=== PATIENT | female | born 1955 | race Caucasian/White ===

== ENCOUNTER 2017-07-16 16:52 | Inpatient (IN) | payer SELFPAY ==
[2017-07-16] VITALS (7 sets, daily range): BP systolic 178–226; BP diastolic 65–103; PULSE 62–82; RESP 16–18; TEMP 98.4–99; O2SAT 97–100
[~2017-07-16] VITALS: Ht 165.1 cm; Wt 92.8 kg
[~2017-07-16 16:52] MED LIST: DICL-86 PO; Z.0.NO CURRENT MEDS
[2017-07-16] MEDS ORDERED: SODIUM CHLOR 0.9% 1000 ML INJ 1,000 ML IV ONE (17:28)
[2017-07-16] MEDS ORDERED: TETANUS/DIPHTHERIA TOXOID ADULT 0.5 ML VIAL IM ONE (17:30)
[2017-07-16] MEDS ORDERED: SODIUM CHLORIDE 0.9% FLUSH 10 ML FLUSH IVF PRN (17:30)
[2017-07-16] MEDS ORDERED: LABETALOL HCL 100 MG/20 ML VIAL IV PUSH ONE ×2 (17:30→20:45)
--- NOTE | 2017-07-16 17:43 | PD ---
HPI Chief Complaint: dizziness/fall Time Seen by Provider: 17:28 Travel History International Travel<30 days: No Contact w/Intl Traveler<30days: No History of Present Illness HPI 61-year-old female presents to the emergency department via EMS for evaluation after a fall. The patient is alert and oriented to person, place, time. She states she felt dizzy today and was lying in bed. The patient states that she thought she was feeling better so she got up and she fell. She hit her head, but denies LOC. Patient reports 2.5 out of 10 headache from the fall. Patient denies any neck pain or back pain. No chest pain or abdominal pain. No vomiting. Patient states she lives alone. Patient denies any nausea, vomiting , diarrhea. She denies any hip or pelvic pain. Patient is unsure when her last tetanus immunization was. Patient is a poor historian. She is quite hypertensive on arrival. She does not follow with a personal physician. She denies any chest pain or shortness of breath. Moderate severity. [facility] Past Medical History Menopausal: Yes Social History Alcohol Use: Yes (2 TIMES A YEAR) Tobacco Use: No Substance Use: No Allergies-Medications (Allergen,Severity, Reaction): Coded Allergies: No Known Allergies (Verified Allergy, Mild, 08/15/07) Reported Meds & Prescriptions Reported Meds & Active Scripts Active Review of Systems Except as stated in HPI: all other systems reviewed are Neg Physical Exam Exam Limitations: Poor Historian Narrative GENERAL: Well-nourished, well-developed female patient, afebrile. Patient is alert oriented to person, place, time. SKIN: Focused skin assessment warm/dry. Patient has abrasions to the forehead, nose, cheek. HEAD: Normocephalic. EYES: No scleral icterus. No injection or drainage. PERRLA. ENT: Mucosa pink and moist. No erythema or exudates. No uvular edema. No uvular , palatal, or tonsillar deviation. Airway patent. Nasal turbinates appear normal without nasal blood, purulent drainage or septal hematoma. Bilateral tympanic membranes clear without erythema or perforation. NECK: Supple, trachea midline. No JVD or lymphadenopathy. CARDIOVASCULAR: Regular rate and rhythm without murmurs, gallops, or rubs. Bilateral radial and pedal pulses are 2+. RESPIRATORY: Breath sounds equal bilaterally. No accessory muscle use. Lung sounds are clear to auscultation. GASTROINTESTINAL: Abdomen soft, non-tender, nondistended. MUSCULOSKELETAL: No cyanosis, or edema. No bony point tenderness. Bilateral upper and lower extremity strength 5/5. All extremities are neurovascularly intact. BACK: Nontender without obvious deformity. No CVA tenderness. NEUROLOGICAL: Awake and alert. Cranial nerves II through XII intact. Motor and sensory grossly within normal limits. Five out of 5 muscle strength in all muscle groups. Normal speech. Finger to nose is normal bilaterally. [id number] is normal bilaterally. Data Data Last Documented VS Vital Signs Date Time Temp Pulse Resp B/P (MAP) Pulse Ox O2 Delivery O2 Flow Rate FiO2 07/16/17 20:39 82 16 210/99 (136) 100 Room Air 07/16/17 18:25 98.4 Orders Orders Electrocardiogram (07/16/17 17:28) Complete Blood Count With Diff (07/16/17 17:) Comprehensive Metabolic Panel (07/16/17:) Magnesium (Mg) (07/16/17:) Ckmb (Isoenzyme) Profile (07/16/17 17:28) Troponin I (07/16/17 17:28) Act Partial Throm Time (Ptt) (07/16/17:) Prothrombin Time / Inr (Pt) (07/16/17 17:) Urinalysis - C+S If Indicated (07/16/17 17:28) Chest, Single Ap (07/16/17 17:28) Ct Brain W/O Iv Contrast(Rout) (07/16/17 17:28) Ct Cerv Spine W/O Contrast (07/16/17 17:28) Blood Glucose (07/16/17 17:28) Ecg Monitoring (07/16/17 17:28) Iv Access Insert/Monitor (07/16/17:) Oximetry (07/16/17 17:) Sodium Chloride 0.9% Flush (Ns Flush) (07/16/17 17:30) Sodium Chlor 0.9% 1000 Ml Inj (Ns 1000 M (07/16/17 17:28) Ct Facial Bones W/O Iv Cont (07/16/17 ) Tetanus/Diphtheria Tox Adult (Tetanus/Di (07/16/17 17:30) Labetalol Inj (Trandate Inj) (07/16/17 17:30) Urine Culture (07/16/17 18:18) CKMB (07/16/17 18:18) CKMB% (07/16/17 18:18) Hydralazine Inj (Apresoline Inj) (07/16/17 20:45) Labetalol Inj (Trandate Inj) (07/16/17 20:45) Ceftriaxone Inj (Rocephin Inj) (07/16/17 20:45) Admit Order (Ed Use Only) (07/16/17 20:44) Labs Laboratory Tests Test 07/16/17 18:18 White Blood Count 9.1 TH/MM3 Red Blood Count 4.19 MIL/MM3 Hemoglobin 12.7 GM/DL Hematocrit 37.1 % Mean Corpuscular Volume 88.5 FL Mean Corpuscular Hemoglobin 30.3 PG Mean Corpuscular Hemoglobin Concent 34.2 % Red Cell Distribution Width 13.7 % Platelet Count 299 TH/MM3 Mean Platelet Volume 8.4 FL Neutrophils (%) (Auto) 80.9 % Lymphocytes (%) (Auto) 13.7 % Monocytes (%) (Auto) 4.8 % Eosinophils (%) (Auto) 0.3 % Basophils (%) (Auto) 0.3 % Neutrophils # (Auto) 7.4 TH/MM3 Lymphocytes # (Auto) 1.2 TH/MM3 Monocytes # (Auto) 0.4 TH/MM3 Eosinophils # (Auto) 0.0 TH/MM3 Basophils # (Auto) 0.0 TH/MM3 CBC Comment DIFF FINAL Differential Comment Prothrombin Time 10.3 SEC Prothromb Time International Ratio 1.0 RATIO Activated Partial Thromboplast Time 28.0 SEC Urine Color LIGHT-YELLOW Urine Turbidity HAZY Urine pH 5.5 Urine Specific [place] 1.019 Urine Protein 300 mg/dL Urine Glucose (UA) NEG mg/dL Urine Ketones NEG mg/dL Urine Occult Blood SMALL Urine Nitrite POS Urine Bilirubin NEG Urine Urobilinogen LESS THAN 2.0 MG/DL Urine Leukocyte Esterase LARGE Urine RBC 1 /hpf Urine WBC 111 /hpf Urine Squamous Epithelial Cells 3 /hpf Urine Bacteria MANY /hpf Urine Hyaline Casts 3 /lpf Urine Mucus FEW /lpf Microscopic Urinalysis Comment CULTURE INDICATED Blood Urea Nitrogen 26 MG/DL Creatinine 1.48 MG/DL Random Glucose 95 MG/DL Total Protein 7.9 GM/DL Albumin 3.7 GM/DL Calcium Level 9.1 MG/DL Magnesium Level 1.9 MG/DL Alkaline Phosphatase 116 U/L Aspartate Amino Transf (AST/SGOT) 17 U/L Alanine Aminotransferase (ALT/SGPT) 15 U/L Total Bilirubin 0.3 MG/DL Sodium Level 141 MEQ/L Potassium Level 3.5 MEQ/L Chloride Level 109 MEQ/L Carbon Dioxide Level 22.6 MEQ/L Anion Gap 9 MEQ/L Estimat Glomerular Filtration Rate 36 ML/MIN Total Creatine Kinase 132 U/L Creatine Kinase MB 1.3 NG/ML Troponin I LESS THAN 0.02 NG/ML MDM Medical Decision Making Medical Screen Exam Complete: Yes Emergency Medical Condition: Yes Medical Record Reviewed: Yes Interpretation(s) Last Impressions Head CT 07/16/[id number] Signed Impressions: Service Date/Time: Sunday, July 16, 2017 19:21 - CONCLUSION: 1. No acute intracranial abnormality seen. There are multiple old lacunar infarcts. 2. Right frontal scalp injury/hematoma with right periorbital soft tissue swelling and nasal bone fractures with leftward deviation of the fragments. Jerardo Rogers MD Chest X-Ray [id number]/16/[id number] Signed Impressions: Service Date/Time: Sunday, July 16, 2017 17:36 - CONCLUSION: No acute disease. Gilberto Vergara MD Cervical Spine CT [id number]/[id number] Signed Impressions: Service Date/Time: Sunday, July 16, 2017 19:21 - CONCLUSION: 1. No acute bony abnormality is seen. 2. Facet hypertrophy throughout. Jerardo Rogers MD Maxillofacial CT 07/16/17 0000 Signed Impressions: Service Date/Time: Sunday, July 16, 2017 19:21 - CONCLUSION: 1. Nasal bone fractures. 2. Right frontal scalp swelling and hematoma. 3. Right periorbital soft tissue swelling. Jerardo Rogers MD Differential Diagnosis Closed head injury versus intracranial hemorrhage versus hypertension versus hypertensive emergency versus electrolyte abnormality versus ACS Narrative Course 61-year-old female presents to the emergency department for evaluation for dizziness and a fall. Patient is quite hypertensive via EMS and on arrival. She has no complaints other than a mild headache. She does have abrasions to the face. She does not know when her last tetanus immunization was. EKG, CBC, CMP, magnesium, CK, troponin, PTT, PT/INR, UA are ordered and pending. CT of the brain, CT cervical spine, CT the facial bones are ordered and pending. Chest x-ray is ordered and pending. Tetanus immunization is updated. Patient is given normal saline 1 L IV bolus, labetalol 10 mg IV for hypertension. EKG shows sinus rhythm, heart rate 76. CBC shows no acute abnormality. CMP shows BUN 26, creatinine 1.48. Magnesium is 1.9. CK is 132. Troponin is less than 0.02. Coags are unremarkable. UA shows large leukocyte Estrace, 111 WBC, many bacteria. CT of the brain shows no acute intracranial abnormality, multiple old lucent R infarcts, right frontal scalp injury/hematoma with right periorbital soft tissue swelling and nasal bone fractures with leftward deviation of the fragment. CT of the cervical spine shows no acute bony abnormality. CT of the facial bones shows nasal bone fractures, right frontal scalp swelling and hematoma, right periorbital soft tissue swelling. Chest x- ray shows no acute disease. Patient is unable to ambulate in the emergency department and is very unsteady on her feet. Patient will be admitted. Dr. Acosta accepted admission. Diagnosis Primary Impression: Dizziness Additional Impressions: Closed head injury Qualified Codes: S09.90XA - Unspecified injury of head, initial encounter Nasal bone fracture Qualified Codes: S02.2XXA - Fracture of nasal bones, initial encounter for closed fracture Unsteady gait Hypertension Qualified Codes: I10 - Essential (primary) hypertension Admitting Information Admitting Physician Requests: Admit Yue Nguyen July 16, 2017 17:43
--- NOTE | 2017-07-16 17:49 | RADRPT ---
EXAM DATE/TIME: 07/16/2017 17:36 [facility] COMPARISON: No previous studies available for comparison. INDICATIONS : Shortness of breath and dizziness post fall. MEDICAL HISTORY : None. SURGICAL HISTORY : None. ENCOUNTER: Initial ACUITY: 1 day PAIN SCORE: 0/10 LOCATION: chest FINDINGS: A single view of the chest demonstrates the lungs to be symmetrically aerated without evidence of mas s, infiltrate or effusion. The cardiomediastinal contours are unremarkable. Osseous structures are intact. CONCLUSION: No acute disease. Gilberto Vergara MD on July 16, 2017 at 17:47 Board Certified Radiologist. This report was verified electronically.
[2017-07-16 18:37] LABS: AUTOMATED NEUTROPHIL # 7.4 TH/MM3 (1.8-7.7); BASOPHIL % 0.3 % (0.0-2.0); EOSINOPHIL % 0.3 % (0.0-4.0); HEMATOCRIT 37.1 % (35.0-46.0); HEMOGLOBIN 12.7 GM/DL (11.6-15.3); LYMPH % 13.7 % (9.0-44.0); LYMPHOCYTE # 1.2 TH/MM3 (1.0-4.8); MEAN CELL VOLUME 88.5 FL (80.0-100.0); MEAN CORPUSCULAR HEMOGLOBIN 30.3 PG (27.0-34.0); MEAN CORPUSCULAR HGB CONC 34.2 % (32.0-36.0); MEAN PLATELET VOLUME 8.4 FL (7.0-11.0); MONO % 4.8 % (0.0-8.0); MONOCYTE # 0.4 TH/MM3 (0-0.9); NEUT % 80.9 % (16.0-70.0); PLATELET COUNT 299 TH/MM3 (150-450); RED BLOOD COUNT 4.19 MIL/MM3 (4.00-5.30); RED CELL DISTRIBUTION WIDTH 13.7 % (11.6-17.2); WHITE BLOOD COUNT 9.1 TH/MM3 (4.0-11.0)
[2017-07-16 18:46] LABS: BACTERIA, URINE MANY /hpf; BILIRUBIN, URINE NEG (NEG); BLOOD, URINE SMALL (NEG); GLUCOSE,URINE NEG (NEG); HYALINE CAST, URINE 3 /lpf (RARE); KETONE, URINE NEG (NEG); MUCUS URINE FEW /lpf (OCC); NITRITE,URINE POS (NEG); PH, URINE 5.5 (5.0-8.5); SQUAMOUS EPITHELIAL CELL URINE 3 /hpf (0-5); URINE COLOR LIGHT-YELLOW (YELLW/STRAW); URINE LEUKOCYTE ESTERASE LARGE (NEG)
[2017-07-16 18:53] LABS: PROTHROMBIN TIME - PATIENT 10.3 SEC (9.8-11.6)
[2017-07-16 18:59] LABS: ALBUMIN 3.7 GM/DL (3.4-5.0); AST (GOT) 17 U/L (15-37); BICARBONATE 22.6 MEQ/L (21.0-32.0); BLOOD UREA NITROGEN 26 MG/DL (7-18); CALCIUM 9.1 MG/DL (8.5-10.1); CHLORIDE 109 MEQ/L (98-107); CREATININE 1.48 MG/DL (0.50-1.00); GLOMERULAR FILTRATION RATE 36 ML/MIN (>89); GLUCOSE,RANDOM 95 MG/DL (74-106); MAGNESIUM 1.9 MG/DL (1.5-2.5); SODIUM (NA) 141 MEQ/L (136-145)
[2017-07-16 19:00] LABS: ALT (GPT) 15 U/L (10-53)
[2017-07-16 19:04] LABS: ALKALINE PHOSPHATASE 116 U/L (45-117); TOTAL BILIRUBIN ADULT 0.3 MG/DL (0.2-1.0); TOTAL PROTEIN 7.9 GM/DL (6.4-8.2); TROPONIN I LESS THAN 0.02 NG/ML (0.02-0.05)
--- NOTE | 2017-07-16 20:26 | RADRPT ---
EXAM DATE/TIME: 07/16/2017 19:21 [facility] COMPARISON: No previous studies available for comparison. INDICATIONS : Trauma; fall. RADIATION DOSE: 56.35 CTDIvol (mGy) MEDICAL HISTORY : None SURGICAL HISTORY : None. ENCOUNTER: Initial ACUITY: 1 day PAIN SCALE: 5/10 LOCATION: cranial TECHNIQUE: Multiple contiguous axial images were obtained of the head. Using automated exposure control and adj ustment of the mA and/or kV according to patient size, radiation dose was kept as low as reasonably a chievable to obtain optimal diagnostic quality images. DICOM format image data is available electro nically for review and comparison. FINDINGS: CEREBRUM: The ventricles are normal for age. There is decreased density seen in the cerebral white matter. Old lacunar infarct is seen at the caudate nuclei bilaterally, at the bilateral thalamus, at the genu of the internal capsule on the left, and at the basal ganglia regions. No evidence of midline shift, ma ss lesion, hemorrhage or acute infarction. No extra-axial fluid collections are seen. POSTERIOR FOSSA: The cerebellum and brainstem are intact. The 4th ventricle is midline. The cerebellopontine angle i s unremarkable. EXTRACRANIAL: The visualized portion of the orbits is intact. There are nasal bone fractures with some leftward ang ulation of the fracture fragments. There is a right frontal scalp injury/hematoma seen. There is a ri ght periorbital soft tissue swelling. There is left maxillary sinus disease. SKULL: The calvaria is intact. No evidence of skull fracture. CONCLUSION: 1. No acute intracranial abnormality seen. There are multiple old lacunar infarcts. 2. Right frontal scalp injury/hematoma with right periorbital soft tissue swelling and nasal bone fra ctures with leftward deviation of the fragments. Jerardo Rogers MD on July 16, 2017 at 20:21 Board Certified Radiologist. This report was verified electronically.
--- NOTE | 2017-07-16 20:30 | RADRPT ---
EXAM DATE/TIME: 07/16/2017 19:21 [facility] COMPARISON: No previous studies available for comparison. INDICATIONS : Trauma; fall. RADIATION DOSE: 20.37 CTDIvol (mGy) MEDICAL HISTORY : None SURGICAL HISTORY : None. ENCOUNTER: Initial ACUITY: 1 day PAIN SCALE: 5/10 LOCATION: Bilateral cranial TECHNIQUE: Volumetric scanning of the cervical spine was performed. Multiplanar reconstructions in the sagittal, coronal and oblique axial planes were performed. Using automated exposure control and adjustment o f the mA and/or kV according to patient size, radiation dose was kept as low as reasonably achievable to obtain optimal diagnostic quality images. DICOM format image data is available electronically f or review and comparison. FINDINGS: VERTEBRAE: Normal vertebral body height. Minimal anterior marginal osteophytes are seen. ALIGNMENT: No evidence of subluxation. C2-C3: The bony spinal canal is normal in size. No evidence of disc bulge or herniation. The neural forami na are bilaterally patent. There is bilateral facet hypertrophy being worse on the left. C3-C4: The bony spinal canal is normal in size. No evidence of disc bulge or herniation. The neural forami na are bilaterally patent. There is bilateral facet hypertrophy being worse on the left. C4-C5: The bony spinal canal is normal in size. No evidence of disc bulge or herniation. The neural forami na are bilaterally patent. There is bilateral facet hypertrophy. C5-C6: The bony spinal canal is normal in size. No evidence of disc bulge or herniation. The neural forami na are bilaterally patent. There is bilateral facet hypertrophy being worse on the left. C6-C7: The bony spinal canal is normal in size. No evidence of disc bulge or herniation. The neural forami na are bilaterally patent. There is bilateral facet hypertrophy being worse on the left. There is unc overtebral hypertrophy being worse on the right. C7-T1: The bony spinal canal is normal in size. No evidence of disc bulge or herniation. The neural forami na are bilaterally patent. There is bilateral facet hypertrophy being worse on the left. CONCLUSION: 1. No acute bony abnormality is seen. 2. Facet hypertrophy throughout. Jerardo Rogers MD on July 16, 2017 at 20:24 Board Certified Radiologist. This report was verified electronically.
--- NOTE | 2017-07-16 20:33 | RADRPT ---
EXAM DATE/TIME: 07/16/2017 19:21 [facility] COMPARISON: No previous studies available for comparison. INDICATIONS : Trauma; fall. RADIATION DOSE: 21.06 CTDIvol (mGy) MEDICAL HISTORY : None SURGICAL HISTORY : None. ENCOUNTER: Initial ACUITY: 1 day PAIN SCORE: 5/10 LOCATION: Bilateral facial TECHNIQUE: Volumetric scanning of the facial bones was performed. Using automated exposure control and adjustme nt of the mA and/or kV according to patient size, radiation dose was kept as low as reasonably achiev able to obtain optimal diagnostic quality images. DICOM format image data is available electronicall y for review and comparison. FINDINGS: ORBITS: There is right periorbital soft tissue swelling. The orbital and infraorbital osseous structures are intact. The retroconal structures have a normal configuration. No radiopaque foreign bodies are see n. NASAL BONE: There is fracturing of the nasal bones with leftward angulation of the fracture fragments. ZYGOMATIC ARCHES: Symmetric without evidence of fracture. SINUSES: There is focal left maxillary sinus disease. The right maxillary, ethmoid and frontal sinuses are int act. No air-fluid levels seen. NASAL CAVITY: Nasal septum is mildly deviated to the right. SOFT TISSUES: There is soft tissue swelling and hematoma over the right frontal scalp region and right periorbital soft tissue swelling. There is soft tissue swelling of the nose. INTRACRANIAL: No intracranial air seen. CRIBIFORM PLATE: Grossly intact. CONCLUSION: 1. Nasal bone fractures. 2. Right frontal scalp swelling and hematoma. 3. Right periorbital soft tissue swelling. Jerardo Rogers MD on July 16, 2017 at 20:28 Board Certified Radiologist. This report was verified electronically.
[2017-07-16] MEDS ORDERED: hydrALAZINE HCL 20 MG/ML VIAL IV PUSH ONE (20:45)
[2017-07-16] MEDS ORDERED: cefTRIAXone INJ 1,000 MG in SODIUM CHLORIDE 0.9% INJ 100 ML IV ONE (20:45)
[2017-07-16] MEDS ORDERED: GADODIAMIDE PF 287 MG/ML 5 ML VIAL (for RAD MRI) IVCONTRAST ONE (20:47)
[2017-07-16] MEDS: SODIUM CHLORIDE 0.9% FLUSH 10 ML FLUSH IV FLUSH SCH (21:00)
[2017-07-16] MEDS ORDERED: SODIUM CHLORIDE 0.9% FLUSH 10 ML FLUSH IV FLUSH PRN (21:00)
[2017-07-16] MEDS ORDERED: SENNOSIDES 8.6 MG TAB PO PRN (21:00)
[2017-07-16] MEDS ORDERED: ACETAMINOPHEN 325 MG TAB PO PRN (21:00)
[2017-07-16] MEDS ORDERED: LACTULOSE SYRUP 20 GM/30 ML CUP PO PRN (21:00)
[2017-07-16] MEDS ORDERED: BISACODYL 10 MG SUPP RECTAL PRN (21:00)
[2017-07-16] MEDS: DOCUSATE SODIUM 50 MG/SENNA 8.6 MG TAB PO SCH (21:00)
[2017-07-16] MEDS ORDERED: ACETAMINOPHEN/HYDROcodone 325 MG/10 MG TAB PO PRN (21:00)
[2017-07-16] MEDS ORDERED: MAGNESIUM HYDROXIDE SUSP 30 ML CUP PO PRN (21:00)
[2017-07-16] MEDS ORDERED: METOCLOPRAMIDE HCL 10 MG/2 ML VIAL IV PUSH PRN (21:00)
--- NOTE | 2017-07-16 21:03 | HHI.HP ---
[facility] No Primary Care Physician Admission Diagnosis Dizziness, nasal fracture, UTI, HTN Diagnoses: (1) Fall Diagnosis: Principal (2) Dizziness Diagnosis: Principal (3) Nasal bone fracture Diagnosis: Principal (4) UTI (urinary tract infection) Diagnosis: Principal (5) Renal insufficiency Diagnosis: Principal Travel History International Travel<30 Days: No Contact w/Intl Traveler <30 Da: No Traveled to Known Affected Are: No History of Present Illness This is a 61-year-old female with a PMH of HTN was brought to the ER by EMS after a fall. Patient is very poor historian, questionable underling psych/ cognitive disorder, states "we've been having dizziness for 10yrs", when I asked her who "we" was, she said "me, myself and I". Pt states today she got dizzy and went to bed, when she woke up she tried to get out of bed and fell. + facial injury. Denies LOC. On arrival, BP 226/103, HR 81, O2 sat 99% on RA, Afebrile. CBC unremarkable. Creatinine 1.48, no previous labs for comparison. INR 1.0. UA positive for UTI. CT Head with no acute intracranial findings, multiple old lacunar infarcts, right frontal scalp hematoma/injury, nasal bone fractures with leftward deviation of fragments. CT C-spine with no acute findings. CT Maxillofacial with nasal bone fractures, right frontal scalp swelling and hematoma, right periorbital soft tissue swelling. CXR with no acute findings. S/p Rocephin in ER Review of Systems Except as stated in HPI: all other systems reviewed are Neg ROS: 14 point review of systems otherwise negative. Past Family Social History Past Medical History PMH: HTN Past Surgical History PAST SURGICAL HISTORY: None Allergies: Coded Allergies: No Known Allergies (Verified Allergy, Mild, 08/15/07) Family History PAST FAMILY HISTORY: Reviewed. No h/o DM or CAD Social History PAST SOCIAL HISTORY: Occasional alcohol. Negative for tobacco or drugs. Physical Exam Vital Signs Vital Signs Date Time Temp Pulse Resp B/P (MAP) Pulse Ox O2 Delivery O2 Flow Rate FiO2 5/18/18 20:51 71 16 178/65 (102) 98 Room Air 07/16/17 20:39 82 16 210/99 (136) 100 Room Air 07/16/17 19:38 79 16 194/93 (126) 98 Room Air 07/16/17 18:39 79 18 202/98 (132) 98 Room Air 07/16/17 18:35 79 18 97 Room Air 07/16/17 18:25 98.4 81 18 226/103 (144) 99 Room Air 07/16/17 18:24 18 98 Room Air Physical Exam PE: GENERAL: Pleasant middle-aged white female in no acute distress. HEENT: PERRLA, EOMI. No scleral icterus or conjunctival pallor. No lid lag or facial droop. Right-sided facial hematoma with periorbital swelling CARDIOVASCULAR: Regular rate and rhythm. No obvious murmurs to auscultation. No chest tenderness to palpation. RESPIRATORY: No obvious rhonchi or wheezing. Clear to auscultation. Breath sounds equal bilaterally. GASTROINTESTINAL: Abdomen soft, non-tender, nondistended. BS normal. MUSCULOSKELETAL: Extremities without clubbing, cyanosis, or edema. No obvious deformities. NEUROLOGICAL: Awake, alert and oriented x4. No focal neurologic deficits. Moving both upper and lower extremities spontaneously. Laboratory Laboratory Tests Test 07/16/17 18:18 White Blood Count 9.1 Red Blood Count 4.19 Hemoglobin 12.7 Hematocrit 37.1 Mean Corpuscular Volume 88.5 Mean Corpuscular Hemoglobin 30.3 Mean Corpuscular Hemoglobin Concent 34.2 Red Cell Distribution Width 13.7 Platelet Count 299 Mean Platelet Volume 8.4 Neutrophils (%) (Auto) 80.9 Lymphocytes (%) (Auto) 13.7 Monocytes (%) (Auto) 4.8 Eosinophils (%) (Auto) 0.3 Basophils (%) (Auto) 0.3 Neutrophils # (Auto) 7.4 Lymphocytes # (Auto) 1.2 Monocytes # (Auto) 0.4 Eosinophils # (Auto) 0.0 Basophils # (Auto) 0.0 CBC Comment DIFF FINAL Differential Comment Prothrombin Time 10.3 Prothromb Time International Ratio 1.0 Activated Partial Thromboplast Time 28.0 Urine Color LIGHT-YELLOW Urine Turbidity HAZY Urine pH 5.5 Urine Specific [place] 1.019 Urine Protein 300 Urine Glucose (UA) NEG Urine Ketones NEG Urine Occult Blood SMALL Urine Nitrite POS Urine Bilirubin NEG Urine Urobilinogen LESS THAN 2.0 Urine Leukocyte Esterase LARGE Urine RBC 1 Urine WBC 111 Urine Squamous Epithelial Cells 3 Urine Bacteria MANY Urine Hyaline Casts 3 Urine Mucus FEW Microscopic Urinalysis Comment CULTURE INDICATED Blood Urea Nitrogen 26 Creatinine 1.48 Random Glucose 95 Total Protein 7.9 Albumin 3.7 Calcium Level 9.1 Magnesium Level 1.9 Alkaline Phosphatase 116 Aspartate Amino Transf (AST/SGOT) 17 Alanine Aminotransferase (ALT/SGPT) 15 Total Bilirubin 0.3 Sodium Level 141 Potassium Level 3.5 Chloride Level 109 Carbon Dioxide Level 22.6 Anion Gap 9 Estimat Glomerular Filtration Rate 36 Total Creatine Kinase 132 Creatine Kinase MB 1.3 Troponin I LESS THAN 0.02 Date/Time Source Procedure Growth Status 07/16/17 18:18 Urine Random Urine Urine Culture Pending Worksheet Result Diagram: 07/16/17181707/16/171817 Caprini VTE Risk Assessment Caprini VTE Risk Assessment: No/Low Risk (score <= 1) Caprini Risk Assessment Model Point Value = 1 Point Value = 2 Point Value = 3 Point Value = 5 Age 41-60 Minor surgery BMI > 25 kg/m2 Swollen legs Varicose veins or History of unexplained or recurrent spontaneous Oral contraceptives or hormone replacement Sepsis (< 1 month) Serious lung disease, including pneumonia (< 1 month) Abnormal pulmonary function Acute myocardial infarction Congestive heart failure (< 1 month) History of inflammatory bowel disease Medical patient at bed rest Age 61-74 Arthroscopic surgery Major open surgery (> 45 min) Laparoscopic surgery (> 45 min) Malignancy Confined to bed (> 72 hours) Immobilizing plaster cast Central venous access Age >= 75 History of VTE Family history of VTE Factor V Leiden Prothrombin [id number] Lupus anticoagulant Anticardiolipin antibodies Elevated serum homocysteine Heparin-induced thrombocytopenia Other congenital or acquired thrombophilia Stroke (< 1 month) Elective arthroplasty Hip, pelvis, or leg fracture Acute spinal cord injury (< 1 month) Prophylaxis Regimen Total Risk Factor Score Risk Level Prophylaxis Regimen 0-1 Low Early ambulation 2 Moderate Order ONE of the following: *Sequential Compression Device (SCD) *Heparin 5000 units SQ BID 3-4 Higher Order ONE of the following medications: *Heparin 5000 units SQ TID *Enoxaparin/Lovenox 40 mg SQ daily (WT < 150 kg, CrCl > 30 mL/min) *Enoxaparin/Lovenox 30 mg SQ daily (WT < 150 kg, CrCl > 10-29 mL/min) *Enoxaparin/Lovenox 30 mg SQ BID (WT < 150 kg, CrCl > 30 mL/min) AND/OR *Sequential Compression Device (SCD) 5 or more Highest Order ONE of the following medications: *Heparin 5000 units SQ TID (Preferred with Epidurals) *Enoxaparin/Lovenox 40 mg SQ daily (WT < 150 kg, CrCl > 30 mL/min) *Enoxaparin/Lovenox 30 mg SQ daily (WT < 150 kg, CrCl > 10-29 mL/min) *Enoxaparin/Lovenox 30 mg SQ BID (WT < 150 kg, CrCl > 30 mL/min) AND *Sequential Compression Device (SCD) Assessment and Plan Problem List: (1) Fall ICD Code: W19.XXXA - Unspecified fall, initial encounter (2) Dizziness ICD Code: R42 - Dizziness and giddiness Status: Acute (3) Nasal bone fracture ICD Code: S02.2XXA - Fracture of nasal bones, initial encounter for closed fracture Status: Acute (4) Renal insufficiency ICD Code: N28.9 - Disorder of kidney and ureter, unspecified (5) UTI (urinary tract infection) ICD Code: N39.0 - Urinary tract infection, site not specified Assessment and Plan A/P: 1. Fall: reports all at home while getting out of bed, +facial injury. CT Head w/ no acute intracranial findings, CT C-Spine negative for acute fracture. 2. Dizziness: reports dizziness for years, today worse. CT Head w/ no acute findings, old lacunar infarcts. Dizziness possibly compounded by acute UTI/ dehydration. PT for eval/tx. 3. Nasal Bone Fx: CT Maxillofacial w/ nasal bone fractures and leftward deviation of fragments, images reviewed by me. Non-emergent intervention, will consult ENT in am for further evaluation. 4. HTN: Uncontrolled. BP 226/103, HR 81, s/p Labetalol and Hydralazine IV in ER, will monitor BP, antihypertensives as needed for BP >180 5. UTI: U/a w/ UTI, s/p Rocephin, continue w/ IV Abx, follow up cultures, IVF for hydration. 6. Renal Insufficiency: Creatinine 1.48, no previous labs for comparison, presumably new. IVF for hydration, repeat labs in a.m. 7. DVT Prophylaxis: SCDs/teds. 8. Social work for DC planning as needed. 9. Case discussed at length with the ER physician, lab/record/imaging reviewed by me. Problem Qualifiers (1) Nasal bone fracture: Qualified Codes: S02.2XXA - Fracture of nasal bones, initial encounter for closed fracture Elena Acosta MD July 16, 2017 21:03
[2017-07-16] MEDS: METOPROLOL TARTRATE 25 MG TAB PO SCH (21:30)
[2017-07-16] MEDS: ACETAMINOPHEN/HYDROcodone 325 MG/5 MG TAB PO PRN (21:31)
[2017-07-16] MEDS: SODIUM CHLOR 0.9% 1000 ML INJ 1,000 ML IV SCH (21:31)
[2017-07-16] MEDS: cloNIDine HCL 0.1 MG TAB PO PRN (23:05)
[2017-07-17] VITALS (7 sets, daily range): BP systolic 142–209; BP diastolic 66–94; PULSE 16–59; RESP 16–18; TEMP 98–98.4; O2SAT 96–99
[2017-07-17] MEDS: SODIUM CHLOR 0.9% 1000 ML INJ 1,000 ML IV SCH ×2 (06:02→17:00)
--- NOTE | 2017-07-17 07:58 | PD.CONS ---
History of Present Illness Service ENT Consult Requested By ED Reason for Consult Non-displaced nasal fracture Primary Care Physician No Primary Care Physician Diagnoses: History of Present Illness 61 year old female. Poor historian. History mostly from record. Fell. terminal manager imbalance. Patient does notdescribe any true vertigo. Facial injury. Minimally displaced nasal bone fracture per CT scan. No reports of vertigo now. Review of Systems Ears, nose, mouth, throat: DENIES: Nasal discharge, Oral lesions, Epistaxis Past Family Social History Allergies: Coded Allergies: No Known Allergies (Verified Allergy, Mild, 08/15/07) Physical Exam Vital Signs Vital Signs Date Time Temp Pulse Resp B/P (MAP) Pulse Ox O2 Delivery O2 Flow Rate FiO2 07/17/17 03:37 98.1 54 17 142/66 (91) 99 07/16/17 22:51 99.0 62 18 200/96 (130) 97 07/16/17 20:51 71 16 178/65 (102) 98 Room Air 07/16/17 20:39 82 16 210/99 (136) 100 Room Air 07/16/17 19:38 79 16 194/93 (126) 98 Room Air 07/16/17 18:39 79 18 202/98 (132) 98 Room Air 07/16/17 18:35 79 18 97 Room Air 07/16/17 18:25 98.4 81 18 226/103 (144) 99 Room Air 07/16/17 18:24 18 98 Room Air Physical Exam GENERAL: This is a well-nourished, well-developed patient, in no apparent distress. SKIN: No rashes, ecchymoses or lesions. Cool and dry. HEAD: Left forehead abrasion and hematoma. Normocephalic. EYES: Pupils equal round and reactive. Extraocular motions intact. No scleral icterus. No injection or drainage. ENT: Nose without bleeding, purulent drainage or septal hematoma. Nasal bone projection is WNL. Old septal deviation. Throat without erythema, tonsillar hypertrophy or exudate. Uvula midline. Airway patent. NECK: Trachea midline. No JVD or lymphadenopathy. Supple, nontender, no meningeal signs. NEUROLOGICAL: Awake and alert. Normal speech. Laboratory Laboratory Tests Test 07/16/17 18:18 White Blood Count 9.1 Red Blood Count 4.19 Hemoglobin 12.7 Hematocrit 37.1 Mean Corpuscular Volume 88.5 Mean Corpuscular Hemoglobin 30.3 Mean Corpuscular Hemoglobin Concent 34.2 Red Cell Distribution Width 13.7 Platelet Count 299 Mean Platelet Volume 8.4 Neutrophils (%) (Auto) 80.9 Lymphocytes (%) (Auto) 13.7 Monocytes (%) (Auto) 4.8 Eosinophils (%) (Auto) 0.3 Basophils (%) (Auto) 0.3 Neutrophils # (Auto) 7.4 Lymphocytes # (Auto) 1.2 Monocytes # (Auto) 0.4 Eosinophils # (Auto) 0.0 Basophils # (Auto) 0.0 CBC Comment DIFF FINAL Differential Comment Prothrombin Time 10.3 Prothromb Time International Ratio 1.0 Activated Partial Thromboplast Time 28.0 Urine Color LIGHT-YELLOW Urine Turbidity HAZY Urine pH 5.5 Urine Specific [place] 1.019 Urine Protein 300 Urine Glucose (UA) NEG Urine Ketones NEG Urine Occult Blood SMALL Urine Nitrite POS Urine Bilirubin NEG Urine Urobilinogen LESS THAN 2.0 Urine Leukocyte Esterase LARGE Urine RBC 1 Urine WBC 111 Urine Squamous Epithelial Cells 3 Urine Bacteria MANY Urine Hyaline Casts 3 Urine Mucus FEW Microscopic Urinalysis Comment CULTURE INDICATED Blood Urea Nitrogen 26 Creatinine 1.48 Random Glucose 95 Total Protein 7.9 Albumin 3.7 Calcium Level 9.1 Magnesium Level 1.9 Alkaline Phosphatase 116 Aspartate Amino Transf (AST/SGOT) 17 Alanine Aminotransferase (ALT/SGPT) 15 Total Bilirubin 0.3 Sodium Level 141 Potassium Level 3.5 Chloride Level 109 Carbon Dioxide Level 22.6 Anion Gap 9 Estimat Glomerular Filtration Rate 36 Total Creatine Kinase 132 Creatine Kinase MB 1.3 Troponin I LESS THAN 0.02 Date/Time Source Procedure Growth Status 07/16/17 18:18 Urine Random Urine Urine Culture Pending Worksheet Result Diagram: 07/16/178 07/16/[address] facial bones reviewed. There is a right sided fracture, but it is minimally displaced. There is no septal hematoma. The cartilaginous septum is deviated to the left. This can be a chronic finding. Assessment and Plan Assessment and Plan 61 year old female. Imbalance. No vertigo. Defer to medicine. Consider neurology eval if indicated. No acute intervention, such as closed reduction indicated for minimally displaced nasal bone fracture. Suspect septal deviation is care home. If not, it will generally improve over the next few weeks. Should follow as an outpatient. Do not treat acute facial trauma. Defer treatment of facial abrasion to ED. Otf Brock MD July 17, 2017 07:58
[2017-07-17 08:28] LABS: AUTOMATED NEUTROPHIL # 5.5 TH/MM3 (1.8-7.7); BASOPHIL % 0.2 % (0.0-2.0); EOSINOPHIL # 0.1 TH/MM3 (0-0.4); EOSINOPHIL % 0.8 % (0.0-4.0); HEMATOCRIT 36.1 % (35.0-46.0); HEMOGLOBIN 12.3 GM/DL (11.6-15.3); LYMPH % 23.7 % (9.0-44.0); LYMPHOCYTE # 1.9 TH/MM3 (1.0-4.8); MEAN CELL VOLUME 88.7 FL (80.0-100.0); MEAN CORPUSCULAR HEMOGLOBIN 30.3 PG (27.0-34.0); MEAN CORPUSCULAR HGB CONC 34.2 % (32.0-36.0); MEAN PLATELET VOLUME 8.1 FL (7.0-11.0); MONOCYTE # 0.5 TH/MM3 (0-0.9); NEUT % 69.3 % (16.0-70.0); PLATELET COUNT 303 TH/MM3 (150-450); RED BLOOD COUNT 4.07 MIL/MM3 (4.00-5.30); RED CELL DISTRIBUTION WIDTH 13.9 % (11.6-17.2); WHITE BLOOD COUNT 7.9 TH/MM3 (4.0-11.0)
[2017-07-17 08:51] LABS: ALBUMIN 3.5 GM/DL (3.4-5.0); AST (GOT) 17 U/L (15-37); BICARBONATE 24.1 MEQ/L (21.0-32.0); BLOOD UREA NITROGEN 24 MG/DL (7-18); CALCIUM 8.7 MG/DL (8.5-10.1); CHLORIDE 109 MEQ/L (98-107); CREATININE 1.35 MG/DL (0.50-1.00); GLOMERULAR FILTRATION RATE 40 ML/MIN (>89); GLUCOSE,RANDOM 98 MG/DL (74-106); SODIUM (NA) 143 MEQ/L (136-145)
[2017-07-17 08:54] LABS: ALKALINE PHOSPHATASE 110 U/L (45-117); ALT (GPT) 17 U/L (10-53); TOTAL BILIRUBIN ADULT 0.4 MG/DL (0.2-1.0); TOTAL PROTEIN 7.6 GM/DL (6.4-8.2)
[2017-07-17] MEDS: SODIUM CHLORIDE 0.9% FLUSH 10 ML FLUSH IV FLUSH SCH ×2 (09:00→22:49)
--- NOTE | 2017-07-17 10:39 | HHI.PR ---
Subjective Remarks Follow up for fall, dizziness, UTI, HAIM. The patient reports feeling sore all over today. She denies any significant dizziness while lying in bed, has not yet attempted ambulation. Denies any chest pain, palpitations, or shortness of breath. Denies any dysuria, suprapubic, but does have increased urinary frequency and has to urinate every hour. The patient lives alone in an apartment. She states she takes a bus or walks to get her groceries. She states neighbors check on her from time to time. Of note, patient continuously states "we" throughout conversation. She was asked multiple times who is "we" and the patient states "me, myself, and I". Objective Vitals Vital Signs Date Time Temp Pulse Resp B/P (MAP) Pulse Ox O2 Delivery O2 Flow Rate FiO2 07/17/17 03:37 98.1 54 17 142/66 (91) 99 07/16/17 22:51 99.0 62 18 200/96 (130) 97 07/16/17 20:51 71 16 178/65 (102) 98 Room Air 07/16/17 20:39 82 16 210/99 (136) 100 Room Air 07/16/17 19:38 79 16 194/93 (126) 98 Room Air 07/16/17 18:39 79 18 202/98 (132) 98 Room Air 07/16/17 18:35 79 18 97 Room Air 07/16/17 18:25 98.4 81 18 226/103 (144) 99 Room Air 07/16/17 18:24 18 98 Room Air Result Diagram: 07/17/17 0757 07/17/17 0757 Imaging Last Impressions Head CT 07/16/[id number] Signed Impressions: Service Date/Time: Sunday, July 16, 2017 19:21 - CONCLUSION: 1. No acute intracranial abnormality seen. There are multiple old lacunar infarcts. 2. Right frontal scalp injury/hematoma with right periorbital soft tissue swelling and nasal bone fractures with leftward deviation of the fragments. Jerardo Rogers MD Chest X-Ray [id number]/16/[id number] Signed Impressions: Service Date/Time: Sunday, July 16, 2017 17:36 - CONCLUSION: No acute disease. Gilberto Vergara MD Cervical Spine CT [id number]/16/[id number] Signed Impressions: Service Date/Time: Sunday, July 16, 2017 19:21 - CONCLUSION: 1. No acute bony abnormality is seen. 2. Facet hypertrophy throughout. Jerardo Rogers MD Maxillofacial CT 07/16/17 0000 Signed Impressions: Service Date/Time: Sunday, July 16, 2017 19:21 - CONCLUSION: 1. Nasal bone fractures. 2. Right frontal scalp swelling and hematoma. 3. Right periorbital soft tissue swelling. Jerardo Rogers MD Objective Remarks GENERAL: Well-nourished, well-developed female patient in NAD. SKIN: Warm and dry. No rash. HEENT: Normocephalic. Diffuse facial ecchymosis and hematomas throughout forehead, bilateral periorbital, nasal and and maxillary regions. Pupils equal and round. Mucous membranes pink and moist. NECK: Supple. Trachea midline. CARDIOVASCULAR: Regular rate and rhythm. No murmur appreciated. RESPIRATORY: No accessory muscle use. Clear to auscultation. Breath sounds equal bilaterally. GASTROINTESTINAL: Abdomen soft, non-tender, nondistended. Normoactive bowel sounds x4. MUSCULOSKELETAL: No obvious deformities. Extremities without clubbing, cyanosis , or edema. NEUROLOGICAL: Awake and alert. No obvious cranial nerve deficits. Motor grossly within normal limits. Moving all extremities spontaneously. Normal speech. PSYCHIATRIC: Appropriate mood and affect; insight and judgment normal. Medications and IVs Current Medications Medications (Trade) Dose Ordered Sig/Scott Route Start Time Stop Time Status Last Admin (NS Flush) 2 ml UNSCH PRN IVF 07/16/17 17:30 (Lopressor) 25 mg Q12HR PO 07/16/17 21:00 07/17/17 11:13 Ceftriaxone Sodium 1000 mg/ Sodium Chloride 100 ml @ 200 mls/hr Q24H IV 07/17/17 21:00 Sodium Chloride 1,000 ml @ 100 mls/hr Q10H IV 07/16/17 21:00 07/16/17 21:31 (NS Flush) 2 ml UNSCH PRN IV FLUSH 07/16/17 21:00 (NS Flush) 2 ml BID IV FLUSH 07/16/17 21:00 07/17/17 09:00 (Reglan Inj) 5 mg Q6H PRN IV PUSH 07/16/17 21:00 (Tylenol) 650 mg Q6H PRN PO 07/16/17 21:00 ([place] 5-325 Mg) 1 tab Q4H PRN PO 07/16/17 21:00 07/16/17 21:31 ([place] 10-325 Mg) 1 tab Q4H PRN PO 07/16/17 21:00 (Judit-Colace) 1 tab BID PO 07/16/17 21:00 07/17/17 11:13 (Milk Of Magnesia Liq) 30 ml Q12H PRN PO 07/16/17 21:00 (Senokot) 17.2 mg Q12H PRN PO 07/16/17 21:00 (Dulcolax Supp) 10 mg DAILY PRN RECTAL 07/16/17 21:00 (Lactulose Liq) 30 ml DAILY PRN PO 07/16/17 21:00 (Catapres) 0.1 mg Q6H PRN PO 07/16/17 22:45 07/16/17 23:05 A/P Problem List: (1) Fall ICD Code: W19.XXXA - Unspecified fall, initial encounter (2) Dizziness ICD Code: R42 - Dizziness and giddiness Status: Acute (3) Nasal bone fracture ICD Code: S02.2XXA - Fracture of nasal bones, initial encounter for closed fracture Status: Acute (4) Renal insufficiency ICD Code: N28.9 - Disorder of kidney and ureter, unspecified (5) UTI (urinary tract infection) ICD Code: N39.0 - Urinary tract infection, site not specified Assessment and Plan 61-year-old female with a PMH of HTN was brought to the ER by EMS after a fall with dizziness. Fall: reports all at home while getting out of bed, +facial injury. CT Head w / no acute intracranial findings, CT C-Spine negative for acute fracture. PT consulted. Dizziness: reports dizziness for years, now worse. CT Head w/ no acute findings, old lacunar infarcts. Dizziness possibly compounded by acute UTI/ dehydration. PT for eval/tx. ENT suspects dizziness more of a balance issue, doubt vertigo. Nasal Bone Fx: CT Maxillofacial w/ nasal bone fractures and leftward deviation of fragments, images reviewed by me. ENT consulted, no surgical intervention. HTN: Uncontrolled. BP 226/103, HR 81, s/p Labetalol and Hydralazine IV in ER, will monitor BP, antihypertensives as needed for BP >180. UTI: U/a w/ UTI, Continue on IV Rocephin, follow up cultures, IVF for hydration. Renal Insufficiency: Creatinine 1.48, no previous labs for comparison, presumably new. IVF for hydration, repeat labs show mild improvement, Cr 1.35. Continue to monitor. DVT Prophylaxis: SCDs/teds. Discharge Planning PT recommending rehab. Will be difficult placement due to insurance barriers. Patient lives alone, unsafe discharge home at this time. Discussed with PT, case management, and RN. Continue daily PT and monitor for improvement. Problem Qualifiers (1) Nasal bone fracture: Qualified Codes: S02.2XXA - Fracture of nasal bones, initial encounter for closed fracture Nelly Raphael PA-C July 17, 2017 10:39 am
[2017-07-17] MEDS: DOCUSATE SODIUM 50 MG/SENNA 8.6 MG TAB PO SCH ×2 (11:13→21:00)
[2017-07-17] MEDS: METOPROLOL TARTRATE 25 MG TAB PO SCH ×2 (11:13→22:49)
--- NOTE | 2017-07-17 13:50 | EKG ---
Date Performed: 07/16/2017 Time Performed: 18:33:27 PTAGE: 61 years EKG: Sinus rhythm WITH FIRST DEGREE AV BLOCK MINIMAL VOLTAGE CRITERIA FOR LVH, CONSIDER NORMAL VARIANT ABNORMAL ECG NO PREVIOUS TRACING DOCTOR: Levi Kim Interpretating Date/Time 07/17/2017 13:47:50
[2017-07-17] MEDS: cefTRIAXone INJ 1,000 MG in SODIUM CHLORIDE 0.9% INJ 100 ML IV SCH (22:50)
[2017-07-17] MEDS: cloNIDine HCL 0.1 MG TAB PO PRN (23:48)
[2017-07-18] MEDS: SODIUM CHLOR 0.9% 1000 ML INJ 1,000 ML IV SCH ×2 (03:00→18:31)
[2017-07-18 03:24] VITALS: BP 189/77; PULSE 51; RESP 18; TEMP 98.2; O2SAT 95
[2017-07-18] MEDS ORDERED: hydrALAZINE HCL 25 MG TAB PO ONE (03:45)
[2017-07-18 08:36] VITALS: BP 154/80; PULSE 48; RESP 18; TEMP 97.5; O2SAT 98
[2017-07-18] MEDS: SODIUM CHLORIDE 0.9% FLUSH 10 ML FLUSH IV FLUSH SCH ×2 (09:00→21:00)
--- NOTE | 2017-07-18 09:01 | HHI.PR ---
Subjective Remarks Follow up for fall, dizziness, UTI, HAIM. The patient is awake, alert, oriented x4, however RN reports patient has been uncooperative, pulled IV yesterday, refuses to wear telemetry, requiring restraints. Denies fevers/chills. Denies any headache, lightheadedness, or dizziness currently. Denies any urinary complaints. Patient lives alone, she does not feel ready to go home at this time. Objective Vitals Vital Signs Date Time Temp Pulse Resp B/P (MAP) Pulse Ox O2 Delivery O2 Flow Rate FiO2 07/18/17 08:36 97.5 48 18 154/80 (104) 98 07/18/17 03:24 98.2 51 18 189/77 (114) 95 07/17/17 23:30 98.3 57 18 198/91 (126) 97 07/17/17 19:59 98.4 59 18 168/78 (108) 98 07/17/17 15:16 98.0 56 16 200/91 (127) 96 07/17/17 13:48 147/70 (95) 07/17/17 11:38 98.0 54 16 209/94 (132) 98 Result Diagram: 07/17/17 0757 07/17/17 0757 Imaging Last Impressions Head CT 07/16/171727 Signed Impressions: Service Date/Time: Sunday, July 16, 2017 19:21 - CONCLUSION: 1. No acute intracranial abnormality seen. There are multiple old lacunar infarcts. 2. Right frontal scalp injury/hematoma with right periorbital soft tissue swelling and nasal bone fractures with leftward deviation of the fragments. Jerardo Rogers MD Chest X-Ray 07/16/171727 Signed Impressions: Service Date/Time: Sunday, July 16, 2017 17:36 - CONCLUSION: No acute disease. Gilberto Vergara MD Cervical Spine CT 07/16/171727 Signed Impressions: Service Date/Time: Sunday, July 16, 2017 19:21 - CONCLUSION: 1. No acute bony abnormality is seen. 2. Facet hypertrophy throughout. Jerardo Rogers MD Maxillofacial CT 07/16/17 0000 Signed Impressions: Service Date/Time: Sunday, July 16, 2017 19:21 - CONCLUSION: 1. Nasal bone fractures. 2. Right frontal scalp swelling and hematoma. 3. Right periorbital soft tissue swelling. Jerardo Rogers MD Objective Remarks GENERAL: Well-nourished, well-developed female patient in NAD. Upper extremities in restraints. SKIN: Warm and dry. No rash. HEENT: Normocephalic. Diffuse facial ecchymosis and hematomas throughout forehead, bilateral periorbital, nasal and and maxillary regions. Pupils equal and round. Mucous membranes pink and moist. NECK: Supple. Trachea midline. CARDIOVASCULAR: Regular rate and rhythm. No murmur appreciated. RESPIRATORY: No accessory muscle use. Clear to auscultation. Breath sounds equal bilaterally. GASTROINTESTINAL: Abdomen soft, non-tender, nondistended. Normoactive bowel sounds x4. MUSCULOSKELETAL: No obvious deformities. Extremities without clubbing, cyanosis , or edema. NEUROLOGICAL: Awake and alert. No obvious cranial nerve deficits. Motor grossly within normal limits. Moving all extremities spontaneously. Normal speech. PSYCHIATRIC: Appropriate mood and affect; insight and judgment fair Medications and IVs Current Medications Medications (Trade) Dose Ordered Sig/Scott Route Start Time Stop Time Status Last Admin (Lopressor) 25 mg Q12HR PO 07/16/17 21:00 07/17/17 22:49 Ceftriaxone Sodium 1000 mg/ Sodium Chloride 100 ml @ 200 mls/hr Q24H IV 07/17/17 21:00 07/17/17 22:50 Sodium Chloride 1,000 ml @ 100 mls/hr Q10H IV 07/16/17 21:00 07/16/17 21:31 (NS Flush) 2 ml UNSCH PRN IV FLUSH 07/16/17 21:00 (NS Flush) 2 ml BID IV FLUSH 07/16/17 21:00 07/17/17 22:49 (Reglan Inj) 5 mg Q6H PRN IV PUSH 07/16/17 21:00 (Tylenol) 650 mg Q6H PRN PO 07/16/17 21:00 ([place] 5-325 Mg) 1 tab Q4H PRN PO 07/16/17 21:00 07/16/17 21:31 ([facility] 10-325 Mg) 1 tab Q4H PRN PO 07/16/17 21:00 (Judit-Colace) 1 tab BID PO 07/16/17 21:00 07/17/17 11:13 (Milk Of Magnesia Liq) 30 ml Q12H PRN PO 07/16/17 21:00 (Senokot) 17.2 mg Q12H PRN PO 07/16/17 21:00 (Dulcolax Supp) 10 mg DAILY PRN RECTAL 07/16/17 21:00 (Lactulose Liq) 30 ml DAILY PRN PO 07/16/17 21:00 A/P Problem List: (1) Fall ICD Code: W19.XXXA - Unspecified fall, initial encounter (2) Dizziness ICD Code: R42 - Dizziness and giddiness Status: Acute (3) Nasal bone fracture ICD Code: S02.2XXA - Fracture of nasal bones, initial encounter for closed fracture Status: Acute (4) Renal insufficiency ICD Code: N28.9 - Disorder of kidney and ureter, unspecified (5) UTI (urinary tract infection) ICD Code: N39.0 - Urinary tract infection, site not specified Assessment and Plan 61-year-old female with a PMH of HTN was brought to the ER by EMS after a fall with dizziness. Fall: reports all at home while getting out of bed, +facial injury. CT Head w / no acute intracranial findings, CT C-Spine negative for acute fracture. PT consulted, recommends rehab. Dizziness: reports dizziness for years, now worse. CT Head w/ no acute findings, old lacunar infarcts. Dizziness possibly compounded by acute UTI/ dehydration. PT for eval/tx. ENT suspects dizziness more of a balance issue, doubt vertigo. Check brain MRI. Nasal Bone Fx: CT Maxillofacial w/ nasal bone fractures and leftward deviation of fragments, images reviewed by me. ENT consulted, no surgical intervention. HTN: Uncontrolled. BP 226/103, HR 81, s/p Labetalol and Hydralazine IV in ER. BP still elevated, will start on Norvasc 5mg daily. Monitor BP, adjust antihypertensives as needed. Bradycardia: with 2.7 second pause overnight. Suspect secondary to beta viet , will discontinue metoprolol. Monitor on telemetry although patient refusing at times. Cardiology consulted overnight. UTI: U/a w/ UTI, Continue on IV Rocephin, follow up urine culture. HAIM: Creatinine 1.48, no previous labs for comparison, presumably new. Give IVF for hydration, repeat labs show mild improvement, Cr 1.35. Continue to monitor. Behavioral Disturbances: patient with previous psychiatric history. Now uncooperative with staff, refusing to wear telemetry, pulled IVs, requiring soft restraints. Consult psychiatry for further evaluation. Unclear if patient has capacity. DVT Prophylaxis: SCDs/teds. Discharge Planning PT recommending rehab. Will be difficult placement due to insurance barriers. Patient lives alone, unsafe discharge home at this time. Discussed with PT, case management, and RN. Continue daily PT and monitor for improvement. Problem Qualifiers (1) Nasal bone fracture: Qualified Codes: S02.2XXA - Fracture of nasal bones, initial encounter for closed fracture Nelly Raphael PA-C July 18, 2017 9:01 am
[2017-07-18] MEDS ORDERED: amLODIPine BESYLATE 5 MG TAB PO SCH (11:15)
[2017-07-18] MEDS: DOCUSATE SODIUM 50 MG/SENNA 8.6 MG TAB PO SCH ×2 (11:22→21:00)
--- NOTE | 2017-07-18 12:29 | PD.PSY.CON ---
Provisional Diagnosis Admission Date July 16, 2017 at 20:46 [place] I. 1. Delirium, multifactorial Rule out underlying neurocognitive disorder [place] II. Deferred History of Present Illness Service Psychiatry Consult Requested By SONALI Raphael Reason for Consult "History of psychiatric illness, now with bizarre behavior, uncooperative, requiring restraints, unclear if patient has capacity, please eval" Primary Care Physician No Primary Care Physician HPI Ms. Koehler is a 61-year-old female of uncertain past psychiatric history who presented to the emergency department following a fall. She was found to have a UTI and is being treated with ceftriaxone. Reviewing the electronic medical record, I see no previous psychiatric contact within our system. Patient seen and examined. Chart reviewed. Case discussed with nursing staff. Nurse reports that patient has been persistently agitated and confused since admission. This agitation and confusion persists throughout the day and does not genaro. Patient has required soft wrist restraints for the management of agitation. On my examination today, the patient remains in restraints. She has a large ecchymosis over her right eye and forehead. She is quite confused and is unable to participate in any sort of meaningful psychiatric interview. She cannot tell me whether she is experiencing audiovisual hallucinations, nor can she say whether she is experiencing suicidal or homicidal ideation. Thought process is quite disorganized. She is unable to participate in any sort of formal mental status testing, and I cannot for example get her to tell me the date or the location, nor can she do any sort of attention or concentration testing. She does not follow simple commands. She does say "thank you" at the conclusion of our meeting, but this is the only verbalization that she produces that carries any comprehensible meaning. Psychiatric interview is quite limited by patient's mental status. I am unable to obtain any past psychiatric, family, chemical dependency or social history from the patient for the same reason. No acute physical complaints. No information documented on paper chart. No contact information for collateral in EMR. Review of Systems ROS Limitations: Poor Historian Other Limited ROS because of mental status. Past Family Social History Coded Allergies: No Known Allergies (Verified Allergy, Mild, 08/15/07) Past Medical History See electronic medical record Discontinued Reported Medications Miscellaneous (No Current Meds) Misc, 0 Refills 08/15/07 Discontinued Scripts Diclofenac Sod (Voltaren) 75 Mg Tabec, 75 MG PO BIDPRN, #20 0 Refills FOR PAIN Prov:Penington,Jerardo Jr MD 08/15/07 Current Medications Medications (Trade) Dose Ordered Sig/Scott Route Start Time Stop Time Status Last Admin Ceftriaxone Sodium 1000 mg/ Sodium Chloride 100 ml @ 200 mls/hr Q24H IV 07/17/17 21:00 07/17/17 22:50 Sodium Chloride 1,000 ml @ 100 mls/hr Q10H IV 07/16/17 21:00 07/16/17 21:31 (NS Flush) 2 ml UNSCH PRN IV FLUSH 07/16/17 21:00 (NS Flush) 2 ml BID IV FLUSH 07/16/17 21:00 07/18/17 09:00 (Reglan Inj) 5 mg Q6H PRN IV PUSH 07/16/17 21:00 (Tylenol) 650 mg Q6H PRN PO 07/16/17 21:00 ([place] 5-325 Mg) 1 tab Q4H PRN PO 07/16/17 21:00 07/16/17 21:31 ([place] 10-325 Mg) 1 tab Q4H PRN PO 07/16/17 21:00 (Judit-Colace) 1 tab BID PO 07/16/17 21:00 07/18/17 11:22 (Milk Of Magnesia Liq) 30 ml Q12H PRN PO 07/16/17 21:00 (Senokot) 17.2 mg Q12H PRN PO 07/16/17 21:00 (Dulcolax Supp) 10 mg DAILY PRN RECTAL 07/16/17 21:00 (Lactulose Liq) 30 ml DAILY PRN PO 07/16/17 21:00 (Norvasc) 5 mg DAILY PO 07/18/17 11:15 07/18/17 11:24 Patient's Strengths (min. 2) In a monitored setting. Some verbalization. Physical Exam Physical exam completed by the primary team. On my examination today, patient is in no acute physical distress. She has the ecchymosis as noted above. No motor abnormalities noted. Labs and vitals reviewed: Vital Signs Vital Signs Date Time Temp Pulse Resp B/P (MAP) Pulse Ox O2 Delivery O2 Flow Rate FiO2 07/18/17 08:36 97.5 48 18 154/80 (104) 98 07/16/17 20:51 Room Air Lab Results Date/Time Source Procedure Growth Status 07/16/17 18:18 Urine Random Urine Urine Culture - Preliminary Gram Negative Dilshad Resulted Laboratory Tests Test 07/16/17 18:18 07/17/17 07:57 Prothrombin Time 10.3 SEC Prothromb Time International Ratio 1.0 RATIO Activated Partial Thromboplast Time 28.0 SEC Urine Color LIGHT-YELLOW Urine Turbidity HAZY Urine pH 5.5 Urine Specific [place] 1.019 Urine Protein 300 mg/dL Urine Glucose (UA) NEG mg/dL Urine Ketones NEG mg/dL Urine Occult Blood SMALL Urine Nitrite POS Urine Bilirubin NEG Urine Urobilinogen LESS THAN 2.0 MG/DL Urine Leukocyte Esterase LARGE Urine RBC 1 /hpf Urine WBC 111 /hpf Urine Squamous Epithelial Cells 3 /hpf Urine Bacteria MANY /hpf Urine Hyaline Casts 3 /lpf Urine Mucus FEW /lpf Microscopic Urinalysis Comment CULTURE INDICATED Blood Urea Nitrogen 26 MG/DL 24 MG/DL Creatinine 1.48 MG/DL 1.35 MG/DL Random Glucose 95 MG/DL 98 MG/DL Total Protein 7.9 GM/DL 7.6 GM/DL Albumin 3.7 GM/DL 3.5 GM/DL Calcium Level 9.1 MG/DL 8.7 MG/DL Magnesium Level 1.9 MG/DL Alkaline Phosphatase 116 U/L 110 U/L Aspartate Amino Transf (AST/SGOT) 17 U/L 17 U/L Alanine Aminotransferase (ALT/SGPT) 15 U/L 17 U/L Total Bilirubin 0.3 MG/DL 0.4 MG/DL Sodium Level 141 MEQ/L 143 MEQ/L Potassium Level 3.5 MEQ/L 3.7 MEQ/L Chloride Level 109 MEQ/L 109 MEQ/L Carbon Dioxide Level 22.6 MEQ/L 24.1 MEQ/L Total Creatine Kinase 132 U/L Creatine Kinase MB 1.3 NG/ML Troponin I LESS THAN 0.02 NG/ML White Blood Count 7.9 TH/MM3 Red Blood Count 4.07 MIL/MM3 Hemoglobin 12.3 GM/DL Hematocrit 36.1 % Mean Corpuscular Volume 88.7 FL Mean Corpuscular Hemoglobin 30.3 PG Mean Corpuscular Hemoglobin Concent 34.2 % Red Cell Distribution Width 13.9 % Platelet Count 303 TH/MM3 Mean Platelet Volume 8.1 FL Neutrophils (%) (Auto) 69.3 % Lymphocytes (%) (Auto) 23.7 % Monocytes (%) (Auto) 6.0 % Eosinophils (%) (Auto) 0.8 % Basophils (%) (Auto) 0.2 % Neutrophils # (Auto) 5.5 TH/MM3 Lymphocytes # (Auto) 1.9 TH/MM3 Monocytes # (Auto) 0.5 TH/MM3 Eosinophils # (Auto) 0.1 TH/MM3 Basophils # (Auto) 0.0 TH/MM3 CBC Comment DIFF FINAL Differential Comment Anion Gap 10 MEQ/L Estimat Glomerular Filtration Rate 40 ML/MIN Last Impressions Head CT 07/16/171727 Signed Impressions: Service Date/Time: Sunday, July 16, 2017 19:21 - CONCLUSION: 1. No acute intracranial abnormality seen. There are multiple old lacunar infarcts. 2. Right frontal scalp injury/hematoma with right periorbital soft tissue swelling and nasal bone fractures with leftward deviation of the fragments. Jerardo Rogers MD Chest X-Ray 07/16/171727 Signed Impressions: Service Date/Time: Sunday, July 16, 2017 17:36 - CONCLUSION: No acute disease. Gilberto Vergara MD Cervical Spine CT 07/16/171727 Signed Impressions: Service Date/Time: Sunday, July 16, 2017 19:21 - CONCLUSION: 1. No acute bony abnormality is seen. 2. Facet hypertrophy throughout. Jerardo Rogers MD Maxillofacial CT 07/16/17 0000 Signed Impressions: Service Date/Time: Sunday, July 16, 2017 19:21 - CONCLUSION: 1. Nasal bone fractures. 2. Right frontal scalp swelling and hematoma. 3. Right periorbital soft tissue swelling. Jerardo Rogers MD EKG 1st degree AV block. QTc 415ms, not prolonged. Mental Status Examination Appearance: Disheveled Consciousness: Alert Orientation: Person (Seems to recognize name) Motor Activity: Other (Somewhat restless but no motor abnormalities noted otherwise) Speech: Incoherent Language: Other (Rambling) Fund of Knowledge: Inadequate Attention and Concentration: Inadequate Memory: Impaired Mood: Other (Unable to assess) Affect: Blunt Thought Process & Associations: Disorganized Thought Content: Other (Unable to assess) Hallucination Type: Other (Unable to assess) Delusion Type: Other (Unable to assess) Insight: Poor Judgment: Poor Mental Status Exam Remarks Unable to assess regarding SI or HI Assessment & Plan Problem List: (1) Delirium due to another medical condition ICD Codes: F05 - Delirium due to known physiological condition (2) UTI (urinary tract infection) ICD Codes: N39.0 - Urinary tract infection, site not specified Assessment & Plan 61-year-old female with psychiatric history as detailed above who is presently admitted to the [facility] following a fall. Psychiatry is consulted because of bizarre behavior and also regarding patient's capacity. On my examination today , the patient's mental status is quite poor, and she appears profoundly confused. She is not, in my judgment, presently capacitated to make medical or psychiatric decisions, and a healthcare surrogate should be sought for this purpose. The etiology of the patient's confusional state is likely multifactorial with contributions from urinary tract infection, recent fall, ? HAIM vs. CKD among other presently identifiable factors. It is unclear if the patient has some degree of underlying neurocognitive disorder. --Recommend pursuing further workup for reversible causes of cognitive impairment to include TSH, B12, RBC folate, thiamine level, ammonia, RPR, HIV. Could consider EEG for NCSE. --For pharmacologic management of delirium, could consider Haldol 1mg TID IV to start. Could use additional Haldol 1mg IV/IM up to TID p.r.n. severe agitation. Follow up EKGs for QTc if extensive Haldol p.r.n.s are required. --Med list reviewed. Recommend limiting use of opiates except as needed to treat severe pain. I would also avoid anticholinergics, antihistamines and benzodiazepines as can worsen mental status. There is no evidence of GABAergic withdrawal delirium that would support use of benzodiazepines. --Nonpharmacologic delirium management measures include frequent reorientation, early mobilization, aggressive treatment of any urinary retention or constipation, limiting use of restraints and preferring sitter for behavioral redirection. --Collateral source would be helpful to determine what patient's baseline mental status is like --Patient appears to be primarily encephalopathic, and I do not appreciate any decompensated primary psychiatric illness. Psychiatric hospitalization is not indicated at this time. Thank you very much for this consultation. Please call or page with questions. I will apprise Dr. Seay of the case after the weekend. Valentin Rice MD July 18, 2017 12:29
[2017-07-18 12:42] VITALS: BP_SYST 160; BP_SYST 203; BP_DIAS 90; BP_DIAS 93; PULSE 52; RESP 18; TEMP 98.9; O2SAT 97
[2017-07-18 14:07] LABS: BICARBONATE 24.1 MEQ/L (21.0-32.0); CALCIUM 8.7 MG/DL (8.5-10.1); CREATININE 1.45 MG/DL (0.50-1.00)
--- NOTE | 2017-07-18 14:12 | MB ---
cc: Shankar Warren DO DATE: 07/18/2017 REASON FOR CONSULTATION: Sinus pause. HISTORY OF PRESENT ILLNESS: Emerita Koehler is a pleasant 61-year-old female who presented to [facility] Emergency Room after a fall. Overall, the patient is a very poor historian and appears to have some cognitive underlying disorder. Most of the history and information is taken from the chart. Apparently, she was dizzy and she has had dizziness for over 10 years, but felt dizzy and so she went to bed. She woke up and she tried to get out of bed and apparently fell. She did not state that her dizziness was more increased at that time. She denies chest pain, shortness of breath or palpitations before, during, or after the fall. She does not believe that she lost consciousness. She fell and hit her face and has facial injuries. Last night while sleeping, on telemetry, she was found to have a 2.5 second pause. She was asymptomatic during this, obviously. Otherwise, her telemetry shows sinus rhythm with no AV cheryl block or significant bradycardia. PAST MEDICAL HISTORY: Hypertension. PAST SURGICAL HISTORY: Denies. ALLERGIES: NO KNOWN DRUG ALLERGIES. MEDICATIONS: Denies. FAMILY HISTORY: Denies premature coronary artery disease or sudden cardiac within the family. SOCIAL HISTORY: The patient occasionally drinks alcohol. Denies tobacco or drug abuse. REVIEW OF SYSTEMS: Fourteen systems were reviewed including osteopathic. Pertinent positives and negatives above, otherwise negative. PHYSICAL EXAMINATION: VITAL SIGNS: Temperature 98.9, heart rate 52, blood pressure 160/90, respirations 18, pulse oximetry 97% on room air. GENERAL: The patient appears well in no acute distress, alert and awake. HEENT: Extraocular muscles intact. There is right-sided facial abrasion. Mucous membranes moist. NECK: Supple. No JVD at 45 degrees. No carotid bruits heard bilaterally. Carotid upstroke is brisk in nature. HEART: Regular rate and rhythm. Positive first and second heart sounds with no noted murmurs, gallops or rubs. LUNGS: Clear to auscultation bilaterally. No wheezes, rales or rhonchi. ABDOMEN: Soft, nontender, nondistended. No organomegaly noted. EXTREMITIES: Show no clubbing, cyanosis or edema. Femoral and distal pulses intact bilaterally. NEUROLOGIC: No focal deficits. SKIN: Warm, dry and intact. OSTEOPATHIC: No kyphoscoliosis, lordosis or paraspinal tender points. LABORATORY DATA: Hemoglobin 12.3, hematocrit 36.1, platelets 303. Potassium 3.7, BUN 24, creatinine 1.35, troponin less than 0.02. Electrocardiogram (07/16/2017 at 1833): Sinus rhythm with first degree AV block, possible LVH. IMPRESSION: 1. Fall from unknown cause, possibly due to balance. 2. Dizziness, which does not appear to be vertigo in nature, which appears chronic for over the past 10 years, per the patient. 3. Asymptomatic sinus pause of 2.5 seconds, while sleeping. 4. Hypertension. 5. Urinary tract infection. 6. Acute kidney injury versus chronic kidney disease. RECOMMENDATIONS: 1. Ms. Koehler appears to have presented with a fall and this will be worked up by the primary team. It does not appear to be a syncopal episode. She was seen by physical therapy and recommended consideration of rehabilitation as there is a concern for balance issues. 2. As far as her sinus pause overnight, this was asymptomatic in nature. Apparently, she was started on metoprolol tartrate for hypertension and this may have potentiated it versus possible obstructive sleep apnea. We will plan on stopping her beta viet therapy. 3. We will check a 2-D echo to look at her overall left ventricular function, cardiac structure and possible valvulopathies. 4. I agree with placing her on Norvasc 5 mg daily for blood pressure, although we do have to watch as it can potentiate orthostatic hypotension. 5. She also has significant elevation of her creatinine and this may be possible cause of dehydration leading to her fall. Thank you for allowing me to see Emerita Koehler. If there are any questions, please do not hesitate to call. Shankar Warren, DO VGP/TL , 01:46 PM , 02:11 PM
[2017-07-18] MEDS ORDERED: LORazepam 2 MG/ML VIAL IV PUSH PRN (14:45)
[2017-07-18] MEDS ORDERED: LACTULOSE SYRUP 20 GM/30 ML CUP PO ONE (15:45)
[2017-07-18] MEDS ORDERED: amLODIPine BESYLATE 5 MG TAB PO ONE (16:00)
[2017-07-18 17:04] VITALS: BP 199/86; PULSE 51; RESP 20; TEMP 97.5; O2SAT 97
--- NOTE | 2017-07-18 17:21 | RADRPT ---
EXAM DATE/TIME: 07/18/2017 16:20 [place] COMPARISON: CT BRAIN W/O CONTRAST, July 16, 2017, 19:21. INDICATIONS : Fall, head trauma. MEDICAL HISTORY : Unknown SURGICAL HISTORY : Unknown ENCOUNTER: Initial ACUITY: 1 day PAIN SCORE: 4/10 LOCATION: cranial TECHNIQUE: Multiplanar, multisequence MRI of the brain was performed without contrast. FINDINGS: CEREBRUM: Multiple bilateral old basal ganglia lacunar infarcts. The ventricles are normal for age. No evidenc e of midline shift, mass lesion, hemorrhage or acute infarction. No extraaxial fluid collections are seen. The pituitary gland and suprasellar cistern are normal in configuration. WHITE MATTER: Moderate periventricular and deep white matter T2 prolongation. POSTERIOR FOSSA: The cerebellum and brainstem are intact. The 4th ventricle is midline. The cerebellopontine angle is unremarkable. The cerebellar tonsils are normal in position. DIFFUSION IMAGING: No focal areas of restricted diffusion are seen. No evidence of acute infarction. EXTRACRANIAL: The visualized portions of the orbits are unremarkable. Small mucus tension cyst in the left maxillar y sinus. Frontal scalp hematoma. Deviated nasal structures to the left consistent with visible fractu res on CT exam. CONCLUSION: 1. Multiple old bilateral basal ganglia lacunar infarcts and prominent bilateral periventricular isch emic white matter demyelination, out of proportion to age. 2. Right frontal scalp hematoma and findings consistent with nasal bone fracture as noted on CT exam. 3. Otherwise, no acute abnormality. Crispin Hoffman MD on July 18, 2017 at 17:16 Board Certified Radiologist. This report was verified electronically.
[2017-07-18 17:48] LABS: FOLATE 13.4 NG/ML (3.1-17.5)
[2017-07-18 20:35] VITALS: BP 141/73; PULSE 47; RESP 16; O2SAT 98
[2017-07-18] MEDS: cefTRIAXone INJ 1,000 MG in SODIUM CHLORIDE 0.9% INJ 100 ML IV SCH (22:01)
[2017-07-19] VITALS (7 sets, daily range): BP systolic 159–199; BP diastolic 76–93; PULSE 58–71; RESP 16–18; TEMP 97.7–98.7; O2SAT 94–100
[2017-07-19] MEDS ORDERED: hydrALAZINE HCL 25 MG TAB PO ONE (02:00)
[2017-07-19] MEDS: DOCUSATE SODIUM 50 MG/SENNA 8.6 MG TAB PO SCH ×2 (07:47→20:27)
[2017-07-19] MEDS: SODIUM CHLORIDE 0.9% FLUSH 10 ML FLUSH IV FLUSH SCH ×2 (07:47→23:41)
[2017-07-19] MEDS: SODIUM CHLOR 0.9% 1000 ML INJ 1,000 ML IV SCH ×2 (07:48→23:41)
[2017-07-19 08:00] LABS: BASOPHIL % 0.4 % (0.0-2.0); EOSINOPHIL # 0.2 TH/MM3 (0-0.4); EOSINOPHIL % 1.9 % (0.0-4.0); HEMATOCRIT 35.4 % (35.0-46.0); HEMOGLOBIN 11.9 GM/DL (11.6-15.3); LYMPH % 21.7 % (9.0-44.0); LYMPHOCYTE # 1.8 TH/MM3 (1.0-4.8); MEAN CELL VOLUME 89.9 FL (80.0-100.0); MEAN CORPUSCULAR HEMOGLOBIN 30.2 PG (27.0-34.0); MEAN CORPUSCULAR HGB CONC 33.6 % (32.0-36.0); MEAN PLATELET VOLUME 8.1 FL (7.0-11.0); MONO % 4.9 % (0.0-8.0); MONOCYTE # 0.4 TH/MM3 (0-0.9); NEUT % 71.1 % (16.0-70.0); PLATELET COUNT 273 TH/MM3 (150-450); RED BLOOD COUNT 3.94 MIL/MM3 (4.00-5.30); RED CELL DISTRIBUTION WIDTH 13.8 % (11.6-17.2); WHITE BLOOD COUNT 8.5 TH/MM3 (4.0-11.0)
[2017-07-19 08:26] LABS: BICARBONATE 23.4 MEQ/L (21.0-32.0); CALCIUM 8.6 MG/DL (8.5-10.1); CREATININE 1.25 MG/DL (0.50-1.00)
[2017-07-19] MEDS: CYANOCOBALAMIN 1000 MCG/ML VIAL IM SCH (08:40)
[2017-07-19] MEDS ORDERED: ASPIRIN EC 81 MG TABEC PO SCH (09:00)
--- NOTE | 2017-07-19 09:20 | HHI.PR ---
Subjective Remarks Follow up for fall, dizziness, UTI, HAIM, bradycardia. The patient is awake, alert, oriented to self, [place], President [place], June 2017. She states she didn 't try to ambulate yesterday. Denies any current dizziness or lightheadedness while lying in bed. Denies any medical complaints. Patient asking this morning if she can just go for a ride on the [place] today. RN reports patient still occasionally saying bizarre statements but has been calm and cooperative. Attempting to d/c restraints this morning. Objective Vitals Vital Signs Date Time Temp Pulse Resp B/P (MAP) Pulse Ox O2 Delivery O2 Flow Rate FiO2 07/19/17 08:48 98.7 58 18 179/85 (116) 96 07/19/17 05:12 97.9 62 16 159/76 (103) 100 07/19/17 00:52 97.9 62 16 181/85 (117) 95 07/19/17 00:26 64 07/18/17 20:35 47 16 141/73 (95) 98 07/18/17 17:04 97.5 51 20 199/86 (123) 97 07/18/17 12:42 98.9 52 18 203/93 (129) 97 160/90 (113) I/O 07/18/17 07/18/17 07/18/17 07/19/17 07/19/17 07/19/17 07:00 15:00 23:00 07:00 15:00 23:00 Intake Total 1000 ml Balance 1000 ml Intake IV Total 1000 ml Result Diagram: 07/19/17 0742 07/19/17 0742 Imaging Last Impressions Brain MRI 07/18/17 0000 Signed Impressions: Service Date/Time: Tuesday, July 18, 2017 16:20 - CONCLUSION: 1. Multiple old bilateral basal ganglia lacunar infarcts and prominent bilateral periventricular ischemic white matter demyelination, out of proportion to age. 2. Right frontal scalp hematoma and findings consistent with nasal bone fracture as noted on CT exam. 3. Otherwise, no acute abnormality. Crispin Hoffman MD Head CT 07/16/17 [id number] Signed Impressions: Service Date/Time: Sunday, July 16, 2017 19:21 - CONCLUSION: 1. No acute intracranial abnormality seen. There are multiple old lacunar infarcts. 2. Right frontal scalp injury/hematoma with right periorbital soft tissue swelling and nasal bone fractures with leftward deviation of the fragments. Jerardo Rogers MD Chest X-Ray [id number] Signed Impressions: Service Date/Time: Sunday, July 16, 2017 17:36 - CONCLUSION: No acute disease. Gilberto Vergara MD Cervical Spine CT [id number] Signed Impressions: Service Date/Time: Sunday, July 16, 2017 19:21 - CONCLUSION: 1. No acute bony abnormality is seen. 2. Facet hypertrophy throughout. Jerardo Rogers MD Maxillofacial CT 07/16/17 0000 Signed Impressions: Service Date/Time: Sunday, July 16, 2017 19:21 - CONCLUSION: 1. Nasal bone fractures. 2. Right frontal scalp swelling and hematoma. 3. Right periorbital soft tissue swelling. Jerardo Rogers MD Objective Remarks GENERAL: Well-nourished, well-developed female patient in NAD. Upper extremities in restraints. SKIN: Warm and dry. No rash. HEENT: Normocephalic. Diffuse facial ecchymosis and hematomas throughout right forehead, bilateral periorbital, nasal and and maxillary regions. Pupils equal and round. Mucous membranes pink and moist. NECK: Supple. Trachea midline. CARDIOVASCULAR: Regular rate and rhythm. No murmur appreciated. RESPIRATORY: No accessory muscle use. Clear to auscultation. Breath sounds equal bilaterally. GASTROINTESTINAL: Abdomen soft, non-tender, nondistended. Normoactive bowel sounds x4. MUSCULOSKELETAL: No obvious deformities. Extremities without clubbing, cyanosis , or edema. NEUROLOGICAL: Awake and alert, oriented to self, place, date, president. 5/5 strength of all extremities except 4/5 right anterior tibialis strength with apparent foot drop. Normal speech. PSYCHIATRIC: Pleasant but Odd mood/affect; insight and judgment fair to limited. Medications and IVs Current Medications Medications (Trade) Dose Ordered Sig/Scott Route Start Time Stop Time Status Last Admin Ceftriaxone Sodium 1000 mg/ Sodium Chloride 100 ml @ 200 mls/hr Q24H IV 07/17/17 21:00 07/18/17 22:01 Sodium Chloride 1,000 ml @ 100 mls/hr Q10H IV 07/16/17 21:00 07/19/17 07:48 (NS Flush) 2 ml UNSCH PRN IV FLUSH 07/16/17 21:00 (NS Flush) 2 ml BID IV FLUSH 07/16/17 21:00 07/19/17 07:47 (Reglan Inj) 5 mg Q6H PRN IV PUSH 07/16/17 21:00 (Tylenol) 650 mg Q6H PRN PO 07/16/17 21:00 ([place] 5-325 Mg) 1 tab Q4H PRN PO 07/16/17 21:00 07/16/17 21:31 ([place] 10-325 Mg) 1 tab Q4H PRN PO 07/16/17 21:00 (Judit-Colace) 1 tab BID PO 07/16/17 21:00 07/19/17 07:47 (Milk Of Magnesia Liq) 30 ml Q12H PRN PO 07/16/17 21:00 (Senokot) 17.2 mg Q12H PRN PO 07/16/17 21:00 (Dulcolax Supp) 10 mg DAILY PRN RECTAL 07/16/17 21:00 (Lactulose Liq) 30 ml DAILY PRN PO 07/16/17 21:00 (Ativan Inj) 1 mg ONCE PRN IV PUSH 07/18/17 14:45 07/19/17 14:44 07/18/17 16:08 (Norvasc) 10 mg DAILY PO 07/19/17 09:00 07/19/17 07:47 (Ecotrin Ec) 81 mg DAILY PO 07/19/17 09:00 07/19/17 08:40 (Vitamin B12 Inj) 1,000 mcg DAILY IM 07/19/17 09:00 07/26/17 08:59 07/19/17 08:40 A/P Problem List: (1) Fall ICD Code: W19.XXXA - Unspecified fall, initial encounter (2) Dizziness ICD Code: R42 - Dizziness and giddiness Status: Acute (3) Nasal bone fracture ICD Code: S02.2XXA - Fracture of nasal bones, initial encounter for closed fracture Status: Acute (4) Renal insufficiency ICD Code: N28.9 - Disorder of kidney and ureter, unspecified (5) UTI (urinary tract infection) ICD Code: N39.0 - Urinary tract infection, site not specified Assessment and Plan 61-year-old female with a PMH of HTN was brought to the ER by EMS after a fall with dizziness. Fall: reports all at home while getting out of bed, +facial injury. -CT Head w/ no acute intracranial findings -CT C-Spine negative for acute fracture. -PT consulted, recommends rehab. Will be difficult placement, no insurance. Case management assisting. Encephalopathy/Dizziness: reports dizziness for years, now worse. Dizziness possibly compounded by acute UTI/dehydration. -CT Head w/ no acute findings, old lacunar infarcts. -PT for eval/tx, recommending rehab -Consulted ENT, suspects dizziness more of a balance issue, doubt vertigo. -Brain MRI shows multiple old lacunar infarcts and prominent periventricular ischemic white matter demyelination. -Start baby aspirin daily -Neuro checks, seizure precautions, monitor on telemetry -Consult neurology, discussed with Dr. Lanier, appreciate assistance Nasal Bone Fx: Acute, secondary to fall -CT Maxillofacial w/ nasal bone fractures and leftward deviation of fragments , images reviewed by me. -ENT consulted, no surgical intervention. HTN: Uncontrolled. BP 226/103, HR 81, s/p Labetalol and Hydralazine IV in ER. -BP still elevated, started on Norvasc 10mg daily. -Continue to monitor BP, adjust antihypertensives as needed. -Discussed with Dr. Warren 07/19, if BP not well controlled tomorrow, either switch Norvasc to Nifedipine, or can add low dose [facility] as renal function likely at baseline. Bradycardia: with 2.7 second pause on tele, patient asymptomatic. -Suspect secondary to beta viet, will discontinue metoprolol. -Monitor on telemetry although patient refusing at times. -Cardiology consulted, agrees discontinuing BB -Bradycardia improved -continue to monitor. UTI: U/a w/ UTI. Possibly contributing to encephalopathy. -Urine culture with E.coli, pansensitive. -Change IV Rocephin to Ceftin x3days. HAIM: Creatinine 1.48, no previous labs for comparison, presumably new. -Given 3+L IVF for hydration -repeat labs show mild improvement, Cr 1.25. -Patient with edematous RUE at IV site, will d/c fluids for now, recheck BMP in the am. Behavioral Disturbances: patient with previous psychiatric history. Now uncooperative with staff, refusing to wear telemetry, pulled IVs, requiring soft restraints. -Consulted psychiatry, appreciate assistance. Unclear if patient has capacity. -Psychiatry recommending Haldol 1mg TID IV to start. Could use additional Haldol 1mg IV/IM up to TID p.r.n. severe agitation -Monitor daily EKG while on Haldol Vitamin B12 Deficiency: acute -started on cyanocobalamin 1000mcg IM daily x7days DVT Prophylaxis: SCDs/teds. Discharge Planning PT recommending rehab. Will be difficult placement due to insurance barriers. Patient lives alone, unsafe discharge home at this time. Discussed with PT, case management, and RN. Continue daily PT and monitor for improvement. Problem Qualifiers (1) Nasal bone fracture: Qualified Codes: S02.2XXA - Fracture of nasal bones, initial encounter for closed fracture Nelly Raphael PA-C July 19, 2017 09:20
[2017-07-19] MEDS ORDERED: CEFUROXIME AXETIL 250 MG TAB PO SCH (13:00)
--- NOTE | 2017-07-19 13:30 | MB ---
cc: Valentin Lanier MD DATE: 07/19/2017 HISTORY OF PRESENT ILLNESS: This is a 61-year-old woman without significant past medical history except for hypercholesterolemia. She evidently lives alone. She does see a psych worker with [facility]. She came in with a fall. She says she fell 3 years ago and her right leg hasn't worked well since and remembers falling now, but cannot give me any other history about that. PAST MEDICAL HISTORY: She denies any recent fever or illness. No recent hypertension. No history of hypertension, diabetes, PR, stent, angioplasty, A. fib, Coumadin, renal, hepatic, pulmonary disease, thyroid disease, lupus, ulcer, cancer, seizure or stroke. SOCIAL HISTORY: Not a smoker or a drinker. Lives alone. She says she lives with God. FAMILY HISTORY: Negative for cancer, seizure, or stroke. REVIEW OF SYSTEMS: She was seen here in with a fall just in the ER. She was recently admitted 07/06/2017 alert and oriented x 3, felt dizzy, fell with a nasal fracture and mild headache. She was not on any drugs or medications. ENT had cleared her. She has been having some dizziness for 10 years. She got out of bed, got dizzy and fell. Blood pressure was 226/103 on arrival. She had a nasal bone fracture. CURRENT MEDICATIONS: Norvasc, Ceftin, 81 of aspirin, B12 shot, Ativan 200 mg. PHYSICAL EXAM: VITAL SIGNS: Afebrile, 58, 18, 179/85. Blood pressures have been high in the 200s here. NECK: There were no carotid bruits. HEART: Regular rhythm. I did not detect a murmur. NEUROLOGIC: The pupils are equal. Visual coelho are full. Extraocular movements are intact without nystagmus. Face moves symmetrically. Tongue was midline. Facial sensation was intact. There is no drift. She has normal strength in bilateral upper extremities and left lower extremity. Right lower extremity iliopsoas appears to be a bit weak today about a 4/5 and tibialis anterior, she cannot maintain good strength there either about a 4+/5. The right toe initially I thought was upgoing, but later appeared to be downgoing. There is no ankle clonus. DTRs are hyperreflexive on the right lower extremity. Toes appeared to be initially upgoing on the right, but then later I thought it may be downgoing. There is no ankle clonus. Downgoing toe on the left was noted. She is hyperreflexive on the right lower extremity, not in the right upper extremity. DTRs are generally 2+, but 3+ in the right knee jerk. NEUROLOGIC: She is awake and alert. Her speech is fluent. She is not aphasic. Initially, she was sleeping and did not wake up for me, but then did awaken. She knows the month and the year. She said it was , so off on the day of the week. She knew it was the . She can tell me her address. She does know she is in [facility], but says she lives with God and said she felt like she was turning into a giant and that is why she fell. LABORATORY DATA: CBC is normal. RPR has been negative. UA showed 111 white cells. BMP: Creatinine 1.25, otherwise normal. Ammonia level is 39. B12 is low at 160. Folate normal. TSH normal. Troponin was negative. Thiamine level is pending. LFTs are normal. Coags normal. CBC normal. She had an MRI of the brain. She had a lot of white matter changes and I thought the right temporal lobe deep has white matter change, which is unusual. She will need an MRI of the brain with contrast to look at that. TSH was normal. Her cervical spine CT was read as negative. Her chest x-ray was normal. Head CT showed some multiple old lacunar infarcts. Maxillofacial CT, nasal bone fractures. IMPRESSION AND PLAN: 1. B12 deficiency. She has been given an injection for that. 2. Dizziness. We will check a Hallpike maneuver on her. She has got some white matter changes bilaterally. I suspect she probably had a stroke in the past with the right lower extremity hyperreflexivity. She has got this change in the right medial temporal lobe, which I do want to check an MRI with contrast to make sure it does not enhance. She does not appear to have meningitis or encephalitis at this time, however. We will check an EEG on her. I will check an MRI of her cervical spine also with the right lower extremity hyperreflexivity. Some additional blood work has been ordered. Have PT work with her. I note her mastoids looked clear here as did her sinuses except the inferior left maxillary sinus as a little bit of fluid. I will check a carotid ultrasound on her. I suspect she has some psychiatric disease and she lives with God possibly some delusions and psych is on the case. An EEG will also be ordered. I will also check a standing blood pressure on her. MD JENNIFER Cruz/ORIANA , 12:43 PM , 01:30 PM
--- NOTE | 2017-07-19 14:37 | PD.CARD.PN ---
Subjective Subjective Remarks No arrhythmias overnight No complaints Objective Medications Current Medications Medications (Trade) Dose Ordered Sig/Scott Route Start Time Stop Time Status Last Admin (NS Flush) 2 ml UNSCH PRN IV FLUSH 07/16/17 21:00 (NS Flush) 2 ml BID IV FLUSH 07/16/17 21:00 07/19/17 07:47 (Reglan Inj) 5 mg Q6H PRN IV PUSH 07/16/17 21:00 (Tylenol) 650 mg Q6H PRN PO 07/16/17 21:00 ([place] 5-325 Mg) 1 tab Q4H PRN PO 07/16/17 21:00 07/16/17 21:31 ([place] 10-325 Mg) 1 tab Q4H PRN PO 07/16/17 21:00 (Judit-Colace) 1 tab BID PO 07/16/17 21:00 07/19/17 07:47 (Milk Of Magnesia Liq) 30 ml Q12H PRN PO 07/16/17 21:00 (Senokot) 17.2 mg Q12H PRN PO 07/16/17 21:00 (Dulcolax Supp) 10 mg DAILY PRN RECTAL 07/16/17 21:00 (Lactulose Liq) 30 ml DAILY PRN PO 07/16/17 21:00 (Ativan Inj) 1 mg ONCE PRN IV PUSH 07/18/17 14:45 07/19/17 14:44 07/18/17 16:08 (Norvasc) 10 mg DAILY PO 07/19/17 09:00 07/19/17 07:47 (Vitamin B12 Inj) 1,000 mcg DAILY IM 07/19/17 09:00 07/26/17 08:59 07/19/17 08:40 (Ceftin) 250 mg Q12HR PO 07/19/17 21:00 Vital Signs / I&O Vital Signs Date Time Temp Pulse Resp B/P (MAP) Pulse Ox O2 Delivery O2 Flow Rate FiO2 07/19/17 12:45 98.5 58 18 177/79 (111) 96 07/19/17 08:48 98.7 58 18 179/85 (116) 96 07/19/17 05:12 97.9 62 16 159/76 (103) 100 07/19/17 00:52 97.9 62 16 181/85 (117) 95 07/19/17 00:26 64 07/18/17 20:35 47 16 141/73 (95) 98 07/18/17 17:04 97.5 51 20 199/86 (123) 97 I/O 07/18/17 07/18/17 07/18/17 07/19/17 07/19/17 07/19/17 06:59 14:59 22:59 06:59 14:59 22:59 Intake Total 1350 ml Balance 1350 ml Intake IV Total 1350 ml Physical Exam GENERAL: Alert, awake and oriented, NAD SKIN: Warm and dry. HEAD: Normocephalic, abrasion noted on right side of face EYES: Pupils equal and round. No scleral icterus. No injection or drainage. ENT: No nasal bleeding or discharge. Mucous membranes pink and moist. NECK: Trachea midline. No JVD. CARDIOVASCULAR: Regular rate and rhythm. RESPIRATORY: No accessory muscle use. Clear to auscultation. Breath sounds equal bilaterally. GASTROINTESTINAL: Abdomen soft, non-tender, nondistended. Hepatic and splenic margins not palpable. MUSCULOSKELETAL: Extremities without clubbing, cyanosis, or edema. No obvious deformities. NEUROLOGICAL: Awake and alert. No obvious cranial nerve deficits. Motor grossly within normal limits. Five out of 5 muscle strength in the arms and legs. Normal speech. PSYCHIATRIC: Appropriate mood and affect; insight and judgment normal. Laboratory Laboratory Tests Test 07/18/17 18:45 07/19/17 07:42 Rapid Plasma Reagin NON-REACTIVE HIV (1&2) Ab and P24 Ag, 4th Gener NONREACTIVE White Blood Count 8.5 TH/MM3 Red Blood Count 3.94 MIL/MM3 Hemoglobin 11.9 GM/DL Hematocrit 35.4 % Mean Corpuscular Volume 89.9 FL Mean Corpuscular Hemoglobin 30.2 PG Mean Corpuscular Hemoglobin Concent 33.6 % Red Cell Distribution Width 13.8 % Platelet Count 273 TH/MM3 Mean Platelet Volume 8.1 FL Neutrophils (%) (Auto) 71.1 % Lymphocytes (%) (Auto) 21.7 % Monocytes (%) (Auto) 4.9 % Eosinophils (%) (Auto) 1.9 % Basophils (%) (Auto) 0.4 % Neutrophils # (Auto) 6.0 TH/MM3 Lymphocytes # (Auto) 1.8 TH/MM3 Monocytes # (Auto) 0.4 TH/MM3 Eosinophils # (Auto) 0.2 TH/MM3 Basophils # (Auto) 0.0 TH/MM3 CBC Comment DIFF FINAL Differential Comment Erythrocyte Sedimentation Rate 63 mm/hr Blood Urea Nitrogen 25 MG/DL Creatinine 1.25 MG/DL Random Glucose 99 MG/DL Calcium Level 8.6 MG/DL Sodium Level 144 MEQ/L Potassium Level 4.0 MEQ/L Chloride Level 112 MEQ/L Carbon Dioxide Level 23.4 MEQ/L Anion Gap 9 MEQ/L Estimat Glomerular Filtration Rate 43 ML/MIN Assessment and Plan Problem List: (1) Fall ICD Codes: W19.XXXA - Unspecified fall, initial encounter (2) Delirium due to another medical condition ICD Codes: F05 - Delirium due to known physiological condition (3) UTI (urinary tract infection) ICD Codes: N39.0 - Urinary tract infection, site not specified (4) Renal insufficiency ICD Codes: N28.9 - Disorder of kidney and ureter, unspecified (5) Nasal bone fracture ICD Codes: S02.2XXA - Fracture of nasal bones, initial encounter for closed fracture Status: Acute (6) Closed head injury ICD Codes: S09.90XA - Unspecified injury of head, initial encounter Status: Acute (7) Unsteady gait ICD Codes: R26.81 - Unsteadiness on feet Status: Acute (8) Hypertension ICD Codes: I10 - Essential (primary) hypertension Status: Acute (9) Dizziness ICD Codes: R42 - Dizziness and giddiness Status: Acute Assessment and Plan 1) Fall No syncope Balance issues, consider rehab 2) Sinus pause after starting BB therapy Asymptomatic while sleeping Avoid AV cheryl blockers No further work up at this time, watch on telemetry 3) 2D echo pending 4) [facility] for blood pressure Problem Qualifiers (1) Nasal bone fracture: Qualified Codes: S02.2XXA - Fracture of nasal bones, initial encounter for closed fracture (2) Closed head injury: Qualified Codes: S09.90XA - Unspecified injury of head, initial encounter (3) Hypertension: Qualified Codes: I10 - Essential (primary) hypertension Shankar Warren DO July 19, 2017 14:37
[2017-07-19 16:06] LABS: C-REACTIVE PROTEIN 1.33 MG/DL (0.00-0.30)
[2017-07-19 16:20] LABS: FOLATE 9.1 NG/ML (3.1-17.5); FREE T4 1.1 NG/DL (0.76-1.46)
--- NOTE | 2017-07-19 16:38 | RADRPT ---
EXAM DATE/TIME: 07/19/2017 15:34 [facility] COMPARISON: No previous studies available for comparison. INDICATIONS : CVA. MEDICAL HISTORY : Hypertension. SURGICAL HISTORY : None. ENCOUNTER: Initial ACUITY: 2 day PAIN SCORE: 0/10 LOCATION: head Please note a normal MRA of the brain does not entirely exclude the possibility of a small aneurysm, nor the possibility of distal intracranial vessel disease. TECHNIQUE: 3D time of flight MRA was performed. Source images, multiplanar STS MIP, and 3D volume MIP reconstru ctions were reviewed. FINDINGS: There is excellent visualization of the major intracranial arteries out to the second-order branch ve ssels. There is no evidence for aneurysm, vessel truncation or stenosis, and no evidence for vascula r malformation. origin of the posterior cerebral arteries bilaterally. CONCLUSION: No acute [place] vascular findings Jerardo Meza MD on July 19, 2017 at 16:34 Board Certified Radiologist. This report was verified electronically.
--- NOTE | 2017-07-19 16:41 | RADRPT ---
EXAM DATE/TIME: 07/19/2017 14:34 [facility] COMPARISON: No previous studies available for comparison. INDICATIONS : Cerebrovascular accident. MEDICAL HISTORY : Hypertension. Depression. Anxiety. Facial fractures. SURGICAL HISTORY : None. ENCOUNTER: Initial ACUITY: 1 day PAIN SCORE: 7/10 LOCATION: Bilateral neck PEAK SYSTOLIC VELOCITIES (cm/sec): ICA/CCA RATIO: Right: 0.5 Left: 1.8 ICA: Right: 86 Left: 240 CCA: Right: 159 Left: 133 ECA: Right: 157 Left: 134 VERTEBRAL: Right: 62 antegrade Left: 45 antegrade Elevated flow velocities and ICA/CCA ratios have been found to correlate with increased degrees of vessel stenosis, calculated as percentage of diameter relative to a normal segment of distal ICA/CCA FINDINGS: RIGHT CAROTID: No significant stenosis is visualized. The waveforms are within normal limits. LEFT CAROTID: Severe stenosis based on peak systolic velocity which is likely proportionate elevated to the common carotid increased velocities. Suspect overall stenosis of 50-69%. VERTEBRAL ARTERIES: Antegrade flow is seen in both vertebral arteries. MISCELLANEOUS: None. CONCLUSION: 1. No significant carotid: 2. Neck stenosis on the right. 3. Suspect left carotid stenosis of 50-69% although peak systolic velocities in the internal carotid artery meet criteria for severe, >70% stenosis, as above. Consider CTA examination given the somewhat discordant inconclusive sonographic findings. Crispin Hoffman MD on July 19, 2017 at 16:30 Board Certified Radiologist. This report was verified electronically.
--- NOTE | 2017-07-19 17:02 | RADRPT ---
EXAM DATE/TIME: 07/19/2017 15:34 [facility] COMPARISON: CT BRAIN W/O CONTRAST, July 16, 2017, 19:21. INDICATIONS : CVA. CONTRAST: 15 cc Omniscan (gadodiamide) IV MEDICAL HISTORY : Hypertension. SURGICAL HISTORY : None. ENCOUNTER: Initial ACUITY: 2 day PAIN SCORE: 0/10 LOCATION: head TECHNIQUE: Multiplanar, multisequence MRI of the brain was performed both prior to and following the administrat ion of paramagnetic contrast. FINDINGS: There is focally restricted diffusion involving the anterior right upper aby consistent with subacut e pontine stroke. Elsewhere, there is patchy moderate T2 prolongation in the periventricular and subc ortical white matter regions which is felt likely chronic. There are multiple old bilateral basal uma glia and thalamic lacunar infarcts. There is no evidence of an cranial hemorrhage or mass. There is n o significant abnormal parenchymal contrast enhancement identified and normal enhancement is present in intracranial vascular structures. There is a right frontal cephalohematoma. Mild fluid and mucosal thickening in the facial sinuses. CONCLUSION: Right pontine stroke. Jerardo Meza MD on July 19, 2017 at 16:51 Board Certified Radiologist. This report was verified electronically.
--- NOTE | 2017-07-19 17:46 | RADRPT ---
EXAM DATE/TIME: 07/19/2017 15:34 [facility] COMPARISON: No previous studies available for comparison. INDICATIONS : Myelopathy. MEDICAL HISTORY : Hypertension. SURGICAL HISTORY : None. ENCOUNTER: Initial ACUITY: 2 day PAIN SCORE: 3/10 LOCATION: Neck TECHNIQUE: Multiplanar, multisequence MRI examination of the cervical spine was performed. FINDINGS: VERTEBRAE: Normal vertebral body height. Homogeneous marrow signal. ALIGNMENT: No evidence of subluxation. CORD: Normal configuration and signal. POST FOSSA: The cerebellar tonsils are normal in position. C2-C3: The thecal sac has a normal configuration. There is no evidence of disc herniation or spinal canal s tenosis. The neural foramina are patent bilaterally. C3-C4: Minimal broad undulating dorsal disc protrusion slightly indenting ventral thecal sac. No canal or fo raminal compromise. C4-C5: Tiny right paracentral disc protrusion minimally indenting thecal sac. No significant canal or forami nal compromise. C5-C6: Mild broad slightly undulating dorsal disc protrusion, broadly asymmetric to the right minimal indent ation of the thecal sac. C6-C7: The thecal sac has a normal configuration. There is no evidence of disc herniation or spinal canal s tenosis. The neural foramina are patent bilaterally. C7-T1: The thecal sac has a normal configuration. There is no evidence of disc herniation or spinal canal s tenosis. The neural foramina are patent bilaterally. CONCLUSION: No acute MR findings of the cervical spine. Small disc protrusions at several levels as described, no ne producing any significant anatomic compromise. Jerardo Meza MD on July 19, 2017 at 17:42 Board Certified Radiologist. This report was verified electronically.
[2017-07-19] MEDS: HALOPERIDOL LACTATE 5 MG/ML AMP IV PUSH SCH (17:52)
[2017-07-19] MEDS: ACETAMINOPHEN/HYDROcodone 325 MG/5 MG TAB PO PRN (20:27)
[2017-07-19] MEDS: CEFUROXIME AXETIL 250 MG TAB PO SCH (20:27)
--- NOTE | 2017-07-19 22:08 | RADRPT ---
EXAM DATE/TIME: 07/19/2017 21:21 [facility] COMPARISON: US CAROTID ARTERIES, July 19, 2017, 14:34. MRI BRAIN W & W/O CONTRAST, July 19, 2017, 15:34. INDICATIONS : Dizziness. CONTRAST: 20 cc Omniscan (gadodiamide) IV MEDICAL HISTORY : Hypertension. Hypercholesterolemia. SURGICAL HISTORY : None. ENCOUNTER: Initial ACUITY: 1 day PAIN SCORE: Nonresponsive. LOCATION: Bilateral cranial Percent stenosis is calculated using the diameter of the stenotic region over the diameter of the nor mal distal internal carotid artery. TECHNIQUE: Bolus infused MRA of the extracranial circulation was performed using a neurovascular coil. Post pro cessing was performed including rotating subvolume maximum intensity projections of each carotid lisa ry, rotating full volume maximum intensity projections of both carotid arteries, sagittal and coronal sliding thin slab reformations of each carotid artery, and left oblique sliding thin slab reformatio n through the aortic arch to include the origin of the arch branch vessels. FINDINGS: AORTIC ARCH: There is a three vessel origin of the great vessels from the aorta. No evidence of ostial narrowing. RIGHT CAROTID: Atherosclerotic plaque involving the ICA origin generating a 30-40% stenosis utilizing NASCET criteri a. No ulceration. The CCA, ECA and remaining extracranial ICA are patent. LEFT CAROTID: The common carotid artery is patent. Atherosclerotic plaque involving the proximal ICA generates a sm all ulceration as well as a 60% stenosis utilizing NASCET criteria. The remaining extracranial ICA an d ECA are patent. VERTEBRALS: The origins of the vertebral arteries are poorly seen due to motion artifact. The cervical portions a re patent. Near the confluence with the basilar artery the left vertebral artery becomes much smaller in caliber than the contralateral side. The main supply to the basilar is via the right vertebral ar devi. CONCLUSION: 1. 60% stenosis of the left ICA secondary to ulcerated atherosclerotic plaque. 2. 30-40% stenosis of the right ICA secondary to atherosclerotic plaque. 3. Right vertebral artery is the dominant supply to the basilar. Robby Richardson Jr., MD on July 19, 2017 at 22:00 Board Certified Radiologist. This report was verified electronically.
[2017-07-19] MEDS: ASPIRIN 325 MG TAB PO SCH (23:40)
[2017-07-20] VITALS (9 sets, daily range): BP systolic 157–211; BP diastolic 72–95; PULSE 53–78; RESP 16–21; TEMP 97.4–98.2; O2SAT 94–99
[2017-07-20] MEDS ORDERED: CAPTOPRIL 12.5 MG TAB PO ONE (00:15)
[2017-07-20] MEDS: CAPTOPRIL 12.5 MG TAB PO SCH (00:47)
--- NOTE | 2017-07-20 07:08 | HHI.PR ---
Subjective Remarks sr still some delusions Objective Vital Signs Date Time Temp Pulse Resp B/P (MAP) Pulse Ox O2 Delivery O2 Flow Rate FiO2 07/20/17 03:55 97.4 53 16 157/72 (100) 97 07/20/17 00:00 65 16 193/87 (122) 95 07/19/17 21:02 18 07/19/17 20:49 97.7 71 16 199/93 (128) 94 07/19/17 17:36 98.5 64 18 168/86 (113) 97 07/19/17 12:45 98.5 58 18 177/79 (111) 96 07/19/17 08:48 98.7 58 18 179/85 (116) 96 I/O 07/19/17 07/19/17 07/19/17 07/20/17 07/20/17 07/20/17 07:00 15:00 23:00 07:00 15:00 23:00 Intake Total 1350 ml 700 ml 400 ml Balance 1350 ml 700 ml 400 ml Intake Oral 700 ml IV Total 1350 ml 400 ml Result Diagram: 07/19/17 0742 07/19/17 0742 Objective Remarks vff face sym 07/03 bue and ble Assessment and Plan Assessment and Plan imp mri shows acute r pontine cva on asa kep ivf on bp up hob down today and might get up in am tomorriow fu echo and hoklter and ldl statin if ldl up today rx uti mra cow basilar ok check mra neck Valentin Lanier MD July 20, 2017 07:08
[2017-07-20 07:36] LABS: BICARBONATE 22.4 MEQ/L (21.0-32.0); CALCIUM 8.3 MG/DL (8.5-10.1); CREATININE 1.37 MG/DL (0.50-1.00)
[2017-07-20 07:38] LABS: CHOLESTEROL/ HDL RATIO 4.92 RATIO; HDL CHOLESTEROL 38.8 MG/DL (40.0-60.0)
[2017-07-20] MEDS: ASPIRIN 325 MG TAB PO SCH (11:32)
[2017-07-20] MEDS: SODIUM CHLORIDE 0.9% FLUSH 10 ML FLUSH IV FLUSH SCH ×2 (11:33→22:06)
[2017-07-20] MEDS: CEFUROXIME AXETIL 250 MG TAB PO SCH ×2 (11:33→22:06)
[2017-07-20] MEDS: CYANOCOBALAMIN 1000 MCG/ML VIAL IM SCH (11:33)
[2017-07-20] MEDS: HALOPERIDOL LACTATE 5 MG/ML AMP IV PUSH SCH ×5 (11:34→20:58)
[2017-07-20] MEDS: DOCUSATE SODIUM 50 MG/SENNA 8.6 MG TAB PO SCH ×2 (11:35→22:06)
[2017-07-20] MEDS: SODIUM CHLOR 0.9% 1000 ML INJ 1,000 ML IV SCH ×2 (11:40→22:06)
[2017-07-20] MEDS ORDERED: LABETALOL HCL 100 MG/20 ML VIAL IV PUSH PRN (17:45)
[2017-07-20] MEDS ORDERED: ENALAPRILAT 1.25 MG/ML VIAL IV PUSH PRN (17:45)
--- NOTE | 2017-07-20 17:46 | HHI.PR ---
Subjective Remarks late entry - patient seen around 1115am Follow-up on patient with fall, dizziness, bradycardia. Patient seen and examined. Patient denies any complaints of headache, dizziness or lightheadedness. She denies any vision changes. She denies any chest pain or shortness of breath. She denies any nausea, vomiting or abdominal pain. She denies any urinary complaints, diarrhea or constipation. Discussed with RN, patient's been calm and cooperative today. MRI reveals subacute pontine stroke. Objective Vitals Vital Signs Date Time Temp Pulse Resp B/P (MAP) Pulse Ox O2 Delivery O2 Flow Rate FiO2 07/20/17 15:56 98.2 62 20 171/82 (111) 94 07/20/17 10:33 98.2 71 21 178/93 (121) 99 07/20/17 08:45 66 20 199/86 (123) 98 07/20/17 08:45 211/93 (132) 07/20/17 07:17 97.9 63 21 173/95 (121) 97 07/20/17 03:55 97.4 53 16 157/72 (100) 97 07/20/17 00:00 65 16 193/87 (122) 95 07/19/17 21:02 18 07/19/17 20:49 97.7 71 16 199/93 (128) 94 07/19/17 17:36 98.5 64 18 168/86 (113) 97 I/O 07/19/17 07/19/17 07/19/17 07/20/17 07/20/17 07/20/17 07:00 15:00 23:00 07:00 15:00 23:00 Intake Total 1350 ml 700 ml 400 ml Balance 1350 ml 700 ml 400 ml Intake Oral 700 ml IV Total 1350 ml 400 ml Result Diagram: 07/19/17 0742 07/20/17 0540 Imaging Last Impressions Head Magnetic Resonance Angiography 07/19/17 1240 Signed Impressions: Service Date/Time: Wednesday, July 19, 2017 15:34 - CONCLUSION: No acute [place] vascular findings Jerardo Meza MD Cervical Spine MRI 07/19/17 1240 Signed Impressions: Service Date/Time: Wednesday, July 19, 2017 15:34 - CONCLUSION: No acute MR findings of the cervical spine. Small disc protrusions at several levels as described, none producing any significant anatomic compromise. Jerardo Meza MD Carotid Artery Ultrasound [id number]/19/[id number] Signed Impressions: Service Date/Time: Wednesday, July 19, 2017 14:34 - CONCLUSION: 1. No significant carotid: 2. Neck stenosis on the right. 3. Suspect left carotid stenosis of 50-69%% although peak systolic velocities in the internal carotid artery meet criteria for severe, >70%% stenosis, as above. Consider CTA examination given the somewhat discordant inconclusive sonographic findings. Crispin Hoffman MD Brain MRI 07/19/170 Signed Impressions: Service Date/Time: Wednesday, July 19, 2017 15:34 - CONCLUSION: Right pontine stroke. Jerardo Meza MD Neck Magnetic Resonance Angiography 07/19/17 0000 Signed Impressions: Service Date/Time: Wednesday, July 19, 2017 21:21 - CONCLUSION: 1. 60%% stenosis of the left ICA secondary to ulcerated atherosclerotic plaque. 2. 30-40%% stenosis of the right ICA secondary to atherosclerotic plaque. 3. Right vertebral artery is the dominant supply to the basilar. Robby Richardson Jr., MD Head CT [id number] Signed Impressions: Service Date/Time: Sunday, July 16, 2017 19:21 - CONCLUSION: 1. No acute intracranial abnormality seen. There are multiple old lacunar infarcts. 2. Right frontal scalp injury/hematoma with right periorbital soft tissue swelling and nasal bone fractures with leftward deviation of the fragments. Jerardo Rogers MD Chest X-Ray [id number] Signed Impressions: Service Date/Time: Sunday, July 16, 2017 17:36 - CONCLUSION: No acute disease. Gilberto Vergara MD Cervical Spine CT [id number] Signed Impressions: Service Date/Time: Sunday, July 16, 2017 19:21 - CONCLUSION: 1. No acute bony abnormality is seen. 2. Facet hypertrophy throughout. Jerardo Rogers MD Maxillofacial CT 07/16/17 0000 Signed Impressions: Service Date/Time: Sunday, July 16, 2017 19:21 - CONCLUSION: 1. Nasal bone fractures. 2. Right frontal scalp swelling and hematoma. 3. Right periorbital soft tissue swelling. Jerardo Rogers MD Objective Remarks GENERAL: Well-nourished, well-developed female patient in NAD. Awake and alert. SKIN: Warm and dry. No rash. HEENT: Normocephalic. Diffuse facial ecchymosis and hematomas throughout right forehead, bilateral periorbital, nasal and and maxillary regions. Pupils equal and round. Mucous membranes pink and moist. NECK: Supple. Trachea midline. CARDIOVASCULAR: Regular rate and rhythm. No murmur appreciated. RESPIRATORY: Nonlabored. Clear to auscultation. Breath sounds equal bilaterally. GASTROINTESTINAL: Abdomen soft, non-tender, nondistended. Normoactive bowel sounds x4. MUSCULOSKELETAL: No obvious deformities. Extremities without clubbing, cyanosis , or edema. NEUROLOGICAL: Awake and alert, oriented to self, place, date, president. 5/5 strength of all extremities except 4/5 right anterior tibialis strength with apparent right foot drop. Normal speech. PSYCHIATRIC: Calm and cooperative. A/P Problem List: (1) Fall ICD Code: W19.XXXA - Unspecified fall, initial encounter (2) Dizziness ICD Code: R42 - Dizziness and giddiness Status: Acute (3) Nasal bone fracture ICD Code: S02.2XXA - Fracture of nasal bones, initial encounter for closed fracture Status: Acute (4) Renal insufficiency ICD Code: N28.9 - Disorder of kidney and ureter, unspecified (5) UTI (urinary tract infection) ICD Code: N39.0 - Urinary tract infection, site not specified Assessment and Plan 61-year-old female with a PMH of HTN was brought to the ER by EMS after a fall with dizziness. Subacute pontine stroke c/o dizziness s/p fall at home with facial injury MRI brain reveals focally restricted diffusion involving the anterior right upper aby consistent with subacute pontine stroke, images reviewed by oh Carotid US shows significant stenosis on the left, none on the right MRA head negative MRA neck 60% stenosis of the left ICA secondary to ulcerated atherosclerotic plaque, 30-40% stenosis of the right ICA secondary to atherosclerotic plaque, Right vertebral artery is the dominant supply to the basilar. -Neurology following - continue IVF, keep BP up and HOB down -ST for swallow evaluation -ASA 325mg and Lipitor 40mg daily -Consult rehab medicine -Consult stroke navigator -Neuro checks -fall and seizure precautions -Echocardiogram ordered/pending -Continue to monitor on telemetry -Holter monitor -PT/OT Acute metabolic encephalopathy, improved RPR and HIV neg Patient is out of restraints -monitor Nasal Bone Fx: Acute, secondary to fall CT Maxillofacial w/ nasal bone fractures and leftward deviation of fragments. -ENT consulted, no surgical intervention. HTN: Uncontrolled. BP 226/103, HR 81, s/p Labetalol and Hydralazine IV in ER. -Hold Norvasc and captopril secondary to acute CVA -Vasotec 1.25mg IV or Labetalol 10mg IV prn SBP>220 or DBP>120 Bradycardia: with 2.7 second pause on tele, patient asymptomatic. -Suspect secondary to beta viet, will discontinue metoprolol. -Monitor on telemetry although patient refusing at times. -Cardiology consulted, agrees discontinuing BB -Bradycardia improved -continue to monitor. UTI: U/a w/ UTI. Possibly contributing to encephalopathy. -Urine culture with E.coli, pansensitive. -continue on po Ceftin x3days. HAIM: Creatinine 1.48, no previous labs for comparison, presumably new, possibly due to UTI -avoid hepatotoxic agents -obtain urine sodium and creatinine, obtain renal US -continue on IV fluids -continue to monitor kidney function Behavioral Disturbances: patient with previous psychiatric history. Now uncooperative with staff, refusing to wear telemetry, pulled IVs, requiring soft restraints. -Consulted psychiatry, appreciate assistance. Unclear if patient has capacity. -Psychiatry recommending Haldol 1mg TID IV to start. Could use additional Haldol 1mg IV/IM up to TID p.r.n. severe agitation Vitamin B12 Deficiency: acute -started on cyanocobalamin 1000mcg IM daily x7days, then once a week x 4 weeks, then monthly DVT Prophylaxis: SCDs/teds. Problem Qualifiers (1) Nasal bone fracture: Qualified Codes: S02.2XXA - Fracture of nasal bones, initial encounter for closed fracture Claribel Sharma July 20, 2017 17:46
[2017-07-20] MEDS ORDERED: ATORVASTATIN 40 MG TAB PO ONE (18:00)
--- NOTE | 2017-07-20 20:37 | RADRPT ---
EXAM DATE: 07/20/2017 7:13 PM EDT AGE/SEX: 61 years / Female INDICATIONS: Increased BUN/Creatnine. CLINICAL DATA: This is the patient's initial encounter. Patient reports that signs and symptoms have been present for 1 day and indicates a pain score of 1/10. MEDICAL/SURGICAL HISTORY: Hypertension. Depression. Anxiety. None. COMPARISON: No prior [facility] exams available for comparison. MEASUREMENTS: Right Kidney:__ 10.3 x 4.8 x 4.9 cm Left Kidney:__ 9.9 x 3.5 x 5.1 cm FINDINGS: Right Kidney: The right kidney appears normal. No hydronephrosis is seen. Left Kidney: The left kidney appears lobulated. There is a 2.1 x 1.3 x 1.8 cm hypoechoic area seen in the mid left kidney. It is not definitely anechoic and through transmission cannot clearly be identi fied. No hydronephrosis is seen. Bladder: Within normal limits given the degree of distension. Gallstones are seen measuring up to 1.6 cm. CONCLUSION: 1. 2.1 cm hypoechoic area seen at the left mid kidney. This potentially could be related to a cyst. 2. Gallstones. Electronically signed by: Jerardo Rogers MD 07/20/2017 8:36 PM EDT
--- NOTE | 2017-07-20 20:40 | MG ---
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 Haldol and Norvasc. Right pontine infarct. INTERPRETATION: A symmetric 8 Hz, 60 microvolt posterior rhythm is seen. She falls asleep with symmetric sleep spindles. No hemispheric asymmetry is noted. No epileptiform or seizure activity was seen. Hyperventilation was not performed. With sleep some mild bitemporal theta slowing is seen. IMPRESSION: A normal awake and sleep electroencephalogram. No evidence for a focal or diffuse abnormality. Valentin Arzola. MD JENNIFER Lanier/ , 07:56 PM , 08:39 PM
[2017-07-21] VITALS (8 sets, daily range): BP systolic 193–217; BP diastolic 77–96; PULSE 56–78; RESP 17–19; TEMP 97.2–98.1; O2SAT 94–99
[2017-07-21] MEDS: SODIUM CHLOR 0.9% 1000 ML INJ 1,000 ML IV SCH ×3 (01:30→21:48)
[2017-07-21 06:18] LABS: CALCIUM 8.9 MG/DL (8.5-10.1); CREATININE 1.09 MG/DL (0.50-1.00)
--- NOTE | 2017-07-21 07:55 | HHI.PR ---
Subjective Remarks sr denies delusions Objective Vital Signs Date Time Temp Pulse Resp B/P (MAP) Pulse Ox O2 Delivery O2 Flow Rate FiO2 07/21/17 07:49 98.1 78 19 206/96 (132) 96 07/21/17 04:25 97.4 69 17 195/86 (122) 99 07/21/17 04:18 56 07/21/17 00:28 74 07/21/17 00:25 97.7 74 18 213/91 (131) 94 07/20/17 21:40 98.1 76 18 180/85 (116) 96 Manual Cuff/Auscultation 07/20/17 15:56 98.2 62 20 171/82 (111) 94 07/20/17 15:00 78 07/20/17 10:33 98.2 71 21 178/93 (121) 99 07/20/17 08:45 66 20 199/86 (123) 98 07/20/17 08:45 211/93 (132) I/O 07/20/17 07/20/17 07/20/17 07/21/17 07/21/17 07/21/17 07:00 15:00 23:00 07:00 15:00 23:00 Intake Total 400 ml 1000 ml 960 ml Output Total 800 ml 900 ml 600 ml Balance 400 ml -800 ml 100 ml 360 ml Intake Oral 360 ml IV Total 400 ml 1000 ml 600 ml Output Urine Total 800 ml 900 ml 600 ml # Bowel Movements 0 Result Diagram: 07/19/17 0742 07/21/17 0441 Objective Remarks vff face sym 5/5 bue and ble awake alert Assessment and Plan Assessment and Plan imp mri shows acute r pontine cva on asa kep ivf on bp up and oob fu echo and holter pend and ldl inc on statin rx uti mra cow basilar ok check mra neck may have a slight distal r vert stenosis check cta asa oob will need rehab i dced haldol as developing r hand tremor Valentin Lanier MD July 21, 2017 07:55
[2017-07-21] MEDS: CEFUROXIME AXETIL 250 MG TAB PO SCH ×2 (08:37→21:48)
[2017-07-21] MEDS: ATORVASTATIN 40 MG TAB PO SCH (08:37)
[2017-07-21] MEDS: DOCUSATE SODIUM 50 MG/SENNA 8.6 MG TAB PO SCH ×2 (08:37→21:48)
[2017-07-21] MEDS: ASPIRIN 325 MG TAB PO SCH (08:37)
[2017-07-21] MEDS: CYANOCOBALAMIN 1000 MCG/ML VIAL IM SCH (08:38)
[2017-07-21] MEDS: SODIUM CHLORIDE 0.9% FLUSH 10 ML FLUSH IV FLUSH SCH ×2 (09:00→21:55)
[2017-07-21] MEDS ORDERED: IODIXANOL 320 MG/ML 10 ML VIAL (for Rad CT) IVCONTRAST ONE (10:21)
--- NOTE | 2017-07-21 11:02 | HHI.PR ---
Subjective Remarks Follow-up for stroke, UTI. Patient is awake, alert, oriented to self, [facility], president Mickie, states the date is July 23, 2017. She denies any specific medical complaints including no headache, visual changes, dizziness, lightheadedness, unilateral numbness/weakness, chest pain, shortness of breath, abdominal or urinary complaints. Vital signs reviewed, BP elevated today, currently allowing permissive hypertension for acute stroke. Objective Vitals Vital Signs Date Time Temp Pulse Resp B/P (MAP) Pulse Ox O2 Delivery O2 Flow Rate FiO2 07/21/17 07:49 98.1 78 19 206/96 (132) 96 07/21/17 04:25 97.4 69 17 195/86 (122) 99 07/21/17 04:18 56 07/21/17 00:28 74 07/21/17 00:25 97.7 74 18 213/91 (131) 94 07/20/17 21:40 98.1 76 18 180/85 (116) 96 Manual Cuff/Auscultation 07/20/17 15:56 98.2 62 20 171/82 (111) 94 07/20/17 15:00 78 I/O 07/20/17 07/20/17 07/20/17 07/21/17 07/21/17 07/21/17 07:00 15:00 23:00 07:00 15:00 23:00 Intake Total 400 ml 1000 ml 960 ml Output Total 800 ml 900 ml 600 ml Balance 400 ml -800 ml 100 ml 360 ml Intake Oral 360 ml IV Total 400 ml 1000 ml 600 ml Output Urine Total 800 ml 900 ml 600 ml # Bowel Movements 0 Result Diagram: 07/19/17 0742 07/21/17 0441 Imaging Last Impressions Renal Ultrasound 07/20/17 0000 Signed Impressions: CONCLUSION: Head Magnetic Resonance Angiography 07/19/17 1240 Signed Impressions: Service Date/Time: Wednesday, July 19, 2017 15:34 - CONCLUSION: No acute [place] vascular findings Jerardo Meza MD Cervical Spine MRI 07/19/17 1240 Signed Impressions: Service Date/Time: Wednesday, July 19, 2017 15:34 - CONCLUSION: No acute MR findings of the cervical spine. Small disc protrusions at several levels as described, none producing any significant anatomic compromise. Jerardo Meza MD Carotid Artery Ultrasound 07/19/17 1240 Signed Impressions: Service Date/Time: Wednesday, July 19, 2017 14:34 - CONCLUSION: 1. No significant carotid: 2. Neck stenosis on the right. 3. Suspect left carotid stenosis of 50-69%% although peak systolic velocities in the internal carotid artery meet criteria for severe, >70%% stenosis, as above. Consider CTA examination given the somewhat discordant inconclusive sonographic findings. Crispin Hoffman MD Brain MRI 07/19/170 Signed Impressions: Service Date/Time: Wednesday, July 19, 2017 15:34 - CONCLUSION: Right pontine stroke. Jerardo Meza MD Neck Magnetic Resonance Angiography 07/19/17 0000 Signed Impressions: Service Date/Time: Wednesday, July 19, 2017 21:21 - CONCLUSION: 1. 60%% stenosis of the left ICA secondary to ulcerated atherosclerotic plaque. 2. 30-40%% stenosis of the right ICA secondary to atherosclerotic plaque. 3. Right vertebral artery is the dominant supply to the basilar. Robby Richardson Jr., MD Head CT [id number] Signed Impressions: Service Date/Time: Sunday, July 16, 2017 19:21 - CONCLUSION: 1. No acute intracranial abnormality seen. There are multiple old lacunar infarcts. 2. Right frontal scalp injury/hematoma with right periorbital soft tissue swelling and nasal bone fractures with leftward deviation of the fragments. Jerardo Rogers MD Chest X-Ray [id number] Signed Impressions: Service Date/Time: Sunday, July 16, 2017 17:36 - CONCLUSION: No acute disease. Gilberto Vergara MD Cervical Spine CT [id number] Signed Impressions: Service Date/Time: Sunday, July 16, 2017 19:21 - CONCLUSION: 1. No acute bony abnormality is seen. 2. Facet hypertrophy throughout. Jerardo Rogers MD Maxillofacial CT 07/16/17 0000 Signed Impressions: Service Date/Time: Sunday, July 16, 2017 19:21 - CONCLUSION: 1. Nasal bone fractures. 2. Right frontal scalp swelling and hematoma. 3. Right periorbital soft tissue swelling. Jerardo Rogers MD Objective Remarks GENERAL: Well-nourished, well-developed female patient in NAD. SKIN: Warm and dry. No rash. HEENT: Normocephalic. Diffuse facial ecchymosis and hematomas throughout right forehead, bilateral periorbital, nasal and and maxillary regions. Pupils equal and round. Mucous membranes pink and moist. NECK: Supple. Trachea midline. CARDIOVASCULAR: Regular rate and rhythm. No murmur appreciated. RESPIRATORY: No accessory muscle use. Clear to auscultation. Breath sounds equal bilaterally. GASTROINTESTINAL: Abdomen soft, non-tender, nondistended. Normoactive bowel sounds x4. MUSCULOSKELETAL: No obvious deformities. Extremities without clubbing, cyanosis , or edema. NEUROLOGICAL: Awake and alert, oriented to self, place, month/year, president. 5/5 strength of all extremities except 4/5 right anterior tibialis strength with apparent foot drop, also slight 4/5 weakness of left hand roll cleaner today. Normal speech. No facial droop or lid lag. PSYCHIATRIC: Pleasant but odd mood/affect; insight and judgment fair to limited. Procedures None. Medications and IVs Current Medications Medications (Trade) Dose Ordered Sig/Scott Route Start Time Stop Time Status Last Admin (NS Flush) 2 ml UNSCH PRN IV FLUSH 07/16/17 21:00 (NS Flush) 2 ml BID IV FLUSH 07/16/17 21:00 07/21/17 09:00 (Reglan Inj) 5 mg Q6H PRN IV PUSH 07/16/17 21:00 (Tylenol) 650 mg Q6H PRN PO 07/16/17 21:00 ([place] 5-325 Mg) 1 tab Q4H PRN PO 07/16/17 21:00 07/19/17 20:27 ([place] 10-325 Mg) 1 tab Q4H PRN PO 07/16/17 21:00 (Judit-Colace) 1 tab BID PO 07/16/17 21:00 07/21/17 08:37 (Milk Of Magnesia Liq) 30 ml Q12H PRN PO 07/16/17 21:00 (Senokot) 17.2 mg Q12H PRN PO 07/16/17 21:00 (Dulcolax Supp) 10 mg DAILY PRN RECTAL 07/16/17 21:00 (Lactulose Liq) 30 ml DAILY PRN PO 07/16/17 21:00 (Norvasc) 10 mg DAILY PO 07/19/17 09:00 Future Hold 07/20/17 11:32 (Vitamin B12 Inj) 1,000 mcg DAILY IM 07/19/17 09:00 07/26/17 08:59 07/21/17 08:38 (Ceftin) 250 mg Q12HR PO 07/19/17 21:00 07/21/17 08:37 (Aspirin) 325 mg DAILY PO 07/19/17 21:00 07/21/17 08:37 (Capoten) 12.5 mg Q12HR PO 07/20/17 09:00 Future Hold 07/20/17 00:47 (Lipitor) 40 mg DAILY PO 07/21/17 09:00 07/21/17 08:37 (Vasotec Inj) 1.25 mg Q4H PRN IV PUSH 07/20/17 17:45 (Trandate Inj) 10 mg Q2H PRN IV PUSH 07/20/17 17:45 Sodium Chloride 1,000 ml @ 100 mls/hr Q10H IV 07/21/17 07:57 07/21/17 08:44 A/P Problem List: (1) Fall ICD Code: W19.XXXA - Unspecified fall, initial encounter (2) Dizziness ICD Code: R42 - Dizziness and giddiness Status: Acute (3) Nasal bone fracture ICD Code: S02.2XXA - Fracture of nasal bones, initial encounter for closed fracture Status: Acute (4) Renal insufficiency ICD Code: N28.9 - Disorder of kidney and ureter, unspecified (5) UTI (urinary tract infection) ICD Code: N39.0 - Urinary tract infection, site not specified Assessment and Plan 61-year-old female with a PMH of HTN was brought to the ER by EMS after a fall with dizziness. Subacute pontine stroke: c/o dizziness s/p fall at home with facial injury -Initial Brain MRI 07/18 with old infarcts, no acute stroke; however repeat brain MRI 07/19 reveals focally restricted diffusion involving the anterior right upper aby consistent with subacute pontine stroke, images reviewed by wa -Carotid US shows significant stenosis on the left, none on the right -MRA head negative -MRA neck 60% stenosis of the left ICA secondary to ulcerated atherosclerotic plaque, 30-40% stenosis of the right ICA secondary to atherosclerotic plaque, Right vertebral artery is the dominant supply to the basilar. -Neurology following - continue IVF, keep BP up and HOB down for now -ST for swallow evaluation, recommends mechanical soft with nectar thickened liquids -ASA 325mg and Lipitor 40mg daily -Consult rehab medicine, stroke navigator -Neuro checks, fall and seizure precautions, monitor on telemetry -Echocardiogram ordered 07/18, still awaiting to be done -Holter monitor -PT/OT recommending rehab placement, difficult due to insurance barriers Acute metabolic encephalopathy, improved -given IV Haldol tid, now mental status improved, will discontinue -RPR and HIV neg -Patient is out of restraints -monitor Nasal Bone Fx: Acute, secondary to fall -CT Maxillofacial w/ nasal bone fractures and leftward deviation of fragments. -ENT consulted, no surgical intervention. HTN: Uncontrolled. BP 226/103, HR 81, s/p Labetalol and Hydralazine IV in ER. -Hold Norvasc and captopril secondary to acute CVA as above -Vasotec 1.25mg IV or Labetalol 10mg IV prn SBP>220 or DBP>120 Bradycardia: with 2.7 second pause on tele, patient asymptomatic. -Suspect secondary to beta viet, will discontinue metoprolol. -Monitor on telemetry although patient refusing at times. -Cardiology consulted, agrees discontinuing BB -Bradycardia improved -continue to monitor. UTI: U/a w/ UTI. Possibly contributing to encephalopathy. -Urine culture with E.coli, pansensitive. -continue on po Ceftin x3days (completed treatment on 07/22) HAIM: Creatinine 1.48, no previous labs for comparison, presumably new, possibly due to UTI -avoid hepatotoxic agents -obtain urine sodium and creatinine -renal U/s with 2.1cm hypoechoic left mid kidney; potentially cyst, otherwise unremarkable -continue on IV fluids -renal function improving, Cr 1.09, continue to monitor Behavioral Disturbances: patient with previous psychiatric history. Now uncooperative with staff, refusing to wear telemetry, pulled IVs, requiring soft restraints. -Consulted psychiatry, appreciate assistance. Unclear if patient has capacity. -Psychiatry recommending Haldol 1mg TID IV to start. Could use additional Haldol 1mg IV/IM up to TID p.r.n. severe agitation -Mood improved, will d/c Haldol for now and monitor Vitamin B12 Deficiency: acute -started on cyanocobalamin 1000mcg IM daily x7days, then once a week x 4 weeks, then monthly DVT Prophylaxis: SCDs/teds. Discharge Planning PT recommending rehab. Will be difficult placement due to insurance barriers. Patient lives alone, unsafe discharge home at this time. Continue daily PT and monitor for improvement. Problem Qualifiers (1) Nasal bone fracture: Qualified Codes: S02.2XXA - Fracture of nasal bones, initial encounter for closed fracture Nelly Raphael PA-C July 21, 2017 11:02 am
--- NOTE | 2017-07-21 12:13 | RADRPT ---
EXAM DATE: 07/21/2017 10:49 AM EDT AGE/SEX: 61 years / Female INDICATIONS: Right vertebral stenosis. CLINICAL DATA: This is the patient's initial encounter. Patient reports that signs and symptoms have been present for 1 day and indicates a pain score of 0/10. MEDICAL/SURGICAL HISTORY: Hypertension. Cardiovascular disease. None. RADIATION DOSE: 28.12 CTDI (mGy) COMPARISON: No prior [place] exams available for comparison. TECHNIQUE: Volumetric scanning was performed using a multirow detector CT scanner during bolus infus ion of 75 ml Visipaque 320 (iodixanol) nonionic water-soluble contrast as a single exam dose. The data was postprocessed with a variety of visualization algorithms including full-volume maximum inten sity projection, multiplanar sliding thin-slab reformation, curved-planar reformation, and surface-re ndering techniques. Using automated exposure control and adjustment of the mA and/or kV according to patient size, radiation dose was kept as low as reasonably achievable to obtain optimal diagnostic q uality images. FINDINGS: Examination is limited by mixed delayed contrast bolus timing. Aortic Arch: There is two-vessel bovine type arch anatomy. No ostial stenosis. Right Carotid: The common carotid artery is intact. The carotid bulb has a normal configuration wit hout ulceration or narrowing. Probably noncalcified plaque at the origin of the internal carotid lisa ry with resultant approximately 30% stenosis. Internal carotid arteries otherwise patent to the skull base. Note is made of medial retropharyngeal deviation of the proximal cervical segment. The externa l carotid artery is intact. Left Carotid: The common carotid artery is intact. The carotid bulb has a normal configuration with out ulceration or narrowing. There is mixed primarily noncalcified plaque in the origin of the left i nternal carotid artery. There is resultant approximately 65-70% stenosis of the internal carotid orig in. Internal carotid artery is otherwise patent to the skull base. The external carotid artery is int act. Vertebrals: The vertebral arteries have a symmetric diameter. No stenotic lesions are seen. General Findings: Lung apices are clear. Bilateral subcentimeter thyroid nodules No significant adeno tico. Elevated flow velocities and ICA/CCA ratios have been found to correlate with increased degrees of ve ssel stenosis, calculated as percentage of diameter relative to a normal segment of distal ICA/CCA. CONCLUSION: 1. Limited examination due to mixed delayed contrast bolus timing. 2. Redemonstration of predominantly noncalcified plaque in the origin of the left internal carotid a rtery with resultant approximately 65-70% stenosis. 3. Redemonstration of noncalcified plaque in the origin of the right internal carotid artery with re sultant approximately 30% stenosis. Please note that there is medial retrotracheal deviation of the p roximal cervical segment on the right. 4. Patent bilateral vertebral arteries. 5. Subcentimeter bilateral thyroid nodules. Electronically signed by: Crispin Hoffman MD 07/21/2017 12:11 PM EDT
--- NOTE | 2017-07-21 12:16 | PD.CARD.PN ---
Subjective Subjective Remarks No arrhythmias overnight No complaints CVA noted on MRI Objective Medications Current Medications Medications (Trade) Dose Ordered Sig/Scott Route Start Time Stop Time Status Last Admin (NS Flush) 2 ml UNSCH PRN IV FLUSH 07/16/17 21:00 (NS Flush) 2 ml BID IV FLUSH 07/16/17 21:00 07/21/17 09:00 (Reglan Inj) 5 mg Q6H PRN IV PUSH 07/16/17 21:00 (Tylenol) 650 mg Q6H PRN PO 07/16/17 21:00 ([place] 5-325 Mg) 1 tab Q4H PRN PO 07/16/17 21:00 07/19/17 20:27 ([place] 10-325 Mg) 1 tab Q4H PRN PO 07/16/17 21:00 (Judit-Colace) 1 tab BID PO 07/16/17 21:00 07/21/17 08:37 (Milk Of Magnesia Liq) 30 ml Q12H PRN PO 07/16/17 21:00 (Senokot) 17.2 mg Q12H PRN PO 07/16/17 21:00 (Dulcolax Supp) 10 mg DAILY PRN RECTAL 07/16/17 21:00 (Lactulose Liq) 30 ml DAILY PRN PO 07/16/17 21:00 (Norvasc) 10 mg DAILY PO 07/19/17 09:00 Future Hold 07/20/17 11:32 (Vitamin B12 Inj) 1,000 mcg DAILY IM 07/19/17 09:00 07/26/17 08:59 07/21/17 08:38 (Ceftin) 250 mg Q12HR PO 07/19/17 21:00 07/22/17 10:00 07/21/17 08:37 (Aspirin) 325 mg DAILY PO 07/19/17 21:00 07/21/17 08:37 (Capoten) 12.5 mg Q12HR PO 07/20/17 09:00 Future Hold 07/20/17 00:47 (Lipitor) 40 mg DAILY PO 07/21/17 09:00 07/21/17 08:37 (Vasotec Inj) 1.25 mg Q4H PRN IV PUSH 07/20/17 17:45 (Trandate Inj) 10 mg Q2H PRN IV PUSH 07/20/17 17:45 Sodium Chloride 1,000 ml @ 100 mls/hr Q10H IV 07/21/17 07:57 07/21/17 08:44 Vital Signs / I&O Vital Signs Date Time Temp Pulse Resp B/P (MAP) Pulse Ox O2 Delivery O2 Flow Rate FiO2 07/21/17 11:44 98.1 69 19 199/81 (120) 96 193/89 (123) 198/81 (120) 07/21/17 07:49 98.1 78 19 206/96 (132) 96 07/21/17 04:25 97.4 69 17 195/86 (122) 99 07/21/17 04:18 56 07/21/17 00:28 74 07/21/17 00:25 97.7 74 18 213/91 (131) 94 07/20/17 21:40 98.1 76 18 180/85 (116) 96 Manual Cuff/Auscultation 07/20/17 15:56 98.2 62 20 171/82 (111) 94 07/20/17 15:00 78 I/O 07/20/17 07/20/17 07/20/17 07/21/17 07/21/17 07/21/17 07:00 15:00 23:00 07:00 15:00 23:00 Intake Total 400 ml 1000 ml 960 ml Output Total 800 ml 900 ml 600 ml Balance 400 ml -800 ml 100 ml 360 ml Intake Oral 360 ml IV Total 400 ml 1000 ml 600 ml Output Urine Total 800 ml 900 ml 600 ml # Bowel Movements 0 Physical Exam GENERAL: Alert, awake and oriented, NAD SKIN: Warm and dry. HEAD: Normocephalic, abrasion noted on right side of face EYES: Pupils equal and round. No scleral icterus. No injection or drainage. ENT: No nasal bleeding or discharge. Mucous membranes pink and moist. NECK: Trachea midline. No JVD. CARDIOVASCULAR: Regular rate and rhythm. RESPIRATORY: No accessory muscle use. Clear to auscultation. Breath sounds equal bilaterally. GASTROINTESTINAL: Abdomen soft, non-tender, nondistended. Hepatic and splenic margins not palpable. MUSCULOSKELETAL: Extremities without clubbing, cyanosis, or edema. No obvious deformities. NEUROLOGICAL: Awake and alert. No obvious cranial nerve deficits. Motor grossly within normal limits. Five out of 5 muscle strength in the arms and legs. Normal speech. PSYCHIATRIC: Appropriate mood and affect; insight and judgment normal. Laboratory Laboratory Tests Test 07/20/17 18:30 07/21/17 04:41 Blood Urea Nitrogen 19 MG/DL Creatinine 1.09 MG/DL Random Glucose 89 MG/DL Calcium Level 8.9 MG/DL Sodium Level 143 MEQ/L Potassium Level 4.0 MEQ/L Chloride Level 109 MEQ/L Carbon Dioxide Level 24.0 MEQ/L Anion Gap 10 MEQ/L Estimat Glomerular Filtration Rate 51 ML/MIN Imaging Last 24 hours Impressions Neck CTA 07/21/17 0000 Signed Impressions: CONCLUSION: Assessment and Plan Problem List: (1) Fall ICD Codes: W19.XXXA - Unspecified fall, initial encounter (2) Delirium due to another medical condition ICD Codes: F05 - Delirium due to known physiological condition (3) UTI (urinary tract infection) ICD Codes: N39.0 - Urinary tract infection, site not specified (4) Renal insufficiency ICD Codes: N28.9 - Disorder of kidney and ureter, unspecified (5) Nasal bone fracture ICD Codes: S02.2XXA - Fracture of nasal bones, initial encounter for closed fracture Status: Acute (6) Closed head injury ICD Codes: S09.90XA - Unspecified injury of head, initial encounter Status: Acute (7) Unsteady gait ICD Codes: R26.81 - Unsteadiness on feet Status: Acute (8) Hypertension ICD Codes: I10 - Essential (primary) hypertension Status: Acute (9) Dizziness ICD Codes: R42 - Dizziness and giddiness Status: Acute Assessment and Plan 1) Fall No syncope Balance issues, consider rehab 2) Sinus pause after starting BB therapy Asymptomatic while sleeping Avoid AV cheryl blockers No further work up at this time, watch on telemetry 3) 2D echo pending 4) CVA on MRI Blood pressure management per neuro Restart medications for BP once ok with Neuro 5) Will see PRN, out next few days, if concerns please call the office for covering physician Problem Qualifiers (1) Nasal bone fracture: Qualified Codes: S02.2XXA - Fracture of nasal bones, initial encounter for closed fracture (2) Closed head injury: Qualified Codes: S09.90XA - Unspecified injury of head, initial encounter (3) Hypertension: Qualified Codes: I10 - Essential (primary) hypertension Shankar Warren DO July 21, 2017 12:16
--- NOTE | 2017-07-21 13:40 | ECHRPT ---
Indication: Sinus pause CONCLUSIONS The left ventricular systolic function is low normal with an estimated ejection fraction in the rang e of 50- 55%. Wall thickness is normal. Normal left ventricular size. Trace aortic valve stenosis. Aortic valve area is 2.0 cm. Aortic valve mean gradient is 8 mmHg. The pulmonary valve is not well visualized. BP: 179 / 85 HR: 58 Rhythm: Sinus MEASUREMENTS (Male / Female) Normal Values Technical Quality:Fair 2D ECHO LV Diastolic Diameter PLAX 4.4 cm 4.2 - 5.9 / 3.9 - 5.3 cm LV Systolic Diameter PLAX 3.4 cm IVS Diastolic Thickness 1.0 cm 0.6 - 1.0 / 0.6 - 0.9 cm LVPW Diastolic Thickness 1.0 cm 0.6 - 1.0 / 0.6 - 0.9 cm LV Relative Wall Thickness 0.5 LVOT Diameter 2.2 cm M-MODE Aortic Root Diameter MM 3.2 cm LA Systolic Diameter MM 3.8 cm LA Ao Ratio MM 1.2 AV Cusp Separation MM 2.0 cm DOPPLER AV Peak Velocity 200.6 cm/s AV Peak Gradient 16.1 mmHg AV Mean Gradient 8.0 mmHg AV Velocity Time Integral 41.2 cm LVOT Peak Velocity 108.0 cm/s LVOT Peak Gradient 4.7 mmHg AV Area Cont Eq pk 2.0 cm Mitral E Point Velocity 86.4 cm/s Mitral A Point Velocity 113.0 cm/s Mitral E to A Ratio 0.8 LV E' Lateral Velocity 7.6 cm/s Mitral E to LV E' Lateral Ratio 11.4 LV E' Septal Velocity 12.2 cm/s Mitral E to LV E' Septal Ratio 7.1 PV Peak Velocity 144.0 cm/s PV Peak Gradient 8.3 mmHg FINDINGS LEFT VENTRICLE The left ventricular systolic function is low normal with an estimated ejection fraction in the rang e of 50- 55%. Wall thickness is normal. Normal left ventricular size. RIGHT VENTRICLE Normal right ventricular size and systolic function. LEFT ATRIUM The left atrial size is normal. RIGHT ATRIUM The right atrial size is normal. ATRIAL SEPTUM Normal atrial septal thickness without atrial level shunting by limited color doppler interrogation. AORTA The aortic root and proximal ascending aorta are normal in size on limited imaging. MITRAL VALVE Structurally normal mitral valve. No mitral valve stenosis or regurgitation. AORTIC VALVE Trace aortic valve stenosis. Aortic valve area is 2.0 cm. Aortic valve mean gradient is 8 mmHg. TRICUSPID VALVE Structurally normal tricuspid valve. No tricuspid valve stenosis or regurgitation. PULMONARY VALVE The pulmonary valve is not well visualized. VESSELS The inferior vena cava is normal in size. PERICARDIUM No pericardial effusion. Geovany Catherine MD, FACC (Electronically Signed) Final Date:21 Jul 2017 13:38
--- NOTE | 2017-07-21 13:58 | EKG ---
Date Performed: 07/21/2017 Time Performed: 08:07:55 PTAGE: 61 years EKG: Baseline artifact present Sinus rhythm MINIMAL ST DEPRESSION BORDERLINE ECG Within the constraints of artifact I see no definite changes. PREVIOUS TRACING : 07/16/2017 18.33 DOCTOR: Umesh Urban Interpretating Date/Time 07/21/2017 13:57:38
--- NOTE | 2017-07-21 16:42 | PD.CONS ---
[facility] Service Rehabilitation Medicine Consult Requested By Valentin Lanier MD Reason for Consult Comprehensive rehabilitation evaluation. Primary Care Physician No Primary Care Physician History of Present Illness Emerita Koehler is a 61-year-old female admitted to [facility] 07/20/17 after reported fall. She was found to have her Adonay tract infection and treated with Rocephin and renal insufficiency and received IV fluids. Head CT showed no acute intracranial abnormality but multiple old lacunar infarcts and right frontal scalp injury/hematoma with right periorbital soft tissue swelling and nasal bone fracture with fragment deviating left. She was seen by ENT and no surgical intervention was recommended. Brain MRI 07/18/17 was negative but subsequent MRI of the brain 07/19/17 showed right pontine stroke. Patient has been seen by psychiatry that notes patient does not have capacity and is primarily encephalopathic. Review of Systems ROS Limitations: Altered Mental Status, Poor Historian Eyes: DENIES: Diplopia Respiratory: DENIES: Shortness of breath Cardiovascular: DENIES: Chest pain Gastrointestinal: COMPLAINS OF: Constipation, DENIES: Abdominal pain Genitourinary: DENIES: Urinary incontinence Neurologic: COMPLAINS OF: Localized weakness (Left UE and LE), DENIES: Headache Psychiatric: DENIES: Confusion Past Family Social History Allergies: Coded Allergies: No Known Allergies (Verified Allergy, Mild, 08/15/07) Past Medical History Hypertension Hyperlipidemia Past Surgical History None listed Current Medications Current Medications Medications (Trade) Dose Ordered Sig/Scott Route Start Time Stop Time Status Last Admin (NS Flush) 2 ml UNSCH PRN IV FLUSH 07/16/17 21:00 (NS Flush) 2 ml BID IV FLUSH 07/16/17 21:00 07/21/17 09:00 (Reglan Inj) 5 mg Q6H PRN IV PUSH 07/16/17 21:00 (Tylenol) 650 mg Q6H PRN PO 07/16/17 21:00 ([place] 5-325 Mg) 1 tab Q4H PRN PO 07/16/17 21:00 07/19/17 20:27 ([place] 10-325 Mg) 1 tab Q4H PRN PO 07/16/17 21:00 (Judit-Colace) 1 tab BID PO 07/16/17 21:00 07/21/17 08:37 (Milk Of Magnesia Liq) 30 ml Q12H PRN PO 07/16/17 21:00 (Senokot) 17.2 mg Q12H PRN PO 07/16/17 21:00 (Dulcolax Supp) 10 mg DAILY PRN RECTAL 07/16/17 21:00 (Lactulose Liq) 30 ml DAILY PRN PO 07/16/17 21:00 (Norvasc) 10 mg DAILY PO 07/19/17 09:00 Future Hold 07/20/17 11:32 (Vitamin B12 Inj) 1,000 mcg DAILY IM 07/19/17 09:00 07/26/17 08:59 07/21/17 08:38 (Ceftin) 250 mg Q12HR PO 07/19/17 21:00 07/22/17 10:00 07/21/17 08:37 (Aspirin) 325 mg DAILY PO 07/19/17 21:00 07/21/17 08:37 (Capoten) 12.5 mg Q12HR PO 07/20/17 09:00 Future Hold 07/20/17 00:47 (Lipitor) 40 mg DAILY PO 07/21/17 09:00 07/21/17 08:37 (Vasotec Inj) 1.25 mg Q4H PRN IV PUSH 07/20/17 17:45 (Trandate Inj) 10 mg Q2H PRN IV PUSH 07/20/17 17:45 Sodium Chloride 1,000 ml @ 100 mls/hr Q10H IV 07/21/17 07:57 07/21/17 08:44 Family History Unable to obtain Social History Prior to admission patient lived in [place], [place]. Per case management notes she was living alone with the assistance of neighbors. She does not have a phone. Exam I&O / VS Vital Signs Date Time Temp Pulse Resp B/P (MAP) Pulse Ox O2 Delivery O2 Flow Rate FiO2 07/21/17 15:40 97.9 73 19 217/94 (135) 95 07/21/17 11:44 98.1 69 19 199/81 (120) 96 193/89 (123) 198/81 (120) 07/21/17 07:49 98.1 78 19 206/96 (132) 96 07/21/17 04:25 97.4 69 17 195/86 (122) 99 07/21/17 04:18 56 07/21/17 00:28 74 5/23/18 00:25 97.7 74 18 213/91 (131) 94 07/20/17 21:40 98.1 76 18 180/85 (116) 96 Manual Cuff/Auscultation General: No acute distress, Other (Appears to be confused but is able to be redirected) Respiratory: Lungs CTA, Non-labored respirations, BS equal Gastrointestinal: Positive Bowel Sounds, Non-Distended, Non-Tender Cardiovascular: Normal rate, Regular Rhythm Psychiatric: Cooperative, Appropriate mood & affect Orientation: oriented to Self, oriented to Place, oriented to Time (With cues) , oriented to Situation Neurologic: Cranial Nerves (Grossly intact), Speech (Dystaric but intelliglble) Motor: Right Upper Extremity (5/5), Left Upper Extremity (4-/5), Right Lower Extremity (4/5), Left Lower Extremity (4-/5) DTRs: Normal (Brisk in the lower extremities bilaterally) Babinski: Negative Clonus: Negative Assessment and Plan Assessment 1. Right pontine stroke with impaired balance 2. Impaired mobility and ADLs 3. Encephalopathy: Psychiatry is following 4. Hypertension 5. Hypercholesterolemia 6. Renal insufficiency: Creatinine is improving 7. UTI: Course of Ceftin to be completed 07/22/17 Plan 1. Physical therapy is mobilizing and patient now requires moderate assistance for transfers and ambulates 3 feet minimal assistance of 2. Continue to mobilize as tolerated 2. Occupational therapy is addressing ADLs and now minimal to moderate assistance for feeding and grooming and maximal assistance for dressing 3. Speech therapy has evaluated swallowing patient is tolerating mechanical soft diet with thin liquids 4. SCDs in place for DVT prophylaxis 5. Continue close supervision for fall prevention 6. Case management is addressing discharge planning. Will need to assess whether patient has family to assisted discharge. Prior to admission she was living alone and neighbors were assisting. 7. Will follow while hospitalized and at discharge Thank you for this consult Gaby Rosales MD July 21, 2017 16:41
[2017-07-21 16:52] LABS: HEMOGLOBIN A1C 5.1 % (4.3-6.0)
[2017-07-22] VITALS (7 sets, daily range): BP systolic 151–216; BP diastolic 67–109; PULSE 55–75; RESP 16–21; TEMP 97.2–98.2; O2SAT 94–99
[2017-07-22 05:34] LABS: BICARBONATE 26.1 MEQ/L (21.0-32.0); CALCIUM 8.4 MG/DL (8.5-10.1); CREATININE 1.17 MG/DL (0.50-1.00)
--- NOTE | 2017-07-22 07:22 | HHI.PR ---
Subjective Remarks sr denies delusions Objective Vital Signs Date Time Temp Pulse Resp B/P (MAP) Pulse Ox O2 Delivery O2 Flow Rate FiO2 07/22/17 06:00 97.3 74 21 216/109 (144) 94 07/22/17 00:00 97.7 72 20 193/94 (127) 98 07/21/17 20:00 97.2 71 18 203/77 (119) 96 07/21/17 15:40 97.9 73 19 217/94 (135) 95 07/21/17 11:44 98.1 69 19 199/81 (120) 96 193/89 (123) 198/81 (120) 07/21/17 07:49 98.1 78 19 206/96 (132) 96 I/O 07/21/17 07/21/17 07/21/17 07/22/17 07/22/17 07/22/17 07:00 15:00 23:00 07:00 15:00 23:00 Intake Total 960 ml 480 ml Output Total 600 ml Balance 360 ml 480 ml Intake Oral 360 ml 480 ml IV Total 600 ml Output Urine Total 600 ml # Voids 3 # Bowel Movements 0 1 Result Diagram: 07/19/17 0742 07/22/17 0410 Objective Remarks vff face sym 5/5 bue and ble x lue 4+/5 tricep and 4/5 hand left ta 3+ awake alert Assessment and Plan Assessment and Plan imp mri shows acute r pontine cva on asa kep ivf on bp up and oob fu echo and holter pend and ldl inc on statin rx uti mra cow basilar ok check mra neck may have a slight distal r vert stenosis check cta asa oob will need rehab i dced haldol as developing r hand tremor 07/22/17 a little weaker lue keep hob flat today may be able to go to rehab late tomorrow echo neg holter pend cta verts ok 60-70 left ica asym Valentin Lanier MD July 22, 2017 07:22
--- NOTE | 2017-07-22 10:12 | HHI.PR ---
Subjective Remarks Follow-up for stroke, UTI. Patient is awake, alert, oriented to self, [facility], president Mickie, states the date is July 23, 2017. She denies any specific medical complaints including no headache, visual changes, dizziness, lightheadedness, unilateral numbness/weakness, chest pain, shortness of breath, abdominal or urinary complaints. Vital signs reviewed, BP elevated today, currently allowing permissive hypertension for acute stroke. 5-24 POSITIVE ACUTE RIGHT PONTINE CVA NEEDS REHAB AWAIT BRADLEY CONSIDERATIONS ECHO DONE AND STABLE A.m. labs physical therapy and occupational therapy and speech therapy Lives alone Monitor labs and blood pressure Objective Vitals Vital Signs Date Time Temp Pulse Resp B/P (MAP) Pulse Ox O2 Delivery O2 Flow Rate FiO2 07/22/17 06:00 97.3 74 21 216/109 (144) 94 07/22/17 00:00 97.7 72 20 193/94 (127) 98 07/21/17 20:00 97.2 71 18 203/77 (119) 96 07/21/17 15:40 97.9 73 19 217/94 (135) 95 07/21/17 11:44 98.1 69 19 199/81 (120) 96 193/89 (123) 198/81 (120) I/O 07/21/17 07/21/17 07/21/17 07/22/17 07/22/17 07/22/17 07:00 15:00 23:00 07:00 15:00 23:00 Intake Total 960 ml 1000 ml 480 ml Output Total 600 ml Balance 360 ml 1000 ml 480 ml Intake Oral 360 ml 480 ml IV Total 600 ml 1000 ml Output Urine Total 600 ml # Voids 3 # Bowel Movements 0 1 Result Diagram: 07/19/17 0742 07/22/17 0410 Other Results Laboratory Tests Test 07/19/17 15:17 07/20/17 05:40 07/20/17 18:30 07/21/17 04:41 C-Reactive Protein 1.33 MG/DL Folate 9.1 NG/ML Free Thyroxine 1.10 NG/DL Anti-Nuclear Antibody Screen NEG Blood Urea Nitrogen 31 MG/DL 19 MG/DL Creatinine 1.37 MG/DL 1.09 MG/DL Random Glucose 93 MG/DL 89 MG/DL Calcium Level 8.3 MG/DL 8.9 MG/DL Sodium Level 144 MEQ/L 143 MEQ/L Potassium Level 4.2 MEQ/L 4.0 MEQ/L Chloride Level 112 MEQ/L 109 MEQ/L Carbon Dioxide Level 22.4 MEQ/L 24.0 MEQ/L Anion Gap 10 MEQ/L 10 MEQ/L Estimat Glomerular Filtration Rate 39 ML/MIN 51 ML/MIN Triglycerides Level 221 MG/DL Cholesterol Level 191 MG/DL LDL Cholesterol 108 MG/DL HDL Cholesterol 38.8 MG/DL Cholesterol/HDL Ratio 4.92 RATIO Hemoglobin A1c 5.1 % Test 07/22/17 04:10 Blood Urea Nitrogen 22 MG/DL Creatinine 1.17 MG/DL Random Glucose 85 MG/DL Calcium Level 8.4 MG/DL Sodium Level 144 MEQ/L Potassium Level 3.7 MEQ/L Chloride Level 108 MEQ/L Carbon Dioxide Level 26.1 MEQ/L Anion Gap 10 MEQ/L Estimat Glomerular Filtration Rate 47 ML/MIN Imaging Last Impressions Neck CTA 07/21/17 0000 Addendum Impressions: CONCLUSION: 1. Limited examination due to mixed delayed contrast bolus timing. 2. Redemonstration of predominantly noncalcified plaque in the origin of the l eft internal carotid artery with resultant approximately 65-70% stenosis. 3. Redemonstration of noncalcified plaque in the origin of the right internal carotid artery with resultant approximately 30% stenosis. Please note that ther e is medial retrotracheal deviation of the proximal cervical segment on the rig ht. 4. Patent bilateral vertebral arteries. 5. Subcentimeter bilateral thyroid nodules. Renal Ultrasound 07/20/17 0000 Signed Impressions: CONCLUSION: 1. 2.1 cm hypoechoic area seen at the left mid kidney. This potentially could be related to a cyst. 2. Gallstones. Head Magnetic Resonance Angiography 07/19/17 1240 Signed Impressions: Service Date/Time: Wednesday, July 19, 2017 15:34 - CONCLUSION: No acute [place] vascular findings Jerardo Meza MD Cervical Spine MRI 07/19/17 1240 Signed Impressions: Service Date/Time: Wednesday, July 19, 2017 15:34 - CONCLUSION: No acute MR findings of the cervical spine. Small disc protrusions at several levels as described, none producing any significant anatomic compromise. Jerardo Meza MD Carotid Artery Ultrasound 07/19/17 1240 Signed Impressions: Service Date/Time: Wednesday, July 19, 2017 14:34 - CONCLUSION: 1. No significant carotid: 2. Neck stenosis on the right. 3. Suspect left carotid stenosis of 50-69%% although peak systolic velocities in the internal carotid artery meet criteria for severe, >70%% stenosis, as above. Consider CTA examination given the somewhat discordant inconclusive sonographic findings. Crispin Hoffman MD Brain MRI 07/19/17 1240 Signed Impressions: Service Date/Time: Wednesday, July 19, 2017 15:34 - CONCLUSION: Right pontine stroke. Jerardo Meza MD Neck Magnetic Resonance Angiography 07/19/17 0000 Signed Impressions: Service Date/Time: Wednesday, July 19, 2017 21:21 - CONCLUSION: 1. 60%% stenosis of the left ICA secondary to ulcerated atherosclerotic plaque. 2. 30-40%% stenosis of the right ICA secondary to atherosclerotic plaque. 3. Right vertebral artery is the dominant supply to the basilar. Robby Richardson Jr., MD Head CT [id number] Signed Impressions: Service Date/Time: Sunday, July 16, 2017 19:21 - CONCLUSION: 1. No acute intracranial abnormality seen. There are multiple old lacunar infarcts. 2. Right frontal scalp injury/hematoma with right periorbital soft tissue swelling and nasal bone fractures with leftward deviation of the fragments. Jerardo Rogers MD Chest X-Ray [id number] Signed Impressions: Service Date/Time: Sunday, July 16, 2017 17:36 - CONCLUSION: No acute disease. Gilberto Vergara MD Cervical Spine CT [id number] Signed Impressions: Service Date/Time: Sunday, July 16, 2017 19:21 - CONCLUSION: 1. No acute bony abnormality is seen. 2. Facet hypertrophy throughout. Jerardo Rogers MD Maxillofacial CT 07/16/17 0000 Signed Impressions: Service Date/Time: Sunday, July 16, 2017 19:21 - CONCLUSION: 1. Nasal bone fractures. 2. Right frontal scalp swelling and hematoma. 3. Right periorbital soft tissue swelling. Jerardo Rogers MD Objective Remarks GENERAL: Awake and alert talkative and cooperative SKIN: Warm and dry. Multiple excoriations and scratches on her face almost road rash like HEAD: Atraumatic. Normocephalic. EYES: Pupils equal and round. No scleral icterus. No injection or drainage. ENT: No nasal bleeding or discharge. Mucous membranes pink and moist. Tongue is midline NECK: Trachea midline. No JVD. Supple S1-S2 no S3 or S4 CARDIOVASCULAR: Regular rate and rhythm. RESPIRATORY: No accessory muscle use. Clear to auscultation. Breath sounds equal bilaterally. GASTROINTESTINAL: Abdomen soft, non-tender, nondistended. Hepatic and splenic margins not palpable. MUSCULOSKELETAL: Extremities without clubbing, cyanosis, or edema. No obvious deformities. NEUROLOGICAL: Awake and alert. No obvious cranial nerve deficits. Motor grossly within normal limits. Five out of 5 muscle strength in the arms and legs right sided lower extremity weakness with foot drop chronic. Normal speech. PSYCHIATRIC: INAppropriate mood and affect; insight and judgment ABnormal. Procedures None. Medications and IVs Current Medications Sodium Chloride (NS Flush) 2 ml UNSCH PRN IVF FLUSH AFTER USING IV ACCESS; Start 07/16/17 at 17:30; Stop 07/18/17 at 03:53; Status DC Sodium Chloride 1,000 ml @ 1,000 mls/hr Q1H ONCE IV Last administered on at 18:27; Start 07/16/17 at 17:28; Stop 07/16/17 at 18:27; Status DC Tetanus/ Diphtheria Toxoids (Tetanus/ Diphtheria Tox Adult) 0.5 ml ONCE ONCE IM Last administered on 07/16/17at 18:26; Start 07/16/17 at 17:30; Stop 07/16/17 at 17:31; Status DC Labetalol HCl (Trandate Inj) 10 mg ONCE ONCE IV PUSH Last administered on 07/16at 18:26; Start 07/16/17 at 17:30; Stop 07/16/17 at 17:31; Status DC Hydralazine HCl (Apresoline Inj) 20 mg ONCE ONCE IV PUSH ; Start 07/16/17 at 20 :45; Stop 07/16/17 at 20:45; Status DC Labetalol HCl (Trandate Inj) 20 mg ONCE ONCE IV PUSH Last administered on 07/16at 20:47; Start 07/16/17 at 20:45; Stop 07/16/17 at 20:46; Status DC Ceftriaxone Sodium 1000 mg/ Sodium Chloride 100 ml @ 200 mls/hr ONCE ONCE IV Last administered on 07/16/17at 20:50; Start 07/16/17 at 20:45; Stop 07/16/17 at 21:14; Status DC Metoprolol Tartrate (Lopressor) 25 mg Q12HR PO Last administered on 07/17/17at 22:49; Start 07/16/17 at 21:00; Stop 07/18/17 at 11:09; Status DC Ceftriaxone Sodium 1000 mg/ Sodium Chloride 100 ml @ 200 mls/hr Q24H IV Last administered on 07/18/17at 22:01; Start 07/17/17 at 21:00; Stop 07/19/17 at 11:28 ; Status DC Sodium Chloride 1,000 ml @ 100 mls/hr Q10H IV Last administered on 07/19/17at 07:48; Start 07/16/17 at 21:00; Stop 07/19/17 at 11:28; Status DC Sodium Chloride (NS Flush) 2 ml UNSCH PRN IV FLUSH FLUSH AFTER USING IV ACCESS ; Start 07/16/17 at 21:00 Sodium Chloride (NS Flush) 2 ml BID IV FLUSH Last administered on 07/21/17at 21: 55; Start 07/16/17 at 21:00 Metoclopramide HCl (Reglan Inj) 5 mg Q6H PRN IV PUSH NAUSEA OR VOMITING; Start 07/16/17 at 21:00 Acetaminophen (Tylenol) 650 mg Q6H PRN PO FEVER/PAIN SCALE 1 TO 2; Start at 21:00 Acetaminophen/ Hydrocodone Bitart ([place] 5-325 Mg) 1 tab Q4H PRN PO PAIN SCALE 3 TO 5 Last administered on 07/19/17at 20:27; Start 07/16/17 at 21:00 Acetaminophen/ Hydrocodone Bitart ([place] 10-325 Mg) 1 tab Q4H PRN PO PAIN SCALE 6 TO 10; Start 07/16/17 at 21:00 Senna/Docusate Sodium (Judit-Colace) 1 tab BID PO Last administered on at 21:48; Start 07/16/17 at 21:00 Magnesium Hydroxide (Milk Of Magnesia Liq) 30 ml Q12H PRN PO Mild constipation ; Start 07/16/17 at 21:00 Sennosides (Senokot) 17.2 mg Q12H PRN PO Moderate constipation; Start 07/16/17 at 21:00 Bisacodyl (Dulcolax Supp) 10 mg DAILY PRN RECTAL SEVERE CONSITIPATION; Start at 21:00 Lactulose (Lactulose Liq) 30 ml DAILY PRN PO SEVERE CONSITIPATION; Start at 21:00 Clonidine (Catapres) 0.1 mg Q6H PRN PO SBP>160, DBP>90 Last administered on at 23:48; Start 07/16/17 at 22:45; Stop 07/18/17 at 03:44; Status DC Hydralazine HCl (Apresoline) 25 mg ONCE ONCE PO Last administered on at 03:53; Start 07/18/17 at 03:45; Stop 07/18/17 at 03:46; Status DC Amlodipine Besylate (Norvasc) 5 mg DAILY PO Last administered on 07/18/17at 11: 24; Start 07/18/17 at 11:15; Stop 07/18/17 at 15:54; Status DC Lorazepam (Ativan Inj) 1 mg ONCE PRN IV PUSH agitation Last administered on at 16:08; Start 07/18/17 at 14:45; Stop 07/19/17 at 14:44; Status DC Lactulose (Lactulose Liq) 30 ml ONCE ONCE PO Last administered on 07/18/17at 18 :30; Start 07/18/17 at 15:45; Stop 07/18/17 at 15:46; Status DC Amlodipine Besylate (Norvasc) 5 mg ONCE ONCE PO Last administered on at 18:30; Start 07/18/17 at 16:00; Stop 07/18/17 at 16:01; Status DC Amlodipine Besylate (Norvasc) 10 mg DAILY PO Last administered on 07/20/17at 11: 32; Start 07/19/17 at 09:00; Status Future Hold Hydralazine HCl (Apresoline) 25 mg ONCE ONCE PO Last administered on at 02:07; Start 07/19/17 at 02:00; Stop 07/19/17 at 02:01; Status DC Aspirin (Ecotrin Ec) 81 mg DAILY PO Last administered on 07/19/17 08:40; Start 07/19/17 at 09:00; Stop 07/19/17 at 12:44; Status DC Cyanocobalamin (Vitamin B12 Inj) 1,000 mcg DAILY IM Last administered on at 08:38; Start 07/19/17 at 09:00; Stop 07/26/17 at 08:59 Cefuroxime Axetil (Ceftin) 250 mg Q12H PO Last administered on 07/19/17at 13:51 ; Start 07/19/17 at 13:00; Stop 07/19/17 at 14:17; Status DC Cefuroxime Axetil (Ceftin) 250 mg Q12HR PO Last administered on 07/21/17at 21:48 ; Start 07/19/17 at 21:00; Stop 07/22/17 at 10:00; Status DC Haloperidol Lactate (Haldol Inj) 1 mg TID IV PUSH Last administered on at 20:58; Start 07/19/17 at 18:00; Stop 07/21/17 at 07:54; Status DC Aspirin (Aspirin) 325 mg DAILY PO Last administered on 07/21/17at 08:37; Start 07/19/17 at 21:00 Sodium Chloride 1,000 ml @ 75 mls/hr [id number] IV Last administered on at 22:06; Start 07/19/17 at 20:08; Stop 07/21/17 at 08:11; Status DC Gadodiamide (Omniscan Pf Inj) 20 ml STK-MED ONCE IVCONTRAST Last administered on 07/19/17at 21:35; Start 07/16/17 at 20:47; Stop 07/19/17 at 21:33; Status DC Captopril (Capoten) 12.5 mg ONCE ONCE PO Last administered on 07/20/17at 00:15 ; Start 07/20/17 at 00:15; Stop 07/20/17 at 00:18; Status DC Captopril (Capoten) 12.5 mg Q12HR PO Last administered on 07/20/17at 00:47; Start 07/20/17 at 09:00; Status Future Hold Atorvastatin Calcium (Lipitor) 40 mg DAILY PO Last administered on 5/23/18at 08 :37; Start 07/21/17 at 09:00 Atorvastatin Calcium (Lipitor) 40 mg ONCE ONCE PO Last administered on at 19:34; Start 07/20/17 at 18:00; Stop 07/20/17 at 18:01; Status DC Enalaprilat (Vasotec Inj) 1.25 mg Q4H PRN IV PUSH For SBP > 220 or DBP > 120; Start 07/20/17 at 17:45 Labetalol HCl (Trandate Inj) 10 mg Q2H PRN IV PUSH For SBP > 220 or DBP > 120; Start 07/20/17 at 17:45 Sodium Chloride 1,000 ml @ 100 mls/hr Q10H IV Last administered on 07/21/17at 21:48; Start 07/21/17 at 07:57 Iodixanol (VISIPAQUE 320 INJ (Rad CT)) 97 ml STK-MED ONCE IVCONTRAST ; Start at 10:21; Stop 07/21/17 at 10:22; Status DC A/P Problem List: (1) Fall ICD Code: W19.XXXA - Unspecified fall, initial encounter (2) Dizziness ICD Code: R42 - Dizziness and giddiness Status: Acute (3) Nasal bone fracture ICD Code: S02.2XXA - Fracture of nasal bones, initial encounter for closed fracture Status: Acute (4) Renal insufficiency ICD Code: N28.9 - Disorder of kidney and ureter, unspecified (5) UTI (urinary tract infection) ICD Code: N39.0 - Urinary tract infection, site not specified Assessment and Plan 61-year-old female with a PMH of HTN was brought to the ER by EMS after a fall with dizziness. Subacute pontine stroke: c/o dizziness s/p fall at home with facial injury -Initial Brain MRI 07/18 with old infarcts, no acute stroke; however repeat brain MRI 07/19 reveals focally restricted diffusion involving the anterior right upper aby consistent with subacute pontine stroke, images reviewed by mt -Carotid US shows significant stenosis on the left, none on the right -MRA head negative -MRA neck 60% stenosis of the left ICA secondary to ulcerated atherosclerotic plaque, 30-40% stenosis of the right ICA secondary to atherosclerotic plaque, Right vertebral artery is the dominant supply to the basilar. -Neurology following - continue IVF, keep BP up and HOB down for now -ST for swallow evaluation, recommends mechanical soft with nectar thickened liquids -ASA 325mg and Lipitor 40mg daily -Consult rehab medicine, stroke navigator -Neuro checks, fall and seizure precautions, monitor on telemetry -Echocardiogram ordered 07/18, still awaiting to be done -Holter monitor -PT/OT recommending rehab placement, difficult due to insurance barriers Acute metabolic encephalopathy, improved -given IV Haldol tid, now mental status improved, will discontinue -RPR and HIV neg -Patient is out of restraints -monitor Nasal Bone Fx: Acute, secondary to fall -CT Maxillofacial w/ nasal bone fractures and leftward deviation of fragments. -ENT consulted, no surgical intervention. HTN: Uncontrolled. BP 226/103, HR 81, s/p Labetalol and Hydralazine IV in ER. -Hold Norvasc and captopril secondary to acute CVA as above -Vasotec 1.25mg IV or Labetalol 10mg IV prn SBP>220 or DBP>120 Bradycardia: with 2.7 second pause on tele, patient asymptomatic. -Suspect secondary to beta viet, will discontinue metoprolol. -Monitor on telemetry although patient refusing at times. -Cardiology consulted, agrees discontinuing BB -Bradycardia improved -continue to monitor. UTI: U/a w/ UTI. Possibly contributing to encephalopathy. -Urine culture with E.coli, pansensitive. -continue on po Ceftin x3days (completed treatment on 07/22) HAIM: Creatinine 1.48, no previous labs for comparison, presumably new, possibly due to UTI -avoid hepatotoxic agents -obtain urine sodium and creatinine -renal U/s with 2.1cm hypoechoic left mid kidney; potentially cyst, otherwise unremarkable -continue on IV fluids -renal function improving, Cr 1.09, continue to monitor Behavioral Disturbances: patient with previous psychiatric history. Now uncooperative with staff, refusing to wear telemetry, pulled IVs, requiring soft restraints. -Consulted psychiatry, appreciate assistance. Unclear if patient has capacity. -Psychiatry recommending Haldol 1mg TID IV to start. Could use additional Haldol 1mg IV/IM up to TID p.r.n. severe agitation -Mood improved, will d/c Haldol for now and monitor Vitamin B12 Deficiency: acute -started on cyanocobalamin 1000mcg IM daily x7days, then once a week x 4 weeks, then monthly DVT Prophylaxis: SCDs/teds. Discharge Planning PT recommending rehab. Will be difficult placement due to insurance barriers. Patient lives alone, unsafe discharge home at this time. Continue daily PT and monitor for improvement. Discharge Planning PENDING SAFE DC PT recommending rehab. Will be difficult placement due to insurance barriers. Patient lives alone, unsafe discharge home at this time. Continue daily PT and monitor for improvement. Problem Qualifiers (1) Nasal bone fracture: Qualified Codes: S02.2XXA - Fracture of nasal bones, initial encounter for closed fracture Aquilino Lock DO July 22, 2017 10:12
[2017-07-22] MEDS: SODIUM CHLORIDE 0.9% FLUSH 10 ML FLUSH IV FLUSH SCH ×2 (11:05→21:54)
[2017-07-22] MEDS: DOCUSATE SODIUM 50 MG/SENNA 8.6 MG TAB PO SCH ×2 (11:13→21:51)
[2017-07-22] MEDS: ASPIRIN 325 MG TAB PO SCH (11:13)
[2017-07-22] MEDS: ATORVASTATIN 40 MG TAB PO SCH (11:13)
[2017-07-22] MEDS: CYANOCOBALAMIN 1000 MCG/ML VIAL IM SCH (11:14)
[2017-07-22] MEDS: CEFUROXIME AXETIL 250 MG TAB PO SCH (11:19)
[2017-07-22] MEDS: SODIUM CHLOR 0.9% 1000 ML INJ 1,000 ML IV SCH ×2 (13:57→23:57)
[2017-07-22] MEDS: CAPTOPRIL 12.5 MG TAB PO SCH (21:52)
[2017-07-23] VITALS (8 sets, daily range): BP systolic 156–193; BP diastolic 75–90; PULSE 58–74; RESP 17–20; TEMP 97.1–98.2; O2SAT 94–97
[2017-07-23 07:08] LABS: BASOPHIL % 0.4 % (0.0-2.0); EOSINOPHIL # 0.2 TH/MM3 (0-0.4); EOSINOPHIL % 2.5 % (0.0-4.0); HEMATOCRIT 35.7 % (35.0-46.0); HEMOGLOBIN 11.9 GM/DL (11.6-15.3); LYMPH % 18.1 % (9.0-44.0); LYMPHOCYTE # 1.2 TH/MM3 (1.0-4.8); MEAN CELL VOLUME 89.1 FL (80.0-100.0); MEAN CORPUSCULAR HEMOGLOBIN 29.7 PG (27.0-34.0); MEAN CORPUSCULAR HGB CONC 33.4 % (32.0-36.0); MEAN PLATELET VOLUME 8.1 FL (7.0-11.0); MONO % 6.5 % (0.0-8.0); MONOCYTE # 0.4 TH/MM3 (0-0.9); NEUT % 72.5 % (16.0-70.0); PLATELET COUNT 300 TH/MM3 (150-450); RED BLOOD COUNT 4.01 MIL/MM3 (4.00-5.30); WHITE BLOOD COUNT 6.9 TH/MM3 (4.0-11.0)
--- NOTE | 2017-07-23 07:27 | EKG ---
Date Performed: 07/22/2017 Time Performed: 08:16:59 PTAGE: 61 years EKG: Sinus rhythm NORMAL ECG PREVIOUS TRACING : 07/21/2017 08.07 DOCTOR: Osei Menjivar Interpretating Date/Time 07/23/2017 07:22:14
[2017-07-23 07:47] LABS: ALBUMIN 2.9 GM/DL (3.4-5.0); AST (GOT) 12 U/L (15-37); BICARBONATE 25.5 MEQ/L (21.0-32.0); BLOOD UREA NITROGEN 27 MG/DL (7-18); CHLORIDE 107 MEQ/L (98-107); CREATININE 1.26 MG/DL (0.50-1.00); GLOMERULAR FILTRATION RATE 43 ML/MIN (>89); GLUCOSE,RANDOM 92 MG/DL (74-106); MAGNESIUM 2.2 MG/DL (1.5-2.5); SODIUM (NA) 142 MEQ/L (136-145)
[2017-07-23 07:58] LABS: ALKALINE PHOSPHATASE 97 U/L (45-117); ALT (GPT) 17 U/L (10-53); FREE T4 1.02 NG/DL (0.76-1.46); PHOSPHORUS 3.4 MG/DL (2.5-4.9); TOTAL BILIRUBIN ADULT 0.3 MG/DL (0.2-1.0); TOTAL PROTEIN 7.2 GM/DL (6.4-8.2)
--- NOTE | 2017-07-23 08:36 | HM ---
Date Performed: 07/20/2017 Time Performed: 10:11:00 HOOKUP DATE: 07/20/17 10:11:00 AM Tue ANALYSIS START TIME: 07/20/2017 10:16:00 AM ANALYSIS END TIME: 07/21/2017 8:12:28 AM PATIENT AGE: 61 PATIENT HEIGHT PATIENT WEIGHT DRUG LIST PATIENT DIAGNOSIS: fall TEST NARRATIVE: The patient's average heart rate was 74 BPM. Heart rates greater than 120 B PM were noted < 1% of the time. Heart rates less than 50 BPM were noted < 1% of the time. No funmilayo ses exceeding 2.0 seconds were noted. 393 ventricular ectopics, which represented < 1% of the tot al beat count, were noted. The highest ventricular ectopic frequency occurred from 08:00 PM to 09:00 PM Tue. During this time 50 VE(s) occurred. Ventricular ectopics were observed as 386 isolated ruchi t(s), as 2 couplet(s) and as 1 run(s). 24 supraventricular ectopics, which represented < 1% of th e total beat count, were noted. The highest supraventricular ectopic frequency occurred from 08:00 A M to 09:00 AM Wed. During this time 12 SVE(s) occurred. Multiple episodes of ST depression (defi micah as -1.0 mm or more) were noted in channel 1. The maximum depression of -1.2 mm occurred at 10:1 3:49 PM Tue. No episodes of ST depression (defined as -1.0 mm or more) were noted in channel 2. No episodes of ST depression (defined as -1.0 mm or more) were noted in channel 3. TEST INTERPRETATION: Sinus rhythm Some short bursts of irregular rhythm, possible afib No pause No ventricular tachycardia observed Th ere is no entry in the diary Ericka d by : Osei Menjivar
[2017-07-23] MEDS: CYANOCOBALAMIN 1000 MCG/ML VIAL IM SCH (08:56)
[2017-07-23] MEDS: ASPIRIN 325 MG TAB PO SCH (08:56)
[2017-07-23] MEDS: ATORVASTATIN 40 MG TAB PO SCH (08:56)
[2017-07-23] MEDS: SODIUM CHLORIDE 0.9% FLUSH 10 ML FLUSH IV FLUSH SCH ×2 (08:58→21:00)
[2017-07-23] MEDS: SODIUM CHLOR 0.9% 1000 ML INJ 1,000 ML IV SCH ×2 (08:58→19:57)
[2017-07-23] MEDS: DOCUSATE SODIUM 50 MG/SENNA 8.6 MG TAB PO SCH ×2 (08:58→22:32)
[2017-07-23] MEDS: CAPTOPRIL 12.5 MG TAB PO SCH (09:02)
--- NOTE | 2017-07-23 10:36 | HHI.PR ---
Subjective Remarks sr denies delusions Objective Vital Signs Date Time Temp Pulse Resp B/P (MAP) Pulse Ox O2 Delivery O2 Flow Rate FiO2 07/23/17 07:33 98.2 62 19 178/86 (116) 97 07/23/17 04:00 97.9 58 19 156/79 (104) 97 07/23/17 00:00 97.8 69 20 190/90 (123) 94 07/22/17 20:00 97.2 62 19 151/67 (95) 99 07/22/17 15:32 97.3 60 20 168/79 (108) 95 07/22/17 11:54 97.6 55 18 178/70 (106) 98 07/22/17 11:32 98.2 60 20 180/87 (118) 97 I/O 07/22/17 07/22/17 07/22/17 07/23/17 07/23/17 07/23/17 07:00 15:00 23:00 07:00 15:00 23:00 Intake Total 480 ml 400 ml Output Total 1000 ml 600 ml Balance 480 ml -1000 ml -200 ml Intake Oral 480 ml 400 ml Output Urine Total 1000 ml 600 ml # Voids 3 Result Diagram: 07/23/17 0520 07/23/17 0520 Objective Remarks vff face sym 5/5 bue and ble x lue 5-/5 tricep and 4/5 hand left ta 4- lifts llewell no droop awake alert Assessment and Plan Assessment and Plan imp mri shows acute r pontine cva on asa kep ivf on bp up and oob fu echo and holter pend and ldl inc on statin rx uti mra cow basilar ok check mra neck may have a slight distal r vert stenosis check cta asa oob will need rehab i dced haldol as developing r hand tremor 07/22/17 a little weaker lue keep hob flat today may be able to go to rehab late tomorrow echo neg holter pend cta verts ok 60-70 left ica asym 07/23/17 slightly better lue today echo and holter neg ok oob and to rehab Valentin Lanier MD July 23, 2017 10:36
--- NOTE | 2017-07-23 11:11 | HHI.PR ---
Subjective Remarks Patient doing okay and wants assistance in sitting up and eating breakfast this morning. Trying to get stronger. Objective Vitals Vital Signs Date Time Temp Pulse Resp B/P (MAP) Pulse Ox O2 Delivery O2 Flow Rate FiO2 07/23/17 07:33 98.2 62 19 178/86 (116) 97 07/23/17 04:00 97.9 58 19 156/79 (104) 97 07/23/17 00:00 97.8 69 20 190/90 (123) 94 07/22/17 20:00 97.2 62 19 151/67 (95) 99 07/22/17 15:32 97.3 60 20 168/79 (108) 95 07/22/17 11:54 97.6 55 18 178/70 (106) 98 07/22/17 11:32 98.2 60 20 180/87 (118) 97 I/O 07/22/17 07/22/17 07/22/17 07/23/17 07/23/17 07/23/17 07:00 15:00 23:00 07:00 15:00 23:00 Intake Total 480 ml 400 ml Output Total 1000 ml 600 ml 1000 ml Balance 480 ml -1000 ml -200 ml -1000 ml Intake Oral 480 ml 400 ml Output Urine Total 1000 ml 600 ml 1000 ml # Voids 3 Result Diagram: 07/23/1751907/23/17 05 Objective Remarks GENERAL: This is a well-nourished, well-developed patient, in no apparent distress. CARDIOVASCULAR: Regular rate and rhythm RESPIRATORY: Clear to auscultation. Breath sounds equal bilaterally. No wheezes , rales, or rhonchi. GASTROINTESTINAL: Abdomen soft, non-tender, nondistended. Normal active bowel sounds MUSCULOSKELETAL: Extremities without clubbing, cyanosis, or edema. NEURO: Alert & Oriented x4 to person, place, time, right hand security system administrator strength 4.5 out of 5, right lower extremity 4.5 out of 5 motor strength Procedures None. A/P Problem List: (1) Fall ICD Code: W19.XXXA - Unspecified fall, initial encounter Status: Acute (2) Dizziness ICD Code: R42 - Dizziness and giddiness Status: Resolved (3) Nasal bone fracture ICD Code: S02.2XXA - Fracture of nasal bones, initial encounter for closed fracture Status: Acute (4) Renal insufficiency ICD Code: N28.9 - Disorder of kidney and ureter, unspecified (5) UTI (urinary tract infection) ICD Code: N39.0 - Urinary tract infection, site not specified (6) Right pontine cerebrovascular accident ICD Code: I63.50 - Cerebral infarction due to unspecified occlusion or stenosis of unspecified cerebral artery Status: Acute Assessment and Plan 61-year-old female with a PMH of HTN was brought to the ER by EMS after a fall with dizziness. Subacute right pontine stroke per Neurology: c/o dizziness s/p fall at home with facial injury -Initial Brain MRI 07/18 with old infarcts, no acute stroke; however repeat brain MRI 07/19 reveals focally restricted diffusion involving the anterior right upper aby consistent with subacute pontine stroke -Carotid US shows significant stenosis on the left, none on the right - aspirin 325 mg Lipitor 40 mg p.o. daily -MRA head negative -MRA neck 60% stenosis of the left ICA secondary to ulcerated atherosclerotic plaque, 30-40% stenosis of the right ICA secondary to atherosclerotic plaque, Right vertebral artery is the dominant supply to the basilar.-Continue medical treatment, 2D echo showed no thrombus with EF of 50-55 %, Holter monitor shows sinus rhythm -ST for swallow evaluation, recommends mechanical soft with nectar thickened liquids -PT/OT recommending rehab placement, difficult due to insurance barriers Acute metabolic encephalopathy, improved -Previously given IV Haldol tid, now mental status improved, now has discontinued medications -RPR and HIV neg Nasal Bone Fx: Acute, secondary to fall -CT Maxillofacial w/ nasal bone fractures and leftward deviation of fragments. -ENT consulted, no surgical intervention. HTN malignant: Uncontrolled on presentation. BP 226/103, HR 81, s/p Labetalol and Hydralazine IV in ER. -Started Norvasc and captopril; transition captopril to lisinopril -Vasotec 1.25mg IV or Labetalol 10mg IV prn SBP>220 or DBP>120 Bradycardia: with 2.7 second pause on tele, patient asymptomatic. -Suspect secondary to beta viet, will discontinue metoprolol. -Monitor on telemetry although patient refusing at times. -Cardiology consulted, agrees discontinuing BB -Bradycardia improved -continue to monitor. 24-hour Holter showed normal sinus rhythm UTI, E. coli - completed: P.o. Ceftin and likely contributing to presenting encephalopathy which now has improved and resolved. -Urine culture with E.coli, pansensitive. -Completed po Ceftin x3days (completed treatment on 07/22) HAIM with likely underlying chronic kidney disease stage III: Creatinine 1.48, no previous labs for comparison, presumably new, possibly due to UTI -avoid nephrotoxic agents -obtain urine sodium and creatinine -renal U/s with 2.1cm hypoechoic left mid kidney; potentially cyst, otherwise unremarkable Previous behavioral Disturbances - this has resolved: p Vitamin B12 Deficiency: acute -started on cyanocobalamin 1000mcg IM daily x7days, then once a week x 4 weeks, then monthly DVT Prophylaxis: SCDs/teds. Discharge Planning PT recommending rehab. Will be difficult placement due to insurance barriers. Patient lives alone, unsafe discharge home at this time. Continue daily PT and monitor for improvement. Problem Qualifiers (1) Fall: Qualified Codes: W19.XXXA - Unspecified fall, initial encounter (2) Nasal bone fracture: Qualified Codes: S02.2XXA - Fracture of nasal bones, initial encounter for closed fracture Hope Baker MD July 23, 2017 11:11
[2017-07-23 14:56] LABS: HEMOGLOBIN A1C 5.1 % (4.3-6.0)
[2017-07-24 04:20] VITALS: BP 179/89; PULSE 79; RESP 18; TEMP 97.6; O2SAT 95
[2017-07-24 08:00] VITALS: BP 169/81; PULSE 68; RESP 18; TEMP 98.1; O2SAT 95
[2017-07-24] MEDS: SODIUM CHLORIDE 0.9% FLUSH 10 ML FLUSH IV FLUSH SCH ×2 (09:00→20:26)
--- NOTE | 2017-07-24 10:07 | HHI.PR ---
Subjective Remarks sr denies delusions Objective Vital Signs Date Time Temp Pulse Resp B/P (MAP) Pulse Ox O2 Delivery O2 Flow Rate FiO2 07/24/17 08:00 98.1 68 18 169/81 (110) 95 07/24/17 04:20 97.6 79 18 179/89 (119) 95 07/23/17 22:59 97.4 74 18 193/88 (123) 94 07/23/17 19:36 97.5 70 19 168/75 (106) 95 07/23/17 16:00 98.2 73 17 169/81 (110) 95 07/23/17 12:00 97.1 69 17 171/85 (113) 96 07/23/17 11:10 98.2 65 18 162/82 (108) 95 I/O 07/23/17 07/23/17 07/23/17 07/24/17 07/24/17 07/24/17 07:00 15:00 23:00 07:00 15:00 23:00 Intake Total 400 ml 480 ml Output Total 600 ml 1000 ml Balance -200 ml -1000 ml 480 ml Intake Oral 400 ml 480 ml Output Urine Total 600 ml 1000 ml # Voids 4 # Bowel Movements 0 Result Diagram: 07/23/17 0520 07/23/17 0520 Objective Remarks vff face sym 5/5 bue and ble x lue 5-/5 tricep and 4+/5 hand left ta 4+ lifts llewell no droop awake alert Assessment and Plan Assessment and Plan imp mri shows acute r pontine cva on asa kep ivf on bp up and oob fu echo and holter pend and ldl inc on statin rx uti mra cow basilar ok check mra neck may have a slight distal r vert stenosis check cta asa oob will need rehab i dced haldol as developing r hand tremor 07/22/17 a little weaker lue keep hob flat today may be able to go to rehab late tomorrow echo neg holter pend cta verts ok 60-70 left ica asym 07/23/17 slightly better lue today echo and holter neg ok oob and to rehab - 07/24/17 looks better oob ready for rehab in two days lower bp to 140-160/ Valentin Lanier MD July 24, 2017 10:07
[2017-07-24] MEDS: ATORVASTATIN 40 MG TAB PO SCH (10:54)
[2017-07-24] MEDS: ASPIRIN 325 MG TAB PO SCH (10:54)
[2017-07-24] MEDS: DOCUSATE SODIUM 50 MG/SENNA 8.6 MG TAB PO SCH ×2 (10:54→20:25)
[2017-07-24] MEDS: LISINOPRIL 10 MG TAB PO SCH (10:54)
[2017-07-24] MEDS: CYANOCOBALAMIN 1000 MCG/ML VIAL IM SCH (10:55)
[2017-07-24 12:00] VITALS: BP 122/68; PULSE 71; RESP 19; TEMP 97.4; O2SAT 96
[2017-07-24 16:00] VITALS: BP 139/68; PULSE 68; RESP 18; TEMP 98.1; O2SAT 96
--- NOTE | 2017-07-24 16:53 | HHI.PR ---
Subjective Remarks 61 female who seems slightly confused. I asked her she is in any discomfort or pain she replies that she is comfortable and wishes that she could walk. Objective Vitals Vital Signs Date Time Temp Pulse Resp B/P (MAP) Pulse Ox O2 Delivery O2 Flow Rate FiO2 07/24/17 08:00 98.1 68 18 169/81 (110) 95 07/24/17 04:20 97.6 79 18 179/89 (119) 95 07/23/17 22:59 97.4 74 18 193/88 (123) 94 07/23/17 19:36 97.5 70 19 168/75 (106) 95 I/O 07/23/17 07/23/17 07/23/17 07/24/17 07/24/17 07/24/17 07:00 15:00 23:00 07:00 15:00 23:00 Intake Total 400 ml 480 ml Output Total 600 ml 1000 ml Balance -200 ml -1000 ml 480 ml Intake Oral 400 ml 480 ml Output Urine Total 600 ml 1000 ml # Voids 4 # Bowel Movements 0 Result Diagram: 07/23/17 0507/23/17 0520 Objective Remarks GENERAL: Well-nourished, well-developed patient, somewhat confused but pleasant SKIN: Warm and dry. Bruising over her face from fall HEAD: Normocephalic. EYES: No scleral icterus. No injection or drainage. NECK: Supple, trachea midline. No JVD or lymphadenopathy. CARDIOVASCULAR: Regular rate and rhythm without murmurs, gallops, or rubs. RESPIRATORY: Breath sounds equal bilaterally. No accessory muscle use. GASTROINTESTINAL: Abdomen soft, non-tender, nondistended. EXTREMITIES: No cyanosis, or edema. NEUROLOGICAL: Awake, alert, and oriented x 3. Non-focal. Procedures None. A/P Problem List: (1) Fall ICD Code: W19.XXXA - Unspecified fall, initial encounter Status: Acute (2) Dizziness ICD Code: R42 - Dizziness and giddiness Status: Resolved (3) Nasal bone fracture ICD Code: S02.2XXA - Fracture of nasal bones, initial encounter for closed fracture Status: Acute (4) Renal insufficiency ICD Code: N28.9 - Disorder of kidney and ureter, unspecified (5) UTI (urinary tract infection) ICD Code: N39.0 - Urinary tract infection, site not specified (6) Right pontine cerebrovascular accident ICD Code: I63.50 - Cerebral infarction due to unspecified occlusion or stenosis of unspecified cerebral artery Status: Acute Assessment and Plan 61-year-old female with a PMH of HTN was brought to the ER by EMS after a fall with dizziness. Right pontine stroke c/o dizziness s/p fall at home with facial injury Repeat brain MRI 07/19 reveals focally restricted diffusion involving the anterior right upper aby consistent with right pontine stroke Carotid US shows significant stenosis on the left, no significant stenosis on right side 2D echocardiogram shows no thrombus, ejection fraction of 50-55% Holter monitor shows sinus rhythm Speech therapy recommends mechanical soft diet with nectar thickened liquids PT and OT is continuing, rehab placement recommended Continue with daily aspirin and Lipitor Acute metabolic encephalopathy Improving, baseline unclear, changes may be related to stroke RPR and HIV neg Nasal Bone Fx Acute, secondary to fall CT Maxillofacial w/ nasal bone fractures and leftward deviation of fragments. No surgical intervention recommended at this time Appreciate ENT consult HTN malignant Uncontrolled on presentation. BP 226/103 Continue Norvasc and lisinopril Vasotec 1.25mg IV or Labetalol 10mg IV prn SBP>220 or DBP>120 Bradycardia 2.7 second pause on tele, patient asymptomatic. Beta-viet discontinued due to high risk 24 hour Holter monitor shows no arrhythmias Continue to monitor on telemetry UTI Urine culture shows pansensitive E. coli Completed Ceftin Acute kidney injury Resolved, likely due to UTI Vitamin B12 Deficiency Borderline deficiency, received a few days of IM dosing, switch now to p.o. Follow-up B12 levels as outpatient DVT Prophylaxis SCDs Discharge Planning PT recommending rehab Problem Qualifiers (1) Fall: Qualified Codes: W19.XXXA - Unspecified fall, initial encounter (2) Nasal bone fracture: Qualified Codes: S02.2XXA - Fracture of nasal bones, initial encounter for closed fracture Johnathon Olivia MD July 24, 2017 16:53
[2017-07-24 21:02] VITALS: BP 141/67; PULSE 67; RESP 22; TEMP 99.1; O2SAT 95
[2017-07-25] VITALS: BP 152/67; PULSE 73; RESP 22; TEMP 98.7; O2SAT 96
[2017-07-25] MEDS: SODIUM CHLOR 0.9% 1000 ML INJ 1,000 ML IV SCH ×2 (01:57→11:57)
[2017-07-25 04:00] VITALS: BP 149/70; PULSE 73; RESP 22; TEMP 98.2; O2SAT 96
--- NOTE | 2017-07-25 07:42 | HHI.PR ---
Subjective Remarks sr denies delusions Objective Vital Signs Date Time Temp Pulse Resp B/P (MAP) Pulse Ox O2 Delivery O2 Flow Rate FiO2 07/25/17 04:00 98.2 73 22 149/70 (96) 96 07/25/17 00:00 98.7 73 22 152/67 (95) 96 07/24/17 21:02 99.1 67 22 141/67 (91) 95 07/24/17 16:00 98.1 68 18 139/68 (91) 96 07/24/17 12:00 97.4 71 19 122/68 (86) 96 07/24/17 08:00 98.1 68 18 169/81 (110) 95 I/O 07/24/17 07/24/17 07/24/17 07/25/17 07/25/17 07/25/17 07:00 15:00 23:00 07:00 15:00 23:00 Intake Total 480 ml 480 ml Balance 480 ml 480 ml Intake Oral 480 ml 480 ml # Voids 4 5 3 # Bowel Movements 0 Result Diagram: 07/23/17 0520 07/23/17 0520 Objective Remarks vff face sym 5/5 bue and ble x lue 5-/5 tricep and 4+/5 hand left ta 5- lifts llewell no droop awake alert some bizarre thoughts Assessment and Plan Assessment and Plan imp mri shows acute r pontine cva on asa kep ivf on bp up and oob fu echo and holter pend and ldl inc on statin rx uti mra cow basilar ok check mra neck may have a slight distal r vert stenosis check cta asa oob will need rehab i anai silver as developing r hand tremor 07/22/17 a little weaker lue keep hob flat today may be able to go to rehab late tomorrow echo neg holter pend cta verts ok 60-70 left ica asym 07/23/17 slightly better lue today echo and holter neg ok oob and to rehab - 07/24/17 looks better oob ready for rehab in two days lower bp to 140-160/ --- 07/25/17 motor banks doing well she is starting to have some bizarre thoughts but i would prefer to hard antipsychotics that would interfere with her motor rehab psych could fu needs social insurance analyst to notify [facility] and adjust mild psych mes gradually to get her in long run reality based if possible thoughts are benign right now oob ready for rehab no nadeem marquez may be ok Valentin Lanier MD July 25, 2017 07:42
[2017-07-25 08:00] VITALS: BP_SYST 133; BP_SYST 137; BP_DIAS 68; BP_DIAS 83; PULSE 68; PULSE 91; RESP 18; RESP 20; TEMP 97.2; TEMP 98.5; O2SAT 94; O2SAT 95
[2017-07-25] MEDS: ATORVASTATIN 40 MG TAB PO SCH (08:49)
[2017-07-25] MEDS: SODIUM CHLORIDE 0.9% FLUSH 10 ML FLUSH IV FLUSH SCH (08:49)
[2017-07-25] MEDS: LISINOPRIL 10 MG TAB PO SCH (08:49)
[2017-07-25] MEDS: DOCUSATE SODIUM 50 MG/SENNA 8.6 MG TAB PO SCH (08:49)
[2017-07-25] MEDS: CYANOCOBALAMIN 1,000 MCG TAB PO SCH (08:50)
[2017-07-25] MEDS: ASPIRIN 325 MG TAB PO SCH (08:50)
[2017-07-25 12:00] VITALS: BP 139/71; PULSE 65; RESP 20; TEMP 98; O2SAT 97
--- NOTE | 2017-07-25 15:08 | HHI.PR ---
Subjective Remarks Patient states she is having a good day today, feels a little stronger. She is oriented to month and year. Objective Vitals Vital Signs Date Time Temp Pulse Resp B/P (MAP) Pulse Ox O2 Delivery O2 Flow Rate FiO2 07/25/17 12:00 98.0 65 20 139/71 (93) 97 07/25/17 08:00 98.5 68 20 133/68 (89) 95 07/25/17 04:00 98.2 73 22 149/70 (96) 96 07/25/17 00:00 98.7 73 22 152/67 (95) 96 07/24/17 21:02 99.1 67 22 141/67 (91) 95 07/24/17 16:00 98.1 68 18 139/68 (91) 96 I/O 07/24/17 07/24/17 07/24/17 07/25/17 07/25/17 07/25/17 06:59 14:59 22:59 06:59 14:59 22:59 Intake Total 480 ml 480 ml 120 ml Balance 480 ml 480 ml 120 ml Intake Oral 480 ml 480 ml 120 ml # Voids 4 5 3 # Bowel Movements 0 Result Diagram: 07/23/17 0520 07/23/17 0520 Objective Remarks GENERAL: Well-nourished, well-developed patient, somewhat confused but pleasant SKIN: Warm and dry. Bruising over her face from fall HEAD: Normocephalic. EYES: No scleral icterus. No injection or drainage. NECK: Supple, trachea midline. No JVD or lymphadenopathy. CARDIOVASCULAR: Regular rate and rhythm without murmurs, gallops, or rubs. RESPIRATORY: Breath sounds equal bilaterally. No accessory muscle use. GASTROINTESTINAL: Abdomen soft, non-tender, nondistended. EXTREMITIES: No cyanosis, or edema. NEUROLOGICAL: Awake, alert, and oriented x 3. Non-focal. Procedures None. A/P Problem List: (1) Fall ICD Code: W19.XXXA - Unspecified fall, initial encounter Status: Acute (2) Dizziness ICD Code: R42 - Dizziness and giddiness Status: Resolved (3) Nasal bone fracture ICD Code: S02.2XXA - Fracture of nasal bones, initial encounter for closed fracture Status: Acute (4) Renal insufficiency ICD Code: N28.9 - Disorder of kidney and ureter, unspecified (5) UTI (urinary tract infection) ICD Code: N39.0 - Urinary tract infection, site not specified (6) Right pontine cerebrovascular accident ICD Code: I63.50 - Cerebral infarction due to unspecified occlusion or stenosis of unspecified cerebral artery Status: Acute Assessment and Plan 61-year-old female with a PMH of HTN was brought to the ER by EMS after a fall with dizziness. Right pontine stroke c/o dizziness s/p fall at home with facial injury Repeat brain MRI 07/19 reveals focally restricted diffusion involving the anterior right upper aby consistent with right pontine stroke Carotid US shows significant stenosis on the left, no significant stenosis on right side 2D echocardiogram shows no thrombus, ejection fraction of 50-55% Holter monitor shows sinus rhythm Speech therapy recommends mechanical soft diet with nectar thickened liquids PT and OT is continuing, rehab placement recommended Continue with daily aspirin and Lipitor Continue nonaggressive management of hypertension Acute metabolic encephalopathy Improving, baseline unclear, changes may be related to stroke RPR and HIV neg Nasal Bone Fx CT Maxillofacial w/ nasal bone fractures and leftward deviation of fragments. Occurred during fall. No surgical intervention recommended at this time Appreciate ENT consult HTN malignant Uncontrolled on presentation. BP 226/103 Continue Norvasc and lisinopril Vasotec 1.25mg IV or Labetalol 10mg IV prn SBP>220 or DBP>120 Bradycardia 2.7 second pause on tele, patient asymptomatic. Beta-viet discontinued due to risk 24 hour Holter monitor shows no arrhythmias Continue to monitor on telemetry UTI Urine culture shows pansensitive E. coli Completed Ceftin Vitamin B12 Deficiency Borderline deficiency, continue p.o. replacement Follow-up B12 levels as outpatient DVT Prophylaxis SCDs Discharge Planning PT recommending rehab, payor source is limiting options. Problem Qualifiers (1) Fall: Qualified Codes: W19.XXXA - Unspecified fall, initial encounter (2) Nasal bone fracture: Qualified Codes: S02.2XXA - Fracture of nasal bones, initial encounter for closed fracture Johnathon Olivia MD July 25, 2017 15:08
[2017-07-25 16:00] VITALS: BP 140/76; PULSE 60; RESP 19; TEMP 97.4; O2SAT 95
[2017-07-25 20:15] VITALS: BP 146/71; PULSE 75; RESP 17; TEMP 97.3; O2SAT 96
[2017-07-26] VITALS: BP 154/67; PULSE 65; RESP 18; TEMP 98; O2SAT 95
[2017-07-26 04:00] VITALS: BP 114/63; PULSE 73; RESP 20; TEMP 97.9; O2SAT 96
[2017-07-26 08:00] VITALS: BP 159/65; PULSE 64; RESP 20; TEMP 97.8; O2SAT 97
[2017-07-26] MEDS: CYANOCOBALAMIN 1,000 MCG TAB PO SCH (08:44)
[2017-07-26] MEDS: ASPIRIN 325 MG TAB PO SCH (08:44)
[2017-07-26] MEDS: LISINOPRIL 10 MG TAB PO SCH (08:44)
[2017-07-26] MEDS: ATORVASTATIN 40 MG TAB PO SCH (08:44)
[2017-07-26] MEDS: SODIUM CHLORIDE 0.9% FLUSH 10 ML FLUSH IV FLUSH SCH ×3 (08:44→21:00)
[2017-07-26] MEDS: DOCUSATE SODIUM 50 MG/SENNA 8.6 MG TAB PO SCH ×3 (08:45→21:00)
[2017-07-26 12:00] VITALS: BP 152/72; PULSE 73; RESP 19; TEMP 98; O2SAT 96
--- NOTE | 2017-07-26 13:22 | HHI.PR ---
Subjective Remarks 61-year-old female admitted following a fall. She speaks of herself in the "we " sense, but seems to be oriented X3. She has no new complaints. She is up in her chair today. Objective Vitals Vital Signs Date Time Temp Pulse Resp B/P (MAP) Pulse Ox O2 Delivery O2 Flow Rate FiO2 07/26/17 08:00 97.8 64 20 159/65 (96) 97 07/26/17 04:00 97.9 73 20 114/63 (80) 96 07/26/17 00:00 98.0 65 18 154/67 (96) 95 07/25/17 20:15 97.3 75 17 146/71 (96) 96 07/25/17 16:00 97.4 60 19 140/76 (97) 95 I/O 07/25/17 07/25/17 07/25/17 07/26/17 07/26/17 07/26/17 07:00 15:00 23:00 07:00 15:00 23:00 Intake Total 480 ml 120 ml 760 ml Output Total 600 ml 1000 ml Balance 480 ml 120 ml 160 ml -1000 ml Intake Oral 480 ml 120 ml 760 ml Output Urine Total 600 ml 1000 ml # Voids 3 # Bowel Movements 0 Result Diagram: 07/23/1751907/23/17519 Objective Remarks GENERAL: Well-nourished, well-developed patient, somewhat confused but pleasant SKIN: Warm and dry. Bruising over her face from fall HEAD: Normocephalic. EYES: No scleral icterus. No injection or drainage. NECK: Supple, trachea midline. No JVD or lymphadenopathy. CARDIOVASCULAR: Regular rate and rhythm without murmurs, gallops, or rubs. RESPIRATORY: Breath sounds equal bilaterally. No accessory muscle use. GASTROINTESTINAL: Abdomen soft, non-tender, nondistended. EXTREMITIES: No cyanosis, or edema. NEUROLOGICAL: Awake, alert, and oriented x 3. Non-focal. Procedures None. A/P Problem List: (1) Fall ICD Code: W19.XXXA - Unspecified fall, initial encounter Status: Acute (2) Dizziness ICD Code: R42 - Dizziness and giddiness Status: Resolved (3) Nasal bone fracture ICD Code: S02.2XXA - Fracture of nasal bones, initial encounter for closed fracture Status: Acute (4) Renal insufficiency ICD Code: N28.9 - Disorder of kidney and ureter, unspecified (5) UTI (urinary tract infection) ICD Code: N39.0 - Urinary tract infection, site not specified (6) Right pontine cerebrovascular accident ICD Code: I63.50 - Cerebral infarction due to unspecified occlusion or stenosis of unspecified cerebral artery Status: Acute Assessment and Plan 61-year-old female with a PMH of HTN was brought to the ER by EMS after a fall with dizziness. Right pontine stroke c/o dizziness s/p fall at home with facial injury Repeat brain MRI 07/19 reveals focally restricted diffusion involving the anterior right upper aby consistent with right pontine stroke Carotid US shows significant stenosis on the left, no significant stenosis on right side 2D echocardiogram normal, ejection fraction of 50-55% Holter monitor was normal Speech therapy recommends mechanical soft diet with nectar thickened liquids PT and OT is continuing, rehab placement recommended Continue nonaggressive management of hypertension Acute metabolic encephalopathy Improving, baseline unclear, changes may be related to stroke RPR and HIV neg Nasal Bone Fx CT Maxillofacial w/ nasal bone fractures and leftward deviation of fragments. Occurred during fall. No surgical intervention recommended at this time Appreciate ENT consult HTN malignant Uncontrolled on presentation. BP 226/103 Continue Norvasc and lisinopril Vasotec 1.25mg IV or Labetalol 10mg IV prn SBP>220 or DBP>120 Bradycardia 2.7 second pause on tele, patient asymptomatic. Beta-viet discontinued due to risk 24 hour Holter monitor was normal Continue to monitor on telemetry UTI Urine culture shows pansensitive E. coli Completed Ceftin Vitamin B12 Deficiency Borderline deficiency, continue p.o. replacement Follow-up B12 levels as outpatient DVT Prophylaxis SCDs Discharge Planning PT recommending rehab, payor source is limiting options. Problem Qualifiers (1) Fall: Qualified Codes: W19.XXXA - Unspecified fall, initial encounter (2) Nasal bone fracture: Qualified Codes: S02.2XXA - Fracture of nasal bones, initial encounter for closed fracture Johnathon Olivia MD July 26, 2017 13:22
[2017-07-26 16:00] VITALS: BP 150/70; PULSE 70; RESP 19; TEMP 98; O2SAT 95
[2017-07-26 20:00] VITALS: BP 176/79; PULSE 84; RESP 18; TEMP 97.8; O2SAT 96
[2017-07-27] VITALS (7 sets, daily range): BP systolic 117–179; BP diastolic 58–87; PULSE 65–96; RESP 17–18; TEMP 97.2–98.8; O2SAT 95–97
[2017-07-27] MEDS: SODIUM CHLOR 0.9% 1000 ML INJ 1,000 ML IV SCH ×3 (03:57→20:32)
[2017-07-27] MEDS: CYANOCOBALAMIN 1,000 MCG TAB PO SCH (09:33)
[2017-07-27] MEDS: ASPIRIN 325 MG TAB PO SCH (09:33)
[2017-07-27] MEDS: ATORVASTATIN 40 MG TAB PO SCH (09:34)
[2017-07-27] MEDS: LISINOPRIL 10 MG TAB PO SCH (09:34)
[2017-07-27] MEDS: DOCUSATE SODIUM 50 MG/SENNA 8.6 MG TAB PO SCH ×2 (09:41→20:32)
[2017-07-27] MEDS: SODIUM CHLORIDE 0.9% FLUSH 10 ML FLUSH IV FLUSH SCH ×2 (09:44→20:32)
--- NOTE | 2017-07-27 10:27 | HHI.PR ---
Subjective Remarks Sitting up trying to eat breakfast. Try to get stronger. No other complaints overnight. Objective Vitals Vital Signs Date Time Temp Pulse Resp B/P (MAP) Pulse Ox O2 Delivery O2 Flow Rate FiO2 07/27/17 08:00 97.2 65 18 152/70 (97) 95 07/27/17 04:00 98.8 67 18 133/87 (102) 97 07/27/17 00:01 97.7 96 18 179/82 (114) 96 07/26/17 20:00 97.8 84 18 176/79 (111) 96 07/26/17 16:00 98.0 70 19 150/70 (96) 95 07/26/17 12:00 98.0 73 19 152/72 (98) 96 I/O 07/26/17 07/26/17 07/26/17 07/27/17 07/27/17 07/27/17 07:00 15:00 23:00 07:00 15:00 23:00 Intake Total 550 ml 120 ml Output Total 1000 ml 850 ml Balance -1000 ml 550 ml -730 ml Intake Oral 550 ml 120 ml Output Urine Total 1000 ml 850 ml # Voids 2 3 # Bowel Movements 0 1 Result Diagram: 07/23/1751907/23/17 05 Objective Remarks GENERAL: This is a well-nourished, well-developed patient, in no apparent distress. CARDIOVASCULAR: Regular rate and rhythm RESPIRATORY: Clear to auscultation. Breath sounds equal bilaterally. No wheezes , rales, or rhonchi. MUSCULOSKELETAL: Extremities without clubbing, cyanosis, or edema. NEURO: Alert & Oriented x4 to person, place, time, right hand school curriculum developer strength 4.5 out of 5, right lower extremity 4.5 out of 5 motor strength Procedures None. A/P Problem List: (1) Right pontine cerebrovascular accident ICD Code: I63.50 - Cerebral infarction due to unspecified occlusion or stenosis of unspecified cerebral artery Status: Acute (2) Fall ICD Code: W19.XXXA - Unspecified fall, initial encounter Status: Acute (3) Dizziness ICD Code: R42 - Dizziness and giddiness Status: Resolved (4) Nasal bone fracture ICD Code: S02.2XXA - Fracture of nasal bones, initial encounter for closed fracture Status: Acute (5) Renal insufficiency ICD Code: N28.9 - Disorder of kidney and ureter, unspecified Status: Resolved (6) UTI (urinary tract infection) ICD Code: N39.0 - Urinary tract infection, site not specified Status: Resolved Assessment and Plan 61-year-old female with a PMH of HTN was brought to the ER by EMS after a fall with dizziness. Subacute right pontine thrombotic stroke with motor disturbance per Neurology: c /o dizziness s/p fall at home with facial injury -Initial Brain MRI 07/18 with old infarcts, no acute stroke; however repeat brain MRI 07/19 reveals focally restricted diffusion involving the anterior right upper aby consistent with subacute pontine stroke -Carotid US shows significant stenosis on the left, none on the right - aspirin 325 mg Lipitor 40 mg p.o. daily -MRA head negative -MRA neck 60% stenosis of the left ICA secondary to ulcerated atherosclerotic plaque, 30-40% stenosis of the right ICA secondary to atherosclerotic plaque, Right vertebral artery is the dominant supply to the basilar.-Continue medical treatment, 2D echo showed no thrombus with EF of 50-55%, Holter monitor shows sinus rhythm -ST for swallow evaluation, recommends mechanical soft with nectar thickened liquids -PT/OT recommending rehab placement, difficult due to insurance barriers Acute metabolic encephalopathy, improved AND RESOLVING -Previously given IV Haldol tid, now mental status improved, now has discontinued medications -RPR and HIV neg Nasal Bone Fx: Acute, secondary to fall -CT Maxillofacial w/ nasal bone fractures and leftward deviation of fragments. -ENT consulted, no surgical intervention. HTN malignant: Uncontrolled on presentation. BP 226/103, HR 81, s/p Labetalol and Hydralazine IV in ER. Now blood pressure much better controlled.. -Started Norvasc and lisinopril, adjust based on blood pressure trends -Vasotec 1.25mg IV or Labetalol 10mg IV prn SBP>220 or DBP>120 Bradycardia: with 2.7 second pause on tele, patient asymptomatic. -Suspect secondary to beta viet, will discontinue metoprolol. -Monitor on telemetry although patient refusing at times. -Cardiology consulted, agrees discontinuing BB -Bradycardia improved -continue to monitor. 24-hour Holter showed normal sinus rhythm UTI, E. coli - completed: P.o. Ceftin HAIM with likely underlying chronic kidney disease stage III: Now resolved. -avoid nephrotoxic agents -obtain urine sodium and creatinine -renal U/s with 2.1cm hypoechoic left mid kidney; potentially cyst, otherwise unremarkable Previous behavioral Disturbances - this has resolved: Vitamin B12 Deficiency: acute -started on cyanocobalamin 1000mcg IM daily x7days, then once a week x 4 weeks, then monthly DVT Prophylaxis: SCDs/teds. Discharge Planning PT recommending rehab. Will be difficult placement due to insurance barriers. Patient lives alone, unsafe discharge home at this time. Continue daily PT and monitor for improvement. Problem Qualifiers (1) Fall: Qualified Codes: W19.XXXA - Unspecified fall, initial encounter (2) Nasal bone fracture: Qualified Codes: S02.2XXA - Fracture of nasal bones, initial encounter for closed fracture Hope Baker MD July 27, 2017 10:27
[2017-07-28] VITALS (9 sets, daily range): BP systolic 140–160; BP diastolic 63–75; PULSE 58–72; RESP 17–18; TEMP 97.3–98.2; O2SAT 95–100
[2017-07-28] MEDS: DOCUSATE SODIUM 50 MG/SENNA 8.6 MG TAB PO SCH ×2 (09:00→21:04)
[2017-07-28] MEDS: ATORVASTATIN 40 MG TAB PO SCH (09:07)
[2017-07-28] MEDS: ASPIRIN 325 MG TAB PO SCH (09:07)
[2017-07-28] MEDS: LISINOPRIL 10 MG TAB PO SCH (09:08)
[2017-07-28] MEDS: CYANOCOBALAMIN 1,000 MCG TAB PO SCH (09:08)
[2017-07-28] MEDS: SODIUM CHLORIDE 0.9% FLUSH 10 ML FLUSH IV FLUSH SCH ×2 (09:12→21:04)
[2017-07-28] MEDS: SODIUM CHLOR 0.9% 1000 ML INJ 1,000 ML IV SCH ×2 (09:57→16:32)
--- NOTE | 2017-07-28 10:15 | HHI.PR ---
Subjective Remarks Patient was wondering about walking to [employer] today to get soda. She states her cousin may be her landlord. She cannot remember her daughter's phone number. She states that she lives alone. Objective Vitals Vital Signs Date Time Temp Pulse Resp B/P (MAP) Pulse Ox O2 Delivery O2 Flow Rate FiO2 07/28/17 08:00 97.7 66 18 140/68 (92) 96 07/28/17 04:00 97.3 72 18 151/75 (100) 95 07/28/17 00:44 58 07/28/17 00:16 97.6 68 18 142/63 (89) 95 07/27/17 21:49 Room Air 07/27/17 20:16 75 07/27/17 19:45 97.3 71 18 129/68 (88) 97 07/27/17 16:00 98.1 65 17 117/58 (77) 96 07/27/17 12:00 97.6 79 18 138/60 (86) 96 I/O 07/27/17 07/27/17 07/27/17 07/28/17 07/28/17 07/28/17 07:00 15:00 23:00 07:00 15:00 23:00 Intake Total 120 ml 400 ml Output Total 850 ml Balance -730 ml 400 ml Intake Oral 120 ml 400 ml Output Urine Total 850 ml # Voids 3 3 3 # Bowel Movements 1 2 Objective Remarks GENERAL: This is a well-nourished, well-developed patient, in no apparent distress. CARDIOVASCULAR: Regular rate and rhythm RESPIRATORY: Clear to auscultation. Breath sounds equal bilaterally. No wheezes , rales, or rhonchi. MUSCULOSKELETAL: Extremities without clubbing, cyanosis, or edema. NEURO: Alert & Oriented x1 to person, and not to time and situation right hand force adjustment supervisor strength 4.5 out of 5, right lower extremity 4.5 out of 5 motor strength Procedures None. A/P Problem List: (1) Right pontine cerebrovascular accident ICD Code: I63.50 - Cerebral infarction due to unspecified occlusion or stenosis of unspecified cerebral artery Status: Acute (2) Fall ICD Code: W19.XXXA - Unspecified fall, initial encounter Status: Acute (3) Dizziness ICD Code: R42 - Dizziness and giddiness Status: Resolved (4) Nasal bone fracture ICD Code: S02.2XXA - Fracture of nasal bones, initial encounter for closed fracture Status: Acute (5) Renal insufficiency ICD Code: N28.9 - Disorder of kidney and ureter, unspecified Status: Resolved (6) UTI (urinary tract infection) ICD Code: N39.0 - Urinary tract infection, site not specified Status: Resolved Assessment and Plan 61-year-old female with a PMH of HTN was brought to the ER by EMS after a fall with dizziness. Subacute right pontine thrombotic stroke with motor disturbance per Neurology: c /o dizziness s/p fall at home with facial injury -Initial Brain MRI 07/18 with old infarcts, no acute stroke; however repeat brain MRI 07/19 reveals focally restricted diffusion involving the anterior right upper aby consistent with subacute pontine stroke -Carotid US shows significant stenosis on the left, none on the right - aspirin 325 mg Lipitor 40 mg p.o. daily -MRA head negative -MRA neck 60% stenosis of the left ICA secondary to ulcerated atherosclerotic plaque, 30-40% stenosis of the right ICA secondary to atherosclerotic plaque, Right vertebral artery is the dominant supply to the basilar.-Continue medical treatment, 2D echo showed no thrombus with EF of 50-55%, Holter monitor shows sinus rhythm -ST for swallow evaluation, recommends mechanical soft with nectar thickened liquids -PT/OT recommending rehab placement, difficult due to insurance barriers Acute metabolic encephalopathy, worsening and not improved overnight patient seems to have some delusions of walking to [employer] to get soda. -Previously given IV Haldol tid, -RPR and HIV neg Will consult psychiatry to determine patient's capacity to make decisions to assess for long-term placement Nasal Bone Fx: Acute, secondary to fall -CT Maxillofacial w/ nasal bone fractures and leftward deviation of fragments. -ENT consulted, no surgical intervention. HTN malignant presentation in the emergency room: Uncontrolled on presentation. BP 226/103, HR 81, s/p Labetalol and Hydralazine IV in ER. Now blood pressure much better controlled.. -Started Norvasc and lisinopril, adjust based on blood pressure trends -Vasotec 1.25mg IV or Labetalol 10mg IV prn SBP>220 or DBP>120 Bradycardia: with 2.7 second pause on tele, patient asymptomatic. -Suspect secondary to beta viet, has discontinued metoprolol. -Monitor on telemetry although patient refusing at times. -Cardiology consulted, agrees discontinuing BB -Bradycardia improved -continue to monitor. 24-hour Holter showed normal sinus rhythm UTI, E. coli - completed Ceftin HAIM with likely underlying chronic kidney disease stage III: Now resolved. -avoid nephrotoxic agents -obtain urine sodium and creatinine -renal U/s with 2.1cm hypoechoic left mid kidney; potentially cyst, otherwise unremarkable Previous behavioral Disturbances - this has resolved: Vitamin B12 Deficiency: acute -started on cyanocobalamin 1000mcg IM daily x7days, then once a week x 4 weeks, then monthly DVT Prophylaxis: SCDs/teds. Discharge Planning PT recommending rehab. Will be difficult placement due to insurance barriers. Patient lives alone, unsafe discharge home at this time. Continue daily PT and monitor for improvement. Consult psychiatry to evaluate for capacity Problem Qualifiers (1) Fall: Qualified Codes: W19.XXXA - Unspecified fall, initial encounter (2) Nasal bone fracture: Qualified Codes: S02.2XXA - Fracture of nasal bones, initial encounter for closed fracture Hope Baker MD July 28, 2017 10:15
--- NOTE | 2017-07-28 12:27 | HHI.PYPN ---
Subjective Remarks Dr. Baker has asked psychiatry to return to see patient for capacity assessment. Patient seen and examined. Chart reviewed. Case discussed with Dr. Baker. On my exam, patient is clearer thinking versus my previous evaluation on 07/18. Oriented x3 but struggles with WORLD backward and cannot perform vigilance A. Names 1/2 items and is able to repeat a phrase. Able to name last several presidents, Trump through [place]. Proverb interpretation is concrete. Patient is very oddly related and speaks of herself with the 'royal we.' She makes some odd statements at times, for example saying apropos of nothing that "people that play tapes as children." She endorses AH of " children telling me to get out and give us the money." No CAH to hurt self/ others. No delusions. No mood symptoms. Denies SI/HI. Patient reports a history of some sort of mental illness, possibly schizophrenia, and has followed at [facility] in the past. She notes that her mother had mental illness and was hospitalized at the formerly [facility] in [place]. She does articulate a preference to return home but understanding of the risks of so doing is quite limited. No physical complaints. Unable to provide me with any names/numbers for collateral. I did call over to [facility] to see if they had any record of patient. They do not, but her visits there may predate their EMR. Review of Systems ROS Limitations: Psychotic, Poor Historian Except as stated in HPI: all other systems reviewed are Neg Mental Status Examination Appearance: Disheveled Consciousness: Alert Orientation: Person, Place, Date/Time Motor Activity: Other (No motor abnormalities noted) Speech: Unremarkable Language: Other (A little bit rambling. Speaks of herself using the pronoun "we.") Fund of Knowledge: Inadequate Attention and Concentration: Other (Fair) Memory: Impaired Mood: Other (No mood issues) Affect: Other (Oddly related) Thought Process & Associations: Circumstantial Thought Content: Bizarre thinking, Hallucinations Hallucination Type: Auditory (As noted above) Delusion Type: None Suicidal Ideation: No Suicidal Plan: No Suicidal Intention: No Homicidal Ideation: No Homicidal Plan: No Homicidal Intention: No Insight: Poor Judgment: Poor Results Labs Date/Time Source Procedure Growth Status 07/16/17 18:18 Urine Random Urine Urine Culture - Final Escherichia Coli Complete Laboratory Tests Test 07/16/17 18:18 07/18/17 13:16 07/18/17 18:45 07/19/17 07:42 Prothrombin Time 10.3 SEC Prothromb Time International Ratio 1.0 RATIO Activated Partial Thromboplast Time 28.0 SEC Urine Color LIGHT-YELLOW Urine Turbidity HAZY Urine pH 5.5 Urine Specific [place] 1.019 Urine Protein 300 mg/dL Urine Glucose (UA) NEG mg/dL Urine Ketones NEG mg/dL Urine Occult Blood SMALL Urine Nitrite POS Urine Bilirubin NEG Urine Urobilinogen LESS THAN 2.0 MG/DL Urine Leukocyte Esterase LARGE Urine RBC 1 /hpf Urine WBC 111 /hpf Urine Squamous Epithelial Cells 3 /hpf Urine Bacteria MANY /hpf Urine Hyaline Casts 3 /lpf Urine Mucus FEW /lpf Microscopic Urinalysis Comment CULTURE INDICATED Total Creatine Kinase 132 U/L Creatine Kinase MB 1.3 NG/ML Troponin I LESS THAN 0.02 NG/ML Ammonia 39 MCMOL/L Vitamin B12 Level 160 PG/ML Thiamine Level 135 nmol/L Rapid Plasma Reagin NON-REACTIVE HIV (1&2) Ab and P24 Ag, 4th Gener NONREACTIVE Erythrocyte Sedimentation Rate 63 mm/hr Test 07/19/17 15:17 07/20/17 05:40 07/23/17 05:20 C-Reactive Protein 1.33 MG/DL Vitamin B6 Level 5.1 ng/mL Folate 9.1 NG/ML Anti-Nuclear Antibody Screen NEG Triglycerides Level 221 MG/DL Cholesterol Level 191 MG/DL LDL Cholesterol 108 MG/DL HDL Cholesterol 38.8 MG/DL Cholesterol/HDL Ratio 4.92 RATIO White Blood Count 6.9 TH/MM3 Red Blood Count 4.01 MIL/MM3 Hemoglobin 11.9 GM/DL Hematocrit 35.7 % Mean Corpuscular Volume 89.1 FL Mean Corpuscular Hemoglobin 29.7 PG Mean Corpuscular Hemoglobin Concent 33.4 % Red Cell Distribution Width 14.0 % Platelet Count 300 TH/MM3 Mean Platelet Volume 8.1 FL Neutrophils (%) (Auto) 72.5 % Lymphocytes (%) (Auto) 18.1 % Monocytes (%) (Auto) 6.5 % Eosinophils (%) (Auto) 2.5 % Basophils (%) (Auto) 0.4 % Neutrophils # (Auto) 5.0 TH/MM3 Lymphocytes # (Auto) 1.2 TH/MM3 Monocytes # (Auto) 0.4 TH/MM3 Eosinophils # (Auto) 0.2 TH/MM3 Basophils # (Auto) 0.0 TH/MM3 CBC Comment DIFF FINAL Differential Comment Blood Urea Nitrogen 27 MG/DL Creatinine 1.26 MG/DL Random Glucose 92 MG/DL Total Protein 7.2 GM/DL Albumin 2.9 GM/DL Calcium Level 9.0 MG/DL Phosphorus Level 3.4 MG/DL Magnesium Level 2.2 MG/DL Alkaline Phosphatase 97 U/L Aspartate Amino Transf (AST/SGOT) 12 U/L Alanine Aminotransferase (ALT/SGPT) 17 U/L Total Bilirubin 0.3 MG/DL Sodium Level 142 MEQ/L Potassium Level 4.2 MEQ/L Chloride Level 107 MEQ/L Carbon Dioxide Level 25.5 MEQ/L Anion Gap 10 MEQ/L Estimat Glomerular Filtration Rate 43 ML/MIN Hemoglobin A1c 5.1 % Free Thyroxine 1.02 NG/DL Thyroid Stimulating Hormone 3rd Gen 2.590 uIU/ML Labs reviewed. EKG normal sinus rhythm with a QTC of 417 ms, not prolonged. Vitals/IOs Vital Signs Date Time Temp Pulse Resp B/P (MAP) Pulse Ox O2 Delivery O2 Flow Rate FiO2 07/28/17 08:00 97.7 66 18 140/68 (92) 96 07/27/17 21:49 Room Air Intake and Output 07/28/17 07/28/17 07/29/17 08:00 16:00 00:00 Intake Total 400 ml Balance 400 ml Assessment & Plan Problem List: (1) Unspecified psychosis ICD Codes: F29 - Unspecified psychosis not due to a substance or known physiological condition (2) Delirium ICD Codes: R41.0 - Disorientation, unspecified Assessment & Plan: improving? Assessment & Plan Patient still fairly confused. She does not have capacity to make disposition decisions in my judgment, and a surrogate decision maker should be sought to assist with this decision. She now reports some sort of mental illness history , possibly of psychotic illness and also reports a family history of mental illness. She does articulate some psychotic symptoms now, and I recommend starting Risperdal 0.5mg BID for management of psychosis. This can be titrated to effect. Low dose Cogentin could be used for any EPS (e.g. 0.5mg PO/IM BID), but I recommend against prophylactic anticholinergic as anticholinergics can worsen mental status. I will apprise Dr. Seay of the case tomorrow when he resumes seeing consults. Thank you very much for this consultation. Justification for Cont. Inpt. . Valentin Rice MD July 28, 2017 12:27
[2017-07-28] MEDS: risperiDONE 0.5 MG TAB PO SCH (21:04)
--- NOTE | 2017-07-28 21:20 | HHI.PR ---
Subjective Subjective Comments Patient awake and alert. Does not appear to be in any distress. Denies any pain complaints. No shortness of breath noted. Allergies: Coded Allergies: No Known Allergies (Verified Allergy, Mild, 08/15/07) Review of Systems All other ROS: ROS reviewed as documented in chart Exam I&O / VS 07/28/17 07/28/17 07/29/17 15:00 23:00 07:00 Intake Total 1000 ml Balance 1000 ml Intake Oral 1000 ml # Voids 6 # Bowel Movements 2 Vital Signs Date Time Temp Pulse Resp B/P (MAP) Pulse Ox O2 Delivery O2 Flow Rate FiO2 07/28/17 16:29 97.5 68 17 151/69 (96) 95 07/28/17 12:00 97.9 70 18 152/72 (98) 100 07/28/17 08:00 97.7 66 18 140/68 (92) 96 07/28/17 04:00 97.3 72 18 151/75 (100) 95 07/28/17 00:44 58 07/28/17 00:16 97.6 68 18 142/63 (89) 95 07/27/17 21:49 Room Air General: No acute distress, Other (Appears to be confused but is able to be redirected) Psychiatric: Cooperative Orientation: oriented to Self, oriented to Place, oriented to Time (With cues) , oriented to Situation Neurologic: Pupils (PERRLA), EOM (Tracks right and left), Speech (Fluid), Coordination (Videok-lihe-snvced testing is intact with no dysmetria) Motor: Right Upper Extremity, Left Upper Extremity (4/5), Right Lower Extremity (4/5), Left Lower Extremity (4/5) Sensory Grossly intact to light touch in both upper and lower extremities Clonus: Negative Objective Micro and Labs Date/Time Source Procedure Growth Status 07/16/17 18:18 Urine Random Urine Urine Culture - Final Escherichia Coli Complete Assessment and Plan Assessment 1. Right pontine stroke with impaired balance 2. Impaired mobility and ADLs 3. Encephalopathy: Psychiatry is following and healthcare surrogate has been recommended. Patient noted not to have capacity. 4. Hypertension 5. Hypercholesterolemia 6. Renal insufficiency: Creatinine is improving 7. UTI: Course of Ceftin to be completed 07/22/17 Plan 1. Physical therapy is mobilizing and patient now requires moderate assistance for transfers and ambulates 10-20 feet mod assistance with rolling walker. Continue to mobilize as tolerated 2. Occupational therapy is addressing ADLs and now minimal to moderate assistance for feeding and grooming and maximal assistance for dressing 3. Speech therapy has evaluated swallowing patient is tolerating mechanical soft diet with thin liquids 4. SCDs in place for DVT prophylaxis 5. Continue close supervision for fall prevention 6. Case management is addressing discharge planning. Will need to assess whether patient has family to assisted discharge. Prior to admission she was living alone and neighbors were assisting. Patient has been referred to [facility] for funding 7. Will continue to follow while hospitalized and at discharge as appropriate Gaby Rosales MD July 28, 2017 21:20
[2017-07-29 00:06] VITALS: BP 119/73; PULSE 70; RESP 18; TEMP 97.4; O2SAT 96
[2017-07-29 04:35] VITALS: PULSE 63
[2017-07-29] MEDS: SODIUM CHLOR 0.9% 1000 ML INJ 1,000 ML IV SCH ×2 (05:32→15:57)
[2017-07-29 08:00] VITALS: BP 167/75; PULSE 66; RESP 18; TEMP 97.8; O2SAT 98
[2017-07-29] MEDS: ASPIRIN 325 MG TAB PO SCH (08:32)
[2017-07-29] MEDS: ATORVASTATIN 40 MG TAB PO SCH (08:32)
[2017-07-29] MEDS: LISINOPRIL 10 MG TAB PO SCH (08:32)
[2017-07-29] MEDS: DOCUSATE SODIUM 50 MG/SENNA 8.6 MG TAB PO SCH ×3 (08:32→20:51)
[2017-07-29] MEDS: CYANOCOBALAMIN 1,000 MCG TAB PO SCH (08:33)
[2017-07-29] MEDS: risperiDONE 0.5 MG TAB PO SCH ×2 (08:33→20:49)
[2017-07-29] MEDS: SODIUM CHLORIDE 0.9% FLUSH 10 ML FLUSH IV FLUSH SCH ×2 (08:37→20:50)
--- NOTE | 2017-07-29 08:37 | HHI.PR ---
Subjective Remarks Follow-up visit subacute right pontine thrombotic stroke with motor disturbance , metabolic encephalopathy, HTN, nasal bone fracture. Patient seen and examined today laying in bed. Reports she is doing well. States she has no acute issues overnight. Denies pain and discomfort. Denies SOB/ dyspnea. Denies chest pain, palpitations, headaches, dizziness. Denies fevers, chills, n/ v/d. Denies dysuria. Objective Vitals Vital Signs Date Time Temp Pulse Resp B/P (MAP) Pulse Ox O2 Delivery O2 Flow Rate FiO2 07/29/17 04:35 63 07/29/17 00:06 97.4 70 18 119/73 (88) 96 07/28/17 23:52 69 07/28/17 21:57 Room Air 07/28/17 20:00 72 07/28/17 19:15 98.2 71 18 160/69 (99) 98 07/28/17 16:29 97.5 68 17 151/69 (96) 95 07/28/17 12:00 97.9 70 18 152/72 (98) 100 I/O 07/28/17 07/28/17 07/28/17 07/29/17 07/29/17 07/29/17 07:00 15:00 23:00 07:00 15:00 23:00 Intake Total 400 ml 1000 ml 0 ml Balance 400 ml 1000 ml 0 ml Intake Oral 400 ml 1000 ml 0 ml # Voids 3 6 2 # Bowel Movements 2 2 0 Imaging Last Impressions Neck CTA 07/21/17 0000 Signed Impressions: CONCLUSION: 1. Limited examination due to mixed delayed contrast bolus timing. 2. Redemonstration of predominantly noncalcified plaque in the origin of the l eft internal carotid artery with resultant approximately 65-70% stenosis. 3. Redemonstration of noncalcified plaque in the origin of the right internal carotid artery with resultant approximately 30% stenosis. Please note that ther e is medial retrotracheal deviation of the proximal cervical segment on the rig ht. 4. Patent bilateral vertebral arteries. 5. Subcentimeter bilateral thyroid nodules. Renal Ultrasound 07/20/17 0000 Signed Impressions: CONCLUSION: 1. 2.1 cm hypoechoic area seen at the left mid kidney. This potentially could be related to a cyst. 2. Gallstones. Head Magnetic Resonance Angiography 5/21/18 1240 Signed Impressions: Service Date/Time: Wednesday, July 19, 2017 15:34 - CONCLUSION: No acute [place] vascular findings Jerardo Meza MD Cervical Spine MRI [id number] Signed Impressions: Service Date/Time: Wednesday, July 19, 2017 15:34 - CONCLUSION: No acute MR findings of the cervical spine. Small disc protrusions at several levels as described, none producing any significant anatomic compromise. Jerardo Meza MD Carotid Artery Ultrasound [id number] Signed Impressions: Service Date/Time: Wednesday, July 19, 2017 14:34 - CONCLUSION: 1. No significant carotid: 2. Neck stenosis on the right. 3. Suspect left carotid stenosis of 50-69%% although peak systolic velocities in the internal carotid artery meet criteria for severe, >70%% stenosis, as above. Consider CTA examination given the somewhat discordant inconclusive sonographic findings. Crispin Hoffman MD Brain MRI [id number] Signed Impressions: Service Date/Time: Wednesday, July 19, 2017 15:34 - CONCLUSION: Right pontine stroke. Jerardo Meza MD Neck Magnetic Resonance Angiography 07/19/17 0000 Signed Impressions: Service Date/Time: Wednesday, July 19, 2017 21:21 - CONCLUSION: 1. 60%% stenosis of the left ICA secondary to ulcerated atherosclerotic plaque. 2. 30-40%% stenosis of the right ICA secondary to atherosclerotic plaque. 3. Right vertebral artery is the dominant supply to the basilar. Robby Richardson Jr., MD Head CT [id number] Signed Impressions: Service Date/Time: Sunday, July 16, 2017 19:21 - CONCLUSION: 1. No acute intracranial abnormality seen. There are multiple old lacunar infarcts. 2. Right frontal scalp injury/hematoma with right periorbital soft tissue swelling and nasal bone fractures with leftward deviation of the fragments. Jerardo Rogers MD Chest X-Ray [id number] Signed Impressions: Service Date/Time: Sunday, July 16, 2017 17:36 - CONCLUSION: No acute disease. Gilberto Vergara MD Cervical Spine CT [id number] Signed Impressions: Service Date/Time: Sunday, July 16, 2017 19:21 - CONCLUSION: 1. No acute bony abnormality is seen. 2. Facet hypertrophy throughout. Jerardo Rogers MD Maxillofacial CT 07/16/17 0000 Signed Impressions: Service Date/Time: Sunday, July 16, 2017 19:21 - CONCLUSION: 1. Nasal bone fractures. 2. Right frontal scalp swelling and hematoma. 3. Right periorbital soft tissue swelling. Jerardo Rogers MD Objective Remarks GENERAL: This is a well-nourished, well-developed patient, in no apparent distress. SKIN: Warm and dry. HEENT: Normocephalic. Pupils equal round and reactive. Nose without bleeding. Airway patent. NECK: Trachea midline. CARDIOVASCULAR: Regular rate and rhythm without murmurs, gallops, or rubs. RESPIRATORY: Clear to auscultation. Breath sounds equal bilaterally. No wheezes , rales, or rhonchi. GASTROINTESTINAL: Abdomen soft, non-tender, nondistended. Bowel Sounds normoactive x4. MUSCULOSKELETAL: Extremities without clubbing, cyanosis, or edema. NEUROLOGICAL: Awake and alert. Oriented to place, person. Right lower extremity weakness. Normal speech. Procedures None. A/P Problem List: (1) Right pontine cerebrovascular accident ICD Code: I63.50 - Cerebral infarction due to unspecified occlusion or stenosis of unspecified cerebral artery Status: Acute (2) Fall ICD Code: W19.XXXA - Unspecified fall, initial encounter Status: Acute (3) Dizziness ICD Code: R42 - Dizziness and giddiness Status: Resolved (4) Nasal bone fracture ICD Code: S02.2XXA - Fracture of nasal bones, initial encounter for closed fracture Status: Acute (5) Renal insufficiency ICD Code: N28.9 - Disorder of kidney and ureter, unspecified Status: Resolved (6) UTI (urinary tract infection) ICD Code: N39.0 - Urinary tract infection, site not specified Status: Resolved Assessment and Plan 61-year-old female with a PMH of HTN was brought to the ER by EMS after a fall with dizziness. Subacute right pontine thrombotic stroke with motor disturbance per Neurology: s/p fall at home with facial injury, dizziness -Initial Brain MRI 07/18 with old infarcts, no acute stroke; however repeat brain MRI 07/19 reveals focally restricted diffusion involving the anterior right upper aby consistent with subacute pontine stroke -Carotid US shows significant stenosis on the left, none on the right -Aspirin 325 mg Lipitor 40 mg p.o. daily -MRA head negative -MRA neck 60% stenosis of the left ICA secondary to ulcerated atherosclerotic plaque, 30-40% stenosis of the right ICA secondary to atherosclerotic plaque, Right vertebral artery is the dominant supply to the basilar.-Continue medical treatment, 2D echo showed no thrombus with EF of 50-55%, Holter monitor shows sinus rhythm -ST for swallow evaluation, recommends mechanical soft with nectar thickened liquids. Tolerating. -PT/OT recommending rehab placement, difficult due to insurance barriers. Nick evaluating patient. Acute metabolic encephalopathy -Previously given IV Haldol tid -RPR and HIV neg -Will consult psychiatry to determine patient's capacity to make decisions to assess for long-term placement. -Conversant today Nasal Bone Fx: Acute, secondary to fall -CT Maxillofacial w/ nasal bone fractures and leftward deviation of fragments. -ENT consulted, no surgical intervention. HTN malignant presentation in the emergency room: Uncontrolled on presentation. BP 226/103, HR 81, s/p Labetalol and Hydralazine IV in ER. Now blood pressure much better controlled.. -Started Norvasc and lisinopril, adjust based on blood pressure trends -Vasotec 1.25mg IV or Labetalol 10mg IV prn SBP>220 or DBP>120 -Monitor BP trend Bradycardia: with 2.7 second pause on tele, patient asymptomatic. -Suspect secondary to beta viet, has discontinued metoprolol. -Monitor on telemetry although patient refusing at times. -Cardiology consulted, agrees discontinuing BB -Bradycardia improved -continue to monitor. 24-hour Holter showed normal sinus rhythm UTI, E. coli - completed Ceftin HAIM with likely underlying chronic kidney disease stage III: Now resolved. -avoid nephrotoxic agents -obtain urine sodium and creatinine -renal U/s with 2.1cm hypoechoic left mid kidney; potentially cyst, otherwise unremarkable Previous behavioral Disturbances - this has resolved: Vitamin B12 Deficiency: acute - cyanocobalamin 1000mcg IM daily x7days, then once a week x 4 weeks, then monthly -Follow up in the outpatient DVT Prophylaxis: SCDs/teds. Discharge Planning Difficulty with placement due to insurance barriers. PT recommending rehab. Patient lives alone, unsafe discharge home at this time. Continue daily PT and monitor for improvement. Consult psychiatry to evaluate for capacity Problem Qualifiers (1) Fall: Qualified Codes: W19.XXXA - Unspecified fall, initial encounter (2) Nasal bone fracture: Qualified Codes: S02.2XXA - Fracture of nasal bones, initial encounter for closed fracture Nighat Bateman July 29, 2017 08:37
[2017-07-29 16:00] VITALS: BP 134/64; PULSE 68; RESP 18; TEMP 98; O2SAT 98
[2017-07-29 16:13] VITALS: PULSE 79
[2017-07-29 20:00] VITALS: BP 129/59; PULSE 63; RESP 18; TEMP 97.6; O2SAT 95
[2017-07-30] VITALS: BP 123/74; PULSE 58; RESP 18; TEMP 97.6; O2SAT 95
[2017-07-30] MEDS: SODIUM CHLOR 0.9% 1000 ML INJ 1,000 ML IV SCH ×3 (01:57→21:49)
[2017-07-30 04:00] VITALS: BP 146/62; PULSE 58; RESP 20; TEMP 97.6; O2SAT 96
[2017-07-30 07:48] VITALS: BP 154/70; PULSE 63; RESP 18; O2SAT 97
[2017-07-30] MEDS: DOCUSATE SODIUM 50 MG/SENNA 8.6 MG TAB PO SCH ×2 (07:50→20:51)
[2017-07-30] MEDS: ATORVASTATIN 40 MG TAB PO SCH (07:50)
[2017-07-30] MEDS: LISINOPRIL 10 MG TAB PO SCH (07:51)
[2017-07-30] MEDS: ASPIRIN 325 MG TAB PO SCH (07:51)
[2017-07-30] MEDS: risperiDONE 0.5 MG TAB PO SCH ×2 (07:51→20:51)
[2017-07-30] MEDS: CYANOCOBALAMIN 1,000 MCG TAB PO SCH (07:51)
[2017-07-30] MEDS: SODIUM CHLORIDE 0.9% FLUSH 10 ML FLUSH IV FLUSH SCH ×2 (07:55→20:55)
--- NOTE | 2017-07-30 09:10 | HHI.PR ---
Subjective Remarks Doing okay. No complaints overnight. States that she still has not gotten in touch with her daughter. States her landlord was out in the yard Objective Vitals Vital Signs Date Time Temp Pulse Resp B/P (MAP) Pulse Ox O2 Delivery O2 Flow Rate FiO2 07/30/17 07:48 63 18 154/70 (98) 97 07/30/17 04:00 97.6 58 20 146/62 (90) 96 07/30/17 00:00 97.6 58 18 123/74 (90) 95 07/29/17 20:00 97.6 63 18 129/59 (82) 95 07/29/17 16:13 79 07/29/17 16:00 98.0 68 18 134/64 (87) 98 I/O 07/29/17 07/29/17 07/29/17 07/30/17 07/30/17 07/30/17 07:00 15:00 23:00 07:00 15:00 23:00 Intake Total 0 ml 240 ml Balance 0 ml 240 ml Intake Oral 0 ml 240 ml # Voids 2 1 # Bowel Movements 0 0 Objective Remarks GENERAL: This is a well-nourished, well-developed patient, in no apparent distress. CARDIOVASCULAR: Regular rate and rhythm RESPIRATORY: Clear to auscultation. Breath sounds equal bilaterally. No wheezes , rales, or rhonchi. MUSCULOSKELETAL: Extremities without clubbing, cyanosis, or edema. NEURO: Alert & Oriented x1 to person, and not to time and situation; Procedures None. A/P Problem List: (1) Right pontine cerebrovascular accident ICD Code: I63.50 - Cerebral infarction due to unspecified occlusion or stenosis of unspecified cerebral artery Status: Acute (2) Fall ICD Code: W19.XXXA - Unspecified fall, initial encounter Status: Acute (3) Dizziness ICD Code: R42 - Dizziness and giddiness Status: Resolved (4) Nasal bone fracture ICD Code: S02.2XXA - Fracture of nasal bones, initial encounter for closed fracture Status: Acute (5) Renal insufficiency ICD Code: N28.9 - Disorder of kidney and ureter, unspecified Status: Resolved (6) UTI (urinary tract infection) ICD Code: N39.0 - Urinary tract infection, site not specified Status: Resolved Assessment and Plan 61-year-old female with a PMH of HTN was brought to the ER by EMS after a fall with dizziness. Subacute right pontine thrombotic stroke with motor disturbance per Neurology: c /o dizziness s/p fall at home with facial injury -Initial Brain MRI 07/18 with old infarcts, no acute stroke; however repeat brain MRI 07/19 reveals focally restricted diffusion involving the anterior right upper aby consistent with subacute pontine stroke -Carotid US shows significant stenosis on the left, none on the right - aspirin 325 mg, Lipitor 40 mg p.o. daily -MRA head negative -MRA neck 60% stenosis of the left ICA secondary to ulcerated atherosclerotic plaque, 30-40% stenosis of the right ICA secondary to atherosclerotic plaque, Right vertebral artery is the dominant supply to the basilar.-Continue medical treatment, 2D echo showed no thrombus with EF of 50-55%, Holter monitor shows sinus rhythm -ST for swallow evaluation, recommends mechanical soft with nectar thickened liquids -PT/OT recommending rehab placement, difficult due to insurance barriers Acute metabolic encephalopathy, contributed with the right pontine thrombotic stroke and previous UTI -Previously given IV Haldol tid, -RPR and HIV neg psychiatry does agree and states that patient has no capacity to make decisions-case management coordinator to start finding guardian to assist for long-term placement Nasal Bone Fx: Acute, secondary to fall -CT Maxillofacial w/ nasal bone fractures and leftward deviation of fragments. -ENT consulted, no surgical intervention. HTN malignant presentation in the emergency room: Uncontrolled on presentation. BP 226/103, HR 81, s/p Labetalol and Hydralazine IV in ER. Now blood pressure much better controlled.. -Started Norvasc and lisinopril, adjust based on blood pressure trends -Vasotec 1.25mg IV or Labetalol 10mg IV prn SBP>220 or DBP>120 Bradycardia: with 2.7 second pause on tele, patient asymptomatic. -Suspect secondary to beta viet, has discontinued metoprolol. -Monitor on telemetry although patient refusing at times. -Cardiology consulted, agrees discontinuing BB -Bradycardia improved -continue to monitor. 24-hour Holter showed normal sinus rhythm UTI, E. coli - completed Ceftin HAIM with likely underlying chronic kidney disease stage III: Now resolved. -avoid nephrotoxic agents -obtain urine sodium and creatinine -renal U/s with 2.1cm hypoechoic left mid kidney; potentially cyst, otherwise unremarkable Previous behavioral Disturbances - this has resolved: Vitamin B12 Deficiency: acute -started on cyanocobalamin 1000mcg IM daily x7days, then once a week x 4 weeks, then monthly DVT Prophylaxis: SCDs/teds. Discharge Planning PT recommending rehab. Will be difficult placement due to insurance barriers. Patient lives alone, unsafe discharge home at this time. Continue daily PT and monitor for improvement. psychiatry states patient does not have capacity for decision making, case management in process of finding a guardian. Problem Qualifiers (1) Fall: Qualified Codes: W19.XXXA - Unspecified fall, initial encounter (2) Nasal bone fracture: Qualified Codes: S02.2XXA - Fracture of nasal bones, initial encounter for closed fracture Hope Baker MD Jul 30, 2017 09:10
[2017-07-30 12:00] VITALS: BP 139/70; PULSE 62; RESP 18; TEMP 98; O2SAT 95
[2017-07-30 16:00] VITALS: BP 152/72; PULSE 72; RESP 15; TEMP 97.3; O2SAT 96
[2017-07-30 20:00] VITALS: BP 147/67; PULSE 67; RESP 18; TEMP 97.8; O2SAT 97
[2017-07-31] VITALS (8 sets, daily range): BP systolic 121–152; BP diastolic 59–74; PULSE 60–93; RESP 18–20; TEMP 97.4–98.1; O2SAT 93–99
[2017-07-31] MEDS: SODIUM CHLOR 0.9% 1000 ML INJ 1,000 ML IV SCH ×2 (07:57→17:07)
[2017-07-31] MEDS: SODIUM CHLORIDE 0.9% FLUSH 10 ML FLUSH IV FLUSH SCH ×2 (09:00→21:00)
[2017-07-31] MEDS: ATORVASTATIN 40 MG TAB PO SCH (09:02)
[2017-07-31] MEDS: risperiDONE 0.5 MG TAB PO SCH ×2 (09:02→21:30)
[2017-07-31] MEDS: LISINOPRIL 10 MG TAB PO SCH (09:02)
[2017-07-31] MEDS: DOCUSATE SODIUM 50 MG/SENNA 8.6 MG TAB PO SCH ×2 (09:02→21:30)
[2017-07-31] MEDS: ASPIRIN 325 MG TAB PO SCH (09:03)
[2017-07-31] MEDS: CYANOCOBALAMIN 1,000 MCG TAB PO SCH (09:03)
--- NOTE | 2017-07-31 11:32 | HHI.PR ---
Subjective Remarks Follow-up visit subacute right pontine thrombotic stroke with motor disturbance , metabolic encephalopathy, HTN, nasal bone fracture. Patient seen and examined today laying in bed. States she is resting. No acute issues overnight. Denies pain and discomfort. Denies SOB/ dyspnea. Denies chest pain , palpitations, headaches, dizziness. Denies fevers, chills, n/v/d. Denies dysuria. Objective Vitals Vital Signs Date Time Temp Pulse Resp B/P (MAP) Pulse Ox O2 Delivery O2 Flow Rate FiO2 07/31/17 08:00 97.9 60 19 152/67 (95) 93 07/31/17 04:00 97.4 64 20 135/64 (87) 98 07/31/17 00:00 98.1 61 18 136/66 (89) 97 07/30/17 20:00 97.8 67 18 147/67 (93) 97 07/30/17 16:00 97.3 72 15 152/72 (98) 96 07/30/17 12:00 98.0 62 18 139/70 (93) 95 I/O 07/30/17 07/30/17 07/30/17 07/31/17 07/31/17 07/31/17 07:00 15:00 23:00 07:00 15:00 23:00 Intake Total 240 ml 240 ml Balance 240 ml 240 ml Intake Oral 240 ml 240 ml # Voids 1 2 # Bowel Movements 0 0 Imaging Last Impressions Neck CTA 07/21/17 0000 Signed Impressions: CONCLUSION: 1. Limited examination due to mixed delayed contrast bolus timing. 2. Redemonstration of predominantly noncalcified plaque in the origin of the l eft internal carotid artery with resultant approximately 65-70% stenosis. 3. Redemonstration of noncalcified plaque in the origin of the right internal carotid artery with resultant approximately 30% stenosis. Please note that ther e is medial retrotracheal deviation of the proximal cervical segment on the rig ht. 4. Patent bilateral vertebral arteries. 5. Subcentimeter bilateral thyroid nodules. Renal Ultrasound 07/20/17 0000 Signed Impressions: CONCLUSION: 1. 2.1 cm hypoechoic area seen at the left mid kidney. This potentially could be related to a cyst. 2. Gallstones. Head Magnetic Resonance Angiography 07/19/17 1240 Signed Impressions: Service Date/Time: Wednesday, July 19, 2017 15:34 - CONCLUSION: No acute [place] vascular findings Jerardo Meza MD Cervical Spine MRI 07/19/17 1240 Signed Impressions: Service Date/Time: Wednesday, July 19, 2017 15:34 - CONCLUSION: No acute MR findings of the cervical spine. Small disc protrusions at several levels as described, none producing any significant anatomic compromise. Jerardo Meza MD Carotid Artery Ultrasound 07/19/17 1240 Signed Impressions: Service Date/Time: Wednesday, July 19, 2017 14:34 - CONCLUSION: 1. No significant carotid: 2. Neck stenosis on the right. 3. Suspect left carotid stenosis of 50-69%% although peak systolic velocities in the internal carotid artery meet criteria for severe, >70%% stenosis, as above. Consider CTA examination given the somewhat discordant inconclusive sonographic findings. Crispin Hoffman MD Brain MRI 07/19/17 1240 Signed Impressions: Service Date/Time: Wednesday, July 19, 2017 15:34 - CONCLUSION: Right pontine stroke. Jerardo Meza MD Neck Magnetic Resonance Angiography 07/19/17 0000 Signed Impressions: Service Date/Time: Wednesday, July 19, 2017 21:21 - CONCLUSION: 1. 60%% stenosis of the left ICA secondary to ulcerated atherosclerotic plaque. 2. 30-40%% stenosis of the right ICA secondary to atherosclerotic plaque. 3. Right vertebral artery is the dominant supply to the basilar. Robby Richardson Jr., MD Head CT [id number] Signed Impressions: Service Date/Time: Sunday, July 16, 2017 19:21 - CONCLUSION: 1. No acute intracranial abnormality seen. There are multiple old lacunar infarcts. 2. Right frontal scalp injury/hematoma with right periorbital soft tissue swelling and nasal bone fractures with leftward deviation of the fragments. Jerardo Rogers MD Chest X-Ray [id number] Signed Impressions: Service Date/Time: Sunday, July 16, 2017 17:36 - CONCLUSION: No acute disease. Gilberto Vergara MD Cervical Spine CT [id number] Signed Impressions: Service Date/Time: Sunday, July 16, 2017 19:21 - CONCLUSION: 1. No acute bony abnormality is seen. 2. Facet hypertrophy throughout. Jerardo Rogers MD Maxillofacial CT 07/16/17 0000 Signed Impressions: Service Date/Time: Sunday, July 16, 2017 19:21 - CONCLUSION: 1. Nasal bone fractures. 2. Right frontal scalp swelling and hematoma. 3. Right periorbital soft tissue swelling. Jerardo Rogers MD Objective Remarks GENERAL: This is a well-nourished, well-developed patient, in no apparent distress. SKIN: Warm and dry. HEENT: Normocephalic. Pupils equal round and reactive. Nose without bleeding. Airway patent. NECK: Trachea midline. CARDIOVASCULAR: Regular rate and rhythm without murmurs, gallops, or rubs. RESPIRATORY: Clear to auscultation. Breath sounds equal bilaterally. No wheezes , rales, or rhonchi. GASTROINTESTINAL: Abdomen soft, non-tender, nondistended. Bowel Sounds normoactive x4. MUSCULOSKELETAL: Extremities without clubbing, cyanosis, or edema. NEUROLOGICAL: Awake and alert. Oriented to place, person. Right lower extremity weakness. Normal speech. Procedures None. A/P Problem List: (1) Right pontine cerebrovascular accident ICD Code: I63.50 - Cerebral infarction due to unspecified occlusion or stenosis of unspecified cerebral artery Status: Acute (2) Fall ICD Code: W19.XXXA - Unspecified fall, initial encounter Status: Acute (3) Dizziness ICD Code: R42 - Dizziness and giddiness Status: Resolved (4) Nasal bone fracture ICD Code: S02.2XXA - Fracture of nasal bones, initial encounter for closed fracture Status: Acute (5) Renal insufficiency ICD Code: N28.9 - Disorder of kidney and ureter, unspecified Status: Resolved (6) UTI (urinary tract infection) ICD Code: N39.0 - Urinary tract infection, site not specified Status: Resolved Assessment and Plan 61-year-old female with a PMH of HTN was brought to the ER by EMS after a fall with dizziness. Subacute right pontine thrombotic stroke with motor disturbance per Neurology: s/p fall at home with facial injury, dizziness -Initial Brain MRI 07/18 with old infarcts, no acute stroke; however repeat brain MRI 07/19 reveals focally restricted diffusion involving the anterior right upper aby consistent with subacute pontine stroke -Carotid US shows significant stenosis on the left, none on the right -Aspirin 325 mg Lipitor 40 mg p.o. daily -MRA head negative -MRA neck 60% stenosis of the left ICA secondary to ulcerated atherosclerotic plaque, 30-40% stenosis of the right ICA secondary to atherosclerotic plaque, Right vertebral artery is the dominant supply to the basilar.-Continue medical treatment, 2D echo showed no thrombus with EF of 50-55%, Holter monitor shows sinus rhythm -ST for swallow evaluation, recommends mechanical soft with nectar thickened liquids. Tolerating. -PT/OT recommending rehab placement, difficult due to insurance barriers. Nick evaluating patient. Acute metabolic encephalopathy -Previously given IV Haldol tid -RPR and HIV neg -Psychiatry consulted for patient's capacity. Noted patient does not have any capacity Nasal Bone Fx: Acute, secondary to fall -CT Maxillofacial w/ nasal bone fractures and leftward deviation of fragments. -ENT consulted, no surgical intervention. HTN malignant presentation in the emergency room: Uncontrolled on presentation. BP 226/103, HR 81, s/p Labetalol and Hydralazine IV in ER. -Started Norvasc and lisinopril, adjust based on blood pressure trends -Vasotec 1.25mg IV or Labetalol 10mg IV prn SBP>220 or DBP>120 -Monitor BP trend. Improved Bradycardia: with 2.7 second pause on tele, patient asymptomatic. -Suspect secondary to beta viet, has discontinued metoprolol. -Monitor on telemetry although patient refusing at times. -Cardiology consulted, agrees discontinuing BB -Bradycardia improved -continue to monitor. 24-hour Holter showed normal sinus rhythm UTI, E. coli - completed Ceftin HAIM with likely underlying chronic kidney disease stage III: Now resolved. -avoid nephrotoxic agents -obtain urine sodium and creatinine -renal U/s with 2.1cm hypoechoic left mid kidney; potentially cyst, otherwise unremarkable Previous behavioral Disturbances - this has resolved: Vitamin B12 Deficiency: acute -cyanocobalamin 1000mcg IM daily x7days, then once a week x 4 weeks, then monthly -Follow up in the outpatient DVT Prophylaxis: SCDs/teds. Discharge Planning Difficulty with placement due to insurance barriers. PT recommending rehab. Patient lives alone, unsafe discharge home at this time. Continue daily PT and monitor for improvement. Problem Qualifiers (1) Fall: Qualified Codes: W19.XXXA - Unspecified fall, initial encounter (2) Nasal bone fracture: Qualified Codes: S02.2XXA - Fracture of nasal bones, initial encounter for closed fracture Nighat Bateman Jul 31, 2017 11:32
[2017-08-01] VITALS (7 sets, daily range): BP systolic 130–165; BP diastolic 63–82; PULSE 67–106; RESP 18–20; TEMP 97.6–98.6; O2SAT 94–99
[2017-08-01] MEDS: SODIUM CHLOR 0.9% 1000 ML INJ 1,000 ML IV SCH ×3 (03:14→18:48)
[2017-08-01] MEDS: LISINOPRIL 10 MG TAB PO SCH (08:02)
[2017-08-01] MEDS: CYANOCOBALAMIN 1,000 MCG TAB PO SCH (08:02)
[2017-08-01] MEDS: risperiDONE 0.5 MG TAB PO SCH ×2 (08:02→20:28)
[2017-08-01] MEDS: ATORVASTATIN 40 MG TAB PO SCH (08:02)
[2017-08-01] MEDS: SODIUM CHLORIDE 0.9% FLUSH 10 ML FLUSH IV FLUSH SCH ×2 (08:03→20:28)
[2017-08-01] MEDS: ASPIRIN 325 MG TAB PO SCH (08:03)
[2017-08-01] MEDS: DOCUSATE SODIUM 50 MG/SENNA 8.6 MG TAB PO SCH ×2 (08:03→20:28)
--- NOTE | 2017-08-01 11:43 | HHI.PR ---
Subjective Remarks Follow-up visit subacute right pontine thrombotic stroke with motor disturbance , metabolic encephalopathy, HTN, nasal bone fracture. Patient seen and examined today. States she is doing well. Participates in therapy. Denies pain and discomfort. Denies SOB/ dyspnea. Denies chest pain, palpitations, headaches, dizziness. Denies fevers, chills, n/v/d. Denies dysuria. Objective Vitals Vital Signs Date Time Temp Pulse Resp B/P (MAP) Pulse Ox O2 Delivery O2 Flow Rate FiO2 08/01/17 08:00 98.6 106 20 165/82 (109) 99 08/01/17 04:27 97.8 69 18 140/76 (97) 96 08/01/17 03:44 73 08/01/17 00:07 97.6 67 18 130/72 (91) 96 07/31/17 23:48 69 07/31/17 22:24 Room Air 07/31/17 19:53 78 07/31/17 19:51 97.9 93 19 121/74 (90) 96 07/31/17 16:00 97.4 66 18 134/73 (93) 96 07/31/17 12:00 98.0 66 18 149/59 (89) 99 I/O 07/31/17 07/31/17 07/31/17 08/01/17 08/01/17 08/01/17 07:00 15:00 23:00 07:00 15:00 23:00 Intake Total 240 ml 800 ml 360 ml Balance 240 ml 800 ml 360 ml Intake Oral 240 ml 800 ml 360 ml # Voids 2 4 4 # Bowel Movements 0 0 1 Imaging Last Impressions Neck CTA 07/21/17 0000 Signed Impressions: CONCLUSION: 1. Limited examination due to mixed delayed contrast bolus timing. 2. Redemonstration of predominantly noncalcified plaque in the origin of the l eft internal carotid artery with resultant approximately 65-70% stenosis. 3. Redemonstration of noncalcified plaque in the origin of the right internal carotid artery with resultant approximately 30% stenosis. Please note that ther e is medial retrotracheal deviation of the proximal cervical segment on the rig ht. 4. Patent bilateral vertebral arteries. 5. Subcentimeter bilateral thyroid nodules. Renal Ultrasound 07/20/17 0000 Signed Impressions: CONCLUSION: 1. 2.1 cm hypoechoic area seen at the left mid kidney. This potentially could be related to a cyst. 2. Gallstones. Head Magnetic Resonance Angiography [id number] Signed Impressions: Service Date/Time: Wednesday, July 19, 2017 15:34 - CONCLUSION: No acute unga of [place] vascular findings Jerardo Meza MD Cervical Spine MRI 07/19/170 Signed Impressions: Service Date/Time: Wednesday, July 19, 2017 15:34 - CONCLUSION: No acute MR findings of the cervical spine. Small disc protrusions at several levels as described, none producing any significant anatomic compromise. Jerardo Meza MD Carotid Artery Ultrasound [id number] Signed Impressions: Service Date/Time: Wednesday, July 19, 2017 14:34 - CONCLUSION: 1. No significant carotid: 2. Neck stenosis on the right. 3. Suspect left carotid stenosis of 50-69%% although peak systolic velocities in the internal carotid artery meet criteria for severe, >70%% stenosis, as above. Consider CTA examination given the somewhat discordant inconclusive sonographic findings. Crispin Hoffman MD Brain MRI [id number] Signed Impressions: Service Date/Time: Wednesday, July 19, 2017 15:34 - CONCLUSION: Right pontine stroke. Jerardo Meza MD Neck Magnetic Resonance Angiography 07/19/17 0000 Signed Impressions: Service Date/Time: Wednesday, July 19, 2017 21:21 - CONCLUSION: 1. 60%% stenosis of the left ICA secondary to ulcerated atherosclerotic plaque. 2. 30-40%% stenosis of the right ICA secondary to atherosclerotic plaque. 3. Right vertebral artery is the dominant supply to the basilar. Robby Richardson Jr., MD Head CT [id number] Signed Impressions: Service Date/Time: Sunday, July 16, 2017 19:21 - CONCLUSION: 1. No acute intracranial abnormality seen. There are multiple old lacunar infarcts. 2. Right frontal scalp injury/hematoma with right periorbital soft tissue swelling and nasal bone fractures with leftward deviation of the fragments. Jerardo Rogers MD Chest X-Ray [id number] Signed Impressions: Service Date/Time: Sunday, July 16, 2017 17:36 - CONCLUSION: No acute disease. Gilberto Vergara MD Cervical Spine CT [id number] Signed Impressions: Service Date/Time: Sunday, July 16, 2017 19:21 - CONCLUSION: 1. No acute bony abnormality is seen. 2. Facet hypertrophy throughout. Jerardo Rogers MD Maxillofacial CT 07/16/17 0000 Signed Impressions: Service Date/Time: Sunday, July 16, 2017 19:21 - CONCLUSION: 1. Nasal bone fractures. 2. Right frontal scalp swelling and hematoma. 3. Right periorbital soft tissue swelling. Jerardo Rogers MD Objective Remarks GENERAL: This is a well-nourished, well-developed patient, in no apparent distress. SKIN: Warm and dry. HEENT: Normocephalic. Pupils equal round and reactive. Nose without bleeding. Airway patent. NECK: Trachea midline. CARDIOVASCULAR: Regular rate and rhythm without murmurs, gallops, or rubs. RESPIRATORY: Clear to auscultation. Breath sounds equal bilaterally. No wheezes , rales, or rhonchi. GASTROINTESTINAL: Abdomen soft, non-tender, nondistended. Bowel Sounds normoactive x4. MUSCULOSKELETAL: Extremities without clubbing, cyanosis, or edema. NEUROLOGICAL: Awake and alert. Oriented to place, person. Right lower extremity weakness improving. Normal speech. Procedures None. A/P Problem List: (1) Right pontine cerebrovascular accident ICD Code: I63.50 - Cerebral infarction due to unspecified occlusion or stenosis of unspecified cerebral artery Status: Acute (2) Fall ICD Code: W19.XXXA - Unspecified fall, initial encounter Status: Acute (3) Dizziness ICD Code: R42 - Dizziness and giddiness Status: Resolved (4) Nasal bone fracture ICD Code: S02.2XXA - Fracture of nasal bones, initial encounter for closed fracture Status: Acute (5) Renal insufficiency ICD Code: N28.9 - Disorder of kidney and ureter, unspecified Status: Resolved (6) UTI (urinary tract infection) ICD Code: N39.0 - Urinary tract infection, site not specified Status: Resolved Assessment and Plan 61-year-old female with a PMH of HTN was brought to the ER by EMS after a fall with dizziness. Subacute right pontine thrombotic stroke with motor disturbance per Neurology: s/p fall at home with facial injury, dizziness -Initial Brain MRI 07/18 with old infarcts, no acute stroke; however repeat brain MRI 07/19 reveals focally restricted diffusion involving the anterior right upper aby consistent with subacute pontine stroke -Carotid US shows significant stenosis on the left, none on the right -Aspirin 325 mg Lipitor 40 mg p.o. daily -MRA head negative -MRA neck 60% stenosis of the left ICA secondary to ulcerated atherosclerotic plaque, 30-40% stenosis of the right ICA secondary to atherosclerotic plaque, Right vertebral artery is the dominant supply to the basilar.-Continue medical treatment, 2D echo showed no thrombus with EF of 50-55%, Holter monitor shows sinus rhythm -ST for swallow evaluation, recommends mechanical soft with nectar thickened liquids. Tolerating. -PT/OT recommending rehab placement, difficult due to insurance barriers. Nick evaluating patient. Acute metabolic encephalopathy -Previously given IV Haldol tid -RPR and HIV neg -Psychiatry consulted for patient's capacity. Noted patient does not have any capacity Nasal Bone Fx: Acute, secondary to fall -CT Maxillofacial w/ nasal bone fractures and leftward deviation of fragments. -ENT consulted, no surgical intervention. HTN malignant presentation in the emergency room: Uncontrolled on presentation. BP 226/103, HR 81, s/p Labetalol and Hydralazine IV in ER. - Norvasc and lisinopril, adjust based on blood pressure trends -Vasotec 1.25mg IV prn -Monitor BP trend. Improved Bradycardia: with 2.7 second pause on tele, patient asymptomatic. -Suspect secondary to beta viet, has discontinued metoprolol. -Monitor on telemetry although patient refusing at times. -Cardiology consulted, agrees discontinuing BB -Bradycardia improved -continue to monitor. 24-hour Holter showed normal sinus rhythm UTI, E. coli - completed Ceftin HAIM with likely underlying chronic kidney disease stage III -avoid nephrotoxic agents -obtain urine sodium and creatinine -renal U/s with 2.1cm hypoechoic left mid kidney; potentially cyst, otherwise unremarkable -Monitor renal indicis Previous behavioral Disturbances - this has resolved: Vitamin B12 Deficiency: acute -cyanocobalamin 1000mcg IM daily x7days, then once a week x 4 weeks, then monthly -Follow up in the outpatient DVT Prophylaxis: SCDs/teds. Discharge Planning Difficulty with placement due to insurance barriers. PT recommending rehab. Patient lives alone, unsafe discharge home at this time. Continue daily PT and monitor for improvement. Problem Qualifiers (1) Fall: Qualified Codes: W19.XXXA - Unspecified fall, initial encounter (2) Nasal bone fracture: Qualified Codes: S02.2XXA - Fracture of nasal bones, initial encounter for closed fracture Nighat Bateman Aug 01, 2017 11:43
[2017-08-02] VITALS: BP 149/67; PULSE 67; RESP 18; TEMP 98; O2SAT 97
[2017-08-02 04:00] VITALS: BP 156/67; PULSE 83; RESP 18; TEMP 97.9; O2SAT 97
[2017-08-02 07:00] VITALS: PULSE 64
[2017-08-02 08:00] VITALS: BP 166/93; PULSE 79; RESP 18; TEMP 97.7; O2SAT 94
[2017-08-02] MEDS: LISINOPRIL 10 MG TAB PO SCH (08:57)
[2017-08-02] MEDS: CYANOCOBALAMIN 1,000 MCG TAB PO SCH (08:57)
[2017-08-02] MEDS: risperiDONE 0.5 MG TAB PO SCH ×2 (08:57→21:05)
[2017-08-02] MEDS: DOCUSATE SODIUM 50 MG/SENNA 8.6 MG TAB PO SCH ×2 (08:57→21:05)
[2017-08-02] MEDS: ASPIRIN 325 MG TAB PO SCH (08:57)
[2017-08-02] MEDS: ATORVASTATIN 40 MG TAB PO SCH (08:57)
[2017-08-02] MEDS: SODIUM CHLORIDE 0.9% FLUSH 10 ML FLUSH IV FLUSH SCH ×2 (08:58→20:51)
[2017-08-02] MEDS: SODIUM CHLOR 0.9% 1000 ML INJ 1,000 ML IV SCH ×2 (09:57→19:57)
[2017-08-02 11:22] LABS: HEMATOCRIT 37.1 % (35.0-46.0); HEMOGLOBIN 12.2 GM/DL (11.6-15.3); MEAN CELL VOLUME 90.3 FL (80.0-100.0); MEAN CORPUSCULAR HEMOGLOBIN 29.7 PG (27.0-34.0); MEAN CORPUSCULAR HGB CONC 32.9 % (32.0-36.0); MEAN PLATELET VOLUME 8.2 FL (7.0-11.0); PLATELET COUNT 376 TH/MM3 (150-450); RED BLOOD COUNT 4.11 MIL/MM3 (4.00-5.30); RED CELL DISTRIBUTION WIDTH 13.5 % (11.6-17.2); WHITE BLOOD COUNT 7.6 TH/MM3 (4.0-11.0)
--- NOTE | 2017-08-02 11:31 | HHI.PR ---
Subjective Remarks Patient currently sleeping this morning. Nursing staff states that patient has not had any changes overnight. Objective Vitals Vital Signs Date Time Temp Pulse Resp B/P (MAP) Pulse Ox O2 Delivery O2 Flow Rate FiO2 08/02/17 07:03 Room Air 08/02/17 07:00 64 08/02/17 04:00 97.9 83 18 156/67 (96) 97 08/02/17 00:00 98.0 67 18 149/67 (94) 97 08/01/17 19:55 97.7 67 18 138/67 (90) 98 08/01/17 18:46 Room Air 08/01/17 16:00 98.0 76 18 135/63 (87) 94 08/01/17 12:00 98.1 78 18 143/63 (89) 95 I/O 08/01/17 08/01/17 08/01/17 08/02/17 08/02/17 08/02/17 07:00 15:00 23:00 07:00 15:00 23:00 Intake Total 360 ml 0 ml Balance 360 ml 0 ml Intake Oral 360 ml 0 ml # Voids 4 3 # Bowel Movements 1 1 Result Diagram: 08/02/17 1025 Objective Remarks GENERAL: This is a well-nourished, well-developed patient, in no apparent distress. CARDIOVASCULAR: Regular rate and rhythm RESPIRATORY: Clear to auscultation. Breath sounds equal bilaterally. No wheezes , rales, or rhonchi. NEURO: Patient sleeping Procedures None. A/P Problem List: (1) Right pontine cerebrovascular accident ICD Code: I63.50 - Cerebral infarction due to unspecified occlusion or stenosis of unspecified cerebral artery Status: Acute (2) Fall ICD Code: W19.XXXA - Unspecified fall, initial encounter Status: Acute (3) Dizziness ICD Code: R42 - Dizziness and giddiness Status: Resolved (4) Nasal bone fracture ICD Code: S02.2XXA - Fracture of nasal bones, initial encounter for closed fracture Status: Acute (5) Renal insufficiency ICD Code: N28.9 - Disorder of kidney and ureter, unspecified Status: Resolved (6) UTI (urinary tract infection) ICD Code: N39.0 - Urinary tract infection, site not specified Status: Resolved Assessment and Plan 61-year-old female with a PMH of HTN was brought to the ER by EMS after a fall with dizziness. Subacute right pontine thrombotic stroke with motor disturbance per Neurology: c /o dizziness s/p fall at home with facial injury -Initial Brain MRI 07/18 with old infarcts, no acute stroke; however repeat brain MRI 07/19 reveals focally restricted diffusion involving the anterior right upper aby consistent with subacute pontine stroke -Carotid US shows significant stenosis on the left, none on the right - aspirin 325 mg, Lipitor 40 mg p.o. daily -MRA head negative -MRA neck 60% stenosis of the left ICA secondary to ulcerated atherosclerotic plaque, 30-40% stenosis of the right ICA secondary to atherosclerotic plaque, Right vertebral artery is the dominant supply to the basilar.-Continue medical treatment, 2D echo showed no thrombus with EF of 50-55%, Holter monitor shows sinus rhythm -ST for swallow evaluation, recommends mechanical soft with nectar thickened liquids -PT/OT recommending rehab placement, difficult due to insurance barriers Acute metabolic encephalopathy, contributed with the right pontine thrombotic stroke and previous UTI -Previously given IV Haldol tid, -RPR and HIV neg psychiatry does agree and states that patient has no capacity to make decisions-major case detective to start finding guardian to assist for long-term placement Nasal Bone Fx: Acute, secondary to fall -CT Maxillofacial w/ nasal bone fractures and leftward deviation of fragments. -ENT consulted, no surgical intervention. HTN malignant presentation in the emergency room: Uncontrolled on presentation. BP 226/103, HR 81, s/p Labetalol and Hydralazine IV in ER. Now blood pressure much better controlled.. -Started Norvasc and lisinopril, adjust based on blood pressure trends -Vasotec 1.25mg IV or Labetalol 10mg IV prn SBP>220 or DBP>120 Bradycardia: with 2.7 second pause on tele, patient asymptomatic. -Suspect secondary to beta viet, has discontinued metoprolol. -Monitor on telemetry although patient refusing at times. -Cardiology consulted, agrees discontinuing BB -Bradycardia improved -continue to monitor. 24-hour Holter showed normal sinus rhythm UTI, E. coli - completed Ceftin HAIM with likely underlying chronic kidney disease stage III: Now resolved. -avoid nephrotoxic agents -obtain urine sodium and creatinine -renal U/s with 2.1cm hypoechoic left mid kidney; potentially cyst, otherwise unremarkable Previous behavioral Disturbances - this has resolved: Vitamin B12 Deficiency: acute -started on cyanocobalamin 1000mcg IM daily x7days, then once a week x 4 weeks, then monthly DVT Prophylaxis: SCDs/teds. Discharge Planning PT recommending rehab. Will be difficult placement due to insurance barriers. Patient lives alone, unsafe discharge home at this time. Continue daily PT and monitor for improvement. psychiatry states patient does not have capacity for decision making, case management in process of finding a guardian. Problem Qualifiers (1) Fall: Qualified Codes: W19.XXXA - Unspecified fall, initial encounter (2) Nasal bone fracture: Qualified Codes: S02.2XXA - Fracture of nasal bones, initial encounter for closed fracture Hope Baker MD Aug 02, 2017 11:31
[2017-08-02 11:46] LABS: BICARBONATE 22.3 MEQ/L (21.0-32.0); CALCIUM 9.1 MG/DL (8.5-10.1); CREATININE 1.34 MG/DL (0.50-1.00)
[2017-08-02 19:56] VITALS: BP 150/63; PULSE 70; PULSE 76; RESP 18; TEMP 98; O2SAT 96
[2017-08-02 23:51] VITALS: PULSE 62
[2017-08-03] VITALS (9 sets, daily range): BP systolic 121–144; BP diastolic 58–72; PULSE 60–97; RESP 16–18; TEMP 97.3–98.1; O2SAT 95–98
[2017-08-03] MEDS: SODIUM CHLOR 0.9% 1000 ML INJ 1,000 ML IV SCH (05:57)
[2017-08-03] MEDS: SODIUM CHLORIDE 0.9% FLUSH 10 ML FLUSH IV FLUSH SCH ×2 (09:00→20:42)
--- NOTE | 2017-08-03 09:42 | HHI.PR ---
Subjective Remarks Awake and more alert today. She tells me her daughter's name is Cheyenne Samaniego. She does not remember where she lives and gives me locations of [facility] or [place] ; does not know her phone number. Objective Vitals Vital Signs Date Time Temp Pulse Resp B/P (MAP) Pulse Ox O2 Delivery O2 Flow Rate FiO2 08/03/17 04:45 97.3 66 16 124/61 (82) 95 08/03/17 00:00 98.1 66 17 144/66 (92) 95 08/02/17 23:51 62 08/02/17 20:00 96 Room Air 08/02/17 19:56 70 08/02/17 19:56 98.0 76 18 150/63 (92) 96 I/O 08/02/17 08/02/17 08/02/17 08/03/17 08/03/17 08/03/17 07:00 15:00 23:00 07:00 15:00 23:00 Intake Total 0 ml 700 ml 360 ml Balance 0 ml 700 ml 360 ml Intake Oral 0 ml 700 ml 360 ml # Voids 3 5 4 # Bowel Movements 1 1 0 Result Diagram: 08/02/17 1025 08/02/17 1023 Objective Remarks GENERAL: This is a well-nourished, well-developed patient, in no apparent distress. CARDIOVASCULAR: Regular rate and rhythm RESPIRATORY: Clear to auscultation. Breath sounds equal bilaterally. No wheezes , rales, or rhonchi. NEURO: Confused but alert and oriented to person and place but not to specific date or situation. Procedures None. A/P Problem List: (1) Right pontine cerebrovascular accident ICD Code: I63.50 - Cerebral infarction due to unspecified occlusion or stenosis of unspecified cerebral artery Status: Acute (2) Fall ICD Code: W19.XXXA - Unspecified fall, initial encounter Status: Acute (3) Dizziness ICD Code: R42 - Dizziness and giddiness Status: Resolved (4) Nasal bone fracture ICD Code: S02.2XXA - Fracture of nasal bones, initial encounter for closed fracture Status: Acute (5) Renal insufficiency ICD Code: N28.9 - Disorder of kidney and ureter, unspecified Status: Resolved (6) UTI (urinary tract infection) ICD Code: N39.0 - Urinary tract infection, site not specified Status: Resolved Assessment and Plan 61-year-old female with a PMH of HTN was brought to the ER by EMS after a fall with dizziness. Subacute right pontine thrombotic stroke with motor and cognitive disturbance per Neurology: c/o dizziness s/p fall at home with facial injury -Initial Brain MRI 07/18 with old infarcts, no acute stroke; however repeat brain MRI 07/19 reveals focally restricted diffusion involving the anterior right upper aby consistent with subacute pontine stroke -Carotid US shows significant stenosis on the left, none on the right - on aspirin 325 mg, Lipitor 40 mg p.o. daily -MRA head negative -MRA neck 60% stenosis of the left ICA secondary to ulcerated atherosclerotic plaque, 30-40% stenosis of the right ICA secondary to atherosclerotic plaque, Right vertebral artery is the dominant supply to the basilar.-Continue medical treatment, 2D echo showed no thrombus with EF of 50-55%, Holter monitor shows sinus rhythm -ST for swallow evaluation, recommends mechanical soft with nectar thickened liquids -PT/OT recommending rehab placement, difficult due to insurance barriers and lack of finding family Acute metabolic encephalopathy, contributed with the right pontine thrombotic stroke and previous UTI -Previously given IV Haldol tid, -RPR and HIV neg psychiatry does agree and states that patient has no capacity to make decisions-case preparer and liner to start finding guardian to assist for long-term placement Nasal Bone Fx: Acute, secondary to fall -CT Maxillofacial w/ nasal bone fractures and leftward deviation of fragments. -ENT consulted, no surgical intervention. HTN malignant presentation in the emergency room: Uncontrolled on presentation. BP 226/103, HR 81, s/p Labetalol and Hydralazine IV in ER. Now blood pressure much better controlled.. -Started Norvasc and lisinopril, adjust based on blood pressure trends; will increase lisinopril 20 mg p.o. today. -Vasotec 1.25mg IV or Labetalol 10mg IV prn SBP>220 or DBP>120 Bradycardia: with 2.7 second pause on tele, patient asymptomatic. -Suspect secondary to beta viet, will discontinued metoprolol. -Monitor on telemetry although patient refusing at times. -Cardiology consulted, agrees discontinuing BB -Bradycardia improved -continue to monitor. 24-hour Holter showed normal sinus rhythm UTI, E. coli - completed Ceftin HAIM with likely underlying chronic kidney disease stage III: Now resolved. -avoid nephrotoxic agents -renal U/s with 2.1cm hypoechoic left mid kidney; potentially cyst, otherwise unremarkable Previous behavioral Disturbances - this has resolved: Vitamin B12 Deficiency: acute -started on cyanocobalamin 1000mcg IM daily x7days, then once a week x 4 weeks, then monthly DVT Prophylaxis: SCDs/teds. Discharge Planning PT recommending rehab. Will be difficult placement due to insurance barriers. Patient lives alone, unsafe discharge home at this time. Continue daily PT and monitor for improvement. psychiatry states patient does not have capacity for decision making, case management in process of finding a guardian. Attempts are being made to also locate daughter. Problem Qualifiers (1) Fall: Qualified Codes: W19.XXXA - Unspecified fall, initial encounter (2) Nasal bone fracture: Qualified Codes: S02.2XXA - Fracture of nasal bones, initial encounter for closed fracture Hope Baker MD Aug 03, 2017 09:42
[2017-08-03] MEDS: ASPIRIN 325 MG TAB PO SCH (09:52)
[2017-08-03] MEDS: CYANOCOBALAMIN 1,000 MCG TAB PO SCH (09:52)
[2017-08-03] MEDS: risperiDONE 0.5 MG TAB PO SCH ×2 (09:52→20:42)
[2017-08-03] MEDS: ATORVASTATIN 40 MG TAB PO SCH (09:52)
[2017-08-03] MEDS: DOCUSATE SODIUM 50 MG/SENNA 8.6 MG TAB PO SCH ×2 (09:52→20:42)
[2017-08-03] MEDS ORDERED: LISINOPRIL 10 MG TAB PO ONE (10:00)
[2017-08-04] VITALS (9 sets, daily range): BP systolic 110–134; BP diastolic 57–79; PULSE 60–93; RESP 17–19; TEMP 97–98; O2SAT 93–99
[2017-08-04] MEDS: SODIUM CHLORIDE 0.9% FLUSH 10 ML FLUSH IV FLUSH SCH ×2 (09:00→19:49)
[2017-08-04] MEDS: ATORVASTATIN 40 MG TAB PO SCH (09:27)
[2017-08-04] MEDS: ASPIRIN 325 MG TAB PO SCH (09:28)
[2017-08-04] MEDS: DOCUSATE SODIUM 50 MG/SENNA 8.6 MG TAB PO SCH ×2 (09:28→19:49)
[2017-08-04] MEDS: CYANOCOBALAMIN 1,000 MCG TAB PO SCH (09:28)
[2017-08-04] MEDS: risperiDONE 0.5 MG TAB PO SCH ×2 (09:28→19:49)
[2017-08-04] MEDS: LISINOPRIL 20 MG TAB PO SCH (09:28)
--- NOTE | 2017-08-04 14:53 | HHI.PR ---
Subjective Remarks Pt was evaluated earlier today. She is sitting on her reclining chair. denies any pain, nausea or vomiting. daughter at bedside and she states she will be taking care of her mom when she gets discharged. She wishes she had known she was in the hospital sooner Objective Vitals Vital Signs Date Time Temp Pulse Resp B/P (MAP) Pulse Ox O2 Delivery O2 Flow Rate FiO2 08/04/17 12:10 97.7 73 17 110/57 (74) 97 08/04/17 08:10 97.0 60 18 128/63 (84) 99 08/04/17 08:00 99 Room Air 08/04/17 04:30 98.0 80 19 127/72 (90) 96 08/04/17 04:10 80 08/04/17 00:27 97.2 78 17 131/65 (87) 96 08/04/17 00:03 70 08/03/17 20:50 97.8 80 18 121/58 (79) 98 08/03/17 20:12 77 08/03/17 20:00 96 Room Air 08/03/17 18:00 68 08/03/17 15:00 88 I/O 08/03/17 08/03/17 08/03/17 08/04/17 08/04/17 08/04/17 07:00 15:00 23:00 07:00 15:00 23:00 Intake Total 360 ml 600 ml 480 ml Balance 360 ml 600 ml 480 ml Intake Oral 360 ml 600 ml 480 ml # Voids 4 3 4 # Bowel Movements 0 0 0 Result Diagram: 08/02/17 1025 08/02/17 1023 Imaging Last Impressions Neck CTA 07/21/17 0000 Signed Impressions: CONCLUSION: 1. Limited examination due to mixed delayed contrast bolus timing. 2. Redemonstration of predominantly noncalcified plaque in the origin of the l eft internal carotid artery with resultant approximately 65-70% stenosis. 3. Redemonstration of noncalcified plaque in the origin of the right internal carotid artery with resultant approximately 30% stenosis. Please note that ther e is medial retrotracheal deviation of the proximal cervical segment on the rig ht. 4. Patent bilateral vertebral arteries. 5. Subcentimeter bilateral thyroid nodules. Renal Ultrasound 07/20/17 0000 Signed Impressions: CONCLUSION: 1. 2.1 cm hypoechoic area seen at the left mid kidney. This potentially could be related to a cyst. 2. Gallstones. Head Magnetic Resonance Angiography [id number]/19/[id number] Signed Impressions: Service Date/Time: Wednesday, July 19, 2017 15:34 - CONCLUSION: No acute [place] vascular findings Jerardo Meza MD Cervical Spine MRI [id number] Signed Impressions: Service Date/Time: Wednesday, July 19, 2017 15:34 - CONCLUSION: No acute MR findings of the cervical spine. Small disc protrusions at several levels as described, none producing any significant anatomic compromise. Jerardo Meza MD Carotid Artery Ultrasound [id number] Signed Impressions: Service Date/Time: Wednesday, July 19, 2017 14:34 - CONCLUSION: 1. No significant carotid: 2. Neck stenosis on the right. 3. Suspect left carotid stenosis of 50-69%% although peak systolic velocities in the internal carotid artery meet criteria for severe, >70%% stenosis, as above. Consider CTA examination given the somewhat discordant inconclusive sonographic findings. Crispin Hoffman MD Brain MRI [id number] Signed Impressions: Service Date/Time: Wednesday, July 19, 2017 15:34 - CONCLUSION: Right pontine stroke. Jerardo Meza MD Neck Magnetic Resonance Angiography 07/19/17 0000 Signed Impressions: Service Date/Time: Wednesday, July 19, 2017 21:21 - CONCLUSION: 1. 60%% stenosis of the left ICA secondary to ulcerated atherosclerotic plaque. 2. 30-40%% stenosis of the right ICA secondary to atherosclerotic plaque. 3. Right vertebral artery is the dominant supply to the basilar. Robby Richardson Jr., MD Head CT [id number] Signed Impressions: Service Date/Time: Sunday, July 16, 2017 19:21 - CONCLUSION: 1. No acute intracranial abnormality seen. There are multiple old lacunar infarcts. 2. Right frontal scalp injury/hematoma with right periorbital soft tissue swelling and nasal bone fractures with leftward deviation of the fragments. Jerardo Rogers MD Chest X-Ray [id number]/[id number] Signed Impressions: Service Date/Time: Sunday, July 16, 2017 17:36 - CONCLUSION: No acute disease. Gilberto Vergara MD Cervical Spine CT 5/18/18 1728 Signed Impressions: Service Date/Time: Sunday, July 16, 2017 19:21 - CONCLUSION: 1. No acute bony abnormality is seen. 2. Facet hypertrophy throughout. Jerardo Rogers MD Maxillofacial CT 07/16/17 0000 Signed Impressions: Service Date/Time: Sunday, July 16, 2017 19:21 - CONCLUSION: 1. Nasal bone fractures. 2. Right frontal scalp swelling and hematoma. 3. Right periorbital soft tissue swelling. Jerardo Rogers MD Objective Remarks GENERAL: sitting up on recliner. CARDIOVASCULAR: Regular rate and rhythm RESPIRATORY: Clear to auscultation. Breath sounds equal bilaterally. No wheezes NEURO: Confused but alert and oriented to person and place but not to specific date or situation. smiling. moves ext upon command Procedures None. A/P Problem List: (1) Right pontine cerebrovascular accident ICD Code: I63.50 - Cerebral infarction due to unspecified occlusion or stenosis of unspecified cerebral artery Status: Acute (2) Fall ICD Code: W19.XXXA - Unspecified fall, initial encounter Status: Acute (3) Dizziness ICD Code: R42 - Dizziness and giddiness Status: Resolved (4) Nasal bone fracture ICD Code: S02.2XXA - Fracture of nasal bones, initial encounter for closed fracture Status: Acute (5) Renal insufficiency ICD Code: N28.9 - Disorder of kidney and ureter, unspecified Status: Resolved (6) UTI (urinary tract infection) ICD Code: N39.0 - Urinary tract infection, site not specified Status: Resolved Assessment and Plan update in medical management 08/04/17: PT working w her daily. CM was able to locate pt's daughter. She would like to take her mother home once she is a safe discharge. PT to educate daughter and make sure that pt is a safe discharge to home. Anticipate d/c by end of this week if pt continues to progress 61-year-old female with a PMH of HTN was brought to the ER by EMS after a fall with dizziness. Subacute right pontine thrombotic stroke with motor and cognitive disturbance per Neurology: c/o dizziness s/p fall at home with facial injury -Initial Brain MRI 07/18 with old infarcts, no acute stroke; however repeat brain MRI 07/19 reveals focally restricted diffusion involving the anterior right upper aby consistent with subacute pontine stroke -Carotid US shows significant stenosis on the left, none on the right - on aspirin 325 mg, Lipitor 40 mg p.o. daily -MRA head negative -MRA neck 60% stenosis of the left ICA secondary to ulcerated atherosclerotic plaque, 30-40% stenosis of the right ICA secondary to atherosclerotic plaque, Right vertebral artery is the dominant supply to the basilar.-Continue medical treatment, 2D echo showed no thrombus with EF of 50-55%, Holter monitor shows sinus rhythm -ST for swallow evaluation, recommends mechanical soft with nectar thickened liquids -PT/OT recommending rehab placement, difficult due to insurance barriers and lack of finding family Acute metabolic encephalopathy, contributed with the right pontine thrombotic stroke and previous UTI -Previously given IV Haldol tid, -RPR and HIV neg psychiatry does agree and states that patient has no capacity to make decisions-catalytic case operator to start finding guardian to assist for long-term placement Nasal Bone Fx: Acute, secondary to fall -CT Maxillofacial w/ nasal bone fractures and leftward deviation of fragments. -ENT consulted, no surgical intervention. HTN malignant presentation in the emergency room: Uncontrolled on presentation. BP 226/103, HR 81, s/p Labetalol and Hydralazine IV in ER. Now blood pressure much better controlled.. -Started Norvasc and lisinopril, adjust based on blood pressure trends; will increase lisinopril 20 mg p.o. today. -Vasotec 1.25mg IV or Labetalol 10mg IV prn SBP>220 or DBP>120 Bradycardia: with 2.7 second pause on tele, patient asymptomatic. -Suspect secondary to beta viet, will discontinued metoprolol. -Monitor on telemetry although patient refusing at times. -Cardiology consulted, agrees discontinuing BB -Bradycardia improved -continue to monitor. 24-hour Holter showed normal sinus rhythm UTI, E. coli - completed Ceftin HAIM with likely underlying chronic kidney disease stage III: Now resolved. -avoid nephrotoxic agents -renal U/s with 2.1cm hypoechoic left mid kidney; potentially cyst, otherwise unremarkable Previous behavioral Disturbances - this has resolved: Vitamin B12 Deficiency: acute -started on cyanocobalamin 1000mcg IM daily x7days, then once a week x 4 weeks, then monthly DVT Prophylaxis: SCDs/teds. Discharge Planning PT recommending rehab. However, due to insurance barriers, this would be a difficult placement. Patient lives alone, unsafe discharge home at this time however, CM was able to locate pt's daughter and she is willing to take pt home with her. PT will continue to work w pt and teach daughter on what exercises and what to do at home for her to be a safe discharge. Continue daily PT and monitor for improvement. psychiatry states patient does not have capacity for decision making Problem Qualifiers (1) Fall: Qualified Codes: W19.XXXA - Unspecified fall, initial encounter (2) Nasal bone fracture: Qualified Codes: S02.2XXA - Fracture of nasal bones, initial encounter for closed fracture Chica Zaragoza MD Aug 04, 2017 14:53
[2017-08-05] VITALS: BP 151/69; PULSE 67; RESP 18; TEMP 98.3; O2SAT 95
[2017-08-05 04:00] VITALS: BP 126/60; PULSE 60; RESP 18; TEMP 97.9; O2SAT 96
[2017-08-05 05:24] VITALS: PULSE 62
[2017-08-05 06:21] LABS: BICARBONATE 24.8 MEQ/L (21.0-32.0); CALCIUM 8.6 MG/DL (8.5-10.1); CREATININE 1.39 MG/DL (0.50-1.00)
[2017-08-05 08:00] VITALS: BP 138/62; PULSE 76; RESP 18; TEMP 97.3; O2SAT 97
[2017-08-05] MEDS: ATORVASTATIN 40 MG TAB PO SCH (08:24)
[2017-08-05] MEDS: risperiDONE 0.5 MG TAB PO SCH (08:24)
[2017-08-05] MEDS: DOCUSATE SODIUM 50 MG/SENNA 8.6 MG TAB PO SCH (08:24)
[2017-08-05] MEDS: ASPIRIN 325 MG TAB PO SCH (08:24)
[2017-08-05] MEDS: LISINOPRIL 20 MG TAB PO SCH (08:24)
[2017-08-05] MEDS: CYANOCOBALAMIN 1,000 MCG TAB PO SCH (08:24)
[2017-08-05] MEDS: SODIUM CHLORIDE 0.9% FLUSH 10 ML FLUSH IV FLUSH SCH (08:28)
[2017-08-05] MEDS ORDERED: AMLO10 PO (10:06)
[2017-08-05] MEDS ORDERED: LISI-515 PO (10:06)
[2017-08-05] MEDS ORDERED: RISP0.5T25 PO (10:06)
[2017-08-05] MEDS ORDERED: ASA325 PO (10:06)
[2017-08-05] MEDS ORDERED: PERI PO (10:06)
[2017-08-05] MEDS ORDERED: VITA10002 PO (10:06)
[2017-08-05] MEDS ORDERED: ATOR40TA16 PO (10:06)
--- NOTE | 2017-08-05 10:06 | HHI.DCPOC ---
Discharge Care Plan Diagnosis: (1) Delirium (2) Renal insufficiency (3) UTI (urinary tract infection) (4) Right pontine cerebrovascular accident (5) Fall (6) Dizziness (7) Nasal bone fracture Goals to Promote Your Health * To prevent worsening of your condition and complications * To maintain your health at the optimal level Directions to Meet Your Goals Take your medications as prescribed Follow your dietary instruction Follow activity as directed Keep your appointments as scheduled Take your immunizations and boosters as scheduled If your symptoms worsen call your PCP, if no PCP go to Urgent Care Center or Emergency Room Smoking is Dangerous to Your Health. Avoid second hand smoke Call the 24-hour hour crisis hotline for domestic abuse at Yari Stanley Aug 05, 2017 10:06
--- NOTE | 2017-08-05 10:10 | HHI.DS ---
Discharge Summary Admission Date July 20, 2017 at 08:19 Discharge Date: Aug 05, 2017 Admitting Diagnosis Dizziness, nasal fracture, UTI, HTN (1) Right pontine cerebrovascular accident ICD Code: I63.50 - Cerebral infarction due to unspecified occlusion or stenosis of unspecified cerebral artery Status: Acute (2) Fall ICD Code: W19.XXXA - Unspecified fall, initial encounter Status: Acute (3) Dizziness ICD Code: R42 - Dizziness and giddiness Status: Resolved (4) Nasal bone fracture ICD Code: S02.2XXA - Fracture of nasal bones, initial encounter for closed fracture Status: Acute (5) Renal insufficiency ICD Code: N28.9 - Disorder of kidney and ureter, unspecified Status: Resolved (6) UTI (urinary tract infection) ICD Code: N39.0 - Urinary tract infection, site not specified Status: Resolved Procedures None. Brief History - From Admission This is a 61-year-old female with a PMH of HTN was brought to the ER by EMS after a fall. Patient is very poor historian, questionable underling psych/ cognitive disorder, states "we've been having dizziness for 10yrs", when I asked her who "we" was, she said "me, myself and I". Pt states today she got dizzy and went to bed, when she woke up she tried to get out of bed and fell. + facial injury. Denies LOC. On arrival, BP 226/103, HR 81, O2 sat 99% on RA, Afebrile. CBC unremarkable. Creatinine 1.48, no previous labs for comparison. INR 1.0. UA positive for UTI. CT Head with no acute intracranial findings, multiple old lacunar infarcts, right frontal scalp hematoma/injury, nasal bone fractures with leftward deviation of fragments. CT C-spine with no acute findings. CT Maxillofacial with nasal bone fractures, right frontal scalp swelling and hematoma, right periorbital soft tissue swelling. CXR with no acute findings. S/p Rocephin in ER CBC/BMP: 08/02/17 1025 08/05/17 0354 Significant Findings Laboratory Tests Test 08/02/17 10:23 08/02/17 10:25 08/05/17 03:54 Blood Urea Nitrogen 30 MG/DL (7-18) 34 MG/DL (7-18) Creatinine 1.34 MG/DL (0.50-1.00) 1.39 MG/DL (0.50-1.00) Random Glucose 115 MG/DL (74-106) Chloride Level 108 MEQ/L (98-107) Estimat Glomerular Filtration Rate 40 ML/MIN (>89) 38 ML/MIN (>89) Imaging Last Impressions Neck CTA 07/21/17 0000 Signed Impressions: CONCLUSION: 1. Limited examination due to mixed delayed contrast bolus timing. 2. Redemonstration of predominantly noncalcified plaque in the origin of the l eft internal carotid artery with resultant approximately 65-70% stenosis. 3. Redemonstration of noncalcified plaque in the origin of the right internal carotid artery with resultant approximately 30% stenosis. Please note that ther e is medial retrotracheal deviation of the proximal cervical segment on the rig ht. 4. Patent bilateral vertebral arteries. 5. Subcentimeter bilateral thyroid nodules. Renal Ultrasound 07/20/17 0000 Signed Impressions: CONCLUSION: 1. 2.1 cm hypoechoic area seen at the left mid kidney. This potentially could be related to a cyst. 2. Gallstones. Head Magnetic Resonance Angiography 07/19/17 1240 Signed Impressions: Service Date/Time: Wednesday, July 19, 2017 15:34 - CONCLUSION: No acute [place] vascular findings Jerardo Meza MD Cervical Spine MRI 07/19/17 1240 Signed Impressions: Service Date/Time: Wednesday, July 19, 2017 15:34 - CONCLUSION: No acute MR findings of the cervical spine. Small disc protrusions at several levels as described, none producing any significant anatomic compromise. Jerardo Meza MD Carotid Artery Ultrasound 07/19/17 1240 Signed Impressions: Service Date/Time: Wednesday, July 19, 2017 14:34 - CONCLUSION: 1. No significant carotid: 2. Neck stenosis on the right. 3. Suspect left carotid stenosis of 50-69%% although peak systolic velocities in the internal carotid artery meet criteria for severe, >70%% stenosis, as above. Consider CTA examination given the somewhat discordant inconclusive sonographic findings. Crispin Hoffman MD Brain MRI 07/19/17 1240 Signed Impressions: Service Date/Time: Wednesday, July 19, 2017 15:34 - CONCLUSION: Right pontine stroke. Jerardo Meza MD Neck Magnetic Resonance Angiography 07/19/17 0000 Signed Impressions: Service Date/Time: Wednesday, July 19, 2017 21:21 - CONCLUSION: 1. 60%% stenosis of the left ICA secondary to ulcerated atherosclerotic plaque. 2. 30-40%% stenosis of the right ICA secondary to atherosclerotic plaque. 3. Right vertebral artery is the dominant supply to the basilar. Robby Richardson Jr., MD Head CT [id number] Signed Impressions: Service Date/Time: Sunday, July 16, 2017 19:21 - CONCLUSION: 1. No acute intracranial abnormality seen. There are multiple old lacunar infarcts. 2. Right frontal scalp injury/hematoma with right periorbital soft tissue swelling and nasal bone fractures with leftward deviation of the fragments. Jerardo Rogers MD Chest X-Ray [id number] Signed Impressions: Service Date/Time: Sunday, July 16, 2017 17:36 - CONCLUSION: No acute disease. Gilberto Vergara MD Cervical Spine CT [id number] Signed Impressions: Service Date/Time: Sunday, July 16, 2017 19:21 - CONCLUSION: 1. No acute bony abnormality is seen. 2. Facet hypertrophy throughout. Jerardo Rogers MD Maxillofacial CT 07/16/17 0000 Signed Impressions: Service Date/Time: Sunday, July 16, 2017 19:21 - CONCLUSION: 1. Nasal bone fractures. 2. Right frontal scalp swelling and hematoma. 3. Right periorbital soft tissue swelling. Jerardo Rogers MD PE at Discharge GENERAL: sitting up on recliner. CARDIOVASCULAR: Regular rate and rhythm RESPIRATORY: Clear to auscultation. Breath sounds equal bilaterally. No wheezes NEURO: Confused but alert and oriented to person and place but not to specific date or situation. smiling. moves ext upon command Pt update on day of discharge Follow-up right pontine CVA, fall, dizziness, UTI. Patient seen and examined, daughter at bedside. Patient sitting up in chair eating in no apparent distress. Patient denies any pain. No acute events overnight. Patient denies any chest pain, shortness of breath, cough, abdominal pain, nausea, vomiting, diarrhea or dysuria. She is axo3. Spoke to neurology, okay to discharge follow -up with neurology. Hospital Course 61-year-old female with a PMH of HTN was brought to the ER by EMS after a fall with dizziness. It was found that patient has a subacute right pontine thrombotic stroke with motor and cognitive disturbance per Neurology. Complaint of dizziness status post fall at home with facial injury. Initial Brain MRI with old infarcts, no acute stroke; however repeat brain MRI 07/19 reveals focally restricted diffusion involving the anterior right upper aby consistent with subacute pontine stroke. MRA head negative. MRA neck 60% stenosis of the left ICA secondary to ulcerated atherosclerotic plaque, 30-40% stenosis of the right ICA secondary to atherosclerotic plaque, Right vertebral artery is the dominant supply to the basilar. Psychiatry is consulted in states that patient lacked capacity to make decisions. Patient did sustain a nasal bone fracture secondary to fall at home, CT maxillofacial with nasal bone fractures and left were deviation of fragments seen. ENT consulted, with no surgical intervention. 2D echo showed no thrombus with EF of 50-55%, Holter monitor shows sinus rhythm. It was found that patient was bradycardic during hospitalization, asymptomatic suspect secondary to beta-viet. This has been discontinued. Patient also had malignant hypertension upon presentation to the ER. Blood pressure was 226/103 was given IV hydralazine and labetalol. Blood pressure much controlled during hospitalization and prior to discharge. Patient was sent home on amlodipine and lisinopril. Carotid US shows significant stenosis on the left, none on the right, on aspirin, Lipitor. Was also found that patient had a UTI with E. coli, was given Ceftin and completed dose of antibiotics. Patient does have chronic kidney disease, creatinine returned to baseline. Encouraged avoidance of nephrotoxic agents. Renal ultrasound showing 2.1 cm hypo-echoic left main kidney. Probable cyst. Follow- up outpatient. for swallow evaluation, recommends mechanical soft with nectar thickened liquids. This diet was continued upon discharge. Patient had previously behavioral disturbances this is resolved upon discharge. She did have vitamin B12 deficiency, was given supplement. PT/OT strongly recommending rehab placement, although daughter is assisting with discharge planning and states that she will be available to help patient, taking full responsibility of her mother. Home health care ordered at least for physical therapy, OT and nursing, although there is no payer source, no coverage at discharge destination in [place]. Case management provided private pay options to daughter. Patient's daughter states that she has DME equipment available. PT extensively worked with patient with daughter present, educated about training with PT/OT. It was strongly recommended that patient follow-up with neurology and primary care upon discharge. Pt Condition on Discharge: Fair Discharge Disposition: Disch w/ Home Health Serv Discharge Time: > 30 minutes Discharge Instructions DIET: Follow Instructions for: Heart Healthy Diet Speech Therapy-Diet Recommends: Mechanical Soft, [place] Thickened Liquids Activities you can perform: Regular-No Restrictions Follow up Referrals: Neurology - 1 Week PCP Follow-up - 1 Week New Medications: Amlodipine (Norvasc) 10 Mg Tab 10 MG PO DAILY for hypertension for 30 Days, #30 TAB Aspirin (Px Aspirin) 325 Mg Tab 325 MG PO DAILY for stroke prevention for 30 Days, #30 TAB Atorvastatin (Atorvastatin) 40 Mg Tab 40 MG PO DAILY for stroke prevention for 30 Days, #30 TAB Cyanocobalamin (Vitamin B-12) 1,000 Mcg Tab 1000 MCG PO DAILY for supplement for 30 Days, #30 TAB Lisinopril (Lisinopril) 20 Mg Tab 20 MG PO DAILY for hypertension for 30 Days, #30 TAB Risperidone (Risperdal) 0.5 Mg Tab 0.5 MG PO BID for behvaioral distrubance for 30 Days, #60 TAB Sennosides-Docusate Sodium (Gnp Senna Plus 8.6-50 mg) 8.6 Mg-50 Mg Tab 1 TAB PO BID PRN for CONSTIPATION for 30 Days, #60 TAB Yari Stanley Aug 05, 2017 10:10
[2017-08-05 12:20] VITALS: BP 119/57; PULSE 92; RESP 17; TEMP 97.6; O2SAT 99
== END 2017-08-05 14:51 | disposition home or self-care (01) | DRG 64 ==
LOC: NEPE 16:52 → NEDA 20:46 → INTOOBSV 20:46 → NEPGCP 22:36 → OBSVTOIN 07-20 08:19 → N06A 07-20 21:11
PROVIDERS: ADMIT Hospitalist; ATTEND Hospitalist
DX: I63.30 Cerebral infarction due to thrombosis of unspecified cerebral artery (principal); G93.41 Metabolic encephalopathy; N17.9 Acute kidney failure, unspecified; N18.3 Chronic kidney disease, stage 3 (moderate); F05 Delirium due to known physiological condition; N39.0 Urinary tract infection, site not specified; S02.2XXA Fracture of nasal bones, initial encounter for closed fracture; I12.9 Hypertensive chronic kidney disease with stage 1 through stage 4 chronic kidney disease, or unspecified chronic kidney disease; R26.81 Unsteadiness on feet; Y93.89 Activity, other specified; Y92.003 Bedroom of unspecified non-institutional (private) residence as the place of occurrence of the external cause; S00.81XA Abrasion of other part of head, initial encounter; W06.XXXA Fall from bed, initial encounter; Z86.73 Personal history of transient ischemic attack (TIA), and cerebral infarction without residual deficits; E78.00 Pure hypercholesterolemia, unspecified; E53.8 Deficiency of other specified B group vitamins; R35.0 Frequency of micturition; Z78.1 Physical restraint status; Z81.8 Family history of other mental and behavioral disorders; I65.23 Occlusion and stenosis of bilateral carotid arteries; R00.1 Bradycardia, unspecified; B96.20 Unspecified Escherichia coli [E. coli] as the cause of diseases classified elsewhere
CPT/HCPCS: 70450; 70486; 70498; 70544; 70548; 70551; 70553; 71045; 72125; 72141; 76775; 80048; 80053; 80061; 81001; 82140; 82550; 82552; 82607; 82746; 83036; 83735; 84100; 84207; 84425; 84439; 84443; 84484; 85025; 85027; 85610; 85652; 85730; 86038; 86140; 86592; 86703; 87077; 87086; 87186; 90471; 90714; 93005; 93225; 93226; 93306; 93880; 95819; 96361; 96374; A9579; G8987-GP; G8988-GP; J0696; J1630; J2060; J3420; J7030; Q9967

== ENCOUNTER 2017-12-08 12:36 | Inpatient (IN) ==
[2017-12-08] MEDS ORDERED: Etomidate Inj 40 MG/20 ML Vial IV.PUSH ONE (12:40)
[2017-12-08] MEDS ORDERED: Propofol 1000 mg/100 ml Inj 1,000 MG/100 ML BOTTLE IV.CONT PRN (12:51)
[2017-12-08] MEDS ORDERED: Etomidate Inj 20 MG/10 ML Ampul IV.PUSH ONE (12:51)
[2017-12-08] MEDS ORDERED: Piperacil/Tazo 4.5 GM Premix 4.5 GM/100 ML BAG IV.SIG ONE (12:54)
--- NOTE | 2017-12-08 13:00 | ED ---
HPI General Chief Complaint: Altered Mental Status Stated Complaint: Medical Time Seen by Provider: 12/08/17 12:50 Source: EMS Mode of arrival: EMS Limitations: altered mental status History of Present Illness HPI narrative: The patient is a 62-year-old female who presents to the emergency department via EMS for altered mental status. According to EMS the patient has a history of stroke approximately 6 months ago, they are unsure if the patient is currently anticoagulated. The patient was last seen by family approximately 1-2 weeks ago according to EMS. The neighbors have not seen the patient in the last week, when the pesticide people came to the patient 's apartment they found her lying on the ground. EMS states the patient was nonverbal, would withdraw the pain, but no further information was obtainable from the patient. They did note there appeared to be lividity to the right side of the body, states they believe the patient may have been laying on the right side of her body for an extended period of time. Upon arrival the patient 's eyes are open, she is breathing spontaneously, is nonresponsive, minimally withdraws to pain. No further information is obtainable from the patient. MD complaint: Reports altered mental status Related Data Home Medications Medication Instructions Recorded Confirmed Unable to Obtain Home Meds 12/08/17 12/08/17 Allergies Allergy/AdvReac Type Severity Reaction Status Date / Time No Known Allergies Allergy Verified 12/08/17 13:24 Review of Systems ROS Unobtainable ROS Unobtainable: unobtainable due to mental status PMFSH Social History Social History Smoking Status: Unknown if ever smoked How Often Do You Have a Drink Containing Alcohol: Unable to Obtain Recent Travel in [facility] within the Last 8 Weeks: No Recent Out of Country Travel within the Last 8 Weeks: No Exam Narrative Exam Narrative: GENERAL: Eyes open, nonverbal, minimally withdraws to pain. SKIN: Patient has skin changes under the right pannus as well as over the right lateral flank and gluteal area with excoriation. HEAD: Atraumatic. Normocephalic. EYES: Pupils equal and round. 2 mm bilateral and reactive. ENT: Dry mucous membranes. One visible tooth in the right upper aspect of the mouth. NECK: Trachea midline. No JVD. CARDIOVASCULAR: Regular rate and rhythm. No murmur appreciated. Heart rate in the 90s. RESPIRATORY: No accessory muscle use. Rhonchi noted in the right base. GASTROINTESTINAL: Abdomen soft, non-tender, nondistended. MUSCULOSKELETAL: No obvious deformities. No clubbing. No cyanosis. No edema. NEUROLOGICAL: Eyes open, nonverbal, minimally withdraws to pain. PSYCHIATRIC: Unable to assess. Course Initial Documented Vital Signs Temperature 96.2 F L 12/08/17 12:52 Pulse Rate 90 12/08/17 12:52 Respiratory Rate 18 12/08/17 12:52 Blood Pressure 132/87 12/08/17 12:52 Pulse Oximetry 99 12/08/17 12:52 Last Documented Vital Signs Temperature 97.5 F L 12/09/17 04:00 Pulse Rate 67 12/09/17 04:00 Respiratory Rate 16 12/09/17 04:10 Blood Pressure 97/53 L 12/09/17 04:00 Pulse Oximetry 100 12/09/17 04:10 Procedures Intubation Time Out Performed: Yes Sedative: etomidate Mg Given: 20 Paralytic: rocuronium Mg Given: 75 Laryngoscope: Yina Assist Device Used: other ET Tube Size: 8 ET Tube Uncuffed: No Tube Secured Depth (cm): 24 Tube Secured Location: lips Tube Placement Confirmation: visualized tube passing through cords, equal breath sounds bilaterally, no breath sounds over epigastrium and confirmation by capnometry Patient Tolerated Procedure: well Intubation Complications: none Critical Care Time Critical Care Time: Yes Total Critical Care Time: 45 Attestation: Aggregate critical care time was 45 minutes. Time to perform other separately billable procedures was not included in the critical care time. My time did not include minutes spent treating any other patients simultaneously or on activities that did not directly contribute to the patient's treatment. The services I provided to this patient were to treat and/or prevent clinically significant deterioration that could result in: Anoxia, hypoxia, aspiration, septic shock, . I provided critical care services requiring my management, as noted below: Chart data review, documentation time, medication orders and management, vital sign assessments/reviewing monitor data, ordering and reviewing lab tests, ordering and interpreting/reviewing x-rays and diagnostic studies, care of the patient and discussion of the patient with the admitting physicians. Medical Decision Making MDM Narrative Medical decision making narrative: The patient was administeredIV was established, labs are drawn and sent, and the patient was placed on cardiac telemetry monitoring and continuous pulse oximetry monitoring. The patient was intubated, had a GCS of 5 with minimal gag reflex. Patient was administered etomidate, rocuronium, and IV fluids. The patient was intubated with an 8.0 endotracheal tube. Blood cultures and lactic acid were sent to lab. CT of the brain was obtained. Postintubation chest x-ray was obtained. The patient was administer 1 L of IV fluids and administered Zosyn prophylactically for presumed possible sepsis and/or aspiration pneumonia. The patient's sodium was 178, potassium 5.9, creatinine 9.35, CPK greater than 3000, troponin 0 0.08. Patient's white count was elevated 18.0 with hemoglobin 15.5 and hematocrit of 47.8. CT of the brain is negative. Total of 3 L in the emergency department. The patient was ordered propofol, however, did not need sedation in the emergency department. Patient may have encephalopathy from acute renal failure versus large CVA not seen on CT the brain. The on-call contour band saw operator vertical was paged for admission. Medical Screen Exam Complete: Yes Emergency Medical Condition: Yes Differential Diagnosis Differential Diagnosis: Differential diagnosis includes sepsis, intracranial hemorrhage, CVA, rhabdomyolysis, acute kidney injury, renal failure, cellulitis , aspiration, hyponatremia. Lab Data Result diagrams: 12/09/17 05:01 12/09/17 05:01 Lab Results 12/08/17 12/08/17 12/08/17 Range/Units 12:59 12:59 12:59 WBC 18.0 H (4.0-11.0) th/mm3 RBC 5.29 (4.00-5.30) mil/mm3 Hgb 15.5 H (11.6-15.3) gm/dL Hct 47.8 H (35.0-46.0) % MCV 90.3 (80.0-100.0) fL MCH 29.2 (27.0-34.0) pg MCHC 32.3 (32.0-36.0) % RDW 17.2 (11.6-17.2) % Plt Count 237 (150-450) th/mm3 MPV 11.0 (7.0-11.0) fL Prelim Diff (Auto) Neut % (Auto) 88.2 H (16.0-70.0) % Lymph % (Auto) 6.0 L (9.0-44.0) % [place] % (Auto) 5.7 (0.0-8.0) % Eos % (Auto) 0.0 (0.0-4.0) % Baso % (Auto) 0.1 (0.0-2.0) % Neut # (Auto) 15.9 H (1.8-7.7) th/mm3 Lymph # (Auto) 1.1 (1.0-4.8) th/mm3 [place] # (Auto) 1.0 H (0.0-0.9) th/mm3 Eos # (Auto) 0.0 (0.0-0.4) th/mm3 Baso # (Auto) 0.0 (0.0-0.2) th/mm3 WBC Differential . Differential Comment Auto diff final PT 13.7 H (9.8-11.6) sec INR 1.4 Ratio APTT 29.4 (24.3-30.1) sec Puncture Site Patient Temperature O2 Saturation (90-100) % ABG pH (7.380-7.420) ABG pCO2 (38-42) mmHg ABG pO2 (61-120) mmHg ABG HCO3 (22-26) mmol/L ABG O2 Content (12.0-20.0) Vol % ABG Base Excess (-2-2) mmol/L ABG Methemoglobin (0-2) % Hemoglobin (12.0-16.0) G/DL Carboxyhemoglobin (0-4) % O2 Delivery Device Vent Setting Inspired O2 % Critical Value Sodium (136-145) meq/L Potassium (3.5-5.1) meq/L Chloride (98-107) meq/L Carbon Dioxide (21.0-32.0) meq/L Anion Gap (5-15) meq/L BUN (7-18) mg/dL Creatinine (0.50-1.00) mg/dL Estimated GFR (>89) mL/min POC Glucose (68-110) mg/dl Random Glucose (74-106) mg/dL Lactic Acid 2.4 H (0.4-2.0) mmol/L Calcium (8.5-10.1) mg/dL Prot Corrected Calcium (8.5-10.1) mg/dL Phosphorus (2.5-4.9) mg/dL Magnesium (1.5-2.5) mg/dL Total Bilirubin (0.2-1.0) mg/dL AST (15-37) U/L ALT (10-53) U/L Alkaline Phosphatase (45-117) U/L Ammonia (11-32) mcmol/L Total Creatine Kinase (26-192) U/L CK-MB (CK-2) (0.5-3.6) ng/mL CK-MB (CK-2) % (0.0-4.0) % Troponin I (0.02-0.05) ng/mL Total Protein (6.4-8.2) g/dL Albumin (3.4-5.0) g/dL TSH (0.358-3.740) uIU/mL Urine Color (Yellw/Straw) Urine Clarity (Clear) Urine pH (5.0-8.5) Ur Specific [place] (1.002-1.035) Urine Protein (Neg-Trace) mg/dL Urine Glucose (UA) (Negative) mg/dL Urine Ketones (Negative) mg/dL Urine Occult Blood (Negative) Urine Nitrate (Negative) Urine Bilirubin (Negative) Urine Urobilinogen (Less than 2) mg/dL Ur Leukocyte Esterase (Negative) Urine RBC (0-3) /hpf Urine WBC (0-5) /hpf Ur Squamous Epith Cells (0-5) /hpf Ur Transition Epith Cell (None) /hpf Amorphous Sediment (None) /hpf Urine Bacteria (None) /hpf Hyaline Casts (0-3) /lpf Urine Mucus (Occasional) /lpf Micro UA Comment Ur Microscopic Review Urine Culture Comments Nasal Screen MRSA (PCR) (Negative) Urine Opiates Screen (Neg) Ur Barbiturates Screen (Neg) Ur Amphetamines Screen (Neg) U Benzodiazepines Scrn (Neg) Urine Cocaine Screen (Neg) U Cannabinoids Screen (Neg) Serum Alcohol (0-5) mg/dL Hepatitis A IgM Ab (Nonreactive) Hep Bs Antigen (Nonreactive) Hep B Core IgM Ab (Nonreactive) Hep C IgG Ab (Nonreactive) 12/08/17 12/08/17 12/08/17 Range/Units 12:59 13:20 13:20 WBC (4.0-11.0) th/mm3 RBC (4.00-5.30) mil/mm3 Hgb (11.6-15.3) gm/dL Hct (35.0-46.0) % MCV (80.0-100.0) fL MCH (27.0-34.0) pg MCHC (32.0-36.0) % RDW (11.6-17.2) % Plt Count (150-450) th/mm3 MPV (7.0-11.0) fL Prelim Diff (Auto) Neut % (Auto) (16.0-70.0) % Lymph % (Auto) (9.0-44.0) % [place] % (Auto) (0.0-8.0) % Eos % (Auto) (0.0-4.0) % Baso % (Auto) (0.0-2.0) % Neut # (Auto) (1.8-7.7) th/mm3 Lymph # (Auto) (1.0-4.8) th/mm3 [place] # (Auto) (0.0-0.9) th/mm3 Eos # (Auto) (0.0-0.4) th/mm3 Baso # (Auto) (0.0-0.2) th/mm3 WBC Differential Differential Comment PT (9.8-11.6) sec INR Ratio APTT (24.3-30.1) sec Puncture Site Patient Temperature O2 Saturation (90-100) % ABG pH (7.380-7.420) ABG pCO2 (38-42) mmHg ABG pO2 (61-120) mmHg ABG HCO3 (22-26) mmol/L ABG O2 Content (12.0-20.0) Vol % ABG Base Excess (-2-2) mmol/L ABG Methemoglobin (0-2) % Hemoglobin (12.0-16.0) G/DL Carboxyhemoglobin (0-4) % O2 Delivery Device Vent Setting Inspired O2 % Critical Value Sodium (136-145) meq/L Potassium (3.5-5.1) meq/L Chloride (98-107) meq/L Carbon Dioxide (21.0-32.0) meq/L Anion Gap (5-15) meq/L BUN (7-18) mg/dL Creatinine (0.50-1.00) mg/dL Estimated GFR (>89) mL/min POC Glucose (68-110) mg/dl Random Glucose (74-106) mg/dL Lactic Acid (0.4-2.0) mmol/L Calcium (8.5-10.1) mg/dL Prot Corrected Calcium (8.5-10.1) mg/dL Phosphorus (2.5-4.9) mg/dL Magnesium (1.5-2.5) mg/dL Total Bilirubin (0.2-1.0) mg/dL AST (15-37) U/L ALT (10-53) U/L Alkaline Phosphatase (45-117) U/L Ammonia 25 (11-32) mcmol/L Total Creatine Kinase (26-192) U/L CK-MB (CK-2) (0.5-3.6) ng/mL CK-MB (CK-2) % (0.0-4.0) % Troponin I (0.02-0.05) ng/mL Total Protein (6.4-8.2) g/dL Albumin (3.4-5.0) g/dL TSH (0.358-3.740) uIU/mL Urine Color Nichole (Yellw/Straw) Urine Clarity Hazy H (Clear) Urine pH 5.0 (5.0-8.5) Ur Specific [place] 1.019 (1.002-1.035) Urine Protein Negative (Neg-Trace) mg/dL Urine Glucose (UA) Negative (Negative) mg/dL Urine Ketones Negative (Negative) mg/dL Urine Occult Blood Negative (Negative) Urine Nitrate Negative (Negative) Urine Bilirubin Negative (Negative) Urine Urobilinogen 4 or greater (Less than 2) mg/dL Ur Leukocyte Esterase Negative (Negative) Urine RBC 12 H (0-3) /hpf Urine WBC 1 (0-5) /hpf Ur Squamous Epith Cells 1 (0-5) /hpf Ur Transition Epith Cell <1 (None) /hpf Amorphous Sediment Occasional H (None) /hpf Urine Bacteria Rare H (None) /hpf Hyaline Casts 4 (0-3) /lpf Urine Mucus Few H (Occasional) /lpf Micro UA Comment Cath-culture ind Ur Microscopic Review Not Reportable Urine Culture Comments Cath-cult indicated Nasal Screen MRSA (PCR) (Negative) Urine Opiates Screen Neg (Neg) Ur Barbiturates Screen Neg (Neg) Ur Amphetamines Screen Neg (Neg) U Benzodiazepines Scrn Neg (Neg) Urine Cocaine Screen Neg (Neg) U Cannabinoids Screen Neg (Neg) Serum Alcohol (0-5) mg/dL Hepatitis A IgM Ab (Nonreactive) Hep Bs Antigen (Nonreactive) Hep B Core IgM Ab (Nonreactive) Hep C IgG Ab (Nonreactive) 12/08/17 12/08/17 12/08/17 Range/Units 13:28 14:52 17:50 WBC (4.0-11.0) th/mm3 RBC (4.00-5.30) mil/mm3 Hgb (11.6-15.3) gm/dL Hct (35.0-46.0) % MCV (80.0-100.0) fL MCH (27.0-34.0) pg MCHC (32.0-36.0) % RDW (11.6-17.2) % Plt Count (150-450) th/mm3 MPV (7.0-11.0) fL Prelim Diff (Auto) Neut % (Auto) (16.0-70.0) % Lymph % (Auto) (9.0-44.0) % [place] % (Auto) (0.0-8.0) % Eos % (Auto) (0.0-4.0) % Baso % (Auto) (0.0-2.0) % Neut # (Auto) (1.8-7.7) th/mm3 Lymph # (Auto) (1.0-4.8) th/mm3 [place] # (Auto) (0.0-0.9) th/mm3 Eos # (Auto) (0.0-0.4) th/mm3 Baso # (Auto) (0.0-0.2) th/mm3 WBC Differential Differential Comment PT (9.8-11.6) sec INR Ratio APTT (24.3-30.1) sec Puncture Site Right brachial Patient Temperature 98.6 O2 Saturation 99 (90-100) % ABG pH 7.26 L* (7.380-7.420) ABG pCO2 30 L (38-42) mmHg ABG pO2 481 H (61-120) mmHg ABG HCO3 13 L* (22-26) mmol/L ABG O2 Content 23.5 H (12.0-20.0) Vol % ABG Base Excess -12.4 L (-2-2) mmol/L ABG Methemoglobin 0.8 (0-2) % Hemoglobin 16.2 H (12.0-16.0) G/DL Carboxyhemoglobin 0.2 (0-4) % O2 Delivery Device Vent Vent Setting [id number] Inspired O2 100 % Critical Value Yes Sodium 178 H* (136-145) meq/L Potassium 5.9 H (3.5-5.1) meq/L Chloride 140 H (98-107) meq/L Carbon Dioxide 17.1 L (21.0-32.0) meq/L Anion Gap 21 H (5-15) meq/L BUN 262 H (7-18) mg/dL Creatinine 9.35 H (0.50-1.00) mg/dL Estimated GFR 4 L (>89) mL/min POC Glucose (68-110) mg/dl Random Glucose 149 H (74-106) mg/dL Lactic Acid (0.4-2.0) mmol/L Calcium 8.3 L (8.5-10.1) mg/dL Prot Corrected Calcium (8.5-10.1) mg/dL Phosphorus (2.5-4.9) mg/dL Magnesium (1.5-2.5) mg/dL Total Bilirubin 0.9 (0.2-1.0) mg/dL AST 78 H (15-37) U/L ALT 39 (10-53) U/L Alkaline Phosphatase 119 H (45-117) U/L Ammonia (11-32) mcmol/L Total Creatine Kinase 3063 H (26-192) U/L CK-MB (CK-2) 26.8 H (0.5-3.6) ng/mL CK-MB (CK-2) % 0.9 (0.0-4.0) % Troponin I 0.08 H (0.02-0.05) ng/mL Total Protein 7.7 (6.4-8.2) g/dL Albumin 2.5 L (3.4-5.0) g/dL TSH 1.540 (0.358-3.740) uIU/mL Urine Color (Yellw/Straw) Urine Clarity (Clear) Urine pH (5.0-8.5) Ur Specific [place] (1.002-1.035) Urine Protein (Neg-Trace) mg/dL Urine Glucose (UA) (Negative) mg/dL Urine Ketones (Negative) mg/dL Urine Occult Blood (Negative) Urine Nitrate (Negative) Urine Bilirubin (Negative) Urine Urobilinogen (Less than 2) mg/dL Ur Leukocyte Esterase (Negative) Urine RBC (0-3) /hpf Urine WBC (0-5) /hpf Ur Squamous Epith Cells (0-5) /hpf Ur Transition Epith Cell (None) /hpf Amorphous Sediment (None) /hpf Urine Bacteria (None) /hpf Hyaline Casts (0-3) /lpf Urine Mucus (Occasional) /lpf Micro UA Comment Ur Microscopic Review Urine Culture Comments Nasal Screen MRSA (PCR) Mrsa detected (Negative) Urine Opiates Screen (Neg) Ur Barbiturates Screen (Neg) Ur Amphetamines Screen (Neg) U Benzodiazepines Scrn (Neg) Urine Cocaine Screen (Neg) U Cannabinoids Screen (Neg) Serum Alcohol Less than 3 (0-5) mg/dL Hepatitis A IgM Ab (Nonreactive) Hep Bs Antigen (Nonreactive) Hep B Core IgM Ab (Nonreactive) Hep C IgG Ab (Nonreactive) 12/08/17 12/08/17 12/08/17 Range/Units 18:10 18:10 18:10 WBC 13.5 H (4.0-11.0) th/mm3 RBC 4.33 (4.00-5.30) mil/mm3 Hgb 12.6 D (11.6-15.3) gm/dL Hct 39.1 (35.0-46.0) % MCV 90.5 (80.0-100.0) fL MCH 29.2 (27.0-34.0) pg MCHC 32.3 (32.0-36.0) % RDW 17.3 H (11.6-17.2) % Plt Count 179 (150-450) th/mm3 MPV 10.9 (7.0-11.0) fL Prelim Diff (Auto) Neut % (Auto) (16.0-70.0) % Lymph % (Auto) (9.0-44.0) % [place] % (Auto) (0.0-8.0) % Eos % (Auto) (0.0-4.0) % Baso % (Auto) (0.0-2.0) % Neut # (Auto) (1.8-7.7) th/mm3 Lymph # (Auto) (1.0-4.8) th/mm3 [place] # (Auto) (0.0-0.9) th/mm3 Eos # (Auto) (0.0-0.4) th/mm3 Baso # (Auto) (0.0-0.2) th/mm3 WBC Differential Differential Comment PT (9.8-11.6) sec INR Ratio APTT (24.3-30.1) sec Puncture Site Patient Temperature O2 Saturation (90-100) % ABG pH (7.380-7.420) ABG pCO2 (38-42) mmHg ABG pO2 (61-120) mmHg ABG HCO3 (22-26) mmol/L ABG O2 Content (12.0-20.0) Vol % ABG Base Excess (-2-2) mmol/L ABG Methemoglobin (0-2) % Hemoglobin (12.0-16.0) G/DL Carboxyhemoglobin (0-4) % O2 Delivery Device Vent Setting Inspired O2 % Critical Value Sodium 172 H* (136-145) meq/L Potassium 4.5 D (3.5-5.1) meq/L Chloride 139 H (98-107) meq/L Carbon Dioxide 17.8 L (21.0-32.0) meq/L Anion Gap 15 (5-15) meq/L BUN 238 H (7-18) mg/dL Creatinine 8.58 H (0.50-1.00) mg/dL Estimated GFR 5 L (>89) mL/min POC Glucose (68-110) mg/dl Random Glucose 291 H D (74-106) mg/dL Lactic Acid 2.8 H (0.4-2.0) mmol/L Calcium 9.0 (8.5-10.1) mg/dL Prot Corrected Calcium (8.5-10.1) mg/dL Phosphorus 7.2 H (2.5-4.9) mg/dL Magnesium 3.4 H (1.5-2.5) mg/dL Total Bilirubin 0.7 (0.2-1.0) mg/dL AST 71 H (15-37) U/L ALT 33 (10-53) U/L Alkaline Phosphatase 95 (45-117) U/L Ammonia (11-32) mcmol/L Total Creatine Kinase 2767 H (26-192) U/L CK-MB (CK-2) (0.5-3.6) ng/mL CK-MB (CK-2) % (0.0-4.0) % Troponin I (0.02-0.05) ng/mL Total Protein 6.1 L D (6.4-8.2) g/dL Albumin 1.9 L D (3.4-5.0) g/dL TSH (0.358-3.740) uIU/mL Urine Color (Yellw/Straw) Urine Clarity (Clear) Urine pH (5.0-8.5) Ur Specific [place] (1.002-1.035) Urine Protein (Neg-Trace) mg/dL Urine Glucose (UA) (Negative) mg/dL Urine Ketones (Negative) mg/dL Urine Occult Blood (Negative) Urine Nitrate (Negative) Urine Bilirubin (Negative) Urine Urobilinogen (Less than 2) mg/dL Ur Leukocyte Esterase (Negative) Urine RBC (0-3) /hpf Urine WBC (0-5) /hpf Ur Squamous Epith Cells (0-5) /hpf Ur Transition Epith Cell (None) /hpf Amorphous Sediment (None) /hpf Urine Bacteria (None) /hpf Hyaline Casts (0-3) /lpf Urine Mucus (Occasional) /lpf Micro UA Comment Ur Microscopic Review Urine Culture Comments Nasal Screen MRSA (PCR) (Negative) Urine Opiates Screen (Neg) Ur Barbiturates Screen (Neg) Ur Amphetamines Screen (Neg) U Benzodiazepines Scrn (Neg) Urine Cocaine Screen (Neg) U Cannabinoids Screen (Neg) Serum Alcohol (0-5) mg/dL Hepatitis A IgM Ab (Nonreactive) Hep Bs Antigen (Nonreactive) Hep B Core IgM Ab (Nonreactive) Hep C IgG Ab (Nonreactive) 12/08/17 12/08/17 12/08/17 Range/Units 18:10 18:10 18:10 WBC (4.0-11.0) th/mm3 RBC (4.00-5.30) mil/mm3 Hgb (11.6-15.3) gm/dL Hct (35.0-46.0) % MCV (80.0-100.0) fL MCH (27.0-34.0) pg MCHC (32.0-36.0) % RDW (11.6-17.2) % Plt Count (150-450) th/mm3 MPV (7.0-11.0) fL Prelim Diff (Auto) Neut % (Auto) (16.0-70.0) % Lymph % (Auto) (9.0-44.0) % [place] % (Auto) (0.0-8.0) % Eos % (Auto) (0.0-4.0) % Baso % (Auto) (0.0-2.0) % Neut # (Auto) (1.8-7.7) th/mm3 Lymph # (Auto) (1.0-4.8) th/mm3 [place] # (Auto) (0.0-0.9) th/mm3 Eos # (Auto) (0.0-0.4) th/mm3 Baso # (Auto) (0.0-0.2) th/mm3 WBC Differential Differential Comment PT (9.8-11.6) sec INR Ratio APTT (24.3-30.1) sec Puncture Site Patient Temperature O2 Saturation (90-100) % ABG pH (7.380-7.420) ABG pCO2 (38-42) mmHg ABG pO2 (61-120) mmHg ABG HCO3 (22-26) mmol/L ABG O2 Content (12.0-20.0) Vol % ABG Base Excess (-2-2) mmol/L ABG Methemoglobin (0-2) % Hemoglobin (12.0-16.0) G/DL Carboxyhemoglobin (0-4) % O2 Delivery Device Vent Setting Inspired O2 % Critical Value Sodium (136-145) meq/L Potassium (3.5-5.1) meq/L Chloride (98-107) meq/L Carbon Dioxide (21.0-32.0) meq/L Anion Gap (5-15) meq/L BUN (7-18) mg/dL Creatinine (0.50-1.00) mg/dL Estimated GFR (>89) mL/min POC Glucose (68-110) mg/dl Random Glucose (74-106) mg/dL Lactic Acid (0.4-2.0) mmol/L Calcium (8.5-10.1) mg/dL Prot Corrected Calcium (8.5-10.1) mg/dL Phosphorus (2.5-4.9) mg/dL Magnesium (1.5-2.5) mg/dL Total Bilirubin (0.2-1.0) mg/dL AST (15-37) U/L ALT (10-53) U/L Alkaline Phosphatase (45-117) U/L Ammonia (11-32) mcmol/L Total Creatine Kinase 2604 H (26-192) U/L CK-MB (CK-2) 23.7 H (0.5-3.6) ng/mL CK-MB (CK-2) % 0.9 (0.0-4.0) % Troponin I Cancelled 0.08 H (0.02-0.05) ng/mL Total Protein (6.4-8.2) g/dL Albumin (3.4-5.0) g/dL TSH (0.358-3.740) uIU/mL Urine Color (Yellw/Straw) Urine Clarity (Clear) Urine pH (5.0-8.5) Ur Specific [place] (1.002-1.035) Urine Protein (Neg-Trace) mg/dL Urine Glucose (UA) (Negative) mg/dL Urine Ketones (Negative) mg/dL Urine Occult Blood (Negative) Urine Nitrate (Negative) Urine Bilirubin (Negative) Urine Urobilinogen (Less than 2) mg/dL Ur Leukocyte Esterase (Negative) Urine RBC (0-3) /hpf Urine WBC (0-5) /hpf Ur Squamous Epith Cells (0-5) /hpf Ur Transition Epith Cell (None) /hpf Amorphous Sediment (None) /hpf Urine Bacteria (None) /hpf Hyaline Casts (0-3) /lpf Urine Mucus (Occasional) /lpf Micro UA Comment Ur Microscopic Review Urine Culture Comments Nasal Screen MRSA (PCR) (Negative) Urine Opiates Screen (Neg) Ur Barbiturates Screen (Neg) Ur Amphetamines Screen (Neg) U Benzodiazepines Scrn (Neg) Urine Cocaine Screen (Neg) U Cannabinoids Screen (Neg) Serum Alcohol (0-5) mg/dL Hepatitis A IgM Ab Nonreactive (Nonreactive) Hep Bs Antigen Nonreactive (Nonreactive) Hep B Core IgM Ab Nonreactive (Nonreactive) Hep C IgG Ab Nonreactive (Nonreactive) 12/08/17 12/09/17 12/09/17 Range/Units 21:15 00:26 00:40 WBC (4.0-11.0) th/mm3 RBC (4.00-5.30) mil/mm3 Hgb (11.6-15.3) gm/dL Hct (35.0-46.0) % MCV (80.0-100.0) fL MCH (27.0-34.0) pg MCHC (32.0-36.0) % RDW (11.6-17.2) % Plt Count (150-450) th/mm3 MPV (7.0-11.0) fL Prelim Diff (Auto) Neut % (Auto) (16.0-70.0) % Lymph % (Auto) (9.0-44.0) % [place] % (Auto) (0.0-8.0) % Eos % (Auto) (0.0-4.0) % Baso % (Auto) (0.0-2.0) % Neut # (Auto) (1.8-7.7) th/mm3 Lymph # (Auto) (1.0-4.8) th/mm3 [place] # (Auto) (0.0-0.9) th/mm3 Eos # (Auto) (0.0-0.4) th/mm3 Baso # (Auto) (0.0-0.2) th/mm3 WBC Differential Differential Comment PT (9.8-11.6) sec INR Ratio APTT (24.3-30.1) sec Puncture Site Left brachial Patient Temperature 98.6 O2 Saturation 97 (90-100) % ABG pH 7.50 H (7.380-7.420) ABG pCO2 25 L (38-42) mmHg ABG pO2 194 H (61-120) mmHg ABG HCO3 19 L (22-26) mmol/L ABG O2 Content 20.2 H (12.0-20.0) Vol % ABG Base Excess -3.6 L (-2-2) mmol/L ABG Methemoglobin 1.6 (0-2) % Hemoglobin 14.5 (12.0-16.0) G/DL Carboxyhemoglobin 0.4 (0-4) % O2 Delivery Device Ventilator Vent Setting Prvc/ac Inspired O2 40 % Critical Value No Sodium 155 H D (136-145) meq/L Potassium 4.1 (3.5-5.1) meq/L Chloride 119 H D (98-107) meq/L Carbon Dioxide 19.7 L (21.0-32.0) meq/L Anion Gap 16 H (5-15) meq/L BUN 129 H (7-18) mg/dL Creatinine 5.74 H (0.50-1.00) mg/dL Estimated GFR 7 L (>89) mL/min POC Glucose 106 (68-110) mg/dl Random Glucose 114 H D (74-106) mg/dL Lactic Acid (0.4-2.0) mmol/L Calcium 6.7 L* D (8.5-10.1) mg/dL Prot Corrected Calcium 7.1 L* (8.5-10.1) mg/dL Phosphorus (2.5-4.9) mg/dL Magnesium (1.5-2.5) mg/dL Total Bilirubin (0.2-1.0) mg/dL AST (15-37) U/L ALT (10-53) U/L Alkaline Phosphatase (45-117) U/L Ammonia (11-32) mcmol/L Total Creatine Kinase (26-192) U/L CK-MB (CK-2) (0.5-3.6) ng/mL CK-MB (CK-2) % (0.0-4.0) % Troponin I (0.02-0.05) ng/mL Total Protein 6.3 L (6.4-8.2) g/dL Albumin (3.4-5.0) g/dL TSH (0.358-3.740) uIU/mL Urine Color (Yellw/Straw) Urine Clarity (Clear) Urine pH (5.0-8.5) Ur Specific [place] (1.002-1.035) Urine Protein (Neg-Trace) mg/dL Urine Glucose (UA) (Negative) mg/dL Urine Ketones (Negative) mg/dL Urine Occult Blood (Negative) Urine Nitrate (Negative) Urine Bilirubin (Negative) Urine Urobilinogen (Less than 2) mg/dL Ur Leukocyte Esterase (Negative) Urine RBC (0-3) /hpf Urine WBC (0-5) /hpf Ur Squamous Epith Cells (0-5) /hpf Ur Transition Epith Cell (None) /hpf Amorphous Sediment (None) /hpf Urine Bacteria (None) /hpf Hyaline Casts (0-3) /lpf Urine Mucus (Occasional) /lpf Micro UA Comment Ur Microscopic Review Urine Culture Comments Nasal Screen MRSA (PCR) (Negative) Urine Opiates Screen (Neg) Ur Barbiturates Screen (Neg) Ur Amphetamines Screen (Neg) U Benzodiazepines Scrn (Neg) Urine Cocaine Screen (Neg) U Cannabinoids Screen (Neg) Serum Alcohol (0-5) mg/dL Hepatitis A IgM Ab (Nonreactive) Hep Bs Antigen (Nonreactive) Hep B Core IgM Ab (Nonreactive) Hep C IgG Ab (Nonreactive) 12/09/17 12/09/17 12/09/17 Range/Units 05:01 05:01 06:30 WBC 11.1 H (4.0-11.0) th/mm3 RBC 3.83 L (4.00-5.30) mil/mm3 Hgb 11.2 L (11.6-15.3) gm/dL Hct 33.5 L (35.0-46.0) % MCV 87.6 (80.0-100.0) fL MCH 29.2 (27.0-34.0) pg MCHC 33.4 (32.0-36.0) % RDW 15.8 (11.6-17.2) % Plt Count 134 L (150-450) th/mm3 MPV 10.6 (7.0-11.0) fL Prelim Diff (Auto) Slide review pending Neut % (Auto) 81.3 H (16.0-70.0) % Lymph % (Auto) 12.2 (9.0-44.0) % [place] % (Auto) 6.3 (0.0-8.0) % Eos % (Auto) 0.1 (0.0-4.0) % Baso % (Auto) 0.1 (0.0-2.0) % Neut # (Auto) 9.0 H (1.8-7.7) th/mm3 Lymph # (Auto) 1.4 (1.0-4.8) th/mm3 [place] # (Auto) 0.7 (0.0-0.9) th/mm3 Eos # (Auto) 0.0 (0.0-0.4) th/mm3 Baso # (Auto) 0.0 (0.0-0.2) th/mm3 WBC Differential Differential Comment . PT (9.8-11.6) sec INR Ratio APTT (24.3-30.1) sec Puncture Site Patient Temperature O2 Saturation (90-100) % ABG pH (7.380-7.420) ABG pCO2 (38-42) mmHg ABG pO2 (61-120) mmHg ABG HCO3 (22-26) mmol/L ABG O2 Content (12.0-20.0) Vol % ABG Base Excess (-2-2) mmol/L ABG Methemoglobin (0-2) % Hemoglobin (12.0-16.0) G/DL Carboxyhemoglobin (0-4) % O2 Delivery Device Vent Setting Inspired O2 % Critical Value Sodium 155 H (136-145) meq/L Potassium 4.3 (3.5-5.1) meq/L Chloride 117 H (98-107) meq/L Carbon Dioxide 23.3 (21.0-32.0) meq/L Anion Gap 15 (5-15) meq/L BUN 127 H (7-18) mg/dL Creatinine 5.95 H (0.50-1.00) mg/dL Estimated GFR 7 L (>89) mL/min POC Glucose 92 (68-110) mg/dl Random Glucose 94 (74-106) mg/dL Lactic Acid (0.4-2.0) mmol/L Calcium 6.6 L* (8.5-10.1) mg/dL Prot Corrected Calcium 7.1 L* (8.5-10.1) mg/dL Phosphorus 4.5 D (2.5-4.9) mg/dL Magnesium 2.4 D (1.5-2.5) mg/dL Total Bilirubin (0.2-1.0) mg/dL AST (15-37) U/L ALT (10-53) U/L Alkaline Phosphatase (45-117) U/L Ammonia (11-32) mcmol/L Total Creatine Kinase (26-192) U/L CK-MB (CK-2) (0.5-3.6) ng/mL CK-MB (CK-2) % (0.0-4.0) % Troponin I (0.02-0.05) ng/mL Total Protein 6.0 L (6.4-8.2) g/dL Albumin (3.4-5.0) g/dL TSH (0.358-3.740) uIU/mL Urine Color (Yellw/Straw) Urine Clarity (Clear) Urine pH (5.0-8.5) Ur Specific [place] (1.002-1.035) Urine Protein (Neg-Trace) mg/dL Urine Glucose (UA) (Negative) mg/dL Urine Ketones (Negative) mg/dL Urine Occult Blood (Negative) Urine Nitrate (Negative) Urine Bilirubin (Negative) Urine Urobilinogen (Less than 2) mg/dL Ur Leukocyte Esterase (Negative) Urine RBC (0-3) /hpf Urine WBC (0-5) /hpf Ur Squamous Epith Cells (0-5) /hpf Ur Transition Epith Cell (None) /hpf Amorphous Sediment (None) /hpf Urine Bacteria (None) /hpf Hyaline Casts (0-3) /lpf Urine Mucus (Occasional) /lpf Micro UA Comment Ur Microscopic Review Urine Culture Comments Nasal Screen MRSA (PCR) (Negative) Urine Opiates Screen (Neg) Ur Barbiturates Screen (Neg) Ur Amphetamines Screen (Neg) U Benzodiazepines Scrn (Neg) Urine Cocaine Screen (Neg) U Cannabinoids Screen (Neg) Serum Alcohol (0-5) mg/dL Hepatitis A IgM Ab (Nonreactive) Hep Bs Antigen (Nonreactive) Hep B Core IgM Ab (Nonreactive) Hep C IgG Ab (Nonreactive) Imaging Data Radiologist's impression: Abdomen/Bladder Ultrasound 12/08/17 00:00 CONCLUSION: 1. Decreased size of the left kidney with increased echogenicity and cortical thinning. 2. The right kidney appears grossly normal.. Chest X-Ray 12/08/17 00:00 CONCLUSION: Good placement of a Vas-Cath. Chest X-Ray 12/08/17 12:51 CONCLUSION: No acute cardiopulmonary disease. Head CT 12/08/17 12:51 CONCLUSION: 1. 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 2. Almost complete opacification right maxillary sinus. . ECG Data EKG Prior to Arrival: No Attestation: I personally reviewed and interpreted this ECG as follows: Interpretation: EKG reveals normal sinus rhythm with a rate of 94. Possible peaked T waves in V3. Discharge Plan Discharge Disposition Patient Disposition: 30 Still Patient Discharge Condition Condition: Critical Discharge Details Diagnosis: Altered mental status, Acute renal failure, Acute hyperkalemia, Acute hypernatremia, Dehydration Physicians Team ED Provider: Dilan Cm Primary Care Provider: UNKNOWN, Attending Provider: Viji Beth Other Providers: Nora Foley ; Iraj Mcintyre Status ED Status: Left Department Discharge Information Discharge Date/Time: 12/08/17 16:58
[2017-12-08 13:27] LABS: Activated Partial Thrombo Time 29.4 sec (24.3-30.1); INR 1.4 Ratio; Prothrombin Time 13.7 sec (9.8-11.6)
[2017-12-08 13:29] LABS: Baso % (Auto) 0.1 % (0.0-2.0); Hematocrit 47.8 % (35.0-46.0); Hemoglobin 15.5 gm/dL (11.6-15.3); Lymph # (Auto) 1.1 th/mm3 (1.0-4.8); Mean Corpuscular HGB Conc 32.3 % (32.0-36.0); Mean Corpuscular Hemoglobin 29.2 pg (27.0-34.0); Mean Corpuscular Volume 90.3 fL (80.0-100.0); Mono % (Auto) 5.7 % (0.0-8.0); Neut # (Auto) 15.9 th/mm3 (1.8-7.7); Neut % (Auto) 88.2 % (16.0-70.0); Platelet Count 237 th/mm3 (150-450); Red Blood Count 5.29 mil/mm3 (4.00-5.30); Red Cell Distribution Width 17.2 % (11.6-17.2)
[2017-12-08 13:32] LABS: ABG Base Excess -12.4 mmol/L (-2-2); ABG PCO2 30 mmHg (38-42); ABG PO2 481 mmHg (61-120)
[2017-12-08 13:46] LABS: Amphetamine Screen,Urine Neg (Neg); Barbiturate Screen,Urine Neg (Neg); Cannabinoid Screen,Urine Neg (Neg); Cocaine Screen,Urine Neg (Neg)
--- NOTE | 2017-12-08 13:46 | XR ---
EXAM DATE: 12/08/2017 12:51 PM EDT AGE/SEX: 62 years / Female INDICATIONS: Shortness of breath. CLINICAL DATA: This is the patient's initial encounter. Patient reports that signs and symptoms have been present for 1 day and indicates a pain score of Nonresponsive. MEDICAL/SURGICAL HISTORY: Non-responsive. Appendectomy. COMPAR[place]: [facility] [place], [place]/16/2017. . FINDINGS: A single AP view of the chest demonstrates the lungs to be symmetrically aerated without evidence of mass, infiltrate or effusion. Endotracheal tube approximately 4.5 cm above lotus. Nasogastric tube w ith tip in stomach The cardiomediastinal contours are unremarkable. Osseous structures are intact. CONCLUSION: No acute cardiopulmonary disease. Electronically signed by: Lorenzo Bruner MD 12/08/2017 1:45 PM EDT
[2017-12-08 13:52] LABS: Amorphous Sediment,Urine Occasional /hpf; Bacteria,Urine Rare /hpf; Bilirubin,Urine Negative (Negative); Clarity,Urine Hazy (Clear); Color,Urine Amber (Yellw/Straw); Glucose,Urine (UA) Negative (Negative); Hyaline Casts,Urine 4 /lpf (0-3); Leukocyte Esterase,Urine Negative (Negative); Mucus,Urine Few /lpf (Occasional); Nitrite,Urine Negative (Negative); Specific Gravity,Urine 1.019 (1.002-1.035); Squamous Epithelial Cell,Urine 1 /hpf (0-5); Transitional Epi Cells,Urine <1 /hpf; Urobilinogen,Urine 4 or Greater mg/dL (Less than 2)
[2017-12-08 13:58] LABS: Opiate Screen,Urine Neg (Neg)
--- NOTE | 2017-12-08 14:02 | CT ---
EXAM DATE: 12/08/2017 1:08 PM EDT AGE/SEX: 62 years / Female INDICATIONS: Found down unresponsive CLINICAL DATA: This is the patient's initial encounter. Patient reports that signs and symptoms have been present for 1 day and indicates a pain score of Nonresponsive. MEDICAL/SURGICAL HISTORY: Cerebrovascular disease. None. RADIATION DOSE: 56.35 CTDI (mGy) COMPARISON: [facility] [place] BRAIN W/O CONTRAST, 07/16/2017. [facility] [place], MRI BRAIN W & W/O CONTRAST, 07/19/2017. . TECHNIQUE: CT of the head without contrast. Using automated exposure control and adjustment of the mA and/or kV according to patient size, radiation dose was kept as low as reasonably achievable to ob tain optimal diagnostic quality images. DICOM format image data is available electronically for revi ew and comparison. FINDINGS: Cerebrum: Scattered areas of low-attenuation in the white matter and within the basal ganglia bilate rally. Prominent area of low-density in the left frontal lobe. BE related to an old infarct. Low-dens ity in the right brainstem is consistent with old infarct. The ventricles are normal for age. No roseann dence of midline shift, mass lesion, hemorrhage or acute infarction. No extraaxial fluid collections are seen. Posterior Fossa: The cerebellum and brainstem are intact. The 4th ventricle is midline. The cerebe llopontine angle is unremarkable. Extracranial: The visualized portion of the orbits is intact. Sinus disease greatest within the righ t maxillary sinus. Skull: The calvaria is intact. No evidence of skull fracture. Old nasal fractures. CONCLUSION: 1. 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 2. Almost complete opacification right maxillary sinus. . Electronically signed by: Lorenzo Bruner MD 12/08/2017 2:01 PM EDT
[2017-12-08] MEDS: Sod Chloride 0.9% Inj 1,000 ML IV.SIG SCH ×2 (14:05→16:44)
[2017-12-08 16:01] LABS: Alanine Aminotransferase 39 U/L (10-53); Albumin 2.5 g/dL (3.4-5.0); Alkaline Phosphatase 119 U/L (45-117); Anion Gap 21 meq/L (5-15); Aspartate Aminotransferase 78 U/L (15-37); Blood Urea Nitrogen 262 mg/dL (7-18); Calcium 8.3 mg/dL (8.5-10.1); Carbon Dioxide 17.1 meq/L (21.0-32.0); Chloride 140 meq/L (98-107); Creatine Kinase 3063 U/L (26-192); Glomerular Filtration Rate 4 mL/min (>89); Glucose,Random 149 mg/dL (74-106); Potassium 5.9 meq/L (3.5-5.1); Sodium 178 meq/L (136-145); Total Protein 7.7 g/dL (6.4-8.2); Troponin I 0.08 ng/mL (0.02-0.05)
[2017-12-08] MEDS ORDERED: Sod Chloride 0.9% Inj 1,000 ML IV.SIG SCH ×3 (16:15→22:00)
[2017-12-08 16:25] LABS: CKMB Percent 0.9 % (0.0-4.0); Creatine Kinase MB 26.8 ng/mL (0.5-3.6)
[2017-12-08] MEDS ORDERED: Bisacodyl 10 MG Supp RECTAL PRN (16:44)
[2017-12-08] MEDS ORDERED: Sodium Polystyrene Sulfonate/Sorbitol Liq 15 GM/60 ML UDC NG/OG ONE (17:00)
[2017-12-08] MEDS ORDERED: Calcium Gluconate Inj 1 GM in Dextrose 5% in Water Inj 100 ML IV.SIG ONE ×2 (17:15)
[2017-12-08] MEDS ORDERED: Acetaminophen 325 MG Tablet PO PRN (17:27)
[2017-12-08] MEDS ORDERED: Heparin 10,000 UNITS/10 ML Vial (for IV use) OTHER PRN ×2 (17:27)
[2017-12-08] MEDS ORDERED: Gelatin 12 MM/7 MM Topical Foam TOPICAL PRN (17:27)
[2017-12-08] MEDS ORDERED: Sod Chloride 0.9% Inj 1,000 ML OTHER PRN ×2 (17:27)
[2017-12-08] MEDS ORDERED: Albumin Human 25% Inj 100 ML IV.SIG PRN (17:27)
[2017-12-08] MEDS ORDERED: Sod Chloride 0.9% Inj 1,000 ML IV.CONT PRN (17:27)
--- NOTE | 2017-12-08 17:54 | P.HPCC ---
History of Present Illness Service: [facility] [place] Primary Care Physician: UNKNOWN Chief Complaint: Unresponsiveness History of Present Illness: 62yF brought in by EMS for unresponsiveness. As per EMS, the patient has a history of CVA approximately 6 months ago but was reportedly functionally independent afterword. She was last seen by her family 1-2 weeks ago. Today, she was found unresponsive on the floor in her home by exterminators. She required intubation on arrival to the ED for airway protection, there are no friends or family members present, and therefore I am unable to elicit any further details of HPI, ROS, etc. Review of previous chart: Past Medical History PMH: HTN Past Surgical History PAST SURGICAL HISTORY: None Allergies: Coded Allergies: No Known Allergies (Verified Allergy, Mild, 08/15/07) Family History PAST FAMILY HISTORY: Reviewed. No h/o DM or CAD Social History PAST SOCIAL HISTORY: Occasional alcohol. Negative for tobacco or drugs. Her discharge diagnoses in 06/2017 were as follows: (1) Right pontine cerebrovascular accident ICD Code: I63.50 - Cerebral infarction due to unspecified occlusion or stenosis of unspecified cerebral artery Status: Acute (2) Fall ICD Code: W19.XXXA - Unspecified fall, initial encounter Status: Acute (3) Dizziness ICD Code: R42 - Dizziness and giddiness Status: Resolved (4) Nasal bone fracture ICD Code: S02.2XXA - Fracture of nasal bones, initial encounter for closed fracture Status: Acute (5) Renal insufficiency ICD Code: N28.9 - Disorder of kidney and ureter, unspecified Status: Resolved (6) UTI (urinary tract infection) ICD Code: N39.0 - Urinary tract infection, site not specified - Diagnosis (1) Rhabdomyolysis (2) Encephalopathy (3) Acute respiratory failure with hypoxia (4) NSTEMI (non-ST elevated myocardial infarction) (5) Acute renal failure (6) Acute hyperkalemia (7) Acute hypernatremia (8) Dehydration (9) Hypoalbuminemia due to protein-calorie malnutrition (10) Lactic acidosis (11) Metabolic acidosis Inpatient Certification: I certify that the inpatient services were ordered in accordance with Medicare regulations governing the order. This includes certification that hospital inpatient services are reasonable and necessary and in the case of services not specified as inpatient-only under 42 CFR 419.22(n), that they are appropriately provided as inpatient services in accordance to with the 2-midnight benchmark under 43 CFR 412.3(e) Estimated Total Length of Stay (Days): 7 Plans for Post Hospital Care: Not yet determined Review of Systems unobtainable due to endotracheal tube, unobtainable due to mental status PMFSH - History History Provided By: Soccer Coach / EMT - Medical History Medical History: Medical History (Last Reviewed 12/08/17 @ 17:56 by Viji Beth DO) Stroke Surgical history unknown Surgical history unknown - Social History I have reviewed the patient's Social History: Yes - Tobacco History Smoking Status: Unknown if ever smoked - Alcohol History How Often Do You Have a Drink Containing Alcohol: Unable to Obtain - Travel History Recent Travel in the [place] Within the Last 8 Weeks: No Recent Travel Out of the Country Within the Last 8 Weeks: No - Immunization History Tetanus Immunization: Unable to Assess Medications and Allergies Active Medications: Active Medications Acetaminophen (Tylenol) 650 mg PO UNSCH PRN PRN Reason: SEE LABEL COMMENTS Bisacodyl (Dulcolax Supp) 10 mg RECTAL DAILY PRN PRN Reason: SEVERE CONSITIPATION Chlorhexidine Gluconate (Peridex 0.12% Oral Kit) 15 ml OROPHARYNG BID@0800, 2000 SERGEY Chlorhexidine Gluconate (Chlorhexidine 2% Cloth) 3 pack TOPICAL DAILY@0400 SERGEY Stop: 12/14/17 03:59 Chlorhexidine Gluconate (Chlorhexidine 2% Cloth) 3 pack TOPICAL DAILY@0400 PRN PRN Reason: Extra cloth needed Stop: 12/14/17 03:59 Clonidine HCl (Catapres) 0.1 mg PO UNSCH PRN PRN Reason: SEE LABEL COMMENTS Diphenhydramine HCl (Benadryl) 25 mg PO UNSCH PRN PRN Reason: SEE LABEL COMMENTS Famotidine (Pepcid) 10 mg PO BID SERGEY Famotidine (Pepcid Pf Inj) 10 mg IV.PUSH Q12HR PRN PRN Reason: SEE LABEL COMMENTS Gelatin (Gelfoam 12 Mm/7 Mm Topical) 1 foam TOPICAL PRN PRN PRN Reason: help stop bleeding from site Gentamicin Sulfate (Gentamicin Inj) 20 mg OTHER WITH DIALYSIS PRN PRN Reason: Dwell Gentamycin Lock Heparin Sodium (Porcine) (Heparin Inj) 5,000 units SQ Q8H SERGEY Heparin Sodium (Porcine) (Heparin Inj) 8,000 units OTHER WITH DIALYSIS PRN PRN Reason: for machine prime Heparin Sodium (Porcine) (Heparin Inj) 1,000 units OTHER WITH DIALYSIS PRN PRN Reason: Dwell Heparin to Fill Catheter Sodium Chloride (Ns Inj) 1,000 mls @ 0 mls/hr IV.SIG BOLUS SERGEY Last Admin: 12/08/17 16:44 Dose: 1,000 mls/hr Propofol (Diprivan 1000 Mg/100 Ml Inj) 1,000 mg in 100 mls @ 3.15 mls/hr IV.CONT TITRATE PRN; Protocol PRN Reason: Per Protocol Sodium Chloride (Ns Inj) 1,000 mls @ 0 mls/hr IV.SIG BOLUS SERGEY Last Admin: 12/08/17 16:46 Dose: 1,000 mls/hr Sodium Chloride (Ns Inj) 1,000 mls @ 0 mls/hr IV.SIG BOLUS SERGEY Albumin Human (Flexbumin 25% Inj) 100 mls @ 60 mls/hr IV.SIG WITH DIALYSIS PRN PRN Reason: hypotension / volume replace Sodium Chloride (Ns Inj) 1,000 mls @ 0 mls/hr OTHER .Q0M PRN PRN Reason: for prime and rinse back Sodium Chloride (Ns Inj) 1,000 mls @ 200 mls/hr OTHER .Q5H PRN PRN Reason: for dialyzer flush PRN Sodium Chloride (Ns Inj) 1,000 mls @ 0 mls/hr IV.CONT .Q0M PRN PRN Reason: hypotension / volume replace Lactulose (Lactulose Liq) 30 ml PO DAILY PRN PRN Reason: SEVERE CONSITIPATION Mannitol (Mannitol Inj) 12.5 gm IV.PUSH UNSCH PRN PRN Reason: hypotension / volume replace Miscellaneous Medication () 1 each OROPHARYNG 0000,0400,1200,1600 SERGEY Nitroglycerin (Nitrostat Sl) 0.4 mg SL Q5M PRN PRN Reason: CHEST PAIN Ondansetron HCl (Zofran Inj) 4 mg IV.PUSH UNSCH PRN PRN Reason: NAUSEA OR VOMITING Senna/Docusate Sodium (Judit-Colace) 1 tab PO BID SERGEY Sennosides (Senokot) 17.2 mg PO Q12H PRN PRN Reason: Moderate Constipation Sodium Chloride (Ns Flush) 2 ml IV.FLUSH PRN PRN PRN Reason: FLUSH AFTER USING IV ACCESS Sodium Chloride (Ns Flush) 2 ml IV.FLUSH BID SERGEY Sodium Chloride (Ns Flush) 5 ml IV.FLUSH PRN PRN PRN Reason: flush each lumen during HD Allergies Allergy/AdvReac Type Severity Reaction Status Date / Time No Known Allergies Allergy Verified 12/08/17 13:24 Home Medications Medication Instructions Recorded Confirmed Type Unable to Obtain Home Meds 12/08/17 12/08/17 History Results - Labs CBC & Chem 7: 12/08/17 12:59 12/08/17 14:52 Labs: Short CBC 12/08/17 Range/Units 12:59 WBC 18.0 H (4.0-11.0) th/mm3 Hgb 15.5 H (11.6-15.3) gm/dL Hct 47.8 H (35.0-46.0) % Plt Count 237 (150-450) th/mm3 BMP 12/08/17 14:52 Sodium 178 H* Potassium 5.9 H Chloride 140 H Carbon Dioxide 17.1 L BUN 262 H Creatinine 9.35 H Calcium 8.3 L Cardiac Enzymes 12/08/17 Range/Units 14:52 Total Creatine Kinase 3063 H (26-192) U/L CK-MB (CK-2) 26.8 H (0.5-3.6) ng/mL Troponin I 0.08 H (0.02-0.05) ng/mL Liver Function 12/08/17 Range/Units 14:52 Total Bilirubin 0.9 (0.2-1.0) mg/dL AST 78 H (15-37) U/L ALT 39 (10-53) U/L Alkaline Phosphatase 119 H (45-117) U/L Albumin 2.5 L (3.4-5.0) g/dL Urine 12/08/17 Range/Units 13:20 Urine Color [place]ole (Yellw/Straw) Urine Clarity Hazy H (Clear) Urine pH 5.0 (5.0-8.5) Ur Specific [place] 1.019 (1.002-1.035) Urine Protein Negative (Neg-Trace) mg/dL Urine Glucose (UA) Negative (Negative) mg/dL - Imaging Impressions Chest X-Ray 12/08/17 12:51 CONCLUSION: No acute cardiopulmonary disease. Head CT 12/08/17 12:51 CONCLUSION: 1. 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 2. Almost complete opacification right maxillary sinus. . - ECG Attestation: I personally reviewed and interpreted this ECG as follows: Interpretation: Rate: 95 BPM Rhythm: Sinus [place]: Normal Intervals: Widened QRS, QTc 418 ms Q waves: V2 T waves: Hyperacute in V2-V3, inverted in aVL ST segments: No significant elevations or depressions Impression: Changes concerning for hyperkalemia, new when compared to EKG from . Exam Vital signs: Vital Signs 12/08/17 12:52 12/08/17 13:06 12/08/17 13:10 Temperature 96.2 F L Pulse Rate 90 Respiratory Rate 18 16 Blood Pressure 132/87 Pulse Oximetry 99 100 99 12/08/17 13:16 12/08/17 13:17 12/08/17 13:19 Temperature Pulse Rate 90 Respiratory Rate 16 Blood Pressure Pulse Oximetry 99 12/08/17 13:21 12/08/17 13:29 12/08/17 14:02 Temperature Pulse Rate 92 H Respiratory Rate 16 16 16 Blood Pressure 124/76 Pulse Oximetry 98 12/08/17 15:05 12/08/17 15:35 12/08/17 15:44 Temperature Pulse Rate 90 96 H Respiratory Rate 16 16 16 Blood Pressure 113/81 128/89 Pulse Oximetry 100 99 97 Intake & Output 12/07/17 12/08/17 12/08/17 18:59 06:59 18:59 Intake Total 1100 / 1100 Balance 1100 / 1100 Weight 105 kg Intake: IV 1100 / 1100 Zosyn 4.5 GM Premix 4.5 gm In 100 / 100 100 ml @ 200 mls/hr IV.SIG ONCE ONE Rx#:[id number] NS Inj 1,000 ML @ Wide Open IV. 1000 / 1000 SIG BOLUS SERGEY Rx#:[id number] Narrative: GEN: Ill-appearing, unkempt, intubated, unresponsive HEENT: No apparent head or facial trauma, pupils 2 mm and sluggishly reactive NECK: Trachea midline CARDIO: Tachy, regular PULM: Coarse mechanical breath sounds bilaterally ABD/GI: Soft, non-distended, absent bowel sounds EXT/MS: No peripheral edema SKIN: Unstageable large areas of pressure wounds to right hip, groin, buttock, flank, arm; poor skin turgor; no uremic castaneda noted NEURO: GCS 3T, no cough or gag reflex, weak corneal reflexes PSYCH: Unable to assess Caprini VTE Risk Assessment Caprini VTE Risk Assessment: Moderate/High Risk (score >= 2) Caprini Risk Assessment Model: Point Value = 1 Point Value = 2 Point Value = 3 Point Value = 5 Age 41-60 Minor surgery BMI > 25 kg/m2 Swollen legs Varicose veins or History of unexplained or recurrent spontaneous Oral contraceptives or hormone replacement Sepsis (< 1 month) Serious lung disease, including pneumonia (< 1 month) Abnormal pulmonary function Acute myocardial infarction Congestive heart failure (< 1 month) History of inflammatory bowel disease Medical patient at bed rest Age 61-74 Arthroscopic surgery Major open surgery (> 45 min) Laparoscopic surgery (> 45 min) Malignancy Confined to bed (> 72 hours) Immobilizing plaster cast Central venous access Age >= 75 History of VTE Family history of VTE Factor V Leiden Prothrombin [id number] Lupus anticoagulant Anticardiolipin antibodies Elevated serum homocysteine Heparin-induced thrombocytopenia Other congenital or acquired thrombophilia Stroke (< 1 month) Elective arthroplasty Hip, pelvis, or leg fracture Acute spinal cord injury (< 1 month) Prophylaxis Regimen: Total Risk Factor Score Risk Level Prophylaxis Regimen 0-1 Low Early ambulation 2 Moderate Order ONE of the following: *Sequential Compression Device (SCD) *Heparin 5000 units SQ BID 3-4 Higher Order ONE of the following medications: *Heparin 5000 units SQ TID *Enoxaparin/Lovenox 40 mg SQ daily (WT < 150 kg, CrCl > 30 mL/min) *Enoxaparin/Lovenox 30 mg SQ daily (WT < 150 kg, CrCl > 10-29 mL/min) *Enoxaparin/Lovenox 30 mg SQ BID (WT < 150 kg, CrCl > 30 mL/min) AND/OR *Sequential Compression Device (SCD) 5 or more Highest Order ONE of the following medications: *Heparin 5000 units SQ TID (Preferred with Epidurals) *Enoxaparin/Lovenox 40 mg SQ daily (WT < 150 kg, CrCl > 30 mL/min) *Enoxaparin/Lovenox 30 mg SQ daily (WT < 150 kg, CrCl > 10-29 mL/min) *Enoxaparin/Lovenox 30 mg SQ BID (WT < 150 kg, CrCl > 30 mL/min) AND *Sequential Compression Device (SCD) Assessment and Plan - Problem List (1) Rhabdomyolysis Code(s): M62.82 - Rhabdomyolysis Status: Acute (2) Encephalopathy Code(s): G93.40 - Encephalopathy, unspecified Status: Acute (3) Acute respiratory failure with hypoxia Code(s): J96.01 - Acute respiratory failure with hypoxia Status: Acute (4) NSTEMI (non-ST elevated myocardial infarction) Code(s): I21.4 - Non-ST elevation (NSTEMI) myocardial infarction Status: Acute (5) Acute renal failure Code(s): N17.9 - Acute kidney failure, unspecified Status: Acute (6) Acute hyperkalemia Code(s): E87.5 - Hyperkalemia Status: Acute (7) Acute hypernatremia Code(s): E87.0 - Hyperosmolality and hypernatremia Status: Acute (8) Dehydration Code(s): E86.0 - Dehydration Status: Acute (9) Hypoalbuminemia due to protein-calorie malnutrition Code(s): E46 - Unspecified protein-calorie malnutrition Status: Acute (10) Lactic acidosis Code(s): E87.2 - Acidosis Status: Acute (11) Metabolic acidosis Code(s): E87.2 - Acidosis Status: Acute - Assessment and Plan Plan: 62yF found unresponsive in her home, unknown mechanism or down time, now with acute renal failure secondary to rhabdomyolysis, multiple electrolyte derangements, profound dehydration, encephalopathy, elevated troponin (likely due to type II NSTEMI) NEURO: * CTH negative * Tox studies negative * Encephalopathy most likely related to uremia and profound metabolic derangements, continue to monitor off sedation until neuro exam improves * May need further studies such as MRI but is far too unstable at present CARDIO: * Elevated trop (0.08), trend * Likely demand ischemia/ type II NSTEMI, present on admission * Unclear if the onset of symptoms was due to syncopal episode, obtain 2D echo * Cardiac monitoring * Aggressively treated for hyperkalemia (see below) PULM: * Intubated on arrival for acute hypoxic respiratory failure secondary to mental status * ABG 7.26/20/481/13/-12 consistent with primary metabolic acidosis with some respiratory compensation; repeat ABG after hemodialysis * CXR shows ETT in appropriate positioning * Not appropriate for any weaning trials until stabilized F/E/N, RENAL: * Hyperkalemia (5.9) with concerning EKG changes * Treated aggressively with calcium, bicarb, nebs, insulin, glucose * Patient did not receive kayexelate as nuclear engineering technician was already at bedside by that point * I spoke with Dr. Foley (nephrology), who agreed with stat HD. Patient is currently being dialyzed at bedside. * Severe hypernatremia- will recheck lytes q6h for now as she is likely to rapidly correct with IV hydration and HD; unfortunately, HD takes precedent at this point as hyperkalemia is the bigger life threat * Rhabdomyolysis- s/p aggressive IV hydration (received 1L NS by EMS prior to arrival, additional 3L in ED) * IVF at 125 cc/hr * Requires Caba for strict Is and Os in the setting of acute renal failure ID: * Patient given a dose of zosyn in the ED, castro-cultures sent and pending * Lactic acid minimally elevated * Afebrile/ temp 97F on arrival most likely due to prolonged downtime * CXR negative, UA shows some bacteria; will continue zosyn and give a 1 time dose of vanco with HD-- if MRSA swab is negative, will stop vanco ENDO: * q6h Accuchecks * TSH normal MSK: * Significant unstageable pressure ulcers from prolonged downtime, present on admission * Wound care PROPHY: * Stress ulcer prophylaxis * SCDs, heparin OVERALL: This patient is critically ill with multi-system organ dysfunction. She requires ICU level of care. Counseling/ Coordination of Care: Total critical care time spent is 115 minutes. This includes examining the patient, gathering history from someone other than the patient (i.e. chart review), discussing the patient's care with other providers, managing the patient's blood pressure and ventilator settings, ordering and interpreting radiologic studies, ordering and interpreting laboratory values, treatment of life-threatening electrolyte abnormalities, arranging emergent hemodialysis, re- evaluation at frequent intervals, and documentation. Amount of time is separate from teaching, counseling the patient and/or family, and exclusive of procedures. Code Status: Full Discussed Condition With: Dr. Cm (ED), Dr. Og (nephro) Procedures - Central Line Placement Right IJ Time out performed: Yes Patient placed on monitor/pulse ox: Yes MD prep: mask, gown, gloves Central line prep: Chlorhexidine scrub, sterile drapes applied Ultrasound used for placement: Yes Central line lumen inserted: double (Vasc-cath for initiation of hemodialysis) Post procedure: sutured in place, good blood return, all ports aspirated, flushed, capped, sterile dressing applied Post procedure x-ray: tip of catheter in good position, no pneumothorax seen Patient tolerated procedure: well, no complications (5) Acute renal failure Qualifiers: Acute renal failure type: unspecified Qualified Code(s): N17.9 - Acute kidney failure, unspecified
--- NOTE | 2017-12-08 18:12 | XR ---
EXAM DATE: 12/08/2017 12:00 AM EDT AGE/SEX: 62 years / Female INDICATIONS: Vas cath placement. CLINICAL DATA: This is the patient's subsequent encounter. Patient reports that signs and symptoms h ave been present for 1 day and indicates a pain score of Nonresponsive. MEDICAL/SURGICAL HISTORY: Non-responsive. Non-responsive. COMPARISON: [facility], CHEST 1V SINGLE AP, 12/08/2017. . FINDINGS: The ET tube, NG tube and Vas-Cath are well placed. The Vas-Cath was placed from the right internal ju gular approach with the tip overlying the SVC. The heart size is normal. The lungs are clear. A pneum othorax is not seen. No effusion is seen. CONCLUSION: Good placement of a Vas-Cath. Electronically signed by: Jerardo Rogers MD 12/08/2017 6:10 PM EDT
--- NOTE | 2017-12-08 18:21 | P.CONNP ---
History of Present Illness Service: Nephrology Consult date: 12/08/17 Requesting Physician: Viji Beth Reason for Consult: Acute renal failure Primary Care Provider: UNKNOWN Chief Complaint: Unresponsiveness History of Present Illness: Patient is a 62-year-old white female who was last seen by family more than a week ago and after not hearing from her for several days, she was found passed out on the floor and EMS was called she was brought here with BUN of 262 creatinine of 9.35 and a sodium of 178 patient is unable to provide any history she was given 5 L of fluids in the emergency with small amount of urine, patient has acidosis and rhabdomyolysis. Patient was intubated in the emergency. Review of Systems unobtainable due to mental status PMFSH - History History Provided By: Scallop Cutter / EMT - Medical History Medical History: Medical History (Last Reviewed 12/08/17 @ 18:18 by Nora Foley MD) Stroke Surgical history unknown Surgical history unknown - Family History Family History: Family History (Last Updated 12/09/17 @ 10:05 by CHLOE Antunez) Mother Family history of psychiatric condition - Tobacco History Smoking Status: Unknown if ever smoked - Alcohol History How Often Do You Have a Drink Containing Alcohol: Unable to Obtain - Travel History Recent Travel in the [place] Within the Last 8 Weeks: No Recent Travel Out of the Country Within the Last 8 Weeks: No - Immunization History Tetanus Immunization: Unable to Assess Medications and Allergies Active Medications: Active Medications Acetaminophen (Tylenol) 650 mg PO UNSCH PRN PRN Reason: SEE LABEL COMMENTS Bisacodyl (Dulcolax Supp) 10 mg RECTAL DAILY PRN PRN Reason: SEVERE CONSITIPATION Chlorhexidine Gluconate (Peridex 0.12% Oral Kit) 15 ml OROPHARYNG BID@0800, 2000 [facility] Chlorhexidine Gluconate (Chlorhexidine 2% Cloth) 3 pack TOPICAL DAILY@0400 SERGEY Stop: 12/14/17 03:59 Chlorhexidine Gluconate (Chlorhexidine 2% Cloth) 3 pack TOPICAL DAILY@0400 PRN PRN Reason: Extra cloth needed Stop: 12/14/17 03:59 Clonidine HCl (Catapres) 0.1 mg PO UNSCH PRN PRN Reason: SEE LABEL COMMENTS Diphenhydramine HCl (Benadryl) 25 mg PO UNSCH PRN PRN Reason: SEE LABEL COMMENTS Famotidine (Pepcid) 10 mg PO BID SERGEY Famotidine (Pepcid Pf Inj) 10 mg IV.PUSH Q12HR PRN PRN Reason: SEE LABEL COMMENTS Gelatin (Gelfoam 12 Mm/7 Mm Topical) 1 foam TOPICAL PRN PRN PRN Reason: help stop bleeding from site Gentamicin Sulfate (Gentamicin Inj) 20 mg OTHER WITH DIALYSIS PRN PRN Reason: Dwell Gentamycin Lock Heparin Sodium (Porcine) (Heparin Inj) 5,000 units SQ Q8H SERGEY Heparin Sodium (Porcine) (Heparin Inj) 8,000 units OTHER WITH DIALYSIS PRN PRN Reason: for machine prime Heparin Sodium (Porcine) (Heparin Inj) 1,000 units OTHER WITH DIALYSIS PRN PRN Reason: Dwell Heparin to Fill Catheter Sodium Chloride (Ns Inj) 1,000 mls @ 0 mls/hr IV.SIG BOLUS SERGEY Last Admin: 12/08/17 16:44 Dose: 1,000 mls/hr Propofol (Diprivan 1000 Mg/100 Ml Inj) 1,000 mg in 100 mls @ 3.15 mls/hr IV.CONT TITRATE PRN; Protocol PRN Reason: Per Protocol Sodium Chloride (Ns Inj) 1,000 mls @ 0 mls/hr IV.SIG BOLUS SERGEY Last Admin: 12/08/17 16:46 Dose: 1,000 mls/hr Sodium Chloride (Ns Inj) 1,000 mls @ 0 mls/hr IV.SIG BOLUS SERGEY Albumin Human (Flexbumin 25% Inj) 100 mls @ 60 mls/hr IV.SIG WITH DIALYSIS PRN PRN Reason: hypotension / volume replace Sodium Chloride (Ns Inj) 1,000 mls @ 0 mls/hr OTHER .Q0M PRN PRN Reason: for prime and rinse back Sodium Chloride (Ns Inj) 1,000 mls @ 200 mls/hr OTHER .Q5H PRN PRN Reason: for dialyzer flush PRN Sodium Chloride (Ns Inj) 1,000 mls @ 0 mls/hr IV.CONT .Q0M PRN PRN Reason: hypotension / volume replace Lactulose (Lactulose Liq) 30 ml PO DAILY PRN PRN Reason: SEVERE CONSITIPATION Mannitol (Mannitol Inj) 12.5 gm IV.PUSH UNSCH PRN PRN Reason: hypotension / volume replace Miscellaneous Medication () 1 each OROPHARYNG 0000,0400,1200,1600 SERGEY Nitroglycerin (Nitrostat Sl) 0.4 mg SL Q5M PRN PRN Reason: CHEST PAIN Ondansetron HCl (Zofran Inj) 4 mg IV.PUSH UNSCH PRN PRN Reason: NAUSEA OR VOMITING Senna/Docusate Sodium (Judit-Colace) 1 tab PO BID SERGEY Sennosides (Senokot) 17.2 mg PO Q12H PRN PRN Reason: Moderate Constipation Sodium Chloride (Ns Flush) 2 ml IV.FLUSH PRN PRN PRN Reason: FLUSH AFTER USING IV ACCESS Sodium Chloride (Ns Flush) 2 ml IV.FLUSH BID SERGEY Sodium Chloride (Ns Flush) 5 ml IV.FLUSH PRN PRN PRN Reason: flush each lumen during HD Allergies Allergy/AdvReac Type Severity Reaction Status Date / Time No Known Allergies Allergy Verified 12/08/17 13:24 Home Medications Medication Instructions Recorded Confirmed Type Unable to Obtain Home Meds 12/08/17 12/08/17 History Exam Vital signs: Vital Signs 12/08/17 12:52 12/08/17 13:06 12/08/17 13:10 Temperature 96.2 F L Pulse Rate 90 Respiratory Rate 18 16 Blood Pressure 132/87 Pulse Oximetry 99 100 99 12/08/17 13:16 12/08/17 13:17 12/08/17 13:19 Temperature Pulse Rate 90 Respiratory Rate 16 Blood Pressure Pulse Oximetry 99 12/08/17 13:21 12/08/17 13:29 12/08/17 14:02 Temperature Pulse Rate 92 H Respiratory Rate 16 16 16 Blood Pressure 124/76 Pulse Oximetry 98 12/08/17 15:05 12/08/17 15:35 12/08/17 15:44 Temperature Pulse Rate 90 96 H Respiratory Rate 16 16 16 Blood Pressure 113/81 128/89 Pulse Oximetry 100 99 97 Intake & Output 12/07/17 12/08/17 12/08/17 18:59 06:59 18:59 Intake Total 1100 / 1100 Balance 1100 / 1100 Weight 105 kg Intake: IV 1100 / 1100 Zosyn 4.5 GM Premix 4.5 gm In 100 / 100 100 ml @ 200 mls/hr IV.SIG ONCE ONE Rx#:[id number] NS Inj 1,000 ML @ Wide Open IV. 1000 / 1000 SIG BOLUS SERGEY Rx#:[id number] Narrative: GENERAL: Sick appearing female unresponsive SKIN: Warm and dry. HEAD: Normocephalic. EYES: No scleral icterus. No injection or drainage. NECK: Supple, trachea midline. No JVD or lymphadenopathy. CARDIOVASCULAR: Regular rate and rhythm without murmurs, gallops, or rubs. RESPIRATORY: Breath sounds equal bilaterally. No accessory muscle use. GASTROINTESTINAL: Abdomen soft, non-tender, nondistended. EXTREMITIES: No edema NEUROLOGICAL: Obtunded Results - Lab Results 12/09/17 05:01 12/09/17 05:01 Most recent lab results ABG pH 7.26 (7.380-7.420) L* 12/08/17 13:28 ABG pCO2 30 mmHg (38-42) L 12/08/17 13:28 ABG pO2 481 mmHg (61-120) H 12/08/17 13:28 ABG HCO3 13 mmol/L (22-26) L* 12/08/17 13:28 Calcium 8.3 mg/dL (8.5-10.1) L 12/08/17 14:52 Assessment and Plan - Plan Hemodialysis will be initiated due to metabolic acidosis severe azotemia will monitor how she does continue to minimal fluid removal as she has severe dehydration Patient seen during hemodialysis initiation Hepatitis profile ordered Ultrasound of the kidney ordered Monitor intake and output Monitor CPK
[2017-12-08 18:30] LABS: Hematocrit 39.1 % (35.0-46.0); Hemoglobin 12.6 gm/dL (11.6-15.3); Mean Corpuscular HGB Conc 32.3 % (32.0-36.0); Mean Corpuscular Hemoglobin 29.2 pg (27.0-34.0); Mean Corpuscular Volume 90.5 fL (80.0-100.0); Mean Platelet Volume 10.9 fL (7.0-11.0); Platelet Count 179 th/mm3 (150-450); Red Blood Count 4.33 mil/mm3 (4.00-5.30); Red Cell Distribution Width 17.3 % (11.6-17.2); White Blood Count 13.5 th/mm3 (4.0-11.0)
[2017-12-08] MEDS ORDERED: Vancomycin Inj 1,000 MG in Sodium Chlor 0.9% Inj 250 ML IV.SIG ONE (18:30)
[2017-12-08 19:14] LABS: Troponin I 0.08 ng/mL (0.02-0.05)
[2017-12-08 19:23] LABS: Alanine Aminotransferase 33 U/L (10-53); Albumin 1.9 g/dL (3.4-5.0); Alkaline Phosphatase 95 U/L (45-117); Anion Gap 15 meq/L (5-15); Aspartate Aminotransferase 71 U/L (15-37); Blood Urea Nitrogen 238 mg/dL (7-18); Carbon Dioxide 17.8 meq/L (21.0-32.0); Chloride 139 meq/L (98-107); Creatine Kinase 2767 U/L (26-192); Glomerular Filtration Rate 5 mL/min (>89); Glucose,Random 291 mg/dL (74-106); Magnesium 3.4 mg/dL (1.5-2.5); Phosphorus 7.2 mg/dL (2.5-4.9); Potassium 4.5 meq/L (3.5-5.1); Total Protein 6.1 g/dL (6.4-8.2)
[2017-12-08] MEDS: Heparin - SQ 10,000 UNITS/ML Vial SQ SCH (19:25)
[2017-12-08 19:26] LABS: CKMB Percent 0.9 % (0.0-4.0); Creatine Kinase MB 23.7 ng/mL (0.5-3.6)
[2017-12-08] MEDS: Sod Chloride 0.9% Inj 1,000 ML IV.CONT SCH (19:30)
[2017-12-08 19:33] LABS: Sodium 172 meq/L (136-145)
--- NOTE | 2017-12-08 20:19 | ECG ---
Date Performed: 12/08/2017 Time Performed: 13:17:45 PTAGE: 62 years EKG: Sinus rhythm NORMAL ECG PREVIOUS TRACING : 07/22/2017 08.16 Compared to previous tracing, heart rate has increased. DOCTOR: Jayro Rodriguez Interpretating Date/Time 12/08/2017 20:17:43
[2017-12-08] MEDS: Senna/Docusate Sodium 8.6/50 MG Tablet PO SCH (20:30)
[2017-12-08] MEDS: Famotidine 20 MG Tablet PO SCH (20:31)
[2017-12-08] MEDS: Piperacil/Tazo 2.25 GM Premix 50 ML IV.SIG SCH (20:31)
[2017-12-08] MEDS: Chlorhexidine 0.12% Oral Kit 15 ML UDC OROPHARYNG SCH (20:32)
[2017-12-08] MEDS ORDERED: Famotidine PF Inj 20 MG/2 ML Vial IV.PUSH PRN (21:00)
[2017-12-08] MEDS ORDERED: Famotidine 20 MG Tablet PO SCH (21:00)
[2017-12-08] MEDS ORDERED: Sodium Chloride 0.45 % Inj 1,000 ML IV.SIG ONE (22:08)
--- NOTE | 2017-12-08 22:29 | US ---
EXAM DATE: 12/08/2017 12:00 AM EDT AGE/SEX: 62 years / Female INDICATIONS: Increased BUN and Creatinine. CLINICAL DATA: This is the patient's subsequent encounter. Patient reports that signs and symptoms h ave been present for 2 days and indicates a pain score of 0/10. MEDICAL/SURGICAL HISTORY: Hypertension. None. COMPARISON: [facility] – [place], [place] KIDNEY/RENAL/BLADDER, 07/20/2017. . MEASUREMENTS: Right Kidney:__10.4 x 4.4 x 4.6 cm Left Kidney:__8.3 x 4.6 x 5.1 cm FINDINGS: Right Kidney: Normal echotexture and cortical thickness. No mass or hydronephrosis. Left Kidney: Increased echotexture. The left kidney appears small in the right kidney with cortical t hinning No mass or hydronephrosis. Bladder: Caba catheter is present. Bladder decompressed. Other: None. CONCLUSION: 1. Decreased size of the left kidney with increased echogenicity and cortical thinning. 2. The right kidney appears grossly normal.. Electronically signed by: Jerardo Rogers MD 12/08/2017 10:28 PM EDT
[2017-12-08 22:30] LABS: ABG Base Excess -3.6 mmol/L (-2-2); ABG PCO2 25 mmHg (38-42); ABG PO2 194 mmHG (61-120)
[2017-12-08 23:00] LABS: Hepatitis A IgM Antibody Nonreactive (Nonreactive); Hepatitits B Surface Antigen Nonreactive (Nonreactive)
[2017-12-08] MEDS: Albumin Human 5% Inj 500 ML IV.SIG SCH (23:22)
[2017-12-09] MEDS: Oral Hygiene Kit OROPHARYNG SCH ×4 (01:15→18:49)
[2017-12-09] MEDS: Heparin - SQ 10,000 UNITS/ML Vial SQ SCH ×3 (01:15→18:49)
[2017-12-09 01:20] LABS: Calcium 6.7 mg/dL (8.5-10.1); Carbon Dioxide 19.7 meq/L (21.0-32.0); Potassium 4.1 meq/L (3.5-5.1)
[2017-12-09 01:59] LABS: Total Protein 6.3 g/dL (6.4-8.2)
[2017-12-09] MEDS: Sod Chloride 0.9% Inj 1,000 ML IV.CONT SCH ×3 (02:16→14:00)
[2017-12-09] MEDS: Piperacil/Tazo 2.25 GM Premix 50 ML IV.SIG SCH ×3 (03:49→20:24)
[2017-12-09] MEDS: Chlorhexidine Gluconate 2% 1 Pack (2 Cloths) TOPICAL SCH (03:50)
[2017-12-09] MEDS ORDERED: Chlorhexidine Gluconate 2% 1 Pack (2 Cloths) TOPICAL SCH (04:00)
[2017-12-09] MEDS ORDERED: Chlorhexidine Gluconate 2% 1 Pack (2 Cloths) TOPICAL PRN ×2 (04:00)
[2017-12-09] MEDS: Mupirocin 2% Nasal Oint Topical Syringe EACH NARE SCH ×2 (05:05→18:49)
[2017-12-09] MEDS: Albumin Human 5% Inj 500 ML IV.SIG SCH ×3 (05:05→18:49)
[2017-12-09 06:38] LABS: Baso % (Auto) 0.1 % (0.0-2.0); Eos % (Auto) 0.1 % (0.0-4.0); Hematocrit 33.5 % (35.0-46.0); Hemoglobin 11.2 gm/dL (11.6-15.3); Lymph # (Auto) 1.4 th/mm3 (1.0-4.8); Lymph % (Auto) 12.2 % (9.0-44.0); Mean Corpuscular HGB Conc 33.4 % (32.0-36.0); Mean Corpuscular Hemoglobin 29.2 pg (27.0-34.0); Mean Corpuscular Volume 87.6 fL (80.0-100.0); Mean Platelet Volume 10.6 fL (7.0-11.0); Mono # (Auto) 0.7 th/mm3 (0.0-0.9); Mono % (Auto) 6.3 % (0.0-8.0); Neut % (Auto) 81.3 % (16.0-70.0); Platelet Count 134 th/mm3 (150-450); Red Blood Count 3.83 mil/mm3 (4.00-5.30); Red Cell Distribution Width 15.8 % (11.6-17.2); White Blood Count 11.1 th/mm3 (4.0-11.0)
[2017-12-09 07:02] LABS: Calcium 6.6 mg/dL (8.5-10.1); Carbon Dioxide 23.3 meq/L (21.0-32.0); Magnesium 2.4 mg/dL (1.5-2.5); Phosphorus 4.5 mg/dL (2.5-4.9); Potassium 4.3 meq/L (3.5-5.1)
--- NOTE | 2017-12-09 07:10 | P.PNCC ---
Subjective Subjective Remarks/Hospital Course: 62yF brought in by EMS for unresponsiveness. As per EMS, the patient has a history of CVA approximately 6 months ago but was reportedly functionally independent afterword. She was last seen by her family 1-2 weeks ago. Today, she was found unresponsive on the floor in her home by exterminators. She required intubation on arrival to the ED for airway protection, there are no friends or family members present, and therefore I am unable to elicit any further details of HPI, ROS, etc. 12/09: Patient had RIJ vasc-cath placed and was initiated on emergent hemodialysis yesterday evening, tolerated well. No volume taken off given acute rhabdomyolysis and profound dehydration. Her potassium is much improved this morning, but her sodium has dropped precipitously in the setting of large- volume resuscitation and HD (178 to 155). The patient remained hemodynamically stable but unresponsive overnight. May consider repeat CTH this morning if mental status remains poor to evaluate for cerebral edema. Objective Vital Signs / I&O: Vital Signs 12/08/17 12:52 12/08/17 13:06 12/08/17 13:10 Temperature 96.2 F L Pulse Rate 90 Respiratory Rate 18 16 Blood Pressure 132/87 Pulse Oximetry 99 100 99 12/08/17 13:16 12/08/17 13:17 12/08/17 13:19 Temperature Pulse Rate 90 Respiratory Rate 16 Blood Pressure Pulse Oximetry 99 12/08/17 13:21 12/08/17 13:29 12/08/17 14:02 Temperature Pulse Rate 92 H Respiratory Rate 16 16 16 Blood Pressure 124/76 Pulse Oximetry 98 12/08/17 15:05 12/08/17 15:35 12/08/17 15:44 Temperature Pulse Rate 90 96 H Respiratory Rate 16 16 16 Blood Pressure 113/81 128/89 Pulse Oximetry 100 99 97 12/08/17 17:00 12/08/17 18:00 12/08/17 18:17 Temperature Pulse Rate 90 91 H Respiratory Rate 17 19 16 Blood Pressure 170/100 H 130/70 Pulse Oximetry 99 99 12/08/17 19:34 12/08/17 20:00 12/08/17 21:48 Temperature 97.7 F Pulse Rate 90 90 Respiratory Rate 19 17 Blood Pressure 94/55 L Pulse Oximetry 99 99 12/09/17 00:00 12/09/17 00:11 12/09/17 04:00 Temperature 98.1 F 97.5 F L Pulse Rate 65 67 Respiratory Rate 16 17 17 Blood Pressure 90/54 L 97/53 L Pulse Oximetry 100 100 100 12/09/17 04:10 Temperature Pulse Rate Respiratory Rate 16 Blood Pressure Pulse Oximetry 100 Intake & Output 12/08/17 12/08/17 12/09/17 06:59 18:59 06:59 Intake Total 3210 / 3210 1850 / 1850 Output Total 125 / 125 Balance 3210 / 3210 1725 / 1725 Weight 105 kg 83.1 kg Intake: IV 3210 / 3210 1850 / 1850 Alburx 5% Inj 500 ML @ 250 mls/ 500 / 500 hr IV.SIG Q6H [facility] Rx#:[id number] Calcium Gluconate Inj 1 GM In 110 / 110 D5W Inj 100 ML @ 660 mls/hr IV. SIG ONCE ONE Rx#:[id number] Zosyn 2.25 GM Premix 50 ML @ 100 / 100 100 mls/hr IV.SIG Q8H [facility] Rx#: [id number] Zosyn 4.5 GM Premix 4.5 gm In 100 / 100 100 ml @ 200 mls/hr IV.SIG ONCE ONE Rx#:[id number] NS Inj 1,000 ML @ Wide Open IV. 3000 / 3000 SIG BOLUS [facility] Rx#:[id number] 1/2 Normal Saline Inj 1,000 ML 1000 / 1000 @ Wide Open IV.SIG BOLUS ONE Rx #:[id number] Vancomycin Inj 1,000 MG In NS 250 / 250 Inj 250 ML @ 250 mls/hr IV.SIG WITH DIALYSIS ONE Rx#:[id number] Output: Urine Amount (Catheter) 125 / 125 Indwelling Temp Sensing 125 / 125 Catheter Other: Weight On Admission 105 kg Result Diagrams: 12/09/17 05:01 12/09/17 05:01 Objective Remarks: GEN: Ill-appearing, intubated, unresponsive HEENT: NCAT, pupils 2 mm and sluggishly reactive NECK: Trachea midline CARDIO: Tachy, regular PULM: Coarse mechanical breath sounds bilaterally ABD/GI: Soft, non-distended, no guarding EXT/MS: No peripheral edema SKIN: Unchanged large pressure wounds to right side (present on admission) NEURO: GCS 5T, (E1VTM3) grimaces to sternal rub, weak corneal reflexes PSYCH: Unable to assess Assessment and Plan - Problem List (1) Rhabdomyolysis Code(s): M62.82 - Rhabdomyolysis Status: Acute (2) Encephalopathy Code(s): G93.40 - Encephalopathy, unspecified Status: Acute (3) Acute respiratory failure with hypoxia Code(s): J96.01 - Acute respiratory failure with hypoxia Status: Acute (4) NSTEMI (non-ST elevated myocardial infarction) Code(s): I21.4 - Non-ST elevation (NSTEMI) myocardial infarction Status: Acute (5) Acute renal failure Code(s): N17.9 - Acute kidney failure, unspecified Status: Acute (6) Acute hyperkalemia Code(s): E87.5 - Hyperkalemia Status: Acute (7) Acute hypernatremia Code(s): E87.0 - Hyperosmolality and hypernatremia Status: Acute (8) Dehydration Code(s): E86.0 - Dehydration Status: Acute (9) Hypoalbuminemia due to protein-calorie malnutrition Code(s): E46 - Unspecified protein-calorie malnutrition Status: Acute (10) Lactic acidosis Code(s): E87.2 - Acidosis Status: Acute (11) Metabolic acidosis Code(s): E87.2 - Acidosis Status: Acute - Assessment and Plan Plan: 62yF found unresponsive in her home, unknown mechanism or down time, now with acute renal failure secondary to rhabdomyolysis, multiple electrolyte derangements, profound dehydration, encephalopathy, elevated troponin (likely due to type II NSTEMI) NEURO: * CTH negative * Tox studies negative * Encephalopathy most likely related to uremia and profound metabolic derangements, continue to monitor off sedation until neuro exam improves * May need further studies such as MRI but is far too unstable at present * Will also consider repeat CTH today or tomorrow to rule out cerebral edema given how quickly her sodium decreased CARDIO: * Elevated trop (0.08), stable, no longer trending * Likely demand ischemia/ type II NSTEMI, present on admission * Unclear if the onset of symptoms was due to syncopal episode, f/u 2D echo * Cardiac monitoring PULM: * Intubated on arrival for acute hypoxic respiratory failure secondary to mental status * ABG after HD 7.5/25/194/19/-3.6, decrease rate from 16 to 14 and repeat at 10 AM * Not appropriate for any weaning trials until stabilized/ neuro status improves F/E/N, RENAL: * Hyperkalemia on admission, now 5.9--> 4.1 * Received emergent HD overnight * Further HD schedule as per nephrology * Severe hypernatremia- briskly correcting in the setting of large volume resuscitation and HD (expected). Will attempt to keep sodium within between 150- 160 today and correct more slowly * Rhabdomyolysis- s/p aggressive IV hydration, 3K--> 2600 * Decrease IVF to 75 cc/hr * Requires Caba for strict Is and Os in the setting of acute renal failure * Patient anuric overnight ID: * Patient given a dose of zosyn in the ED, castro-cultures sent and pending * Lactic acid minimally elevated * Afebrile/ temp 97F on arrival most likely due to prolonged downtime * CXR negative, UA shows some bacteria; will continue zosyn and given a 1 time dose of vanco after HD yesterday. Her MRSA swab is positive, will wait for results of cultures before de-escalating ENDO: * q6h Accuchecks * TSH normal MSK: * Significant unstageable pressure ulcers from prolonged downtime, present on admission * Wound care consult PROPHY: * Stress ulcer prophylaxis * SCDs, heparin OVERALL: This patient is critically ill with multi-system organ dysfunction. She requires ICU level of care. Appreciate palliative care and case management assistance in locating the patient's family and discussing goals of care. Counseling/ Coordination of Care: Total critical care time spent is 82 minutes. This includes examining the patient, gathering history from someone other than the patient (i.e. chart review), discussing the patient's care with other providers, managing the patient's blood pressure and ventilator settings, ordering and interpreting radiologic studies, ordering and interpreting laboratory values, treatment of life-threatening electrolyte abnormalities, re-evaluation at frequent intervals , and documentation. Amount of time is separate from teaching, counseling the patient and/or family, and exclusive of procedures. To help prompt me to consider important information that might be impacting today's encounter and assessment, information from prior notes written by myself or my colleagues may have been "brought forward" into today's note. My signature on this note, however, is an attestation that I personally performed the exam, history, and/or decision-making noted today, and, unless otherwise indicated, the interactions with patient, family, and staff as well as the review of records all occurred today. I also attest that the listed assessment and stated plan reflect my best clinical judgment today based on the combination of historical information, prior notes, and today's exam/ interactions. Code Status: Full (5) Acute renal failure Qualifiers: Acute renal failure type: unspecified Qualified Code(s): N17.9 - Acute kidney failure, unspecified
[2017-12-09] MEDS ORDERED: Vancomycin Consult Pharmacy OTHER PRN (07:16)
[2017-12-09] MEDS ORDERED: Calcium Gluconate Inj 1 GM in Sodium Chlor 0.9% Inj 100 ML IV.SIG ONE (08:00)
[2017-12-09] MEDS: Chlorhexidine 0.12% Oral Kit 15 ML UDC OROPHARYNG SCH ×2 (09:03→20:24)
[2017-12-09 09:21] LABS: Lymphocytes 18 % (9-44); Metamyelocytes 1 % (0-1); Monocytes 4 % (0-8)
[2017-12-09 09:22] LABS: Platelet Morphology Normal (Normal)
[2017-12-09 09:23] LABS: RBC Morphology Normal (Normal)
--- NOTE | 2017-12-09 10:33 | P.CONPAL ---
Consult Service: Palliative Care Requesting Physician: Viji Beth Reason for Consult: a. To assist with evaluation and management of symptoms including: altered mental status, pain b. To assist medical decision maker(s) with: better understanding of current medical conditions; weighing benefits/burdens of medical treatment options; making medical treatment decisions. Primary Care Provider: UNKNOWN History of Present Illness History of Present Illness: Ms. Koehler is a 62-year-old female who presented to [facility] ED via EMS on for evaluation of altered mental status. Per EMS report, the patient had a stroke approximately 6 months ago. Patient was found unresponsive in her home when pest control came to her apartment. Patient's land lord activated EMS. Duration of downtime was unknown. Patient was intubated on arrival due to acute hypoxic respiratory failure secondary to altered mental status. Additional diagnostic data: * Vital signs: Pulse 90, respirations 18, blood pressure 132/87, oxygen saturation 99% on 100% FiO2 via mechanical ventilation, rectal temperature 96.2 * WBC 18.0, hemoglobin 15.5, hematocrit 47.8, platelets 237, neutrophils 88.2% * PT: 13.7, INR 1.4, APTT 29.4 * Sodium 178, potassium 5.9, chloride 140, carbon dioxide 17.6, glucose 149, calcium 8.3 * BUN: 262, creatinine 9.35, GFR 4 * Lactic acid: 2.4 * Total bilirubin: 0.9, AST 78, ALT 39, alkaline phosphatase 119 * Total creatine kinase: 3063 * CK-MB: 26.8 * Troponin: 0.08 * Total protein: 7.7, albumin 2.5 * Toxicology studies-negative * Chest x-ray showed no acute cardiopulmonary disease * CT head showed chronic ischemic small vessel vasculopathy and bilateral old infarcts. Almost complete opacification right maxillary sinus. * Normal EKG with sinus rhythm Patient was admitted to critical care services with acute renal failure secondary to rhabdomyolysis, multiple electrolyte abnormalities, profound dehydration, encephalopathy and elevated troponins. Survey Crew Chief spoke with Dr. Foley, nephrology. He agreed with initiation of statin hemodialysis. Ultrasound of the kidney showed decreased size of the left kidney with increased echogenicity and cortical thinning. The right kidney appeared grossly normal. Patient on strict I&O. Hepatitis profile ordered. Will monitor CPK. Patient remained hemodynamically overnight. She remains unresponsive off sedation; she does not withdraw to noxious stimuli. Palliative Care was consulted to assist with symptom management and to discuss with the family the benefits and burdens of her current illnesses and the options regarding future care. Spoke to the patient's daughter, Cheyenne Koehler, who lives in [place]. Patient's landlord had called her yesterday 12/08/2017 to notify her that the patient had been transported to [facility]. Update provided on the patient's medical condition. Cheyenne stated her mother has a very strong stephanie and had recently told her she was ready to "go to [facility]"whenever it was her time. She states that her mother would not want to be kept alive on artificial life support for an extended period of time. The process of cardiopulmonary resuscitation was discussed at length. Cheyenne states based on conversations with her mother, she does not think her mother would want to be resuscitated in the event of cardiopulmonary arrest. She requests that CODE STATUS be changed to ALTERNATE CODE. Function/Cognitive Trajectory: Patient's daughter, Cheyenne, states her mother has experienced a progressive decline. She has a history of frequent falls. This is her 2nd known hospitalization in the past 6 months. In Jun, 2017 the patient was admitted after a fall and was subsequently diagnosed with a CVA. She went to live with her daughter in [place] upon discharge but only stayed for 2 weeks before insisting on returning to her own home. Her mother had another fall shortly after returning to her apartment in [place]. Patient went to [place] again to live with her daughter and stayed for a couple of months. At that time she required assistance with all ADLs except feeding. Her functional status has slowly improved. Patient had return to her apartment and was living independently. Patient's daughter states she has been having increasing concerns that her mother should not be living alone due to her debilitation and underlying psychiatric disorder. Review of Systems unobtainable due to mental status PMFSH - History History Provided By: Nurse Transplant / EMT - Medical History Medical History: Medical History (Last Updated 12/09/17 @ 10:08 by CHLOE Antunez) History of fracture of nasal bone History of psychiatric disorder Hyperlipidemia Hypertension Right pontine CVA - Family History Family History: Family History (Last Updated 12/09/17 @ 10:05 by CHLOE Antunez) Mother Family history of psychiatric condition - Social History I have reviewed the patient's Social History: Yes - Tobacco History Smoking Status: Unknown if ever smoked - Alcohol History How Often Do You Have a Drink Containing Alcohol: Unable to Obtain - Travel History Recent Travel in the [place] Within the Last 8 Weeks: No Recent Travel Out of the Country Within the Last 8 Weeks: No - Immunization History Tetanus Immunization: Unable to Assess Medications and Allergies Active Medications: Active Medications Acetaminophen (Tylenol) 650 mg PO UNSCH PRN PRN Reason: SEE LABEL COMMENTS Bisacodyl (Dulcolax Supp) 10 mg RECTAL DAILY PRN PRN Reason: SEVERE CONSITIPATION Chlorhexidine Gluconate (Peridex 0.12% Oral Kit) 15 ml OROPHARYNG BID@0800, 2000 [facility] Last Admin: 12/09/17 09:03 Dose: 15 ml Chlorhexidine Gluconate (Chlorhexidine 2% Cloth) 3 pack TOPICAL DAILY@0400 [facility] Stop: 12/14/17 03:59 Last Admin: 12/09/17 03:50 Dose: Not Given Chlorhexidine Gluconate (Chlorhexidine 2% Cloth) 3 pack TOPICAL DAILY@0400 PRN PRN Reason: Extra cloth needed Stop: 12/14/17 03:59 Clonidine HCl (Catapres) 0.1 mg PO UNSCH PRN PRN Reason: SEE LABEL COMMENTS Diphenhydramine HCl (Benadryl) 25 mg PO UNSCH PRN PRN Reason: SEE LABEL COMMENTS Famotidine (Pepcid) 10 mg PO BID [facility] Last Admin: 12/08/17 20:31 Dose: 10 mg Famotidine (Pepcid Pf Inj) 10 mg IV.PUSH Q12HR PRN PRN Reason: SEE LABEL COMMENTS Gelatin (Gelfoam 12 Mm/7 Mm Topical) 1 foam TOPICAL PRN PRN PRN Reason: help stop bleeding from site Gentamicin Sulfate (Gentamicin Inj) 20 mg OTHER WITH DIALYSIS PRN PRN Reason: Dwell Gentamycin Lock Last Admin: 12/09/17 09:50 Dose: 20 mg Heparin Sodium (Porcine) (Heparin Inj) 5,000 units SQ Q8H [facility] Last Admin: 12/09/17 01:15 Dose: 5,000 units Heparin Sodium (Porcine) (Heparin Inj) 8,000 units OTHER WITH DIALYSIS PRN PRN Reason: for machine prime Heparin Sodium (Porcine) (Heparin Inj) 1,000 units OTHER WITH DIALYSIS PRN PRN Reason: Dwell Heparin to Fill Catheter Last Admin: 12/09/17 09:49 Dose: 1,000 units Sodium Chloride (Ns Inj) 1,000 mls @ 0 mls/hr IV.SIG BOLUS SERGEY Last Infusion: 12/08/17 17:45 Dose: Infused Propofol (Diprivan 1000 Mg/100 Ml Inj) 1,000 mg in 100 mls @ 3.15 mls/hr IV.CONT TITRATE PRN; Protocol PRN Reason: Per Protocol Sodium Chloride (Ns Inj) 1,000 mls @ 0 mls/hr IV.SIG BOLUS SERGEY Last Infusion: 12/08/17 17:50 Dose: Infused Sodium Chloride (Ns Inj) 1,000 mls @ 0 mls/hr IV.SIG BOLUS SERGEY Albumin Human (Flexbumin 25% Inj) 100 mls @ 60 mls/hr IV.SIG WITH DIALYSIS PRN PRN Reason: hypotension / volume replace Sodium Chloride (Ns Inj) 1,000 mls @ 0 mls/hr OTHER .Q0M PRN PRN Reason: for prime and rinse back Sodium Chloride (Ns Inj) 1,000 mls @ 200 mls/hr OTHER .Q5H PRN PRN Reason: for dialyzer flush PRN Sodium Chloride (Ns Inj) 1,000 mls @ 0 mls/hr IV.CONT .Q0M PRN PRN Reason: hypotension / volume replace Sodium Chloride (Ns Inj) 1,000 mls @ 125 mls/hr IV.CONT .Q8H SERGEY Last Infusion: 12/09/17 05:05 Dose: 0 mls/hr Piperacillin/Tazobactam/Dextrose (Zosyn 2.25 Gm Premix) 50 mls @ 100 mls/hr IV.SIG Q8H SERGE[facility] Last Infusion: 12/09/17 04:19 Dose: Infused Albumin Human (Alburx 5% Inj) 500 mls @ 250 mls/hr IV.SIG Q6H [facility] Stop: 12/09/17 18:59 Last Infusion: 12/09/17 07:23 Dose: Infused Sodium Chloride (1/2 Normal Saline Inj) 1,000 mls @ 0 mls/hr IV.SIG BOLUS ONE Last Infusion: 12/08/17 23:51 Dose: Infused Lactulose (Lactulose Liq) 30 ml PO DAILY PRN PRN Reason: SEVERE CONSITIPATION Mannitol (Mannitol Inj) 12.5 gm IV.PUSH UNSCH PRN PRN Reason: hypotension / volume replace Miscellaneous Medication () 1 each OROPHARYNG 0000,0400,1200,1600 [facility] Last Admin: 12/09/17 03:49 Dose: 1 each Mupirocin (Bactroban 2% Nasal Oint) 1 applicatio EACH NARE Q12H [facility] Stop: 12/13/17 18:01 Last Admin: 12/09/17 05:05 Dose: 1 applicatio Nitroglycerin (Nitrostat Sl) 0.4 mg SL Q5M PRN PRN Reason: CHEST PAIN Ondansetron HCl (Zofran Inj) 4 mg IV.PUSH UNSCH PRN PRN Reason: NAUSEA OR VOMITING Pharmacy Profile Note (Vancomycin Consult Pharmacy) 1 each OTHER UNSCH PRN PRN Reason: Pharmacy to dose Senna/Docusate Sodium (Judit-Colace) 1 tab PO BID [facility] Last Admin: 12/08/17 20:30 Dose: 1 tab Sennosides (Senokot) 17.2 mg PO Q12H PRN PRN Reason: Moderate Constipation Sodium Chloride (Ns Flush) 2 ml IV.FLUSH PRN PRN PRN Reason: FLUSH AFTER USING IV ACCESS Sodium Chloride (Ns Flush) 2 ml IV.FLUSH BID [facility] Last Admin: 12/09/17 09:03 Dose: 2 ml Sodium Chloride (Ns Flush) 5 ml IV.FLUSH PRN PRN PRN Reason: flush each lumen during HD Allergies Allergy/AdvReac Type Severity Reaction Status Date / Time No Known Allergies Allergy Verified 12/08/17 13:24 Home Medications Medication Instructions Recorded Confirmed Type Unable to Obtain Home Meds 12/08/17 12/08/17 History Advance Directives Documented care wishes: No documented care wishes were completed. Today's verbally stated goals: Patient is unable to participate in establishing medical treatment goals given her level of responsiveness. Family/friends goals: Patient's daughter states her mother would not want to be kept alive on artificial life support for any extended length of time. She states her mother had told her she was ready to go to [facility] whenever it was her time. Based on conversation she has had with her mother previously, she asked that the patient' s CODE STATUS be changed to ALTERNATE CODE Ethical and Legal Issues: No known ethical or legal issues at this time. Physical Exam Vital Signs: Vital Signs - 24 hr 12/08/17 12:52 12/08/17 13:06 12/08/17 13:10 Temperature 96.2 F L Pulse Rate 90 Respiratory Rate 18 16 Blood Pressure 132/87 Pulse Oximetry 99 100 99 12/08/17 13:16 12/08/17 13:17 12/08/17 13:19 Temperature Pulse Rate 90 Respiratory Rate 16 Blood Pressure Pulse Oximetry 99 12/08/17 13:21 12/08/17 13:29 12/08/17 14:02 Temperature Pulse Rate 92 H Respiratory Rate 16 16 16 Blood Pressure 124/76 Pulse Oximetry 98 12/08/17 15:05 12/08/17 15:35 12/08/17 15:44 Temperature Pulse Rate 90 96 H Respiratory Rate 16 16 16 Blood Pressure 113/81 128/89 Pulse Oximetry 100 99 97 12/08/17 17:00 12/08/17 18:00 12/08/17 18:17 Temperature Pulse Rate 90 91 H Respiratory Rate 17 19 16 Blood Pressure 170/100 H 130/70 Pulse Oximetry 99 99 12/08/17 19:34 12/08/17 20:00 12/08/17 21:48 Temperature 97.7 F Pulse Rate 90 90 Respiratory Rate 19 17 Blood Pressure 94/55 L Pulse Oximetry 99 99 12/09/17 00:00 12/09/17 00:11 12/09/17 04:00 Temperature 98.1 F 97.5 F L Pulse Rate 65 67 Respiratory Rate 16 17 17 Blood Pressure 90/54 L 97/53 L Pulse Oximetry 100 100 100 12/09/17 04:10 12/09/17 09:18 Temperature Pulse Rate Respiratory Rate 16 17 Blood Pressure Pulse Oximetry 100 100 I&O: Intake & Output 12/07/17 12/08/17 12/09/17 12/10/17 06:59 06:59 06:59 06:59 Intake Total 5060 / 5060 500 / 500 Output Total 125 / 125 Balance 4935 / 4935 500 / 500 Weight 83.1 kg Physical Exam: CONSTITUTIONAL/GENERAL: This is a elderly, female patient currently intubated on mechanical ventilation. TUBES/LINES/DRAINS: PIV x3, right IJ Vas-Cath, OGT, Caba catheter, ETT SKIN: Ecchymoses on upper extremities. Skin temperature appropriate. Not diaphoretic. HEAD: Atraumatic. Normocephalic. EYES: Pupils equal and round and reactive. Extraocular motions intact. No scleral icterus. No injection or drainage. Fundi not examined. ENT: Hearing grossly normal. Nose without bleeding or purulent drainage. Throat without visible erythema, exudates, masses, or lesions. NECK: Trachea midline. Supple, nontender. No palpable thyroid enlargement or nodularity. CARDIOVASCULAR: Tachycardic. No JVD. Peripheral pulses symmetric. RESPIRATORY/CHEST: Intubated on mechanical ventilation. Coarse breath sounds. GASTROINTESTINAL: Abdomen soft, non-tender, nondistended. Bowel sounds present. GENITOURINARY: Without palpable bladder distension. Caba catheter in place. MUSCULOSKELETAL: No peripheral edema. No obvious deformities. LYMPHATICS: No palpable cervical or supraclavicular adenopathy. NEUROLOGICAL: Unresponsive off sedation. Does not withdraw to noxious stimuli. PSYCHIATRIC: Unable to assess Diagnostic Tests Laboratory: Laboratory Results - last 72 hr 12/08/17 12/08/17 12/08/17 12:59 12:59 12:59 WBC 18.0 H RBC 5.29 Hgb 15.5 H Hct 47.8 H MCV 90.3 MCH 29.2 MCHC 32.3 RDW 17.2 Plt Count 237 MPV 11.0 Prelim Diff (Auto) Neut % (Auto) 88.2 H Lymph % (Auto) 6.0 L [place] % (Auto) 5.7 Eos % (Auto) 0.0 Baso % (Auto) 0.1 Neut # (Auto) 15.9 H Lymph # (Auto) 1.1 [place] # (Auto) 1.0 H Eos # (Auto) 0.0 Baso # (Auto) 0.0 WBC Differential . Seg Neuts % (Manual) Band Neuts % (Manual) Lymphocytes % (Manual) Monocytes % (Manual) Metamyelocytes % (Man) Abs Neuts (Manual) Differential Comment Auto diff final Platelet Estimate Platelet Morphology RBC Morphology PT 13.7 H INR 1.4 APTT 29.4 Puncture Site Patient Temperature O2 Saturation ABG pH ABG pCO2 ABG pO2 ABG HCO3 ABG O2 Content ABG Base Excess ABG Methemoglobin Hemoglobin Carboxyhemoglobin O2 Delivery Device Vent Setting Inspired O2 Critical Value Sodium Potassium Chloride Carbon Dioxide Anion Gap BUN Creatinine Estimated GFR POC Glucose Random Glucose Lactic Acid 2.4 H Calcium Prot Corrected Calcium Phosphorus Magnesium Total Bilirubin AST ALT Alkaline Phosphatase Ammonia Total Creatine Kinase CK-MB (CK-2) CK-MB (CK-2) % Troponin I Total Protein Albumin TSH Urine Color Urine Clarity Urine pH Ur Specific [place] Urine Protein Urine Glucose (UA) Urine Ketones Urine Occult Blood Urine Nitrate Urine Bilirubin Urine Urobilinogen Ur Leukocyte Esterase Urine RBC Urine WBC Ur Squamous Epith Cells Ur Transition Epith Cell Amorphous Sediment Urine Bacteria Hyaline Casts Urine Mucus Micro UA Comment Ur Microscopic Review Urine Culture Comments Nasal Screen MRSA (PCR) Urine Opiates Screen Ur Barbiturates Screen Ur Amphetamines Screen U Benzodiazepines Scrn Urine Cocaine Screen U Cannabinoids Screen Serum Alcohol Hepatitis A IgM Ab Hep Bs Antigen Hep B Core IgM Ab Hep C IgG Ab 12/08/17 12/08/17 12/08/17 12:59 13:20 13:20 WBC RBC Hgb Hct MCV MCH MCHC RDW Plt Count MPV Prelim Diff (Auto) Neut % (Auto) Lymph % (Auto) [place] % (Auto) Eos % (Auto) Baso % (Auto) Neut # (Auto) Lymph # (Auto) [place] # (Auto) Eos # (Auto) Baso # (Auto) WBC Differential Seg Neuts % (Manual) Band Neuts % (Manual) Lymphocytes % (Manual) Monocytes % (Manual) Metamyelocytes % (Man) Abs Neuts (Manual) Differential Comment Platelet Estimate Platelet Morphology RBC Morphology PT INR APTT Puncture Site Patient Temperature O2 Saturation ABG pH ABG pCO2 ABG pO2 ABG HCO3 ABG O2 Content ABG Base Excess ABG Methemoglobin Hemoglobin Carboxyhemoglobin O2 Delivery Device Vent Setting Inspired O2 Critical Value Sodium Potassium Chloride Carbon Dioxide Anion Gap BUN Creatinine Estimated GFR POC Glucose Random Glucose Lactic Acid Calcium Prot Corrected Calcium Phosphorus Magnesium Total Bilirubin AST ALT Alkaline Phosphatase Ammonia 25 Total Creatine Kinase CK-MB (CK-2) CK-MB (CK-2) % Troponin I Total Protein Albumin TSH Urine Color Nichole Urine Clarity Hazy H Urine pH 5.0 Ur Specific [place] 1.019 Urine Protein Negative Urine Glucose (UA) Negative Urine Ketones Negative Urine Occult Blood Negative Urine Nitrate Negative Urine Bilirubin Negative Urine Urobilinogen 4 or greater Ur Leukocyte Esterase Negative Urine RBC 12 H Urine WBC 1 Ur Squamous Epith Cells 1 Ur Transition Epith Cell <1 Amorphous Sediment Occasional H Urine Bacteria Rare H Hyaline Casts 4 Urine Mucus Few H Micro UA Comment Cath-culture ind Ur Microscopic Review Not Reportable Urine Culture Comments Cath-cult indicated Nasal Screen MRSA (PCR) Urine Opiates Screen Neg Ur Barbiturates Screen Neg Ur Amphetamines Screen Neg U Benzodiazepines Scrn Neg Urine Cocaine Screen Neg U Cannabinoids Screen Neg Serum Alcohol Hepatitis A IgM Ab Hep Bs Antigen Hep B Core IgM Ab Hep C IgG Ab 12/08/17 12/08/17 12/08/17 13:28 14:52 17:50 WBC RBC Hgb Hct MCV MCH MCHC RDW Plt Count MPV Prelim Diff (Auto) Neut % (Auto) Lymph % (Auto) [place] % (Auto) Eos % (Auto) Baso % (Auto) Neut # (Auto) Lymph # (Auto) [place] # (Auto) Eos # (Auto) Baso # (Auto) WBC Differential Seg Neuts % (Manual) Band Neuts % (Manual) Lymphocytes % (Manual) Monocytes % (Manual) Metamyelocytes % (Man) Abs Neuts (Manual) Differential Comment Platelet Estimate Platelet Morphology RBC Morphology PT INR APTT Puncture Site Right brachial Patient Temperature 98.6 O2 Saturation 99 ABG pH 7.26 L* ABG pCO2 30 L ABG pO2 481 H ABG HCO3 13 L* ABG O2 Content 23.5 H ABG Base Excess -12.4 L ABG Methemoglobin 0.8 Hemoglobin 16.2 H Carboxyhemoglobin 0.2 O2 Delivery Device Vent Vent Setting [id number] Inspired O2 100 Critical Value Yes Sodium 178 H* Potassium 5.9 H Chloride 140 H Carbon Dioxide 17.1 L Anion Gap 21 H BUN 262 H Creatinine 9.35 H Estimated GFR 4 L POC Glucose Random Glucose 149 H Lactic Acid Calcium 8.3 L Prot Corrected Calcium Phosphorus Magnesium Total Bilirubin 0.9 AST 78 H ALT 39 Alkaline Phosphatase 119 H Ammonia Total Creatine Kinase 3063 H CK-MB (CK-2) 26.8 H CK-MB (CK-2) % 0.9 Troponin I 0.08 H Total Protein 7.7 Albumin 2.5 L TSH 1.540 Urine Color Urine Clarity Urine pH Ur Specific [place] Urine Protein Urine Glucose (UA) Urine Ketones Urine Occult Blood Urine Nitrate Urine Bilirubin Urine Urobilinogen Ur Leukocyte Esterase Urine RBC Urine WBC Ur Squamous Epith Cells Ur Transition Epith Cell Amorphous Sediment Urine Bacteria Hyaline Casts Urine Mucus Micro UA Comment Ur Microscopic Review Urine Culture Comments Nasal Screen MRSA (PCR) Mrsa detected Urine Opiates Screen Ur Barbiturates Screen Ur Amphetamines Screen U Benzodiazepines Scrn Urine Cocaine Screen U Cannabinoids Screen Serum Alcohol Less than 3 Hepatitis A IgM Ab Hep Bs Antigen Hep B Core IgM Ab Hep C IgG Ab 12/08/17 12/08/17 12/08/17 18:10 18:10 18:10 WBC 13.5 H RBC 4.33 Hgb 12.6 D Hct 39.1 MCV 90.5 MCH 29.2 MCHC 32.3 RDW 17.3 H Plt Count 179 MPV 10.9 Prelim Diff (Auto) Neut % (Auto) Lymph % (Auto) [place] % (Auto) Eos % (Auto) Baso % (Auto) Neut # (Auto) Lymph # (Auto) [place] # (Auto) Eos # (Auto) Baso # (Auto) WBC Differential Seg Neuts % (Manual) Band Neuts % (Manual) Lymphocytes % (Manual) Monocytes % (Manual) Metamyelocytes % (Man) Abs Neuts (Manual) Differential Comment Platelet Estimate Platelet Morphology RBC Morphology PT INR APTT Puncture Site Patient Temperature O2 Saturation ABG pH ABG pCO2 ABG pO2 ABG HCO3 ABG O2 Content ABG Base Excess ABG Methemoglobin Hemoglobin Carboxyhemoglobin O2 Delivery Device Vent Setting Inspired O2 Critical Value Sodium 172 H* Potassium 4.5 D Chloride 139 H Carbon Dioxide 17.8 L Anion Gap 15 BUN 238 H Creatinine 8.58 H Estimated GFR 5 L POC Glucose Random Glucose 291 H D Lactic Acid 2.8 H Calcium 9.0 Prot Corrected Calcium Phosphorus 7.2 H Magnesium 3.4 H Total Bilirubin 0.7 AST 71 H ALT 33 Alkaline Phosphatase 95 Ammonia Total Creatine Kinase 2767 H CK-MB (CK-2) CK-MB (CK-2) % Troponin I Total Protein 6.1 L D Albumin 1.9 L D TSH Urine Color Urine Clarity Urine pH Ur Specific [place] Urine Protein Urine Glucose (UA) Urine Ketones Urine Occult Blood Urine Nitrate Urine Bilirubin Urine Urobilinogen Ur Leukocyte Esterase Urine RBC Urine WBC Ur Squamous Epith Cells Ur Transition Epith Cell Amorphous Sediment Urine Bacteria Hyaline Casts Urine Mucus Micro UA Comment Ur Microscopic Review Urine Culture Comments Nasal Screen MRSA (PCR) Urine Opiates Screen Ur Barbiturates Screen Ur Amphetamines Screen U Benzodiazepines Scrn Urine Cocaine Screen U Cannabinoids Screen Serum Alcohol Hepatitis A IgM Ab Hep Bs Antigen Hep B Core IgM Ab Hep C IgG Ab 12/08/17 12/08/17 12/08/17 18:10 18:10 18:10 WBC RBC Hgb Hct MCV MCH MCHC RDW Plt Count MPV Prelim Diff (Auto) Neut % (Auto) Lymph % (Auto) [place] % (Auto) Eos % (Auto) Baso % (Auto) Neut # (Auto) Lymph # (Auto) [place] # (Auto) Eos # (Auto) Baso # (Auto) WBC Differential Seg Neuts % (Manual) Band Neuts % (Manual) Lymphocytes % (Manual) Monocytes % (Manual) Metamyelocytes % (Man) Abs Neuts (Manual) Differential Comment Platelet Estimate Platelet Morphology RBC Morphology PT INR APTT Puncture Site Patient Temperature O2 Saturation ABG pH ABG pCO2 ABG pO2 ABG HCO3 ABG O2 Content ABG Base Excess ABG Methemoglobin Hemoglobin Carboxyhemoglobin O2 Delivery Device Vent Setting Inspired O2 Critical Value Sodium Potassium Chloride Carbon Dioxide Anion Gap BUN Creatinine Estimated GFR POC Glucose Random Glucose Lactic Acid Calcium Prot Corrected Calcium Phosphorus Magnesium Total Bilirubin AST ALT Alkaline Phosphatase Ammonia Total Creatine Kinase 2604 H CK-MB (CK-2) 23.7 H CK-MB (CK-2) % 0.9 Troponin I Cancelled 0.08 H Total Protein Albumin TSH Urine Color Urine Clarity Urine pH Ur Specific [place] Urine Protein Urine Glucose (UA) Urine Ketones Urine Occult Blood Urine Nitrate Urine Bilirubin Urine Urobilinogen Ur Leukocyte Esterase Urine RBC Urine WBC Ur Squamous Epith Cells Ur Transition Epith Cell Amorphous Sediment Urine Bacteria Hyaline Casts Urine Mucus Micro UA Comment Ur Microscopic Review Urine Culture Comments Nasal Screen MRSA (PCR) Urine Opiates Screen Ur Barbiturates Screen Ur Amphetamines Screen U Benzodiazepines Scrn Urine Cocaine Screen U Cannabinoids Screen Serum Alcohol Hepatitis A IgM Ab Nonreactive Hep Bs Antigen Nonreactive Hep B Core IgM Ab Nonreactive Hep C IgG Ab Nonreactive 12/08/17 12/09/17 12/09/17 21:15 00:26 00:40 WBC RBC Hgb Hct MCV MCH MCHC RDW Plt Count MPV Prelim Diff (Auto) Neut % (Auto) Lymph % (Auto) [place] % (Auto) Eos % (Auto) Baso % (Auto) Neut # (Auto) Lymph # (Auto) [place] # (Auto) Eos # (Auto) Baso # (Auto) WBC Differential Seg Neuts % (Manual) Band Neuts % (Manual) Lymphocytes % (Manual) Monocytes % (Manual) Metamyelocytes % (Man) Abs Neuts (Manual) Differential Comment Platelet Estimate Platelet Morphology RBC Morphology PT INR APTT Puncture Site Left brachial Patient Temperature 98.6 O2 Saturation 97 ABG pH 7.50 H ABG pCO2 25 L ABG pO2 194 H ABG HCO3 19 L ABG O2 Content 20.2 H ABG Base Excess -3.6 L ABG Methemoglobin 1.6 Hemoglobin 14.5 Carboxyhemoglobin 0.4 O2 Delivery Device Ventilator Vent Setting Prvc/ac Inspired O2 40 Critical Value No Sodium 155 H D Potassium 4.1 Chloride 119 H D Carbon Dioxide 19.7 L Anion Gap 16 H BUN 129 H Creatinine 5.74 H Estimated GFR 7 L POC Glucose 106 Random Glucose 114 H D Lactic Acid Calcium 6.7 L* D Prot Corrected Calcium 7.1 L* Phosphorus Magnesium Total Bilirubin AST ALT Alkaline Phosphatase Ammonia Total Creatine Kinase CK-MB (CK-2) CK-MB (CK-2) % Troponin I Total Protein 6.3 L Albumin TSH Urine Color Urine Clarity Urine pH Ur Specific [place] Urine Protein Urine Glucose (UA) Urine Ketones Urine Occult Blood Urine Nitrate Urine Bilirubin Urine Urobilinogen Ur Leukocyte Esterase Urine RBC Urine WBC Ur Squamous Epith Cells Ur Transition Epith Cell Amorphous Sediment Urine Bacteria Hyaline Casts Urine Mucus Micro UA Comment Ur Microscopic Review Urine Culture Comments Nasal Screen MRSA (PCR) Urine Opiates Screen Ur Barbiturates Screen Ur Amphetamines Screen U Benzodiazepines Scrn Urine Cocaine Screen U Cannabinoids Screen Serum Alcohol Hepatitis A IgM Ab Hep Bs Antigen Hep B Core IgM Ab Hep C IgG Ab 12/09/17 12/09/17 12/09/17 05:01 05:01 06:30 WBC 11.1 H RBC 3.83 L Hgb 11.2 L Hct 33.5 L MCV 87.6 MCH 29.2 MCHC 33.4 RDW 15.8 Plt Count 134 L MPV 10.6 Prelim Diff (Auto) Slide review pending Neut % (Auto) 81.3 H Lymph %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
--- NOTE | 2017-12-09 10:49 | P.PNNP ---
Subjective Interval history: Patient intubated Physical Exam Vital signs: Vital Signs 12/08/17 12:52 12/08/17 13:06 12/08/17 13:10 Temperature 96.2 F L Pulse Rate 90 Respiratory Rate 18 16 Blood Pressure 132/87 Pulse Oximetry 99 100 99 12/08/17 13:16 12/08/17 13:17 12/08/17 13:19 Temperature Pulse Rate 90 Respiratory Rate 16 Blood Pressure Pulse Oximetry 99 12/08/17 13:21 12/08/17 13:29 12/08/17 14:02 Temperature Pulse Rate 92 H Respiratory Rate 16 16 16 Blood Pressure 124/76 Pulse Oximetry 98 12/08/17 15:05 12/08/17 15:35 12/08/17 15:44 Temperature Pulse Rate 90 96 H Respiratory Rate 16 16 16 Blood Pressure 113/81 128/89 Pulse Oximetry 100 99 97 12/08/17 17:00 12/08/17 18:00 12/08/17 18:17 Temperature Pulse Rate 90 91 H Respiratory Rate 17 19 16 Blood Pressure 170/100 H 130/70 Pulse Oximetry 99 99 12/08/17 19:34 12/08/17 20:00 12/08/17 21:48 Temperature 97.7 F Pulse Rate 90 90 Respiratory Rate 19 17 Blood Pressure 94/55 L Pulse Oximetry 99 99 12/09/17 00:00 12/09/17 00:11 12/09/17 04:00 Temperature 98.1 F 97.5 F L Pulse Rate 65 67 Respiratory Rate 16 17 17 Blood Pressure 90/54 L 97/53 L Pulse Oximetry 100 100 100 12/09/17 04:10 12/09/17 09:18 Temperature Pulse Rate Respiratory Rate 16 17 Blood Pressure Pulse Oximetry 100 100 Intake & Output 12/08/17 12/09/17 12/09/17 18:59 06:59 18:59 Intake Total 3210 / 3210 1850 / 1850 500 / 500 Output Total 125 / 125 Balance 3210 / 3210 1725 / 1725 500 / 500 Weight 105 kg 83.1 kg Intake: IV 3210 / 3210 1850 / 1850 500 / 500 Alburx 5% Inj 500 ML @ 250 mls/ 500 / 500 500 / 500 hr IV.SIG Q6H ON LICENSE OF [facility] Rx#:[id number] Calcium Gluconate Inj 1 GM In 110 / 110 D5W Inj 100 ML @ 660 mls/hr IV. SIG ONCE ONE Rx#:[id number] Zosyn 2.25 GM Premix 50 ML @ 100 / 100 100 mls/hr IV.SIG Q8H SERGEY Rx#: [id number] Zosyn 4.5 GM Premix 4.5 gm In 100 / 100 100 ml @ 200 mls/hr IV.SIG ONCE ONE Rx#:[id number] NS Inj 1,000 ML @ Wide Open IV. 3000 / 3000 SIG BOLUS SERGEY Rx#:[id number] 1/2 Normal Saline Inj 1,000 ML 1000 / 1000 @ Wide Open IV.SIG BOLUS ONE Rx #:[id number] Vancomycin Inj 1,000 MG In NS 250 / 250 Inj 250 ML @ 250 mls/hr IV.SIG WITH DIALYSIS ONE Rx#:[id number] Output: Urine Amount (Catheter) 125 / 125 Indwelling Temp Sensing 125 / 125 Catheter Other: Date of Last Bowel Movement 12/09/17 # Bowel Movements 1 Weight On Admission 105 kg Narrative: GENERAL: Sick appearing female unresponsive SKIN: Warm and dry. HEAD: Normocephalic. EYES: No scleral icterus. No injection or drainage. NECK: Supple, trachea midline. No JVD or lymphadenopathy. CARDIOVASCULAR: Regular rate and rhythm without murmurs, gallops, or rubs. RESPIRATORY: Breath sounds equal bilaterally. No accessory muscle use. GASTROINTESTINAL: Abdomen soft, non-tender, nondistended. EXTREMITIES: No edema NEUROLOGICAL: Obtunded - Urinary Catheter Management Indwelling Temp Sensing Catheter Cath placed during this visit: yes Reason for continuing: Hourly intake/output Insertion date: 12/08/17 Insertion time: 13:17 Assessment and Plan - Plan Hemodialysis will be initiated due to metabolic acidosis severe azotemia will monitor how she does continue to minimal fluid removal as she has severe dehydration Patient seen during hemodialysis initiation Ultrafiltration of 1 L tolerating it well Monitor CPK
[2017-12-09 12:04] LABS: ABG Base Excess 2.3 mmol/L (-2-2); ABG PCO2 24 mmHg (38-42); ABG PO2 210 mmHG (61-120)
[2017-12-09] MEDS: Famotidine 20 MG Tablet PO SCH ×2 (14:04→20:24)
[2017-12-09] MEDS: Senna/Docusate Sodium 8.6/50 MG Tablet PO SCH ×2 (14:05→20:24)
[2017-12-09] MEDS ORDERED: Vancomycin Inj 1,000 MG in Sodium Chlor 0.9% Inj 250 ML IV.SIG ONE (15:00)
[2017-12-09 15:17] LABS: Hematocrit 32.2 % (35.0-46.0); Hemoglobin 10.7 gm/dL (11.6-15.3); Mean Corpuscular HGB Conc 33.2 % (32.0-36.0); Mean Corpuscular Hemoglobin 29.3 pg (27.0-34.0); Mean Corpuscular Volume 88.3 fL (80.0-100.0); Mean Platelet Volume 10.4 fL (7.0-11.0); Platelet Count 118 th/mm3 (150-450); Red Blood Count 3.65 mil/mm3 (4.00-5.30); Red Cell Distribution Width 15.5 % (11.6-17.2); White Blood Count 11.6 th/mm3 (4.0-11.0)
--- NOTE | 2017-12-09 15:39 | P.PNWCN ---
Wound Care Nurse Consult Description: wound consult ordered by for wound management. Communicated with: Rosenda LEZAMA, Recommendation: 1. Manually reposition patient every 2 hours for comfort and offloading. 2. Cleanse all wounds with normal saline pat dry. 3. Apply Remedy antifungal powder in thin even layer to pannus skin folds. 4. Skin prep Left lateral ankle BID or as needed 5. Apply Calazime cream to right lateral ankle stage 2 pressure injury BID Additional information: Patient was seen today by advertising writer and Rosenda LEZAMA for wound management. Patient currently is sedated and on vent support.Electronics Repair Technician was able to visualize bilateral lower extremities patient noted to have a DTI(deep tissue injury ) to R lateral ankle measuring 1cm x 1cm no open tissue visualized.Patient has stage 2 pressure injury to right lateral ankle measuring 2.3cm x2.0cm x0.2 wound base is moist pink non granular tissue wound edges are well defined.Mild maceration noted to periwound.Wound cleansed with normals saline skin prep applied to periwound and Calazime barrier cream applied to wound base.Healing abrasion noted to bilateral knees scabs forming.Patient has moisture associated skin breakdown in pannus skin fold , Erythema with diffuse denuded areas present scant serous exudate noted with faint odor. Pannus and groin skin folds cleansed with normal saline air dried Rosenda LEZAMA to apply thin even layer of antifungal powder when available to floor. Patient was unable to be fully repositioned to left side do to vent alarm and patient vitals with repositioning.Electronics Repair Technician was able to see hematoma possible DTI to Right scapula area with no open areas visualized.Apply Cavilon skin prep till further assessment. Wound/Pressure Injury - Wound Right Ankle Wound Staging: Stage II Wound Assessment: Admission Wound Type: Pressure Injury Is This a Chronic Wound: No Requested from Provider a Wound Care Consult: No (Rossy LEZAMA,[facility] seen 12/09) Length (cm): 2.3 Width (cm): 2.0 Depth (cm): 0.1 Wound Bed Appearance: Edematous, [place], Peeling Skin, [place] Surrounding Tissue Appearance: [place] Surrounding Tissue Temperature: Cool Drainage Description: Serous Drainage Amount: Scant Drainage Odor: No Odor Dressing Status: Open to Air Topical: Calazime Pannus Wound Assessment: Admission Wound Type: Maceration Is This a Chronic Wound: No Requested from Provider a Wound Care Consult: No Wound Bed Appearance: [place], Red Surrounding Tissue Appearance: We[place] Surrounding Tissue Temperature: Warm Drainage Description: Thin Drainage Amount: Scant Drainage Odor: Slight Odor Dressing Status: Open to Air Cleansing Solution: Saline Topical: Remedy antifungal powder Wound Dressing Change Date: 12/09/17
[2017-12-09 16:04] LABS: Calcium 7.6 mg/dL (8.5-10.1); Carbon Dioxide 24.3 meq/L (21.0-32.0); Magnesium 2.1 mg/dL (1.5-2.5); Potassium 3.5 meq/L (3.5-5.1)
--- NOTE | 2017-12-09 17:31 | ECHRPT ---
Indication: Syncope CONCLUSIONS The left ventricular systolic function is low normal with an estimated ejection fraction in the rang e of 50- 55%. No regional wall motion abnormalities. No significant valvular heart disease. Normal left ventricular size and wall thickness BP: / HR: Rhythm: MEASUREMENTS (Male / Female) Normal Values Technical Quality:Technically difficult study 2D ECHO LV Diastolic Diameter PLAX 4.2 cm 4.2 - 5.9 / 3.9 - 5.3 cm LV Systolic Diameter PLAX 3.0 cm IVS Diastolic Thickness 1.0 cm 0.6 - 1.0 / 0.6 - 0.9 cm LVPW Diastolic Thickness 1.0 cm 0.6 - 1.0 / 0.6 - 0.9 cm LV Relative Wall Thickness 0.5 RV Internal Dim ED PLAX 2.5 cm LVOT Diameter 1.9 cm Aortic Root Diameter 2.8 cm LA Systolic Diameter LX 3.3 cm 3.0 - 4.0 / 2.7 - 3.8 cm DOPPLER AV Peak Velocity 254.0 cm/s AV Peak Gradient 25.8 mmHg AV Mean Gradient 14.0 mmHg AV Velocity Time Integral 39.9 cm LVOT Peak Velocity 182.0 cm/s LVOT Peak Gradient 13.2 mmHg LVOT Velocity Time Integral 31.4 cm AV Area Cont Eq vti 2.2 cm AV Area Cont Eq pk 2.0 cm Mitral E Point Velocity 93.3 cm/s Mitral A Point Velocity 120.0 cm/s Mitral E to A Ratio 0.8 LV E' Lateral Velocity 5.8 cm/s Mitral E to LV E' Lateral Ratio 16.2 LV E' Septal Velocity 7.7 cm/s Mitral E to LV E' Septal Ratio 12.1 TR Peak Velocity 307.0 cm/s TR Peak Gradient 37.7 mmHg Right Atrial Pressure 10.0 mmHg Pulmonary Artery Systolic Pressu 47.7 mmHg Right Ventricular Systolic Press 47.7 mmHg PV Peak Velocity 179.0 cm/s PV Peak Gradient 12.8 mmHg FINDINGS LEFT VENTRICLE Normal left ventricular size. Wall thickness is normal. The left ventricular systolic function is low normal with an estimated ejection fraction in the rang e of 50- 55%. RIGHT VENTRICLE Normal right ventricular size and systolic function. LEFT ATRIUM The left atrial size is normal. RIGHT ATRIUM The right atrial size is normal. ATRIAL SEPTUM Normal atrial septal thickness without atrial level shunting by limited color doppler interrogation. AORTA The aortic root and proximal ascending aorta are normal in size on limited imaging. MITRAL VALVE Structurally normal mitral valve. No mitral valve stenosis or regurgitation. AORTIC VALVE Trileaflet aortic valve. There is aortic sclerosis. Mean gradient of 14mmHg. TRICUSPID VALVE There is trace tricuspid valve regurgitation. Unable to detect adequate TR signal to estimate the RSVP PULMONARY VALVE No pulmonary valve regurgitation or stenosis. VESSELS The inferior vena cava is normal in size. PERICARDIUM No pericardial effusion. Edgar Spear MD (Electronically Signed) Final Date:09 December 2017 17:30
[2017-12-10] MEDS: Oral Hygiene Kit OROPHARYNG SCH ×4 (00:49→16:14)
[2017-12-10] MEDS: Heparin - SQ 10,000 UNITS/ML Vial SQ SCH ×3 (02:10→17:00)
[2017-12-10] MEDS: Sod Chloride 0.9% Inj 1,000 ML IV.CONT SCH ×4 (02:11→23:35)
[2017-12-10] MEDS: Piperacil/Tazo 2.25 GM Premix 50 ML IV.SIG SCH ×3 (04:18→20:40)
[2017-12-10] MEDS: Chlorhexidine Gluconate 2% 1 Pack (2 Cloths) TOPICAL SCH (04:18)
[2017-12-10 08:17] LABS: Baso % (Auto) 0.1 % (0.0-2.0); Eos % (Auto) 0.3 % (0.0-4.0); Hematocrit 27.5 % (35.0-46.0); Hemoglobin 9.2 gm/dL (11.6-15.3); Lymph # (Auto) 1.7 th/mm3 (1.0-4.8); Lymph % (Auto) 21.8 % (9.0-44.0); Mean Corpuscular HGB Conc 33.5 % (32.0-36.0); Mean Corpuscular Hemoglobin 29.2 pg (27.0-34.0); Mean Corpuscular Volume 87.2 fL (80.0-100.0); Mean Platelet Volume 10.4 fL (7.0-11.0); Mono # (Auto) 0.3 th/mm3 (0.0-0.9); Mono % (Auto) 3.5 % (0.0-8.0); Neut # (Auto) 5.8 th/mm3 (1.8-7.7); Neut % (Auto) 74.3 % (16.0-70.0); Platelet Count 98 th/mm3 (150-450); Red Blood Count 3.15 mil/mm3 (4.00-5.30); Red Cell Distribution Width 15.2 % (11.6-17.2); White Blood Count 7.8 th/mm3 (4.0-11.0)
[2017-12-10 08:54] LABS: Albumin 2.8 g/dL (3.4-5.0); Calcium 6.8 mg/dL (8.5-10.1); Carbon Dioxide 23.9 meq/L (21.0-32.0); Magnesium 2.1 mg/dL (1.5-2.5); Potassium 3.9 meq/L (3.5-5.1); Total Protein 5.8 g/dL (6.4-8.2)
[2017-12-10 09:14] LABS: CKMB Percent 0.5 % (0.0-4.0); Creatine Kinase MB 9.6 ng/mL (0.5-3.6)
[2017-12-10 09:26] LABS: Eosinophils 1 % (0-4); Lymphocytes 22 % (9-44); Monocytes 1 % (0-8); Tallied Nucleated RBC 1 (0-0)
[2017-12-10] MEDS: Famotidine 20 MG Tablet PO SCH ×2 (09:39→21:07)
[2017-12-10] MEDS: Senna/Docusate Sodium 8.6/50 MG Tablet PO SCH ×2 (09:39→21:07)
[2017-12-10] MEDS: Chlorhexidine 0.12% Oral Kit 15 ML UDC OROPHARYNG SCH ×2 (09:41→21:07)
[2017-12-10] MEDS: Mupirocin 2% Nasal Oint Topical Syringe EACH NARE SCH ×2 (09:41→17:00)
[2017-12-10] MEDS ORDERED: Sod Chloride 0.9% Inj 1,000 ML IV.SIG ONE (10:46)
--- NOTE | 2017-12-10 11:09 | P.PNCC ---
Subjective Subjective Remarks/Hospital Course: 62yF brought in by EMS for unresponsiveness. As per EMS, the patient has a history of CVA approximately 6 months ago but was reportedly functionally independent afterword. She was last seen by her family 1-2 weeks ago. Today, she was found unresponsive on the floor in her home by exterminators. She required intubation on arrival to the ED for airway protection, there are no friends or family members present, and therefore I am unable to elicit any further details of HPI, ROS, etc. 12/09: Patient had RIJ vasc-cath placed and was initiated on emergent hemodialysis yesterday evening, tolerated well. No volume taken off given acute rhabdomyolysis and profound dehydration. Her potassium is much improved this morning, but her sodium has dropped precipitously in the setting of large- volume resuscitation and HD (178 to 155). The patient remained hemodynamically stable but unresponsive overnight. May consider repeat CTH if mental status remains poor to evaluate for cerebral edema. 12/10: Had additional HD session yesterday, remains comatose with no cough/ gag / corneal reflexes. Repeat CTH ordered. Objective Vital Signs / I&O: Vital Signs 12/09/17 11:15 12/09/17 11:24 12/09/17 11:30 Temperature 98.6 F 98.4 F Pulse Rate 60 57 L Respiratory Rate 15 16 14 Blood Pressure 126/58 L 127/58 L Pulse Oximetry 97 98 97 12/09/17 11:45 12/09/17 12:00 12/09/17 12:15 Temperature 98.4 F 98.4 F 98.2 F Pulse Rate 57 L 57 L 61 Respiratory Rate 15 14 15 Blood Pressure 133/63 154/65 H 155/69 H Pulse Oximetry 98 95 98 12/09/17 12:30 12/09/17 12:45 12/09/17 13:00 Temperature 98.2 F 98.1 F 98.1 F Pulse Rate 59 L 63 90 Respiratory Rate 15 14 14 Blood Pressure 167/72 H 154/70 H 142/67 H Pulse Oximetry 98 98 98 12/09/17 13:15 12/09/17 13:30 12/09/17 13:45 Temperature 98.1 F 98.1 F 98.1 F Pulse Rate 93 H 93 H 96 H Respiratory Rate 13 14 15 Blood Pressure 116/60 122/61 119/55 L Pulse Oximetry 98 98 99 12/09/17 14:00 12/09/17 14:15 12/09/17 14:30 Temperature 98.1 F 98.1 F 97.9 F Pulse Rate 97 H 93 H 84 Respiratory Rate 14 14 14 Blood Pressure 113/57 L 110/58 L 109/57 L Pulse Oximetry 99 98 98 12/09/17 14:45 12/09/17 15:00 12/09/17 15:15 Temperature 97.7 F 97.5 F L 97.3 F L Pulse Rate 79 75 74 Respiratory Rate 14 14 14 Blood Pressure 110/55 L 106/57 L 129/60 Pulse Oximetry 99 99 97 12/09/17 15:28 12/09/17 15:30 12/09/17 15:45 Temperature 97.2 F L 97.2 F L Pulse Rate 70 68 Respiratory Rate 14 14 14 Blood Pressure 115/55 L 113/59 L Pulse Oximetry 100 98 99 12/09/17 16:00 12/09/17 16:15 12/09/17 16:30 Temperature 97.0 F L 97.0 F L 96.8 F L Pulse Rate 66 66 65 Respiratory Rate 14 14 14 Blood Pressure 111/56 L 113/59 L 120/57 L Pulse Oximetry 99 99 99 12/09/17 16:45 12/09/17 17:00 12/09/17 17:15 Temperature 96.8 F L 96.6 F L 96.6 F L Pulse Rate 63 63 62 Respiratory Rate 14 14 14 Blood Pressure 120/55 L 128/62 137/70 Pulse Oximetry 100 100 99 12/09/17 17:30 12/09/17 17:45 12/09/17 18:00 Temperature 96.4 F L 96.4 F L 96.3 F L Pulse Rate 61 61 60 Respiratory Rate 14 14 14 Blood Pressure 130/68 128/64 138/68 Pulse Oximetry 100 99 100 12/09/17 18:15 12/09/17 18:30 12/09/17 18:45 Temperature 96.3 F L 96.1 F L 96.1 F L Pulse Rate 59 L 62 62 Respiratory Rate 14 14 14 Blood Pressure 142/70 H 153/77 H 147/72 H Pulse Oximetry 100 100 100 12/09/17 19:00 12/09/17 19:15 12/09/17 19:19 Temperature 95.9 F L 95.9 F L Pulse Rate 60 58 L Respiratory Rate 14 14 14 Blood Pressure 138/66 123/57 L Pulse Oximetry 99 99 100 12/09/17 19:30 12/09/17 19:45 12/09/17 20:00 Temperature 95.9 F L 95.9 F L 95.5 F L Pulse Rate 57 L 56 L 60 Respiratory Rate 14 14 14 Blood Pressure 118/57 L 117/60 119/62 Pulse Oximetry 100 100 100 12/09/17 20:15 12/09/17 20:30 12/09/17 20:45 Temperature 95.4 F L 95.4 F L 95.4 F L Pulse Rate 59 L 57 L 55 L Respiratory Rate 14 14 14 Blood Pressure 155/75 H 136/69 136/72 Pulse Oximetry 97 100 100 12/09/17 21:00 12/09/17 21:14 12/09/17 21:15 Temperature 95.4 F L 95.4 F L 95.4 F L Pulse Rate 55 L 55 L 55 L Respiratory Rate 14 14 14 Blood Pressure 140/75 143/77 H Pulse Oximetry 100 100 100 12/09/17 21:30 12/09/17 21:51 12/09/17 22:00 Temperature 95.4 F L 95.4 F L 95.0 F L Pulse Rate 56 L 62 60 Respiratory Rate 19 14 14 Blood Pressure 216/98 H 180/85 H Pulse Oximetry 97 100 100 12/09/17 23:00 12/09/17 23:29 12/10/17 00:00 Temperature 94.6 F L 95.0 F L 95.7 F L Pulse Rate 59 L 62 66 Respiratory Rate 14 15 14 Blood Pressure 197/95 H Pulse Oximetry 100 100 100 12/10/17 00:10 12/10/17 01:00 12/10/17 02:00 Temperature 96.8 F L 97.9 F Pulse Rate 67 71 Respiratory Rate 14 14 14 Blood Pressure Pulse Oximetry 100 100 100 12/10/17 03:00 12/10/17 03:50 12/10/17 04:00 Temperature 99.0 F 99.9 F H Pulse Rate 75 78 Respiratory Rate 14 14 14 Blood Pressure Pulse Oximetry 100 100 100 12/10/17 06:00 12/10/17 07:57 12/10/17 08:00 Temperature 101.7 F H Pulse Rate 72 69 Respiratory Rate 15 14 Blood Pressure 106/55 L Pulse Oximetry 100 99 Intake & Output 12/09/17 12/10/17 12/10/17 18:59 06:59 18:59 Intake Total 1160 / 1160 1850 / 1850 1000 / 1000 Output Total 1050 / 1050 100 / 100 Balance 110 / 110 1750 / 1750 1000 / 1000 Weight 83.915 kg Intake: IV 1160 / 1160 1850 / 1850 1000 / 1000 NS Inj 1,000 ML @ 125 mls/hr IV 1000 / 1000 1000 / 1000 .CONT .Q8H SERGEY Rx#:[id number] Alburx 5% Inj 500 ML @ 250 mls/ 1000 / 1000 500 / 500 hr IV.SIG Q6H SERGEY Rx#:[id number] Calcium Gluconate Inj 1 GM In 110 / 110 NS Inj 100 ML @ 110 mls/hr IV. SIG ONCE ONE Rx#:[id number] Zosyn 2.25 GM Premix 50 ML @ 50 / 50 100 / 100 100 mls/hr IV.SIG Q8H SERGEY Rx#: [id number] Vancomycin Inj 1,000 MG In NS 250 / 250 Inj 250 ML @ 250 mls/hr IV.SIG ONCE ONE Rx#:[id number] Output: Urine 100 / 100 Hemodialysis Amount 1000 / 1000 Urine Amount (Catheter) 50 / 50 Indwelling Temp Sensing 50 / 50 Catheter Other: Date of Last Bowel Movement 12/09/17 # Bowel Movements 1 0 Result Diagrams: 12/10/17 05:54 12/10/17 05:54 Objective Remarks: GEN: Ill-appearing, intubated, unresponsive HEENT: NCAT, right pupil 4 mm, left pupil 3 mm NECK: Trachea midline CARDIO: Tachy, regular PULM: Coarse mechanical breath sounds bilaterally, does not over-breathe vent ABD/GI: Soft, non-distended, no guarding EXT/MS: No peripheral edema SKIN: Unchanged large pressure wounds to right side (present on admission) NEURO: GCS 3T, (E1VTM1), no cough/ gag/ corneal reflexes PSYCH: Unable to assess Assessment and Plan - Problem List (1) Rhabdomyolysis Code(s): M62.82 - Rhabdomyolysis Status: Acute (2) Encephalopathy Code(s): G93.40 - Encephalopathy, unspecified Status: Acute (3) Acute respiratory failure with hypoxia Code(s): J96.01 - Acute respiratory failure with hypoxia Status: Acute (4) NSTEMI (non-ST elevated myocardial infarction) Code(s): I21.4 - Non-ST elevation (NSTEMI) myocardial infarction Status: Acute (5) Acute renal failure Code(s): N17.9 - Acute kidney failure, unspecified Status: Acute (6) Acute hyperkalemia Code(s): E87.5 - Hyperkalemia Status: Acute (7) Acute hypernatremia Code(s): E87.0 - Hyperosmolality and hypernatremia Status: Acute (8) Dehydration Code(s): E86.0 - Dehydration Status: Acute (9) Hypoalbuminemia due to protein-calorie malnutrition Code(s): E46 - Unspecified protein-calorie malnutrition Status: Acute (10) Lactic acidosis Code(s): E87.2 - Acidosis Status: Acute (11) Metabolic acidosis Code(s): E87.2 - Acidosis Status: Acute - Assessment and Plan Plan: 62yF found unresponsive in her home, unknown mechanism or down time, now with acute renal failure secondary to rhabdomyolysis, multiple electrolyte derangements, profound dehydration, encephalopathy, elevated troponin (likely due to type II NSTEMI) NEURO: * Repeat CTH today, concern for cerebral edema secondary to hypernatremia * Tox studies negative * Encephalopathy most likely related to uremia and profound metabolic derangements, continue to monitor off sedation CARDIO: * Elevated trop (0.08), stable, no longer trending * Likely demand ischemia/ type II NSTEMI, present on admission * 2D echo showed EF 50-55%, no wall motion abnormalities * Cardiac monitoring PULM: * Remains intubated, alkalotic yesterday, repeat ABG today * Not appropriate for any weaning trials secondary to neuro status F/E/N, RENAL: * Acute renal failure * Continue HD as per nephrology * Severe hypernatremia- brisk initial correction due to severe dehydration, now stable in 150s, continue to slowly correct * Rhabdomyolysis- s/p aggressive IV hydration, CK trending down * Continue IVF and give 1L bolus * Patient oliguric overnight, D/C Rosales ID: * MSSA bacteremia x 2 blood cultures * Yarbrough-sensitive proteus in urine * Continue zosyn until sensitivities result on blood cultures, d/c vanco ENDO: * q6h Accuchecks * TSH normal MSK: * Significant unstageable pressure ulcers from prolonged downtime, present on admission * Wound care following; calazime, turning/offloading PROPHY: * Stress ulcer prophylaxis * SCDs, heparin OVERALL: This patient is critically ill with multi-system organ dysfunction. She requires ICU level of care. I spoke with the patient's daughter this morning regarding the patient's condition and exceedingly poor prognosis. She changed the patient's code status to DNR yesterday during discussion with palliative care and would like to discuss transitioning to hospice care when she arrives tomorrow morning. Counseling/ Coordination of Care: Total critical care time spent is 52 minutes. This includes examining the patient, gathering history from someone other than the patient (i.e. chart review), discussing the patient's care with other providers, managing the patient's blood pressure and ventilator settings, ordering and interpreting radiologic studies, ordering and interpreting laboratory values, treatment of life-threatening electrolyte abnormalities, re-evaluation at frequent intervals , and documentation. Amount of time is separate from teaching, counseling the patient and/or family, and exclusive of procedures. To help prompt me to consider important information that might be impacting today's encounter and assessment, information from prior notes written by myself or my colleagues may have been "brought forward" into today's note. My signature on this note, however, is an attestation that I personally performed the exam, history, and/or decision-making noted today, and, unless otherwise indicated, the interactions with patient, family, and staff as well as the review of records all occurred today. I also attest that the listed assessment and stated plan reflect my best clinical judgment today based on the combination of historical information, prior notes, and today's exam/ interactions. Code Status: DNR, likely transition to hospice tomorrow when daughter arrives (5) Acute renal failure Qualifiers: Acute renal failure type: unspecified Qualified Code(s): N17.9 - Acute kidney failure, unspecified
[2017-12-10 11:11] LABS: ABG Base Excess -1.9 mmol/L (-2-2); ABG PCO2 28 mmHg (38-42); ABG PO2 152 mmHG (61-120)
--- NOTE | 2017-12-10 13:00 | CT ---
EXAM DATE: 12/10/2017 12:08 PM EDT AGE/SEX: 62 years / Female INDICATIONS: Altered mental status CLINICAL DATA: This is the patient's subsequent encounter. Patient reports that signs and symptoms h ave been present for 2 days and indicates a pain score of 0/10. MEDICAL/SURGICAL HISTORY: Myocardial infarction. Stroke. Renal failure, Respiratory Failure None. RADIATION DOSE: 37.81 CTDI (mGy) COMPARISON: [facility] – [place], [place] HEAD W/O CONTRAST, 12/08/2017. . TECHNIQUE: CT of the head without contrast. Using automated exposure control and adjustment of the mA and/or kV according to patient size, radiation dose was kept as low as reasonably achievable to ob tain optimal diagnostic quality images. DICOM format image data is available electronically for revi ew and comparison. FINDINGS: Significant change in the appearance of the brain parenchyma when compared to the prior study. There is complete effacement of the sulcal pattern involving both cerebral hemispheres and cerebellar hemis pheres. There is a reduction in density of the brain parenchyma with loss of the harper-white matter di fferentiation. There is total effacement of the suprasellar cistern as well as the fourth ventricle. Lateral ventricles remain patent but small in caliber. No discrete hemorrhage appreciated. No midline shift. Mucosal thickening involving ethmoid sinuses and right maxillary and sphenoid sinus. CONCLUSION: 1. Dramatic change when compared to the prior examination with diffuse edema throughout the brain an d mass effect with effacement as detailed above. . Electronically signed by: Robby Richardson MD 12/10/2017 12:59 PM EDT
--- NOTE | 2017-12-10 14:33 | P.PNPAL ---
Reason for Visit Reason for visit: a. To assist with evaluation and management of symptoms including: altered mental status, pain b. To assist medical decision maker(s) with: better understanding of current medical conditions; weighing benefits/burdens of medical treatment options; making medical treatment decisions. Subjective Subjective/Interval History: Pt seen today to follow up on comfort, goals, notified with changes on f/up CT brain. Pt remains in ICU on mech vent. Hemodynamically stable. s/p CT brain = Dramatic change when compared to the prior examination with diffuse edema throughout the brain and mass effect with effacement. Cont to have minimal response to neuro assessment. BUN 71, creat 4, cont to be hypernatremic Na 150. critical care notes d/w family RE transition to comfort/hospice, hospice consult has been ordered. Pt seen in room, dual visit w Sascha Sosa APRN. Pt minimally responsive. Not overbreathing vent rate. No eye opening- pupils 3.5mm questionable reaction to light. No gag reflex w ETT stimuli. No withdrawal to pain stimuli BUE. + weak withdraw to BLE pain stimuli. Following exam call to dtr, VM left with palliative contact information. D/w nursing, critical care. Dr Beth spoke w daughter this am, daughter plans to come Sat morning and would like comfort measures only at that time, compassionate removal of ett. Hospice has been consulted to assist to support pt daughter, and 2 young grandchildren. Pt not expected to survive. Discuss exhibits w MD Beth, palliative will sign exhibit C today and place in chart. Comfort orders to be entered by critical care at time of withdrawal. Advance Directives Documented care wishes:: No documented care wishes were completed. Objective Vital Signs: Vital Signs 12/09/17 14:30 12/09/17 14:45 12/09/17 15:00 Temperature 97.9 F 97.7 F 97.5 F L Pulse Rate 84 79 75 Respiratory Rate 14 14 14 Blood Pressure 109/57 L 110/55 L 106/57 L Pulse Oximetry 98 99 99 12/09/17 15:15 12/09/17 15:28 12/09/17 15:30 Temperature 97.3 F L 97.2 F L Pulse Rate 74 70 Respiratory Rate 14 14 14 Blood Pressure 129/60 115/55 L Pulse Oximetry 97 100 98 12/09/17 15:45 12/09/17 16:00 12/09/17 16:15 Temperature 97.2 F L 97.0 F L 97.0 F L Pulse Rate 68 66 66 Respiratory Rate 14 14 14 Blood Pressure 113/59 L 111/56 L 113/59 L Pulse Oximetry 99 99 99 12/09/17 16:30 12/09/17 16:45 12/09/17 17:00 Temperature 96.8 F L 96.8 F L 96.6 F L Pulse Rate 65 63 63 Respiratory Rate 14 14 14 Blood Pressure 120/57 L 120/55 L 128/62 Pulse Oximetry 99 100 100 12/09/17 17:15 12/09/17 17:30 12/09/17 17:45 Temperature 96.6 F L 96.4 F L 96.4 F L Pulse Rate 62 61 61 Respiratory Rate 14 14 14 Blood Pressure 137/70 130/68 128/64 Pulse Oximetry 99 100 99 12/09/17 18:00 12/09/17 18:15 12/09/17 18:30 Temperature 96.3 F L 96.3 F L 96.1 F L Pulse Rate 60 59 L 62 Respiratory Rate 14 14 14 Blood Pressure 138/68 142/70 H 153/77 H Pulse Oximetry 100 100 100 12/09/17 18:45 12/09/17 19:00 12/09/17 19:15 Temperature 96.1 F L 95.9 F L 95.9 F L Pulse Rate 62 60 58 L Respiratory Rate 14 14 14 Blood Pressure 147/72 H 138/66 123/57 L Pulse Oximetry 100 99 99 12/09/17 19:19 12/09/17 19:30 12/09/17 19:45 Temperature 95.9 F L 95.9 F L Pulse Rate 57 L 56 L Respiratory Rate 14 14 14 Blood Pressure 118/57 L 117/60 Pulse Oximetry 100 100 100 12/09/17 20:00 12/09/17 20:15 12/09/17 20:30 Temperature 95.5 F L 95.4 F L 95.4 F L Pulse Rate 60 59 L 57 L Respiratory Rate 14 14 14 Blood Pressure 119/62 155/75 H 136/69 Pulse Oximetry 100 97 100 12/09/17 20:45 12/09/17 21:00 12/09/17 21:14 Temperature 95.4 F L 95.4 F L 95.4 F L Pulse Rate 55 L 55 L 55 L Respiratory Rate 14 14 14 Blood Pressure 136/72 140/75 Pulse Oximetry 100 100 100 12/09/17 21:15 12/09/17 21:30 12/09/17 21:51 Temperature 95.4 F L 95.4 F L 95.4 F L Pulse Rate 55 L 56 L 62 Respiratory Rate 14 19 14 Blood Pressure 143/77 H 216/98 H 180/85 H Pulse Oximetry 100 97 100 12/09/17 22:00 12/09/17 23:00 12/09/17 23:29 Temperature 95.0 F L 94.6 F L 95.0 F L Pulse Rate 60 59 L 62 Respiratory Rate 14 14 15 Blood Pressure 197/95 H Pulse Oximetry 100 100 100 12/10/17 00:00 12/10/17 00:10 12/10/17 01:00 Temperature 95.7 F L 96.8 F L Pulse Rate 66 67 Respiratory Rate 14 14 14 Blood Pressure Pulse Oximetry 100 100 100 12/10/17 02:00 12/10/17 03:00 12/10/17 03:50 Temperature 97.9 F 99.0 F Pulse Rate 71 75 Respiratory Rate 14 14 14 Blood Pressure Pulse Oximetry 100 100 100 12/10/17 04:00 12/10/17 06:00 12/10/17 07:57 Temperature 99.9 F H Pulse Rate 78 72 Respiratory Rate 14 15 Blood Pressure Pulse Oximetry 100 100 12/10/17 08:00 12/10/17 11:25 12/10/17 12:35 Temperature 101.7 F H Pulse Rate 69 Respiratory Rate 14 12 Blood Pressure 106/55 L Pulse Oximetry 99 99 100 Intake & Output 12/09/17 12/10/17 12/10/17 18:59 06:59 18:59 Intake Total 1160 / 1160 1850 / 1850 1000 / 1000 Output Total 1050 / 1050 100 / 100 Balance 110 / 110 1750 / 1750 1000 / 1000 Weight 83.915 kg Intake: IV 1160 / 1160 1850 / 1850 1000 / 1000 NS Inj 1,000 ML @ 125 mls/hr IV 1000 / 1000 1000 / 1000 .CONT .Q8H [facility] [place] Rx#:[id number] Alburx 5% Inj 500 ML @ 250 mls/ 1000 / 1000 500 / 500 hr IV.SIG Q6H [facility] [place] Rx#:[id number] Calcium Gluconate Inj 1 GM In 110 / 110 NS Inj 100 ML @ 110 mls/hr IV. SIG ONCE ONE Rx#:[id number] Zosyn 2.25 GM Premix 50 ML @ 50 / 50 100 / 100 100 mls/hr IV.SIG Q8H [facility] [place] Rx#: [id number] Vancomycin Inj 1,000 MG In NS 250 / 250 Inj 250 ML @ 250 mls/hr IV.SIG ONCE ONE Rx#:[id number] Output: Urine 100 / 100 Hemodialysis Amount 1000 / 1000 Urine Amount (Catheter) 50 / 50 Indwelling Temp Sensing 50 / 50 Catheter Other: Date of Last Bowel Movement 12/09/17 # Bowel Movements 1 0 Physical Exam: CONSTITUTIONAL/GENERAL: This is a elderly, female patient currently intubated on mechanical ventilation. TUBES/LINES/DRAINS: PIV x3, right IJ Vas-Cath, OGT, Caba catheter, ETT, soft restraints BUE SKIN: Ecchymoses on upper extremities. Skin warm/dry EYES: Pupils 3.5mm, questionable reaction to light. No scleral icterus. No injection or drainage. Fundi not examined. ENT: Nose without bleeding or purulent drainage. unable to visualize oropharynx 2/2 ett NECK: Trachea midline. Supple, nontender. No palpable thyroid enlargement or nodularity. CARDIOVASCULAR: RRR. No JVD. Peripheral pulses symmetric, pedal pulses faint RESPIRATORY/CHEST: Intubated on mechanical ventilation. not overbreathing over vent rate. Coarse breath sounds.equal bilaterally GASTROINTESTINAL: Abdomen soft, non-tender, nondistended. Bowel sounds present. GENITOURINARY: Without palpable bladder distension. Caba catheter in place.clear yellow urine . NEUROLOGICAL: minimally responsive off sedation. no eye opening. No gag w ett stimuli. No withdraw to pain BUE. Weak withdraw to pain BLE PSYCHIATRIC: no evident anxiety, limited assess 2/2 clinical condition. Diagnostic Tests Laboratory: Laboratory Results - last 72 hr 12/08/17 12/08/17 12/08/17 12:59 12:59 12:59 WBC 18.0 H RBC 5.29 Hgb 15.5 H Hct 47.8 H MCV 90.3 MCH 29.2 MCHC 32.3 RDW 17.2 Plt Count 237 MPV 11.0 Prelim Diff (Auto) Neut % (Auto) 88.2 H Lymph % (Auto) 6.0 L Parker % (Auto) 5.7 Eos % (Auto) 0.0 Baso % (Auto) 0.1 Neut # (Auto) 15.9 H Lymph # (Auto) 1.1 Parker # (Auto) 1.0 H Eos # (Auto) 0.0 Baso # (Auto) 0.0 WBC Differential . Seg Neuts % (Manual) Band Neuts % (Manual) Lymphocytes % (Manual) Monocytes % (Manual) Eosinophils % (Manual) Metamyelocytes % (Man) Abs Neuts (Manual) Nucleated RBCs/100 WBC Differential Comment Auto diff final Platelet Estimate Platelet Morphology RBC Morphology PT 13.7 H INR 1.4 APTT 29.4 Puncture Site Patient Temperature O2 Saturation ABG pH ABG pCO2 ABG pO2 ABG HCO3 ABG O2 Content ABG Base Excess ABG Methemoglobin Rodriguez Test Hemoglobin Carboxyhemoglobin O2 Delivery Device Vent Setting Inspired O2 Critical Value Sodium Potassium Chloride Carbon Dioxide Anion Gap BUN Creatinine Estimated GFR POC Glucose Random Glucose Lactic Acid 2.4 H Calcium Prot Corrected Calcium Phosphorus Magnesium Total Bilirubin AST ALT Alkaline Phosphatase Ammonia Total Creatine Kinase CK-MB (CK-2) CK-MB (CK-2) % Troponin I Total Protein Albumin TSH Urine Color Urine Clarity Urine pH Ur Specific Enloe Urine Protein Urine Glucose (UA) Urine Ketones Urine Occult Blood Urine Nitrate Urine Bilirubin Urine Urobilinogen Ur Leukocyte Esterase Urine RBC Urine WBC Ur Squamous Epith Cells Ur Transition Epith Cell Amorphous Sediment Urine Bacteria Hyaline Casts Urine Mucus Micro UA Comment Ur Microscopic Review Urine Culture Comments Nasal Screen MRSA (PCR) Urine Opiates Screen Ur Barbiturates Screen Ur Amphetamines Screen U Benzodiazepines Scrn Urine Cocaine Screen U Cannabinoids Screen Serum Alcohol Hepatitis A IgM Ab Hep Bs Antigen Hep B Core IgM Ab Hep C IgG Ab 12/08/17 12/08/17 12/08/17 12:59 13:20 13:20 WBC RBC Hgb Hct MCV MCH MCHC RDW Plt Count MPV Prelim Diff (Auto) Neut % (Auto) Lymph % (Auto) Parker % (Auto) Eos % (Auto) Baso % (Auto) Neut # (Auto) Lymph # (Auto) Parker # (Auto) Eos # (Auto) Baso # (Auto) WBC Differential Seg Neuts % (Manual) Band Neuts % (Manual) Lymphocytes % (Manual) Monocytes % (Manual) Eosinophils % (Manual) Metamyelocytes % (Man) Abs Neuts (Manual) Nucleated RBCs/100 WBC Differential Comment Platelet Estimate Platelet Morphology RBC Morphology PT INR APTT Puncture Site Patient Temperature O2 Saturation ABG pH ABG pCO2 ABG pO2 ABG HCO3 ABG O2 Content ABG Base Excess ABG Methemoglobin Rodriguez Test Hemoglobin Carboxyhemoglobin O2 Delivery Device Vent Setting Inspired O2 Critical Value Sodium Potassium Chloride Carbon Dioxide Anion Gap BUN Creatinine Estimated GFR POC Glucose Random Glucose Lactic Acid Calcium Prot Corrected Calcium Phosphorus Magnesium Total Bilirubin AST ALT Alkaline Phosphatase Ammonia 25 Total Creatine Kinase CK-MB (CK-2) CK-MB (CK-2) % Troponin I Total Protein Albumin TSH Urine Color Nichole Urine Clarity Hazy H Urine pH 5.0 Ur Specific Enloe 1.019 Urine Protein Negative Urine Glucose (UA) Negative Urine Ketones Negative Urine Occult Blood Negative Urine Nitrate Negative Urine Bilirubin Negative Urine Urobilinogen 4 or greater Ur Leukocyte Esterase Negative Urine RBC 12 H Urine WBC 1 Ur Squamous Epith Cells 1 Ur Transition Epith Cell <1 Amorphous Sediment Occasional H Urine Bacteria Rare H Hyaline Casts 4 Urine Mucus Few H Micro UA Comment Cath-culture ind Ur Microscopic Review Not Reportable Urine Culture Comments Cath-cult indicated Nasal Screen MRSA (PCR) Urine Opiates Screen Neg Ur Barbiturates Screen Neg Ur Amphetamines Screen Neg U Benzodiazepines Scrn Neg Urine Cocaine Screen Neg U Cannabinoids Screen Neg Serum Alcohol Hepatitis A IgM Ab Hep Bs Antigen Hep B Core IgM Ab Hep C IgG Ab 12/08/17 12/08/17 12/08/17 13:28 14:52 17:50 WBC RBC Hgb Hct MCV MCH MCHC RDW Plt Count MPV Prelim Diff (Auto) Neut % (Auto) Lymph % (Auto) Parker % (Auto) Eos % (Auto) Baso % (Auto) Neut # (Auto) Lymph # (Auto) Parker # (Auto) Eos # (Auto) Baso # (Auto) WBC Differential Seg Neuts % (Manual) Band Neuts % (Manual) Lymphocytes % (Manual) Monocytes % (Manual) Eosinophils % (Manual) Metamyelocytes % (Man) Abs Neuts (Manual) Nucleated RBCs/100 WBC Differential Comment Platelet Estimate Platelet Morphology RBC Morphology PT INR APTT Puncture Site Right brachial Patient Temperature 98.6 O2 Saturation 99 ABG pH 7.26 L* ABG pCO2 30 L ABG pO2 481 H ABG HCO3 13 L* ABG O2 Content 23.5 H ABG Base Excess -12.4 L ABG Methemoglobin 0.8 Rodriguez Test Hemoglobin 16.2 H Carboxyhemoglobin 0.2 O2 Delivery Device Vent Vent Setting [id number] Inspired O2 100 Critical Value Yes Sodium 178 H* Potassium 5.9 H Chloride 140 H Carbon Dioxide 17.1 L Anion Gap 21 H BUN 262 H Creatinine 9.35 H Estimated GFR 4 L POC Glucose Random Glucose 149 H Lactic Acid Calcium 8.3 L Prot Corrected Calcium Phosphorus Magnesium Total Bilirubin 0.9 AST 78 H ALT 39 Alkaline Phosphatase 119 H Ammonia Total Creatine Kinase 3063 H CK-MB (CK-2) 26.8 H CK-MB (CK-2) % 0.9 Troponin I 0.08 H Total Protein 7.7 Albumin 2.5 L TSH 1.540 Urine Color Urine Clarity Urine pH Ur Specific Enloe Urine Protein Urine Glucose (UA) Urine Ketones Urine Occult Blood Urine Nitrate Urine Bilirubin Urine Urobilinogen Ur Leukocyte Esterase Urine RBC Urine WBC Ur Squamous Epith Cells Ur Transition Epith Cell Amorphous Sediment Urine Bacteria Hyaline Casts Urine Mucus Micro UA Comment Ur Microscopic Review Urine Culture Comments Nasal Screen MRSA (PCR) Mrsa detected Urine Opiates Screen Ur Barbiturates Screen Ur Amphetamines Screen U Benzodiazepines Scrn Urine Cocaine Screen U Cannabinoids Screen Serum Alcohol Less than 3 Hepatitis A IgM Ab Hep Bs Antigen Hep B Core IgM Ab Hep C IgG Ab 12/08/17 12/08/17 12/08/17 18:10 18:10 18:10 WBC 13.5 H RBC 4.33 Hgb 12.6 D Hct 39.1 MCV 90.5 MCH 29.2 MCHC 32.3 RDW 17.3 H Plt Count 179 MPV 10.9 Prelim Diff (Auto) Neut % (Auto) Lymph % (Auto) Parker % (Auto) Eos % (Auto) Baso % (Auto) Neut # (Auto) Lymph # (Auto) Parker # (Auto) Eos # (Auto) Baso # (Auto) WBC Differential Seg Neuts % (Manual) Band Neuts % (Manual) Lymphocytes % (Manual) Monocytes % (Manual) Eosinophils % (Manual) Metamyelocytes % (Man) Abs Neuts (Manual) Nucleated RBCs/100 WBC Differential Comment Platelet Estimate Platelet Morphology RBC Morphology PT INR APTT Puncture Site Patient Temperature O2 Saturation ABG pH ABG pCO2 ABG pO2 ABG HCO3 ABG O2 Content ABG Base Excess ABG Methemoglobin Rodriguez Test Hemoglobin Carboxyhemoglobin O2 Delivery Device Vent Setting Inspired O2 Critical Value Sodium 172 H* Potassium 4.5 D Chloride 139 H Carbon Dioxide 17.8 L Anion Gap 15 BUN 238 H Creatinine 8.58 H Estimated GFR 5 L POC Glucose Random Glucose 291 H D Lactic Acid 2.8 H Calcium 9.0 Prot Corrected Calcium Phosphorus 7.2 H Magnesium 3.4 H Total Bilirubin 0.7 AST 71 H ALT 33 Alkaline Phosphatase 95 Ammonia Total Creatine Kinase 2767 H CK-MB (CK-2) CK-MB (CK-2) % Troponin I Total Protein 6.1 L D Albumin 1.9 L D TSH Urine Color Urine Clarity Urine pH Ur Specific Enloe Urine Protein Urine Glucose (UA) Urine Ketones Urine Occult Blood Urine Nitrate Urine Bilirubin Urine Urobilinogen Ur Leukocyte Esterase Urine RBC Urine WBC Ur Squamous Epith Cells Ur Transition Epith Cell Amorphous Sediment Urine Bacteria Hyaline Casts Urine Mucus Micro UA Comment Ur Microscopic Review Urine Culture Comments Nasal Screen MRSA (PCR) Urine Opiates Screen Ur Barbiturates Screen Ur Amphetamines Screen U Benzodiazepines Scrn Urine Cocaine Screen U Cannabinoids Screen Serum Alcohol Hepatitis A IgM Ab Hep Bs Antigen Hep B Core IgM Ab Hep C IgG Ab 12/08/17 12/08/17 12/08/17 18:10 18:10 18:10 WBC RBC Hgb Hct MCV MCH MCHC RDW Plt Count MPV Prelim Diff (Auto) Neut % (Auto) Lymph % (Auto) Parker % (Auto) Eos % (Auto) Baso % (Auto) Neut # (Auto) Lymph # (Auto) Parker # (Auto) Eos # (Auto) Baso # (Auto) WBC Differential Seg Neuts % (Manual) Band Neuts % (Manual) Lymphocytes % (Manual) Monocytes % (Manual) Eosinophils % (Manual) Metamyelocytes % (Man) Abs Neuts (Manual) Nucleated RBCs/100 WBC Differential Comment Platelet Estimate Platelet Morphology RBC Morphology PT INR APTT Puncture Site Patient Temperature O2 Saturation ABG pH ABG pCO2 ABG pO2 ABG HCO3 ABG O2 Content ABG Base Excess ABG Methemoglobin Rodriguez Test Hemoglobin Carboxyhemoglobin O2 Delivery Device Vent Setting Inspired O2 Critical Value Sodium Potassium Chloride Carbon Dioxide Anion Gap BUN Creatinine Estimated GFR POC Glucose Random Glucose Lactic Acid Calcium Prot Corrected Calcium Phosphorus Magnesium Total Bilirubin AST ALT Alkaline Phosphatase Ammonia Total Creatine Kinase 2604 H CK-MB (CK-2) 23.7 H CK-MB (CK-2) % 0.9 Troponin I Cancelled 0.08 H Total Protein Albumin TSH Urine Color Urine Clarity Urine pH Ur Specific Enloe Urine Protein Urine Glucose (UA) Urine Ketones Urine Occult Blood Urine Nitrate Urine Bilirubin Urine Urobilinogen Ur Leukocyte Esterase Urine RBC Urine WBC Ur Squamous Epith Cells Ur Transition Epith Cell Amorphous Sediment Urine Bacteria Hyaline Casts Urine Mucus Micro UA Comment Ur Microscopic Review Urine Culture Comments Nasal Screen MRSA (PCR) Urine Opiates Screen Ur Barbiturates Screen Ur Amphetamines Screen U Benzodiazepines Scrn Urine Cocaine Screen U Cannabinoids Screen Serum Alcohol Hepatitis A IgM Ab Nonreactive Hep Bs Antigen Nonreactive Hep B Core IgM Ab Nonreactive Hep C IgG Ab Nonreactive 12/08/17 12/09/17 12/09/17 21:15 00:26 00:40 WBC RBC Hgb Hct MCV MCH MCHC RDW Plt Count MPV Prelim Diff (Auto) Neut % (Auto) Lymph % (Auto) Parker % (Auto) Eos % (Auto) Baso % (Auto) Neut # (Auto) Lymph # (Auto) Parker # (Auto) Eos # (Auto) Baso # (Auto) WBC Differential Seg Neuts % (Manual) Band Neuts % (Manual) Lymphocytes % (Manual) Monocytes % (Manual) Eosinophils % (Manual) Metamyelocytes % (Man) Abs Neuts (Manual) Nucleated RBCs/100 WBC Differential Comment Platelet Estimate Platelet Morphology RBC Morphology PT INR APTT Puncture Site Left brachial Patient Temperature 98.6 O2 Saturation 97 ABG pH 7.50 H ABG pCO2 25 L ABG pO2 194 H ABG HCO3 19 L ABG O2 Content 20.2 H ABG Base Excess -3.6 L ABG Methemoglobin 1.6 Rodriguez Test Hemoglobin 14.5 Carboxyhemoglobin 0.4 O2 Delivery Device Ventilator Vent Setting Prvc/ac Inspired O2 40 Critical Value No Sodium 155 H D Potassium 4.1 Chloride 119 H D Carbon Dioxide 19.7 L Anion Gap 16 H BUN 129 H Creatinine 5.74 H Estimated GFR 7 L POC Glucose 106 Random Glucose 114 H D Lactic Acid Calcium 6.7 L* D Prot Corrected Calcium 7.1 L* Phosphorus Magnesium Total Bilirubin AST ALT Alkaline Phosphatase Ammonia Total Creatine Kinase CK-MB (CK-2) CK-MB (CK-2) % Troponin I Total Protein 6.3 L Albumin TSH Urine Color Urine Clarity Urine pH Ur Specific Enloe Urine Protein Urine Glucose (UA) Urine Ketones Urine Occult Blood Urine Nitrate Urine Bilirubin Urine Urobilinogen Ur Leukocyte Esterase Urine RBC Urine WBC Ur Squamous Epith Cells Ur Transition Epith Cell Amorphous Sediment Urine Bacteria Hyaline Casts Urine Mucus Micro UA Comment Ur Microscopic Review Urine Culture Comments Nasal Screen MRSA (PCR) Urine Opiates Screen Ur Barbiturates Screen Ur Amphetamines Screen U Benzodiazepines Scrn Urine Cocaine Screen U Cannabinoids Screen Serum Alcohol Hepatitis A IgM Ab Hep Bs Antigen Hep B Core IgM Ab Hep C IgG Ab 12/09/17 12/09/17 12/09/17 05:01 05:01 06:30 WBC 11.1 H RBC 3.83 L Hgb 11.2 L Hct 33.5 L MCV 87.6 MCH 29.2 MCHC 33.4 RDW 15.8 Plt Count 134 L MPV 10.6 Prelim Diff (Auto) Slide review pending Neut % (Auto) 81.3 H Lymph % (Auto) 12.2 Parker % (Auto) 6.3 Eos % (Auto) 0.1 Baso % (Auto) 0.1 Neut # (Auto) 9.0 H Lymph # (Auto) 1.4 Parker # (Auto) 0.7 Eos # (Auto) 0.0 Baso # (Auto) 0.0 WBC Differential Manual diff final Seg Neuts % (Manual) 74 H Band Neuts % (Manual) 3 Lymphocytes % (Manual) 18 Monocytes % (Manual) 4 Eosinophils % (Manual) Metamyelocytes % (Man) 1 Abs Neuts (Manual) 8.7 H Nucleated RBCs/100 WBC Differential Comment . Platelet Estimate Low L Platelet Morphology Normal RBC Morphology Normal PT INR APTT Puncture Site Patient Temperature O2 Saturation ABG pH ABG pCO2 ABG pO2 ABG HCO3 ABG O2 Content ABG Base Excess ABG Methemoglobin Rodriguez Test Hemoglobin Carboxyhemoglobin O2 Delivery Device Vent Setting Inspired O2 Critical Value Sodium 155 H Potassium 4.3 Chloride 117 H Carbon Dioxide 23.3 Anion Gap 15 BUN 127 H Creatinine 5.95 H Estimated GFR 7 L POC Glucose 92 Random Glucose 94 Lactic Acid Calcium 6.6 L* Prot Corrected Calcium 7.1 L* Phosphorus 4.5 D Magnesium 2.4 D Total Bilirubin AST ALT Alkaline Phosphatase Ammonia Total Creatine Kinase CK-MB (CK-2) CK-MB (CK-2) % Troponin I Total Protein 6.0 L Albumin TSH Urine Color Urine Clarity Urine pH Ur Specific Enloe Urine Protein Urine Glucose (UA) Urine Ketones Urine Occult Blood Urine Nitrate Urine Bilirubin Urine Urobilinogen Ur Leukocyte Esterase Urine RBC Urine WBC Ur Squamous Epith Cells Ur Transition Epith Cell Amorphous Sediment Urine Bacteria Hyaline Casts Urine Mucus Micro UA Comment Ur Microscopic Review Urine Culture Comments Nasal Screen MRSA (PCR) Urine Opiates Screen Ur Barbiturates Screen Ur Amphetamines Screen U Benzodiazepines Scrn Urine Cocaine Screen U Cannabinoids Screen Serum Alcohol Hepatitis A IgM Ab Hep Bs Antigen Hep B Core IgM Ab Hep C IgG Ab 12/09/17 12/09/17 12/09/17 11:44 14:21 14:21 WBC 11.6 H RBC 3.65 L Hgb 10.7 L Hct 32.2 L MCV 88.3 MCH 29.3 MCHC 33.2 RDW 15.5 Plt Count 118 L MPV 10.4 Prelim Diff (Auto) Neut % (Auto) Lymph % (Auto) Parker % (Auto) Eos % (Auto) Baso % (Auto) Neut # (Auto) Lymph # (Auto) Parker # (Auto) Eos # (Auto) Baso # (Auto) WBC Differential Seg Neuts % (Manual) Band Neuts % (Manual) Lymphocytes % (Manual) Monocytes % (Manual) Eosinophils % (Manual) Metamyelocytes % (Man) Abs Neuts (Manual) Nucleated RBCs/100 WBC Differential Comment Platelet Estimate Platelet Morphology RBC Morphology PT INR APTT Puncture Site Right radial Patient Temperature 98.6 O2 Saturation 97 ABG pH 7.60 H* ABG pCO2 24 L* ABG pO2 210 H ABG HCO3 24 ABG O2 Content 15.3 ABG Base Excess 2.3 H ABG Methemoglobin 1.7 Rodriguez Test Present Hemoglobin 10.9 L Carboxyhemoglobin 0.4 O2 Delivery Device Ventilator Vent Setting See comments Inspired O2 40 Critical Value Yes Sodium 150 H Potassium 3.5 D Chloride 110 H Carbon Dioxide 24.3 Anion Gap 16 H BUN 61 H Creatinine 3.48 H Estimated GFR 13 L POC Glucose Random Glucose 103 Lactic Acid Calcium 7.6 L D Prot Corrected Calcium Phosphorus Magnesium 2.1 Total Bilirubin AST ALT Alkaline Phosphatase Ammonia Total Creatine Kinase CK-MB (CK-2) CK-MB (CK-2) % Troponin I Total Protein Albumin TSH Urine Color Urine Clarity Urine pH Ur Specific Enloe Urine Protein Urine Glucose (UA) Urine Ketones Urine Occult Blood Urine Nitrate Urine Bilirubin Urine Urobilinogen Ur Leukocyte Esterase Urine RBC Urine WBC Ur Squamous Epith Cells Ur Transition Epith Cell Amorphous Sediment Urine Bacteria Hyaline Casts Urine Mucus Micro UA Comment Ur Microscopic Review Urine Culture Comments Nasal Screen MRSA (PCR) Urine Opiates Screen Ur Barbiturates Screen Ur Amphetamines Screen U Benzodiazepines Scrn Urine Cocaine Screen U Cannabinoids Screen Serum Alcohol Hepatitis A IgM Ab Hep Bs Antigen Hep B Core IgM Ab Hep C IgG Ab 12/09/17 12/10/17 12/10/17 19:44 00:07 05:54 WBC 7.8 RBC 3.15 L Hgb 9.2 L Hct 27.5 L MCV 87.2 MCH 29.2 MCHC 33.5 RDW 15.2 Plt Count 98 L MPV 10.4 Prelim Diff (Auto) Slide review pending Neut % (Auto) 74.3 H Lymph % (Auto) 21.8 Parker % (Auto) 3.5 Eos % (Auto) 0.3 Baso % (Auto) 0.1 Neut # (Auto) 5.8 Lymph # (Auto) 1.7 Parker # (Auto) 0.3 Eos # (Auto) 0.0 Baso # (Auto) 0.0 WBC Differential Manual diff final Seg Neuts % (Manual) 67 Band Neuts % (Manual) 9 H Lymphocytes % (Manual) 22 Monocytes % (Manual) 1 Eosinophils % (Manual) 1 Metamyelocytes % (Man) Abs Neuts (Manual) 5.9 Nucleated RBCs/100 WBC 1 H Differential Comment . Platelet Estimate Low L Platelet Morphology Enlarged H RBC Morphology PT INR APTT Puncture Site Patient Temperature O2 Saturation ABG pH ABG pCO2 ABG pO2 ABG HCO3 ABG O2 Content ABG Base Excess ABG Methemoglobin Rodriguez Test Hemoglobin Carboxyhemoglobin O2 Delivery Device Vent Setting Inspired O2 Critical Value Sodium Potassium Chloride Carbon Dioxide Anion Gap BUN Creatinine Estimated GFR POC Glucose 113 H 160 H Random Glucose Lactic Acid Calcium Prot Corrected Calcium Phosphorus Magnesium Total Bilirubin AST ALT Alkaline Phosphatase Ammonia Total Creatine Kinase CK-MB (CK-2) CK-MB (CK-2) % Troponin I Total Protein Albumin TSH Urine Color Urine Clarity Urine pH Ur Specific Enloe Urine Protein Urine Glucose (UA) Urine Ketones Urine Occult Blood Urine Nitrate Urine Bilirubin Urine Urobilinogen Ur Leukocyte Esterase Urine RBC Urine WBC Ur Squamous Epith Cells Ur Transition Epith Cell Amorphous Sediment Urine Bacteria Hyaline Casts Urine Mucus Micro UA Comment Ur Microscopic Review Urine Culture Comments Nasal Screen MRSA (PCR) Urine Opiates Screen Ur Barbiturates Screen Ur Amphetamines Screen U Benzodiazepines Scrn Urine Cocaine Screen U Cannabinoids Screen Serum Alcohol Hepatitis A IgM Ab Hep Bs Antigen Hep B Core IgM Ab Hep C IgG Ab 12/10/17 12/10/17 12/10/17 05:54 06:14 10:55 WBC RBC Hgb Hct MCV MCH MCHC RDW Plt Count MPV Prelim Diff (Auto) Neut % (Auto) Lymph % (Auto) Parker % (Auto)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
[2017-12-10 14:59] LABS: ABG Base Excess -3.6 mmol/L (-2-2); ABG PCO2 37 mmHg (38-42); ABG PO2 144 mmHG (61-120)
--- NOTE | 2017-12-10 16:50 | P.PNNP ---
Subjective Interval history: Patient on ventilator and nonresponsive Physical Exam Vital signs: Vital Signs 12/09/17 17:00 12/09/17 17:15 12/09/17 17:30 Temperature 96.6 F L 96.6 F L 96.4 F L Pulse Rate 63 62 61 Respiratory Rate 14 14 14 Blood Pressure 128/62 137/70 130/68 Pulse Oximetry 100 99 100 12/09/17 17:45 12/09/17 18:00 12/09/17 18:15 Temperature 96.4 F L 96.3 F L 96.3 F L Pulse Rate 61 60 59 L Respiratory Rate 14 14 14 Blood Pressure 128/64 138/68 142/70 H Pulse Oximetry 99 100 100 12/09/17 18:30 12/09/17 18:45 12/09/17 19:00 Temperature 96.1 F L 96.1 F L 95.9 F L Pulse Rate 62 62 60 Respiratory Rate 14 14 14 Blood Pressure 153/77 H 147/72 H 138/66 Pulse Oximetry 100 100 99 12/09/17 19:15 12/09/17 19:19 12/09/17 19:30 Temperature 95.9 F L 95.9 F L Pulse Rate 58 L 57 L Respiratory Rate 14 14 14 Blood Pressure 123/57 L 118/57 L Pulse Oximetry 99 100 100 12/09/17 19:45 12/09/17 20:00 12/09/17 20:15 Temperature 95.9 F L 95.5 F L 95.4 F L Pulse Rate 56 L 60 59 L Respiratory Rate 14 14 14 Blood Pressure 117/60 119/62 155/75 H Pulse Oximetry 100 100 97 12/09/17 20:30 12/09/17 20:45 12/09/17 21:00 Temperature 95.4 F L 95.4 F L 95.4 F L Pulse Rate 57 L 55 L 55 L Respiratory Rate 14 14 14 Blood Pressure 136/69 136/72 140/75 Pulse Oximetry 100 100 100 12/09/17 21:14 12/09/17 21:15 12/09/17 21:30 Temperature 95.4 F L 95.4 F L 95.4 F L Pulse Rate 55 L 55 L 56 L Respiratory Rate 14 14 19 Blood Pressure 143/77 H 216/98 H Pulse Oximetry 100 100 97 12/09/17 21:51 12/09/17 22:00 12/09/17 23:00 Temperature 95.4 F L 95.0 F L 94.6 F L Pulse Rate 62 60 59 L Respiratory Rate 14 14 14 Blood Pressure 180/85 H Pulse Oximetry 100 100 100 12/09/17 23:29 12/10/17 00:00 12/10/17 00:10 Temperature 95.0 F L 95.7 F L Pulse Rate 62 66 Respiratory Rate 15 14 14 Blood Pressure 197/95 H Pulse Oximetry 100 100 100 12/10/17 01:00 12/10/17 02:00 12/10/17 03:00 Temperature 96.8 F L 97.9 F 99.0 F Pulse Rate 67 71 75 Respiratory Rate 14 14 14 Blood Pressure Pulse Oximetry 100 100 100 12/10/17 03:50 12/10/17 04:00 12/10/17 06:00 Temperature 99.9 F H Pulse Rate 78 72 Respiratory Rate 14 14 Blood Pressure Pulse Oximetry 100 100 12/10/17 07:57 12/10/17 08:00 12/10/17 09:00 Temperature 101.7 F H 101.8 F H Pulse Rate 69 68 Respiratory Rate 15 14 14 Blood Pressure 106/55 L 104/52 L Pulse Oximetry 100 99 99 12/10/17 10:00 12/10/17 11:00 12/10/17 11:25 Temperature 101.5 F H 100.8 F H Pulse Rate 67 64 Respiratory Rate 14 14 12 Blood Pressure 99/53 L 104/55 L Pulse Oximetry 98 98 99 12/10/17 12:00 12/10/17 12:35 12/10/17 12:42 Temperature 99.9 F H 99.1 F Pulse Rate 65 68 Respiratory Rate 12 20 Blood Pressure 110/58 L 114/58 L Pulse Oximetry 99 100 100 12/10/17 13:00 12/10/17 14:00 12/10/17 15:00 Temperature 98.5 F Pulse Rate 75 71 64 Respiratory Rate 12 12 12 Blood Pressure 126/65 119/56 L 123/57 L Pulse Oximetry 100 98 98 12/10/17 15:39 Temperature Pulse Rate Respiratory Rate 12 Blood Pressure Pulse Oximetry 100 Intake & Output 12/09/17 12/10/17 12/10/17 18:59 06:59 18:59 Intake Total 1160 / 1160 1850 / 1850 1000 / 1000 Output Total 1050 / 1050 100 / 100 Balance 110 / 110 1750 / 1750 1000 / 1000 Weight 83.915 kg Intake: IV 1160 / 1160 1850 / 1850 1000 / 1000 NS Inj 1,000 ML @ 125 mls/hr IV 1000 / 1000 1000 / 1000 .CONT .Q8H [facility] Rx#:[id number] Alburx 5% Inj 500 ML @ 250 mls/ 1000 / 1000 500 / 500 hr IV.SIG Q6H [facility] Rx#:[id number] Calcium Gluconate Inj 1 GM In 110 / 110 NS Inj 100 ML @ 110 mls/hr IV. SIG ONCE ONE Rx#:[id number] Zosyn 2.25 GM Premix 50 ML @ 50 / 50 100 / 100 0 / 0 100 mls/hr IV.SIG Q8H [facility] Rx#: [id number] Vancomycin Inj 1,000 MG In NS 250 / 250 Inj 250 ML @ 250 mls/hr IV.SIG ONCE ONE Rx#:[id number] Output: Urine 100 / 100 Hemodialysis Amount 1000 / 1000 Urine Amount (Catheter) 50 / 50 Indwelling Temp Sensing 50 / 50 Catheter Other: Date of Last Bowel Movement 12/09/17 # Bowel Movements 1 0 Narrative: GENERAL: Sick appearing female unresponsive SKIN: Warm and dry. HEAD: Normocephalic. EYES: No scleral icterus. No injection or drainage. NECK: Supple, trachea midline. No JVD or lymphadenopathy. CARDIOVASCULAR: Regular rate and rhythm without murmurs, gallops, or rubs. RESPIRATORY: Breath sounds equal bilaterally. No accessory muscle use. GASTROINTESTINAL: Abdomen soft, non-tender, nondistended. EXTREMITIES: No edema NEUROLOGICAL: Obtunded - Urinary Catheter Management Indwelling Temp Sensing Catheter Cath placed during this visit: yes, but has since been removed by the nurse Reason for continuing: Decision to DC catheter Insertion date: 12/08/17 Insertion time: 13:17 Removal date: 12/10/17 Removal time: 12:00 Assessment and Plan - Plan Hemodialysis will be initiated due to metabolic acidosis severe azotemia will monitor how she does continue to minimal fluid removal as she has severe dehydration Severe cerebral edema seen in the CT scan with mass-effect poor prognosis Patient next hemodialysis is tomorrow, however she may be withdrawn from life support, sodium improved Monitor CPK
[2017-12-11 00:15] VITALS: TEMP 97.5
[2017-12-11] MEDS: Oral Hygiene Kit OROPHARYNG SCH ×2 (01:08→04:02)
[2017-12-11] MEDS: Heparin - SQ 10,000 UNITS/ML Vial SQ SCH ×2 (02:08→09:14)
[2017-12-11] MEDS: Piperacil/Tazo 2.25 GM Premix 50 ML IV.SIG SCH (04:01)
[2017-12-11] MEDS: Chlorhexidine Gluconate 2% 1 Pack (2 Cloths) TOPICAL SCH (04:02)
[2017-12-11 05:54] LABS: Baso % (Auto) 0.1 % (0.0-2.0); Eos # (Auto) 0.1 th/mm3 (0.0-0.4); Eos % (Auto) 1.3 % (0.0-4.0); Hematocrit 30.3 % (35.0-46.0); Hemoglobin 10.1 gm/dL (11.6-15.3); Lymph # (Auto) 1.7 th/mm3 (1.0-4.8); Lymph % (Auto) 23.7 % (9.0-44.0); Mean Corpuscular HGB Conc 33.2 % (32.0-36.0); Mean Corpuscular Hemoglobin 29.4 pg (27.0-34.0); Mean Corpuscular Volume 88.7 fL (80.0-100.0); Mean Platelet Volume 10.4 fL (7.0-11.0); Mono # (Auto) 0.2 th/mm3 (0.0-0.9); Mono % (Auto) 2.8 % (0.0-8.0); Neut # (Auto) 5.2 th/mm3 (1.8-7.7); Neut % (Auto) 72.1 % (16.0-70.0); Platelet Count 78 th/mm3 (150-450); Red Blood Count 3.42 mil/mm3 (4.00-5.30); Red Cell Distribution Width 15.7 % (11.6-17.2); White Blood Count 7.2 th/mm3 (4.0-11.0)
[2017-12-11 06:25] LABS: Albumin 2.1 g/dL (3.4-5.0); Calcium 6.5 mg/dL (8.5-10.1); Carbon Dioxide 19.8 meq/L (21.0-32.0); Magnesium 2.1 mg/dL (1.5-2.5); Phosphorus 4.5 mg/dL (2.5-4.9); Potassium 3.5 meq/L (3.5-5.1)
[2017-12-11] MEDS: Sod Chloride 0.9% Inj 1,000 ML IV.CONT SCH ×2 (06:36→10:49)
[2017-12-11] MEDS: Mupirocin 2% Nasal Oint Topical Syringe EACH NARE SCH (06:38)
[2017-12-11 06:39] LABS: Total Protein 5.5 g/dL (6.4-8.2); Vancomycin,Random 14.7 Comment
[2017-12-11 07:10] LABS: CKMB Percent 1.3 % (0.0-4.0); Creatine Kinase MB 15.2 ng/mL (0.5-3.6)
--- NOTE | 2017-12-11 07:26 | P.PNCC ---
Subjective Subjective Remarks/Hospital Course: 62yF brought in by EMS for unresponsiveness. As per EMS, the patient has a history of CVA approximately 6 months ago but was reportedly functionally independent afterword. She was last seen by her family 1-2 weeks ago. Today, she was found unresponsive on the floor in her home by exterminators. She required intubation on arrival to the ED for airway protection, there are no friends or family members present, and therefore I am unable to elicit any further details of HPI, ROS, etc. 12/09: Patient had RIJ vasc-cath placed and was initiated on emergent hemodialysis yesterday evening, tolerated well. No volume taken off given acute rhabdomyolysis and profound dehydration. Her potassium is much improved this morning, but her sodium has dropped precipitously in the setting of large- volume resuscitation and HD (178 to 155). The patient remained hemodynamically stable but unresponsive overnight. May consider repeat CTH if mental status remains poor to evaluate for cerebral edema. 12/10: Had additional HD session yesterday, remains comatose with no cough/ gag / corneal reflexes. Repeat CTH shows massive cerebral edema with effacement. 12/11: Patient to be transitioned to comfort care this morning when her daughter arrives. Objective Vital Signs / I&O: Vital Signs 12/10/17 07:57 12/10/17 08:00 12/10/17 09:00 Temperature 101.7 F H 101.8 F H Pulse Rate 69 68 Respiratory Rate 15 14 14 Blood Pressure 106/55 L 104/52 L Pulse Oximetry 100 99 99 12/10/17 10:00 12/10/17 11:00 12/10/17 11:25 Temperature 101.5 F H 100.8 F H Pulse Rate 67 64 Respiratory Rate 14 14 12 Blood Pressure 99/53 L 104/55 L Pulse Oximetry 98 98 99 12/10/17 12:00 12/10/17 12:35 12/10/17 12:42 Temperature 99.9 F H 99.1 F Pulse Rate 65 68 Respiratory Rate 12 20 Blood Pressure 110/58 L 114/58 L Pulse Oximetry 99 100 100 12/10/17 13:00 12/10/17 14:00 12/10/17 15:00 Temperature 98.5 F Pulse Rate 75 71 64 Respiratory Rate 12 12 12 Blood Pressure 126/65 119/56 L 123/57 L Pulse Oximetry 100 98 98 12/10/17 15:39 12/10/17 16:00 12/10/17 17:00 Temperature 97.9 F Pulse Rate 61 64 Respiratory Rate 12 12 12 Blood Pressure 129/62 141/68 H Pulse Oximetry 100 99 98 12/10/17 18:00 12/10/17 19:00 12/10/17 19:30 Temperature Pulse Rate 62 60 Respiratory Rate 12 12 12 Blood Pressure 132/63 131/63 Pulse Oximetry 99 99 100 12/10/17 20:00 12/10/17 21:00 12/10/17 22:00 Temperature Pulse Rate 58 L 59 L 62 Respiratory Rate 12 12 12 Blood Pressure 127/61 134/67 132/61 Pulse Oximetry 98 99 99 12/10/17 23:00 12/10/17 23:20 12/11/17 00:00 Temperature 97.5 F L Pulse Rate 58 L 57 L Respiratory Rate 12 12 12 Blood Pressure 120/56 L 121/58 L Pulse Oximetry 99 100 99 12/11/17 01:00 12/11/17 02:00 12/11/17 03:00 Temperature Pulse Rate 54 L 54 L 53 L Respiratory Rate 12 12 12 Blood Pressure 133/68 122/59 L 124/64 Pulse Oximetry 100 100 100 12/11/17 03:45 12/11/17 04:00 12/11/17 05:00 Temperature Pulse Rate 53 L 57 L Respiratory Rate 12 12 12 Blood Pressure 119/62 169/82 H Pulse Oximetry 100 100 98 12/11/17 05:26 Temperature Pulse Rate 58 L Respiratory Rate 20 Blood Pressure 132/66 Pulse Oximetry 94 L Intake & Output 12/10/17 12/11/17 12/11/17 18:59 06:59 18:59 Intake Total 2150 / 2150 1100 / 1100 Output Total 100 / 100 450 / 450 Balance 2049 650 / 650 Weight 89.5 kg Intake: IV 2049 1100 / 1100 NS Inj 1,000 ML @ 125 mls/hr IV 1000 / 1000 1000 / 1000 .CONT .Q8H [facility] Rx#:[id number] Zosyn 2.25 GM Premix 50 ML @ 50 / 50 100 / 100 100 mls/hr IV.SIG Q8H [facility] Rx#: [id number] NS Inj 1,000 ML @ Wide Open IV. 1000 / 1000 SIG BOLUS ONE Rx#:[id number] Water Bolus Amount 100 / 100 Output: Urine 100 / 100 Urine Amount (Catheter) 450 / 450 Straight 450 / 450 Result Diagrams: 12/11/17 04:44 12/11/17 04:44 Objective Remarks: GEN: Ill-appearing, intubated, unresponsive HEENT: NCAT, bilateral pupils 4 mm and fixed NECK: Trachea midline CARDIO: Regular rate and rhythm PULM: Coarse mechanical breath sounds bilaterally, does not over-breathe vent ABD/GI: Soft, non-distended, no guarding EXT/MS: No peripheral edema SKIN: Unchanged large pressure wounds to right side (present on admission) NEURO: GCS 3T, (E1VTM1), no cough/ gag/ corneal reflexes PSYCH: Unable to assess Assessment and Plan - Problem List (1) Rhabdomyolysis Code(s): M62.82 - Rhabdomyolysis Status: Acute (2) Encephalopathy Code(s): G93.40 - Encephalopathy, unspecified Status: Acute (3) Acute respiratory failure with hypoxia Code(s): J96.01 - Acute respiratory failure with hypoxia Status: Acute (4) NSTEMI (non-ST elevated myocardial infarction) Code(s): I21.4 - Non-ST elevation (NSTEMI) myocardial infarction Status: Acute (5) Acute renal failure Code(s): N17.9 - Acute kidney failure, unspecified Status: Acute (6) Acute hyperkalemia Code(s): E87.5 - Hyperkalemia Status: Acute (7) Acute hypernatremia Code(s): E87.0 - Hyperosmolality and hypernatremia Status: Acute (8) Dehydration Code(s): E86.0 - Dehydration Status: Acute (9) Hypoalbuminemia due to protein-calorie malnutrition Code(s): E46 - Unspecified protein-calorie malnutrition Status: Acute (10) Lactic acidosis Code(s): E87.2 - Acidosis Status: Acute (11) Metabolic acidosis Code(s): E87.2 - Acidosis Status: Acute - Assessment and Plan Plan: 62yF found unresponsive in her home, unknown mechanism or down time, now with acute renal failure secondary to rhabdomyolysis, multiple electrolyte derangements, profound dehydration, encephalopathy, elevated troponin (likely due to type II NSTEMI) The patient was sent for a repeat CTH yesterday as her GCS was noted to be 3T ( down from 4-5T on arrival) with pupillary asymmetry. She was found to have massive cerebral edema with effacement secondary to profound hypernatremia/ dehydration/ rhabdomyolysis on arrival. I had 2 separate discussions with her daughter yesterday and explained the patient's exceedingly poor prognosis and that she is unlikely to have any meaningful neurologic recovery. Her daughter understands and would like to transition the patient to comfort care this morning when she arrives. I spoke with the palliative care team yesterday and consulted hospice for family support during transition. Level 2 visit To help prompt me to consider important information that might be impacting today's encounter and assessment, information from prior notes written by myself or my colleagues may have been "brought forward" into today's note. My signature on this note, however, is an attestation that I personally performed the exam, history, and/or decision-making noted today, and, unless otherwise indicated, the interactions with patient, family, and staff as well as the review of records all occurred today. I also attest that the listed assessment and stated plan reflect my best clinical judgment today based on the combination of historical information, prior notes, and today's exam/ interactions. Code Status: DNR, transition to comfort care (5) Acute renal failure Qualifiers: Acute renal failure type: unspecified Qualified Code(s): N17.9 - Acute kidney failure, unspecified
[2017-12-11 07:35] VITALS: RESP 12; O2SAT 99
[2017-12-11 08:23] LABS: Eosinophils 1 % (0-4); Lymphocytes 23 % (9-44); Metamyelocytes 1 % (0-1); Monocytes 4 % (0-8)
[2017-12-11] MEDS: Chlorhexidine 0.12% Oral Kit 15 ML UDC OROPHARYNG SCH (09:13)
[2017-12-11] MEDS: Senna/Docusate Sodium 8.6/50 MG Tablet PO SCH (09:14)
[2017-12-11] MEDS: Famotidine 20 MG Tablet PO SCH (09:14)
[2017-12-11] MEDS ORDERED: Haloperidol Inj 5 MG/ML Ampul IV.PUSH ONE (10:39)
[2017-12-11] MEDS ORDERED: Morphine Inj 4 MG/ML Vial IV.PUSH ONE (10:39)
[2017-12-11] MEDS ORDERED: HYDROmorphone PF Inj 1 MG/ML Ampul IV.PUSH ONE (10:39)
[2017-12-11] MEDS ORDERED: HYDROmorphone PF Inj 1 MG/ML Ampul IV.PUSH PRN (10:39)
[2017-12-11 10:41] VITALS: BP 101/57; PULSE 49
[2017-12-11] MEDS ORDERED: Morphine Sulfate Inj 2 MG/ML Vial IV.PUSH PRN (11:00)
--- NOTE | 2017-12-11 11:09 | P.PNNP ---
Subjective Interval history: Patient remain on the vent. and critically ill. Physical Exam Vital signs: Vital Signs 12/10/17 11:25 12/10/17 12:00 12/10/17 12:35 Temperature 99.9 F H Pulse Rate 65 Respiratory Rate 12 12 Blood Pressure 110/58 L Pulse Oximetry 99 99 100 12/10/17 12:42 12/10/17 13:00 12/10/17 14:00 Temperature 99.1 F 98.5 F Pulse Rate 68 75 71 Respiratory Rate 20 12 12 Blood Pressure 114/58 L 126/65 119/56 L Pulse Oximetry 100 100 98 12/10/17 15:00 12/10/17 15:39 12/10/17 16:00 Temperature 97.9 F Pulse Rate 64 61 Respiratory Rate 12 12 12 Blood Pressure 123/57 L 129/62 Pulse Oximetry 98 100 99 12/10/17 17:00 12/10/17 18:00 12/10/17 19:00 Temperature Pulse Rate 64 62 60 Respiratory Rate 12 12 12 Blood Pressure 141/68 H 132/63 131/63 Pulse Oximetry 98 99 99 12/10/17 19:30 12/10/17 20:00 12/10/17 21:00 Temperature Pulse Rate 58 L 59 L Respiratory Rate 12 12 12 Blood Pressure 127/61 134/67 Pulse Oximetry 100 98 99 12/10/17 22:00 12/10/17 23:00 12/10/17 23:20 Temperature Pulse Rate 62 58 L Respiratory Rate 12 12 12 Blood Pressure 132/61 120/56 L Pulse Oximetry 99 99 100 12/11/17 00:00 12/11/17 01:00 12/11/17 02:00 Temperature 97.5 F L Pulse Rate 57 L 54 L 54 L Respiratory Rate 12 12 12 Blood Pressure 121/58 L 133/68 122/59 L Pulse Oximetry 99 100 100 12/11/17 03:00 12/11/17 03:45 12/11/17 04:00 Temperature Pulse Rate 53 L 53 L Respiratory Rate 12 12 12 Blood Pressure 124/64 119/62 Pulse Oximetry 100 100 100 12/11/17 05:00 12/11/17 05:26 12/11/17 06:00 Temperature Pulse Rate 57 L 58 L 52 L Respiratory Rate 12 20 12 Blood Pressure 169/82 H 132/66 Pulse Oximetry 98 94 L 100 12/11/17 06:01 12/11/17 07:00 12/11/17 07:01 Temperature Pulse Rate 52 L 49 L 49 L Respiratory Rate 12 12 12 Blood Pressure 153/78 H 105/55 L Pulse Oximetry 100 100 100 12/11/17 07:32 12/11/17 08:00 12/11/17 09:00 Temperature Pulse Rate 47 L 48 L Respiratory Rate 12 12 12 Blood Pressure 100/57 L 98/56 L Pulse Oximetry 99 99 98 12/11/17 10:00 Temperature Pulse Rate 49 L Respiratory Rate 12 Blood Pressure 101/57 L Pulse Oximetry 99 Intake & Output 12/10/17 12/11/17 12/11/17 18:59 06:59 18:59 Intake Total 2150 / 2150 1100 / 1100 1000 / 1000 Output Total 100 / 100 450 / 450 Balance 2050 / 2050 650 / 650 1000 / 1000 Weight 89.5 kg Intake: IV 2050 / 0 1100 / 1100 1000 / 1000 NS Inj 1,000 ML @ 125 mls/hr IV 1000 / 1000 1000 / 1000 1000 / 1000 .CONT .Q8H SERGEY Rx#:[id number] Zosyn 2.25 GM Premix 50 ML @ 50 / 50 100 / 100 100 mls/hr IV.SIG Q8H SERGEY Rx#: [id number] NS Inj 1,000 ML @ Wide Open IV. 1000 / 1000 SIG BOLUS ONE Rx#:[id number] Water Bolus Amount 100 / 100 Output: Urine 100 / 100 Urine Amount (Catheter) 450 / 450 Straight 450 / 450 Narrative: GENERAL: Sick appearing female unresponsive SKIN: Warm and dry. HEAD: Normocephalic. EYES: No scleral icterus. No injection or drainage. NECK: Supple, trachea midline. No JVD or lymphadenopathy. CARDIOVASCULAR: Regular rate and rhythm without murmurs, gallops, or rubs. RESPIRATORY: Breath sounds equal bilaterally. No accessory muscle use. GASTROINTESTINAL: Abdomen soft, non-tender, nondistended. EXTREMITIES: No edema NEUROLOGICAL: Obtunded - Urinary Catheter Management Indwelling Temp Sensing Catheter Cath placed during this visit: yes, but has since been removed by the nurse Reason for continuing: Decision to DC catheter Insertion date: 12/08/17 Insertion time: 13:17 Removal date: 12/10/17 Removal time: 12:00 Straight Cath placed during this visit: no Assessment and Plan - Plan Hemodialysis will be initiated due to metabolic acidosis severe azotemia will monitor how she does continue to minimal fluid removal as she has severe dehydration Severe cerebral edema seen in the CT scan with mass-effect poor prognosis Family now decided for with drawl of care. Will sign off from Nephrology.
--- NOTE | 2017-12-11 14:21 | P.DN ---
- Provider Primary care physician: UNKNOWN Admitting clinician: Viji Beth Attending physician on admission: Viji Beth Consults: 12/08/17 16:39 Consult to Nephrology Stat Consulting Provider: Nora Foley For STAT consult, spoke directly to:: agnes figueroa substation operator transforming physician Does the patient have a Pst Specialist who follows them?: No Preferred Nephrology Respiratory Therapy Assistant:: Garment Finisher Physician Reason for Consultation: Acute renal failure, hyperkalemia, rhabdomyolysis, acidemia Notified:: Service Spoke with:: leti Date Notified:: 12/08/17 Time Notified:: 17:25 Comments:: Dr Ignacia Lim spoke with Dr Joseph Ordering Provider: EDDA 12/09/17 07:01 Consult to Palliative Care Routine Consulting Provider: Iraj Mcintyre Reason for Consultation: Severe encephalopathy, intubated, on hemodialysis; will need assistance with family discussions regarding goals of care Notified:: Service Spoke with:: Alma Delia Date Notified:: 12/09/17 Time Notified:: 07:15 Ordering Provider: EDDA 12/10/17 10:59 Consult to Hospice Routine Consulting Provider: Call Back Comment: Patient's daughter would like to discuss transition to hospice care Pronouncing clinician: Viji Beth - Admitting Diagnosis (1) Acute hyperkalemia (2) Acute hypernatremia (3) Acute renal failure (4) Acute respiratory failure with hypoxia (5) Altered mental status (6) Dehydration (7) Encephalopathy (8) Hypoalbuminemia due to protein-calorie malnutrition (9) Lactic acidosis (10) Metabolic acidosis (11) NSTEMI (non-ST elevated myocardial infarction) (12) Pressure ulcer, unstageable (13) Rhabdomyolysis - Diagnosis at Time of (1) Cerebral edema Diagnosis: Secondary (2) Acute hyperkalemia Diagnosis: Secondary (3) Acute hypernatremia Diagnosis: Principal (4) Acute renal failure Diagnosis: Secondary (5) Acute respiratory failure with hypoxia Diagnosis: Secondary (6) Altered mental status Diagnosis: Secondary (7) Dehydration Diagnosis: Secondary (8) Encephalopathy Diagnosis: Secondary (9) Lactic acidosis Diagnosis: Secondary (10) Metabolic acidosis Diagnosis: Secondary (11) NSTEMI (non-ST elevated myocardial infarction) Diagnosis: Secondary (12) Rhabdomyolysis Diagnosis: Principal (13) Hypoalbuminemia due to protein-calorie malnutrition Diagnosis: Secondary (14) Pressure ulcer, unstageable Diagnosis: Secondary - Date and Time Date of admission: 12/08/17 16:38 Date of : 12/11/17 Time of : 12:04 - Summary Details: The patient was transitioned to comfort care by her daughter, who was present at bedside. The patient was premedicated with opiates, benzos, and glycopyrrolate to ensure comfort and was then extubated. She was comfortable during her passing, and was pronounced on 12/11/2017 at 12:04 PM. Procedures: Intubation 12/08/17 Right IJ dialysis catheter insertion 12/08/17 Hemodialysis, 12/08-12/10/17 Brief History: 62yF brought in by EMS for unresponsiveness. As per EMS, the patient has a history of CVA approximately 6 months ago but was reportedly functionally independent afterword. She was last seen by her family 1-2 weeks ago. Today, she was found unresponsive on the floor in her home by exterminators. She required intubation on arrival to the ED for airway protection, there are no friends or family members present, and therefore I am unable to elicit any further details of HPI, ROS, etc. Review of previous chart: Past Medical History PMH: HTN Past Surgical History PAST SURGICAL HISTORY: None Allergies: Coded Allergies: No Known Allergies (Verified Allergy, Mild, 08/15/07) Family History PAST FAMILY HISTORY: Reviewed. No h/o DM or CAD Social History PAST SOCIAL HISTORY: Occasional alcohol. Negative for tobacco or drugs. Her discharge diagnoses in 06/2017 were as follows: (1) Right pontine cerebrovascular accident ICD Code: I63.50 - Cerebral infarction due to unspecified occlusion or stenosis of unspecified cerebral artery Status: Acute (2) Fall ICD Code: W19.XXXA - Unspecified fall, initial encounter Status: Acute (3) Dizziness ICD Code: R42 - Dizziness and giddiness Status: Resolved (4) Nasal bone fracture ICD Code: S02.2XXA - Fracture of nasal bones, initial encounter for closed fracture Status: Acute (5) Renal insufficiency ICD Code: N28.9 - Disorder of kidney and ureter, unspecified Status: Resolved (6) UTI (urinary tract infection) ICD Code: N39.0 - Urinary tract infection, site not specified Result Diagrams: 12/11/17 04:44 12/11/17 04:44 Significant Findings: Abnormal Lab Results 12/10/17 12/10/17 12/11/17 14:43 16:55 00:09 WBC RBC Hgb Hct MCV MCH MCHC RDW Plt Count MPV Prelim Diff (Auto) Neut % (Auto) Lymph % (Auto) [place] % (Auto) Eos % (Auto) Baso % (Auto) Neut # (Auto) Lymph # (Auto) [place] # (Auto) Eos # (Auto) Baso # (Auto) WBC Differential Seg Neuts % (Manual) Band Neuts % (Manual) Lymphocytes % (Manual) Monocytes % (Manual) Eosinophils % (Manual) Metamyelocytes % (Man) Abs Neuts (Manual) Differential Comment Platelet Estimate Platelet Morphology Puncture Site Right radial Patient Temperature 98.6 O2 Saturation 96 ABG pH 7.37 L ABG pCO2 37 L ABG pO2 144 H ABG HCO3 21 L ABG O2 Content 12.5 ABG Base Excess -3.6 L ABG Methemoglobin 1.6 Rodriguez Test Present Hemoglobin 9.0 L Carboxyhemoglobin 0.4 O2 Delivery Device Ventilator Vent Setting Prvc/ac Inspired O2 40 Critical Value No Sodium Potassium Chloride Carbon Dioxide Anion Gap BUN Creatinine Estimated GFR POC Glucose 113 H 103 Random Glucose Calcium Prot Corrected Calcium Phosphorus Magnesium Total Bilirubin AST ALT Alkaline Phosphatase Total Creatine Kinase CK-MB (CK-2) CK-MB (CK-2) % Total Protein Albumin Random Vancomycin 12/11/17 12/11/17 12/11/17 04:44 04:44 05:51 WBC 7.2 RBC 3.42 L Hgb 10.1 L Hct 30.3 L MCV 88.7 MCH 29.4 MCHC 33.2 RDW 15.7 Plt Count 78 L MPV 10.4 Prelim Diff (Auto) Slide review pending Neut % (Auto) 72.1 H Lymph % (Auto) 23.7 [place] % (Auto) 2.8 Eos % (Auto) 1.3 Baso % (Auto) 0.1 Neut # (Auto) 5.2 Lymph # (Auto) 1.7 [place] # (Auto) 0.2 Eos # (Auto) 0.1 Baso # (Auto) 0.0 WBC Differential Manual diff final Seg Neuts % (Manual) 63 Band Neuts % (Manual) 8 H Lymphocytes % (Manual) 23 Monocytes % (Manual) 4 Eosinophils % (Manual) 1 Metamyelocytes % (Man) 1 Abs Neuts (Manual) 5.2 Differential Comment . Platelet Estimate Low L Platelet Morphology Enlarged H Puncture Site Patient Temperature O2 Saturation ABG pH ABG pCO2 ABG pO2 ABG HCO3 ABG O2 Content ABG Base Excess ABG Methemoglobin Rodriguez Test Hemoglobin Carboxyhemoglobin O2 Delivery Device Vent Setting Inspired O2 Critical Value Sodium 154 H Potassium 3.5 Chloride 118 H Carbon Dioxide 19.8 L Anion Gap 16 H BUN 68 H Creatinine 5.00 H Estimated GFR 9 L POC Glucose 90 Random Glucose 98 Calcium 6.5 L* Prot Corrected Calcium 7.3 L* Phosphorus 4.5 Magnesium 2.1 Total Bilirubin 0.7 AST 91 H ALT 36 Alkaline Phosphatase 104 Total Creatine Kinase 1207 H CK-MB (CK-2) 15.2 H CK-MB (CK-2) % 1.3 Total Protein 5.5 L Albumin 2.1 L D Random Vancomycin 14.7 Imaging: CTH, 12/10/17- 1. Dramatic change when compared to the prior examination with diffuse edema throughout the brain and mass effect with effacement as detailed above. Hospital Course: 62yF brought in by EMS for unresponsiveness. As per EMS, the patient has a history of CVA approximately 6 months ago but was reportedly functionally independent afterword. She was last seen by her family 1-2 weeks ago. Today, she was found unresponsive on the floor in her home by exterminators. She required intubation on arrival to the ED for airway protection, there are no friends or family members present, and therefore I am unable to elicit any further details of HPI, ROS, etc. 12/09: Patient had RIJ vasc-cath placed and was initiated on emergent hemodialysis yesterday evening, tolerated well. No volume taken off given acute rhabdomyolysis and profound dehydration. Her potassium is much improved this morning, but her sodium has dropped precipitously in the setting of large- volume resuscitation and HD (178 to 155). The patient remained hemodynamically stable but unresponsive overnight. May consider repeat CTH if mental status remains poor to evaluate for cerebral edema. 12/10: Had additional HD session yesterday, remains comatose with no cough/ gag / corneal reflexes. Repeat CTH shows massive cerebral edema with effacement. 12/11: Patient transitioned to comfort care this morning when her daughter arrived. - Additional Data Confirmation of as documented by pronouncing clinician: no pulse, no respirations, no heart sounds, pupils fixed and dilated Family: at bedside Additional persons at bedside: viner operator Attending/PCP notified?: Yes Attending physician: Ignacia Was code activated?: No Autopsy requested?: No operations examiner notified?: Yes Advance directives: Yes (comfort care) Hospice patient?: Yes (inpatient transition to comfort care)
== END 2017-12-11 12:04 | disposition expired ==
LOC: NEPC 12:36 → NEDA 16:38 → HIMC 16:58
PROVIDERS: ADMIT Surgery Surgical Critical Care; ATTEND Surgery Surgical Critical Care